=== PATIENT | male | born 1945 | race Caucasian/White ===

== ENCOUNTER 2019-07-07 12:11 | Outpatient (CLI) | payer OTHER, SELFPAY ==
--- NOTE | 2019-07-07 12:45 | USCV_ITS ---
Mulugeta Murillo Age: 73 Gender: M : 1945 Exam Date: 07/07/2019 12:25 Ordering Phys: Lukas Campbell DO Technologist: Exam Location: [facility] Indication: PVD RIGHT LEFT Brachial 184.00 mmHg Brachial 182.00 mmHg Pressure (mmHg) Waveform Pressure (mmHg) Waveform 165.00 BIOMETRICS ANALYST 120.00 155.00 DPA 126.00 0.84 Ankle/Brachial Index 0.68 0.80 Pre-Exercise Toe/Brachial Index 0.67 FINDINGS Slightly diminished resting GINNY on the right side Moderately diminished resting GINNY on the left side Normal resting TBI on the right side Slightly diminished resting TBI on the left side CONCLUSIONS 1. Features of moderate peripheral artery disease on the left side #2. Possible mild peripheral artery disease on the right side No similar previous studies are available for comparison Dr Blank Renteria MD FAC (Electronically Signed) Final Date: 07 July 2019 19:59 S
== END 2019-07-07 12:12 | disposition home or self-care (01) ==
LOC: US 12:12
PROVIDERS: Family Provider Emergency Medicine Emergency Medical Services; PCP Emergency Medicine Emergency Medical Services; Visit Provider Emergency Medicine Emergency Medical Services
DX: I73.9 Peripheral vascular disease, unspecified (principal)
CPT/HCPCS: 93922

== ENCOUNTER 2019-07-14 06:54 | Day surgery (SDC) | payer OTHER, SELFPAY ==
[2019-07-13 10:24] VITALS: BMI 32.9
--- NOTE | 2019-07-14 07:10 | ANES.PREANE2 ---
Pre-Anesthetic Assessment Pre-Anesthetic Assessment: Height/Weight: Height 1.68 m Weight 92.533 kg Proposed Procedure: Operation Date: 07/14/19 08:45 Proposed Procedures p EGD/Colon(Not Applicable) - Toney Belle MD s Colonoscopy(Not Applicable) - Toney Belle MD Social: Social History: Tobacco and No alcohol Exam: Pre-Anes Outpt Exam: alert, oriented x 3, clear to auscultation bilaterally (wheezes) and regular rate & rhythm Airway: Submandibular: WNL Cervical ROM: WNL MP: 2 Dentition: Other (very poor dentation) History/ROS: No significant history except as noted Pulmonary: Pulmonary: COPD and ALDANA CV/HEM: CV/HEM: Anemia and HTN : Comments: prostate ca Hepatic: Hepatic: None reported GI: GI: GERD (occ) Metabolic: Metabolic: Hyperlipidemia Musc/skel: Musc/skel: OA/DJD Neuropsych: Neuropsych: None reported Anesthetic Plan: ASA status: 3 Anesthesia: Anesthesia Evaluation and MAC Risk of > 500 ml blood loss (7ml/kg in children): No PFSH Anesthesia PFSH: Medical History Anemia Carcinoma in situ of prostate COPD (chronic obstructive pulmonary disease) Hyperlipemia Hypertension Surgical History History of colonoscopy (~2008) normal Family History Denies family history of Anesthesia complication Bleeding disorder Social History Smoking and tobacco status: current every day smoker Quit status (tobacco): has quit using tobacco Second hand smoke exposure: No Alcohol intake: never Desire information about alcohol rehabilitation?: No Adopted: No Caregiver/support person: Yes Lives independently: Yes Household members: spouse Marital status: Highest education level completed: High School Graduate service: Yes Current occupational status: employed Current occupational exposures/hazards: No Pets and animals: Yes Pets & animals: dog(s) History of recent travel: No Sexually active: No Current gender identity: Male Kami/Anabaptism: Religion Special kami needs: No Data Anesthesia Cardiac Studies: No Data to Display
[2019-07-14 07:48] VITALS: BP 156/84; PULSE 96; RESP 20; TEMP 36.3; O2SAT 94
--- NOTE | 2019-07-14 07:52 | W.PM.OPSUD ---
Surgery/Procedure H&P Update DATE OF PROCEDURE: July 14, 2019 DATE H&P PERFORMED: 07/01/19 H&P UPDATE INFORMATION: I have reviewed H&P completed within last 30 days, I have examined patient prior to procedure and No changes to prior documentation PREOP DIAGNOSIS: Anemia PLANNED PROCEDURE: Operation Date: 07/14/19 08:45 Proposed Procedures p EGD/Colon(Not Applicable) - Toney Belle MD s Colonoscopy(Not Applicable) - Toney Belle MD
[2019-07-14] MEDS: sodium chloride 0.9% 1,000 ML 30 ML IV (08:04)
[2019-07-14 09:01] VITALS: BP 162/83; PULSE 84; RESP 16; TEMP 36.4; O2SAT 99
--- NOTE | 2019-07-14 09:04 | ANE.PACU2 ---
 Inpatient post-anesthesia follow up: Airway intact: Yes Vital signs: Temperature 97.5 F Pulse Rate 84 Respiratory Rate 16 Blood Pressure 162/83 Pulse Oximetry 99 Oxygen Delivery Me thod Nasal Cannula Oxygen Flow Rate Fraction of Inspir ed Oxygen 3 Hydration adequate: Yes Nausea and vomiting: No Pain level: 1 Mental status: Baseline
[2019-07-14 09:11] VITALS: BP 169/84; PULSE 82; RESP 18; O2SAT 96
== END 2019-07-14 09:20 | disposition home or self-care (01) ==
PROVIDERS: Family Provider Emergency Medicine Emergency Medical Services; PCP Emergency Medicine Emergency Medical Services; Visit Provider Surgery
PROC: 0DJ08ZZ Inspection of Upper Intestinal Tract, Via Natural or Artificial Opening Endoscopic (ICD-10-PCS; CPT 43235; principal; 2019-07-14 08:45)
PROC: 0DJD8ZZ Inspection of Lower Intestinal Tract, Via Natural or Artificial Opening Endoscopic (ICD-10-PCS; CPT 45378; 2019-07-14 08:45)
DX: D50.9 Iron deficiency anemia, unspecified (principal); K57.30 Diverticulosis of large intestine without perforation or abscess without bleeding; K64.8 Other hemorrhoids; K44.9 Diaphragmatic hernia without obstruction or gangrene; J44.9 Chronic obstructive pulmonary disease, unspecified; F17.210 Nicotine dependence, cigarettes, uncomplicated; E78.5 Hyperlipidemia, unspecified; I10 Essential (primary) hypertension; Z85.46 Personal history of malignant neoplasm of prostate; M19.90 Unspecified osteoarthritis, unspecified site
CPT/HCPCS: 12345; 43239; 45378; 88305; J2704; J7030

== ENCOUNTER → 2019-08-06 10:55 | Outpatient (BNVA) | payer MEDICARE, SELFPAY | PROVIDERS: Family Provider Emergency Medicine Emergency Medical Services; PCP Emergency Medicine Emergency Medical Services; Visit Provider Emergency Medicine | DX: R07.81 Pleurodynia (principal); J43.9 Emphysema, unspecified | CPT/HCPCS: 71046 ==

== ENCOUNTER 2019-08-12 15:13 | Outpatient (CLI) | payer MEDICARE, OTHER, SELFPAY ==
--- NOTE | 2019-08-12 15:31 | MR_ITS ---
WS: [id number] MRI THORACIC SPINE WITHOUT CONTRAST TECHNIQUE: Sagittal T1, T2 and STIR imaging. Axial T2 imaging. Noncontrast imaging obtained. CLINICAL INFORMATION: RIB PAIN ON LEFT SIDE COMPARISON: MRI December 22, 2017 FINDINGS: Mild lumbar curve. Acute compression with edema involving the superior endplate at T5 with mild loss vertebral body height measuring approximately 20%. No retropulsion. Mild edema extends into the pedic les bilaterally. No high-grade central canal stenosis. Cord signal is normal. Chronic compression fra ctures T4 and T6 vertebral bodies stable since 2018. No significant disc extrusions or protrusions. A few tiny disc protrusions more prominent at T5-T6, T7-T8, T10-11, Schmorl's nodes in the lower thoracic spine. Normal visualized thoracic aorta. Mild to moderate facet arthropathy in the lower thoracic spine. Multilevel bony foraminal narrowing worse at right T2-3, le ft T5-6, right T9-T10, right T10-11. Normal visualized thoracic aorta. Partially visualized cysts in the right hepatic lobe MR/MR thoracic spin wo con* [id number] IMPRESSION: 1. Acute compression of the T5 superior endplate with mild loss vertebral body height and edema consistent with acute compression. No retropulsion. Edema ext ends into the right greater than left pedicles. 2. No high-grade central canal stenosis. 3. Chronic compression of the T4 and T6 vertebral bodies unchanged since 2018. 4. Cord signal is normal.
== END 2019-08-12 15:14 | disposition home or self-care (01) ==
LOC: RADWPI 15:19
PROVIDERS: Family Provider Emergency Medicine Emergency Medical Services; PCP Emergency Medicine Emergency Medical Services; Visit Provider Emergency Medicine
DX: G95.19 Other vascular myelopathies (principal); R07.81 Pleurodynia
CPT/HCPCS: 72146

== ENCOUNTER 2020-06-21 15:53 | Inpatient (IN) | payer OTHER, MEDICARE, SELFPAY ==
[2020-06-21] VITALS (11 sets, daily range): BP systolic 106–144; BP diastolic 56–75; PULSE 85–103; RESP 16–24; TEMP 36.4–36.7; O2SAT 93–97; BMI 30.7
--- NOTE | 2020-06-21 16:09 | ECG_ITS ---
[facility] Test Date: 2020-06-21 Pat Name: Mulugeta Murillo Department: Room: Gender: Male Family Psychologist: : 1945 Requested By: Apolinar Claros Order Number: [id number] Cortez MD: Blank Renteria M.D. Measurements Intervals [place] Rate: 89 P: 64 CA: 152 QRS: 3 QRSD: 79 T: 71 QT: 360 QTc: 440 Interpretive Statements SINUS RHYTHM No previous ECG available for comparison Electronically Signed On 06-21-2020 18:06:12 AGRICULTURAL CHEMIST by Blank Renteria M.D. [id number]
--- NOTE | 2020-06-21 16:09 | XR_ITS ---
WS: [id number] CHEST XRAY TECHNIQUE: Portable chest. CLINICAL INFORMATION: cp COMPARISON: August 06, 2019 FINDINGS: Heart: Normal cardiac silhouette. Lungs: Advanced chronic emphysematous changes. Chronic appearing interstitial thickening in the lung bases. No acute pulmonary infiltrates. Bones: Normal visualized bony structures. XR/XR chest 1V portable [id number] IMPRESSION: No acute chest findings
[2020-06-21 16:53] LABS: Basophils # 0.1 10^3/uL (0.0-0.1); Basophils % 0.7 %; Eosinophils # 0.1 10^3/uL (0.0-0.8); Eosinophils % 1.7 %; Hematocrit 32.5 % (42.0-52.0); Lymphocytes # 0.6 10^3/uL (0.8-4.8); Lymphocytes % 7.4 %; Mean Corpuscular HGB Conc 30.8 g/dL (30.0-36.0); Mean Corpuscular Hemoglobin 29.3 pg (28.0-34.0); Mean Corpuscular Volume 95.3 fL (80-94); Mean Platelet Volume 10.3 fL (7.4-10.4); Monocytes # 0.5 10^3/uL (0.2-0.9); Monocytes % 6.8 %; Neutrophils # 6.18 10^3/uL (1.8-7.7); Nucleated Red Blood Cells % 0 %; Platelet Count 271 10^3/cmm (130-400); Red Blood Count 3.41 10^6/uL (4.1-5.3); Red Cell Distribution Width 15.4 % (12.1-15.1); White Blood Count 7.5 10^3/uL (4.0-10.0)
[2020-06-21 17:13] LABS: D Dimer 1.94 ug/mIFEU (0-0.59)
[2020-06-21 17:35] LABS: Alanine Aminotransferase 18 U/L (0-41); Albumin Level 3.8 g/dL (3.5-5.2); Alkaline Phosphatase 79 IU/L (40-130); Aspartate Amino Transferase 18 U/L (0-40); Blood Urea Nitrogen 22 mg/dL (8-23); Calcium 8.9 mg/dL (8.5-10.5); Carbon Dioxide 27 mmol/L (22-29); Chloride 108 mmol/L (98-107); Globulin 2.3 g/dL (1.3-4.6); Glucose 115 mg/dL (65-115); NT Pro B Type Natriuretic Pept 2384 pg/mL (0-125); Osmolality Calculated 302 mOsm/kg (285-295); Sodium 144 mmol/L (136-145); Total Bilirubin 0.2 mg/dL (0.15-1.2); Total Protein 6.1 g/dL (6.6-8.7)
[2020-06-21 17:39] LABS: Troponin(5th) Baseline 252 ng/L (0-15)
--- NOTE | 2020-06-21 17:44 | PC.PHAR ---
[facility] am still [facility] The patient states they prescribed him iron, omeprazole and some kind of blood pressure medication. Pt states that he has not yet started these medications. I will update the medication list if/when I get a list from the [facility].
--- NOTE | 2020-06-21 17:59 | ED_ITS ---
HPI - Chest Pain General: Chief Complaint: Chest Pain Stated Complaint: nighttime heartburn/arm pain last 5 days Time Seen by Provider: 06/21/20 16:09 History of Present Illness: HPI narrative: The patient is a 74-year-old male who was sent to the ER by his primary care physician because he has been having midsternal what he calls heartburn when laying down for the past for 5 days he has had to sleep in a recliner as well because the pain gets to bed. He is tried several different antacids which have not helped him. He also has been having increased peripheral edema for which she was prescribed a water pill which he is not taking for the past 3 months because he does not like to urinate frequently as he has back pain and it hurts. Associated symptoms: Deny abdominal pain, dyspnea or palpitations Review of Systems General: Reports: 10 or more systems reviewed and unremarkable except in HPI and below Const: Denies: fatigue Eyes: Denies: change in vision, blurry vision or eye redness ENMT: Denies: throat pain, swelling of lips/tongue, ear or mastoid pain or nasal congestion Card: Reports: chest pain; Denies: palpitations, irregular heart rhythm, edema, dyspnea on exertion or orthopnea Resp: Denies: dyspnea, productive cough or non-productive cough GI: Reports: other (Heartburn); Denies: abdominal pain, diarrhea or GI cramping : Denies: flank pain, urinary frequency or urinary urgency Musc: Denies: neck pain, back pain, extremity pain, joint pain, joint redness, limited range of motion or muscle weakness Skin/Breast: Denies: rash, pruritus, erythema, skin pain or skin tenderness Neuro: Denies: headache(s), numbness in extremities, weakness in extremities, sensory changes, difficulty walking, dizziness, confusion or Slurred speech present Psych: Denies: anxiety or depression Endo: Denies: polyuria All/Imm: Denies: urticaria, throat swelling or tongue swelling PFSH ED PFSH: Medical History Anemia Carcinoma in situ of prostate COPD (chronic obstructive pulmonary disease) Hiatal hernia Hyperlipemia Hypertension Wedge compression fracture of unspecified thoracic vertebra, initial encounter for closed fracture Surgical History H/O esophagogastroduodenoscopy 07/14/2019: Hiatal hernia and duodenal polyps History of colonoscopy (~2008) 07/14/2019: Normal Family History Other No pertinent family history Social History Smoking and tobacco status: current every day smoker e-cigarettes E-Cigarette Details: vaporizer device Alcohol intake: never Substance/Drug Use: never Household members: spouse Housing: House Marital status: Current occupational status: employed 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 History of recent travel: No Kami/Anglican: Baptism Physical Exam Const: COMMON NORMALS: no acute distress, average body habitus, patient oriented x3, no limitations, healthy appearing, alert and well nourished GENERAL APPEARANCE: cooperative, comfortable, well kempt and well developed ORIENTATION/CONSCIOUSNESS: Yes awake, Yes oriented to person, Yes oriented to place and Yes oriented to time HENMT: COMMON NORMALS: normocephalic, external ears normal and Normal external nose present HEAD & SCALP: normal to inspection and normocephalic NOSE: Normal external nose present EXTERNAL EAR: Yes external ears normal MOUTH: Normal oral and palatal mucosa present THROAT: posterior oropharynx normal Eye: COMMON NORMALS: Equal, round and reactive pupils present and EOMs intact bilaterally GENERAL EYE: appearance normal, both eyes and all related structures PUPIL: Yes Equal, round and reactive pupils present Neck/C-Spine: COMMON NORMALS: full ROM, no lymphadenopathy, no meningeal signs and no JVD GENERAL: Yes normal visual inspection Lymph: LYMPHATIC: no lymphadenopathy noted Chest: COMMONS NORMALS: normal inspection of the chest and normal palpation of entire chest wall Resp: COMMON NORMALS: normal respiratory effort, No retractions, No use of accessory muscles, clear to auscultation bilaterally and percussion normal EFFORT & INSPECTION: Yes able to speak in complete sentences AUSCULTATION: clear to auscultation bilaterally PERCUSSION: percussion normal Cardio: COMMON NORMALS: no JVD, regular rate, regular rhythm, S1 normal heart sound present, S2 normal heart sound present and Peripheral pulses 2+ throughout RATE: regular rate RHYTHM: regular rhythm HEART SOUNDS: S1 normal heart sound present and S2 normal heart sound present PERIPHERAL PULSES: Peripheral pulses 2+ throughout GI: COMMON NORMALS: Normal to inspection, nondistended, normoactive bowel sounds present, Soft to palpation, non-tender and no masses INSPECTION: Yes normal to inspection PALPATION: Yes Soft to palpation : COMMON NORMALS: Yes no CVA tenderness BLADDER/KIDNEY EXAM: Yes no CVA tenderness Back/Pelvis: COMMON NORMALS: no CVA tenderness, thoracic and lumbar spine normal to inspection, no thoracic nor lumbar tenderness and thoraco-lumbar ROM normal Extremity: COMMON NORMALS: normal to inspection, full ROM, capillary refill normal, no joint enlargement and no pedal edema NARRATIVE EXTREMITY EXAM: 2+ peripheral edema to his mid calf bilaterally. GENERAL: Yes normal exam except as noted Neuro: COMMON NORMALS: patient oriented x3, CN's II-XII intact bilaterally, moves all extremities, no focal motor deficits, no sensory deficits noted and gait normal SENSORIUM/ORIENTATION: Yes alert, Yes oriented to person, Yes oriented to place and Yes oriented to time MENINGEAL SIGNS: Yes no meningeal signs Psych: COMMON NORMALS: mental status grossly normal, Normal thought process present, cooperative, normal affect and speech normal APPEARANCE: Yes well kempt ATTITUDE: Yes calm SPEECH: Yes normal speech THOUGHT PROCESS: Normal thought process present Skin: COMMON NORMALS: no rashes or lesions noted GENERAL SKIN EXAM: no rashes or lesions noted Course Vital Signs: Vital signs: Vital Signs Temperature 97.3 F L 06/23/20 07:12 Pulse Rate 105 H 06/23/20 07:12 Respiratory Rate 25 H 06/23/20 07:12 Blood Pressure 158/92 06/23/20 07:12 Pulse Oximetry 96 06/23/20 07:12 MDM - Chest Pain MDM Narrative: Medical decision making narrative: The patient came in complaining of heartburn. He had an elevated troponin and proBNP was severely elevated as well. He is likely in congestive heart failure. He was given IV Lasix and admitted to the hospitalist. Lab Data: Labs: Lab Results 06/21/20 06/21/20 06/21/20 Range/Units 16:28 16:28 16:28 WBC 7.5 (4.0-10.0) 10^3/ uL RBC 3.41 L (4.1-5.3) 10^6/u L Hgb 10.0 L (11.7-16.6) g/dL Hct 32.5 L (42.0-52.0) % MCV 95.3 H (80-94) fL MCH 29.3 (28.0-34.0) pg MCHC 30.8 (30.0-36.0) g/dL RDW 15.4 H (12.1-15.1) % Plt Count 271 (130-400) 10^3/c mm MPV 10.3 (7.4-10.4) fL Neut % (Auto) 83.0 % Lymph % (Auto) 7.4 % [place] % (Auto) 6.8 % Eos % (Auto) 1.7 % Baso % (Auto) 0.7 % Neut # (Auto) 6.18 (1.8-7.7) 10^3/u L Lymph # (Auto) 0.6 L (0.8-4.8) 10^3/u L [place] # (Auto) 0.5 (0.2-0.9) 10^3/u L Eos # (Auto) 0.1 (0.0-0.8) 10^3/u L Baso # (Auto) 0.1 (0.0-0.1) 10^3/u L Nucleated RBC % (a uto) 0 % Nucleated RBCs # 0.0 /100WBC D-Dimer 1.94 H (0-0.59) ug/mIFE U Sodium 144 (136-145) mmol/L Potassium 4.0 (3.5-5.1) mmol/L Chloride 108 H (98-107) mmol/L Carbon Dioxide 27 (22-29) mmol/L Anion Gap 13.0 (5-19) BUN 22 (8-23) mg/dL Creatinine 1.1 (0.7-1.2) mg/dL GFR Calculation Not Reportable Glucose 115 (65-115) mg/dL Calculated Osmolal ity 302 H (285-295) mOsm/k g Calcium 8.9 (8.5-10.5) mg/dL Iron (59-158) ug/dL TIBC mcg/dl % Saturation (20-50) % Unsat Iron Binding (112-347) ug/dL Ferritin (30-400) ng/mL Total Bilirubin 0.2 (0.15-1.2) mg/dL AST 18 (0-40) U/L ALT 18 (0-41) U/L Alkaline Phosphata se 79 (40-130) IU/L Troponin T Baselin e (0-15) ng/L NT-Pro-B Natriuret Pep 2384 H (0-125) pg/mL Total Protein 6.1 L (6.6-8.7) g/dL Albumin 3.8 (3.5-5.2) g/dL Globulin 2.3 (1.3-4.6) g/dL Procalcitonin (0-0.5) ng/mL TSH (0.27-4.20) uIU/ mL 06/21/20 06/21/20 06/21/20 Range/Units 16:28 16:28 16:28 WBC (4.0-10.0) 10^3/ uL RBC (4.1-5.3) 10^6/u L Hgb (11.7-16.6) g/dL Hct (42.0-52.0) % MCV (80-94) fL MCH (28.0-34.0) pg MCHC (30.0-36.0) g/dL RDW (12.1-15.1) % Plt Count (130-400) 10^3/c mm MPV (7.4-10.4) fL Neut % (Auto) % Lymph % (Auto) % [place] % (Auto) % Eos % (Auto) % Baso % (Auto) % Neut # (Auto) (1.8-7.7) 10^3/u L Lymph # (Auto) (0.8-4.8) 10^3/u L [place] # (Auto) (0.2-0.9) 10^3/u L Eos # (Auto) (0.0-0.8) 10^3/u L Baso # (Auto) (0.0-0.1) 10^3/u L Nucleated RBC % (a uto) % Nucleated RBCs # /100WBC D-Dimer (0-0.59) ug/mIFE U Sodium (136-145) mmol/L Potassium (3.5-5.1) mmol/L Chloride (98-107) mmol/L Carbon Dioxide (22-29) mmol/L Anion Gap (5-19) BUN (8-23) mg/dL Creatinine (0.7-1.2) mg/dL GFR Calculation Glucose (65-115) mg/dL Calculated Osmolal ity (285-295) mOsm/k g Calcium (8.5-10.5) mg/dL Iron 57 L (59-158) ug/dL TIBC 292 mcg/dl % Saturation 19.5 L (20-50) % Unsat Iron Binding 235 (112-347) ug/dL Ferritin 72 (30-400) ng/mL Total Bilirubin (0.15-1.2) mg/dL AST (0-40) U/L ALT (0-41) U/L Alkaline Phosphata se (40-130) IU/L Troponin T Baselin e 252 H* (0-15) ng/L NT-Pro-B Natriuret Pep (0-125) pg/mL Total Protein (6.6-8.7) g/dL Albumin (3.5-5.2) g/dL Globulin (1.3-4.6) g/dL Procalcitonin 0.18 (0-0.5) ng/mL TSH 2.27 (0.27-4.20) uIU/ mL Discharge Plan Discharge Patient Disposition: Admitted As Inpatient Admit Provider: Nick Grey Coding Level of Care Code ED [place] for Talha Luz
--- NOTE | 2020-06-21 18:08 | CTR_ITS ---
PROCEDURE INFORMATION: Exam: CT Angiography Chest With Contrast Exam date and time: 06/21/2020 6:23 PM Age: 74 years old Clinical indication: Shortness of breath; Additional info: Elevated d-dimer, possible pe TECHNIQUE: Imaging protocol: Computed tomographic angiography of the chest with intravenous contrast. 3D rendering (Not supervised by radiologist): MIP and/or 3D reconstructed images were created by the technologist. Radiation optimization: All CT scans at this facility use at least one of these dose optimization techniques: automated exposure control; mA and/or kV adjustment per patient size (includes targeted exams where dose is matched to clinical indication); or iterative reconstruction. Contrast material: [id number]; Contrast volume: 80 ml; Contrast route: INTRAVENOUS (IV); COMPARISON: CR XR chest 1V portable [id number] 06/21/2020 4:28 PM RADIATION DOSE METRICS: Total DLP (mGy-cm): 621.45 FINDINGS: Pulmonary arteries: The exam is positive for pulmonary emboli with subocclusive filling defects especially in the right lower lobe pulmonary artery branches. Aorta: Unremarkable. No aortic aneurysm. No aortic dissection. Lungs: There are severe emphysematous changes with multiple bulla. There is lingular and basilar atelectasis versus scarring. No airspace consolidation. Pleural spaces: Unremarkable. No pneumothorax. No pleural effusion. Heart: There is no saddle embolus or right heart strain. The right ventricle measures 3.4 cm and the left measures 4.9 cm. The RV/LV ratio is 0.8 Mediastinal space: A small hiatal hernia is present. Lymph nodes: Unremarkable. No enlarged lymph nodes. Liver: Multiple hepatic hypodensities are noted and most are too small to characterize. There is a 2.0 cm cyst left lobe of the liver image 419. Stomach and bowel: There is moderately excessive colonic stool content. Bones/joints: Chronic appearing compression fractures of T12 and L1 are noted. There is also chronic appearing anterior column fractures of T5, T6 and T7. No acute fracture or subluxation. There is osteopenia. Soft tissues: Unremarkable. CT/CT angio chest PE protcl [id number] IMPRESSION: 1. The exam is positive for pulmonary emboli with subocclusive filling defects especially in the right lower lobe pulmonary artery branches. 2. There are severe emphysematous changes. No airspace consolidation. 3. Multiple chronic appearing compression fractures are noted in the spine. Radiation Dose CTDIVOL = (mGy): DLP = 621.45 (mGy-cm)
--- NOTE | 2020-06-21 18:09 | ECG_ITS ---
[facility] Test Date: 2020-06-21 Pat Name: Mulugeta Murillo Department: Room: 101 Gender: Male Youth Care Worker: : 1945 Requested By: Apolinar Claros Order Number: [id number] Cortez MD: Idalia Cota M.D. Measurements Intervals [place] Rate: 86 P: 55 CT: 158 QRS: 11 QRSD: 78 T: 64 QT: 360 QTc: 432 Interpretive Statements SINUS RHYTHM Compared to ECG 06/21/2020 16:08:44 No significant changes Electronically Signed On 06-22-2020 22:27:37 PARKING OFFICER by Idalia Cota M.D. [id number]
[2020-06-21] MEDS: FUROsemide 10 mg/mL SDV 4mL 40 MG IVP (18:11)
--- NOTE | 2020-06-21 18:15 | PM.HP ---
Providers/Chief Complaint Admitting Physician: Nick Grey MD Primary Care Provider: Lukas Campbell DO Chief Complaint: nighttime heartburn/arm pain last 5 days History of Present Illness Mulugeta Murillo is a 74 year old male with past medical history of prostate cancer, iron deficiency anemia, COPD, chronic smoker who presented to the ER today because of ongoing chest discomfort which is burning-like chest pain retrosternally every night when he lies to sleep for last 5 days. Patient does not have any similar symptoms on walking around, after eating. Patient has never had this kind of symptoms in the past. Symptoms are associated with nausea but no vomiting. Patient states he supposed to be taking Lasix but has not been taking it for last couple of weeks because it makes him urinate more. He denies of having any dizziness, vomiting, diarrhea, fever, cough, expectoration, PND, orthopnea, more swelling in his legs than usual, long trip, known exposure to COVID-19. Blood work in the ER showed a white count of 7.5, hemoglobin of 10, platelet count of 271, D-dimer of 1.9, sodium 144, potassium of 4, creatinine of 1.1, alkaline phosphatase of 79, AST/ALT of 18/18, baseline troponin of 252, proBNP of 2384 with chest x-ray done in the ER having no acute findings and electrocardiogram done showing sinus rhythm with rate of 86 with poor R wave progressions Review of Systems General: Reports: 10 or more systems reviewed and unremarkable except in HPI and below Const: Denies: fever(s), chills, body aches, change in appetite, change in weight, malaise, night sweats, diaphoresis, change in sleep pattern, daytime sleepiness or snoring Eyes: Denies: change in vision, blurry vision, photophobia, eye discomfort or eye discharge ENMT: Denies: throat pain, enlarged tonsils, hoarseness, mouth pain, oral sores, dry mouth, tinnitus, nasal congestion or post nasal drip Card: Denies: chest pain, palpitations, irregular heart rhythm, edema, swelling of feet/ankles, lightheadedness, syncope, pre-syncope, dyspnea on exertion, orthopnea, leg pain with exertion or acrocyanosis Resp: Denies: dyspnea, productive cough, non-productive cough, wheezing, stridor, pain on inspiration, change in phlegm color, hemoptysis or chest congestion GI: Denies: abdominal pain, nausea, vomiting, hematemesis, coffee ground emesis, dysphagia, heartburn, diarrhea, constipation, bloating, GI cramping, change in bowel habits, pain on defecation, hematochezia or melena : Denies: flank pain, difficulty urinating, dysuria, urinary frequency, urinary urgency, urinary hesitancy, urinary dribbling, difficulty starting urination, change in urine stream, nocturia or hematuria Musc: Denies: neck pain, back pain, extremity pain, joint pain, joint swelling, joint redness, joint stiffness or limited range of motion Neuro: Denies: headache(s), numbness in extremities, weakness in extremities, sensory changes, lack of coordination, difficulty walking, frequent falls, dizziness, vertigo, confusion, Slurred speech present, difficulty communicating thoughts or seizure-like activity Psych: Denies: anxiety, depression, mood swings, panic attacks, hopelessness or irritability Endo: Denies: polyuria, polydipsia, tired all the time, cold intolerance, excessive sweating, flushing or heat intolerance Scott/Lymph: Denies: easy bruising or easy bleeding All/Imm: Denies: tongue swelling, facial swelling or acute wheezing Medications/Allergies Home Medications Medication Instructions Recorded Confirmed Last Taken Type albuterol sulfate 90 mcg/actuation 2 inh INHALATION QID PRN each 06/28/19 06/21/20 06/21/20 History breath activated powder inhaler budesonide-formoterol HFA 160 2 puff INHALATION BID@0600,1700 06/28/19 06/21/20 06/21/20 History mcg-4.5 mcg/actuation aerosol inhaler diltiazem HCl 240 mg capsule,24 240 mg PO DAILY@0600 06/28/19 06/21/20 06/21/20 History hr,extended release montelukast 10 mg tablet 10 mg PO DAILY@1700 06/28/19 06/21/20 06/20/20 History Eligard (3 month) 22.2 mg SUBCUT DIRECTED 07/13/19 06/21/20 06/13/19 History abiraterone 1,000 mg PO DAILY@0600 07/13/19 06/21/20 06/21/20 History aspirin 81 mg PO DAILY@0600 07/13/19 06/21/20 06/21/20 History magnesium 250 mg PO DAILY@1700 07/13/19 06/21/20 06/20/20 History potassium chloride 8 meq PO DAILY@1700 07/13/19 06/21/20 06/20/20 History prednisolone 2.5 mg PO BID@0600,1700 07/13/19 06/21/20 06/21/20 History krill oil 1 tab PO DAILY@1700 06/21/20 06/21/20 06/20/20 History pantoprazole 40 mg PO DAILY@0600 06/21/20 06/21/20 06/21/20 History rosuvastatin 2.5 mg PO DAILY@0600 06/21/20 06/21/20 Unknown History silodosin 8 mg PO BEDTIME@199906/21/20 06/21/20 Unknown History Allergies Allergy/AdvReac Type Severity Reaction Status Date / Time Meqrspt-Jwz-Jpt Reductase AdvReac Unknown back pain Verified 10/03/19 09:10 Inhibitor atorvastatin AdvReac ADR-Back Verified 09/30/19 08:34 Pain PFSH Acute PFSH: Medical History (Updated 06/21/20 @ 18:47 by Nick Grey MD) Anemia Carcinoma in situ of prostate COPD (chronic obstructive pulmonary disease) Hyperlipemia Hypertension Wedge compression fracture of unspecified thoracic vertebra, initial encounter for closed fracture Surgical History H/O esophagogastroduodenoscopy 07/14/2019: Hiatal hernia and duodenal polyps History of colonoscopy (~2008) 07/14/2019: Normal Family History (Updated 10/03/19 @ 09:13 by Emily Hendricks LPN) Other No pertinent family history Social History (Updated 06/21/20 @ 18:46 by Nick Grey MD) Smoking and tobacco status: current every day smoker e-cigarettes E-Cigarette Details: vaporizer device Alcohol intake: never Substance/Drug Use: never Household members: spouse Housing: House Marital status: Current occupational status: employed 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 History of recent travel: No Kami/Roman Catholic: Sabianism Vitals/I&O/Wt Last Vital Signs Temp 97.9 F 06/21/20 16:01 Pulse 87 06/21/20 18:00 Resp 23 H 06/21/20 18:00 BP 135/67 06/21/20 18:00 Pulse Ox 95 06/21/20 18:00 Weight last 48 hrs Weight 86.183 kg Physical Exam Narrative: EXAM NARRATIVE: General: No acute distress, AO x3, pale, morbidly obese HEENT: PERRLA, pupils bilaterally equal and reactive Chest: Normal vesicular breath sounds, no added sounds, equal good air entry bilaterally CVS: S1-S2 regular, soft pansystolic murmur at apex, no tachycardia, no gallops, no rubs Abdomen: Soft, nontender, no organomegaly, bowel sounds present Neuro: No focal deficits, no facial deformity, AO x3, power 5/5 in all limbs Data : 06/22/20 04:25 06/22/20 04:25 A&P Assessment and plan (1) Chest pain: Status: Acute (2) NSTEMI (non-ST elevated myocardial infarction): Status: Acute (3) Anemia: Status: Acute (4) Hypertension: Status: Acute (5) Hyperlipemia: Status: Acute (6) COPD (chronic obstructive pulmonary disease): Status: Acute Additional A&P Information Chest pain: In this patient can be due to CAD given risk factors and elevated troponin on presentation, can be due to PE due to clear CxR with elevated dimer, trop and BNP or can be due to GERD given h/o steroid intake without PPI. Troponin T on baseline elevated 252. Patient has extensive risk factors including hypertension, hyperlipidemia, chronic smoking, family history. Cycle troponins. Cycle EKGs. Sublingual nitro as needed for pain. Oxygen supplementation keeping saturation above 94%. Full dose anticoagulation with Lovenox 1 mg/kg body weight every 12 hourly. Full dose aspirin 325 mg once followed by 81 mg daily, start on high intensity statins. Check HbA1c, lipid panel, iron panel, ferritin, TSH. Check echocardiogram. As patient's D-dimer, proBNP is elevated without any real evidence of congestion on the chest x-ray and saturating well on room air we will also do a CTA to rule out pulmonary embolism. Continue home dose of Cardizem for now. Depending on the troponin trend and symptomatology of chest pain overnight will decide about stress test tomorrow morning versus possible cardiac angiogram. We will consult cardiology. Protonix BID and carafate with meals. Recent EGD and Colonoscopy done in 2020 noted to be WNL except hiatal hernia. Hypertension: Goal blood pressure less than 140/90 allergy. Continue home dose of Cardizem. COPD: Duo nebs every 6 hour, budesonide twice daily. Oxygen supplementation keeping saturation over 94%. CODE STATUS: Discussed in detail with patient. He would like to be full code. Cardiac diet, n.p.o. after midnight Full dose Lovenox. Protonix for PUD prophylaxis Attestations Medical Necessity Statement*: Admission for more than 2 midnights for non-ST elevation AR Time Spent in Patient Care: Greater than 35 minutes (>than 50% of time spent in counselling and/or direct pt care on unit). Coding Level of Care Code Acute Gas Regulator Repairer for Talha Luz Diagnoses Chest pain R07.9 NSTEMI (non-ST elevated myocardial infarction) I21.4 Anemia D64.9 Hypertension I10 Hyperlipemia E78.5 COPD (chronic obstructive pulmonary disease) J44.9
[2020-06-21] MEDS: iodixanol 320 mg/mL 100mL Btl IV (18:46)
--- NOTE | 2020-06-21 19:04 | ECG_ITS ---
[facility] Test Date: 2020-06-22 Pat Name: Mulugeta Murillo Department: Room: 101 Gender: Male Guest Services Attendant: : 1945 Requested By: Nick Grey Order Number: [id number] Diego MD: Idalia Cota M.D. Interpretive Statements NAME OF STUDY: LEXISCAN SESTAMIBI STRESS TEST INDICATION: NSTEMI PROCEDURE: At the baseline, the blood pressure was 121/66 mmHg with a heart rate of 97 bpm. The electrocardiogram showed normal sinus rhythm, normal axis with poor anterior R wave progression. The Lexiscan was infused over a period of 20 seconds. A total of 0.4 milligrams of Lexiscan was infused. The stress phase was continued for a total of 5 minutes. Heart rate at the end of the stress phase was 114 beats per with a blood pressure of 135/62 mmHg. The EKG at the peak infusion revealed sinus tachycardia with no significant ST-T wave changes. Study was terminated due to protocol completion. Sestamibi was injected 20 seconds after the Lexiscan infusion. Blood pressure at the end of the recovery phase was 169/70 mmHg with a heart rate of 97 beats per minute. CONCLUSION: 1. Normal EKG response to LexiScan infusion. 2. No LexiScan induced chest pain or cardiac arrhythmia. 3. Normal blood pressure and heart rate response. 4. Sestamibi/sestamibi perfusion scan pending; see separate report. Electronically Signed On 06-22-2020 10:53:01 CAPTAIN'S ASSISTANT by Idalia Cota M.D. [id number]
[2020-06-21 19:07] LABS: Ferritin 72 ng/mL (30-400); Procalcitonin 0.18 ng/mL (0-0.5); Thyroid Stimulating Hormone 2.27 uIU/mL (0.27-4.20)
[2020-06-21 19:18] LABS: Iron 57 ug/dL (59-158); Percent Saturation 19.5 % (20-50); Total Iron Binding Capacity 292 mcg/dl; Unsaturated Iron Binding 235 ug/dL (112-347)
[2020-06-21 19:32] LABS: Troponin 5 2HR 241.8 ng/L (0-15); Troponin 5 2HR Delta -10.2 ABS# (0-10)
[2020-06-21] MEDS: atorvastatin 40 mg Tablet 80 MG PO (19:36)
[2020-06-21] MEDS: sucralfate 1 gm/10 mL Oral Liq UDC PO (19:36)
[2020-06-21] MEDS: aspirin 325 mg EC Tablet PO (19:36)
[2020-06-21] MEDS: enoxaparin 100 mg/mL Syringe 90 MG SUBCUT (19:37)
--- NOTE | 2020-06-21 19:40 | PC.NURSE ---
Patient has statins listed as an adverse reaction. He states it causes him back pain. Patient does not report a severe reaction to it.
--- NOTE | 2020-06-21 20:08 | PM.EVENT ---
Event Note Event Note: Was called by V rad for pulmonary embolism positive findings on CTA chest, on review of charts patient is already on therapeutic dose of Lovenox, saturating well on room air with normal hemodynamics, no right heart strain
--- NOTE | 2020-06-21 21:17 | PC.NURSE ---
Patient does not complain of any chest pain or heartburn at this time. Patient educated to notify me if he has any pain throughout the night.
[2020-06-21] MEDS: ipratropium-albuterol 3 mL Neb INHALATION (21:21)
--- NOTE | 2020-06-21 22:09 | ECG_ITS ---
[facility] Test Date: 2020-06-21 Pat Name: Mulugeta Murillo Department: Room: 101 Gender: Male Harbor Pilot: : 1945 Requested By: Apolinar Claros Order Number: [id number] Cortez MD: Idalia Cota M.D. Measurements Intervals Douglas Rate: 99 P: 74 DC: 155 QRS: 0 QRSD: 77 T: 66 QT: 331 QTc: 425 Interpretive Statements SINUS RHYTHM Compared to ECG 06/21/2020 18:25:09 No significant changes Electronically Signed On 06-22-2020 22:26:08 [employer] by Idalia Cota M.D. [id number]
[2020-06-21 22:38] LABS: Add Urine Culture? No; Bilirubin Urine Neg (Negative); Blood Urine Neg (Negative); Glucose Urine UA Norm (Normal); Ketones Urine Negative (Negative); Leukocyte Esterase Urine Negative (Negative); Nitrate Urine Negative (Negative); Protein Urine Neg (Negative); Specific Gravity, Urine 1.005 (1.005-1.030); Squamous Epithelial Cell Urine RARE /hpf (0-5); Urine Appearance Clear (CLEAR); Urine Color Colorless (Yellow); Urobilinogen Urine Norm (Negative)
[2020-06-21 23:22] LABS: Troponin 5 6HR 249.9 ng/L (0-15); Troponin 5 6HR Delta -2.1 ng/L (0-12)
[2020-06-22] VITALS (17 sets, daily range): BP systolic 103–173; BP diastolic 58–75; PULSE 83–98; RESP 15–18; TEMP 36.7–37.3; O2SAT 90–96
[2020-06-22] MEDS: ipratropium-albuterol 3 mL Neb INHALATION ×4 (02:58→21:22)
[2020-06-22] MEDS: alum-mag-hydroxide-sime 30 mL UDC 15 ML PO (03:31)
--- NOTE | 2020-06-22 04:01 | PC.NURSE ---
Dr. Barajas notified of patient complaining of heartburn. Notified that that patient had elevated troponins on admit. Notified that Maalox was given and only helped for a few minutes and then it came back per patient. Ordered to give GI cocktail.
--- NOTE | 2020-06-22 04:27 | PC.NURSE ---
Went into room to give ordered GI cocktail and patient states oh I'm good now, it went away. Patient educated to let me know if it comes back and verbalized understanding.
[2020-06-22 04:42] LABS: Basophils % 0.4 %; Eosinophils # 0.1 10^3/uL (0.0-0.8); Eosinophils % 1.4 %; Hematocrit 28.9 % (42.0-52.0); Hemoglobin 8.7 g/dL (11.7-16.6); Lymphocytes # 0.6 10^3/uL (0.8-4.8); Mean Corpuscular HGB Conc 30.1 g/dL (30.0-36.0); Mean Corpuscular Hemoglobin 28.6 pg (28.0-34.0); Mean Corpuscular Volume 95.1 fL (80-94); Monocytes # 0.4 10^3/uL (0.2-0.9); Monocytes % 8.9 %; Neutrophils # 3.67 10^3/uL (1.8-7.7); Neutrophils % 76.1 %; Nucleated Red Blood Cells % 0 %; Platelet Count 220 10^3/cmm (130-400); Red Blood Count 3.04 10^6/uL (4.1-5.3); Red Cell Distribution Width 15.8 % (12.1-15.1); White Blood Count 4.8 10^3/uL (4.0-10.0)
[2020-06-22 04:56] LABS: Alanine Aminotransferase 16 U/L (0-41); Albumin Level 3.4 g/dL (3.5-5.2); Alkaline Phosphatase 69 IU/L (40-130); Anion Gap 13.6 (5-19); Aspartate Amino Transferase 16 U/L (0-40); Blood Urea Nitrogen 24 mg/dL (8-23); Calcium 8.7 mg/dL (8.5-10.5); Carbon Dioxide 26 mmol/L (22-29); Chloride 109 mmol/L (98-107); Globulin 2.4 g/dL (1.3-4.6); Glucose 104 mg/dL (65-115); Magnesium 2.1 mg/dL (1.7-2.3); Osmolality Calculated 304 mOsm/kg (285-295); Phosphorus 2.4 mg/dL (2.5-4.5); Potassium 3.6 mmol/L (3.5-5.1); Sodium 145 mmol/L (136-145); Total Bilirubin 0.2 mg/dL (0.15-1.2); Total Protein 5.8 g/dL (6.6-8.7)
--- NOTE | 2020-06-22 06:01 | PC.NURSE ---
Patient has no complaints at this time. Will monitor.
[2020-06-22] MEDS: dilTIAZem ER (24HR) 240 mg Capsule PO (06:02)
[2020-06-22] MEDS: pantoprazole DR 40 mg Tablet PO ×2 (06:02→18:00)
[2020-06-22] MEDS: enoxaparin 100 mg/mL Syringe 90 MG SUBCUT ×2 (06:02→18:02)
[2020-06-22] MEDS: aspirin 81 mg EC Tablet PO (06:02)
[2020-06-22] MEDS: sucralfate 1 gm/10 mL Oral Liq UDC PO ×4 (06:02→20:15)
[2020-06-22 06:03] LABS: HDL Cholesterol 51 mg/dL (60-100); Triglycerides 139 mg/dL (0-150); VLDL Cholestrol Calculation 28 mg/dL (0-30)
[2020-06-22 06:18] LABS: Estmated Average Glucose 97
[2020-06-22 06:47] LABS: Chol HDL Ratio 2.94 mg/dL (1.0-5.00); Cholesterol 150 mg/dL (0-200); LDL Cholesterol Calculated 71 mg/dL (50-129)
[2020-06-22] MEDS: regadenoson 0.4 Mg/5 ml Syringe IVP (08:12)
--- NOTE | 2020-06-22 08:58 | P.PN_ITS ---
Subjective Subjective: Interval history: Patient reported left chest morning last night which lasted for around 45 minutes. He states his symptoms were associated with elevated blood pressures. Denies any nausea, vomiting, headache. Blood pressures overnight have remained stable and afebrile. Patient today morning seen after Lexiscan. Discussed in detail regarding the diagnosis of pulmonary embolism and need of anticoagulation. Vitals/I&O/Wt Last Vital Signs Temp 98.0 F 06/22/20 04:00 Pulse 97 06/22/20 08:10 Resp 15 06/22/20 04:00 BP 173/75 06/22/20 08:10 Pulse Ox 93 06/22/20 04:00 06/21/20 06/22/20 06/22/20 22:59 06:59 14:59 Intake Total 300 / 300 350 / 350 Output Total 750 / 750 250 / 1000 Balance -750 / -750 50 / -700 350 / 350 Weight last 48 hrs Weight 87.725 kg Weight 86.183 kg Physical Exam Narrative: EXAM NARRATIVE: General: No acute distress, AO x3, pale, morbidly obese HEENT: PERRLA, pupils bilaterally equal and reactive Chest: Bilateral bronchial breath sounds, occasional rhonchi all over the lung avilez, equal good air entry bilaterally CVS: S1-S2 regular, soft pansystolic murmur at apex, no tachycardia, no gallops, no rubs Abdomen: Soft, nontender, no organomegaly, bowel sounds present Neuro: No focal deficits, no facial deformity, AO x3, power 5/5 in all limbs Data : 06/22/20 04:25 06/22/20 04:25 A&P Assessment and plan (1) Pulmonary emboli: Status: Acute (2) Chest pain: Status: Acute (3) Dvt femoral (deep venous thrombosis): Status: Acute (4) JODI (acute kidney injury): Status: Acute (5) COPD (chronic obstructive pulmonary disease): Status: Acute (6) Hyperlipemia: Status: Acute (7) Hypertension: Status: Acute (8) Anemia: Status: Acute Additional A&P Information Chest pain: Symptoms most likely secondary to submassive PE found on CTA yesterday. 1 given the severe risk factors cannot rule out CAD. Lexiscan done and results are awaited. Overnight troponins trending down but still elevated. Patient did have a symptom overnight when he had retrosternal burning. Continue with aspirin 81 mg, statins. Will decrease to 20 mg daily as per the lipid panel. Iron panel, TSH, procalcitonin results are appreciated. Lexiscan and echocardiogram results awaited. For pulmonary embolism: Associated lower limb DVT. Continue with full anticoagulation. We will switch over from Lovenox to Eliquis. Start Eliquis 10 mg twice daily from evening. Patient will require 10 mg daily for next 7 days followed by 5 mg twice daily. Most likely patient does require anticoagulation for life due to current history of prostate cancer. Protonix BID and carafate with meals. Recent EGD and Colonoscopy done in 2019 noted to be WNL except hiatal hernia. Hypertension: Goal blood pressure less than 140/90 mmHg. Continue home dose of Cardizem. COPD: Duo nebs every 6 hour, budesonide twice daily. Oxygen supplementation keeping saturation over 94%. JODI: Most likely secondary to Lasix dose given in the ER along with n.p.o. status overnight for Lexiscan today morning. Have encouraged patient to increase oral intake today morning. Start patient on insulin 50 cc/h for 1 L. Anemia: As stated above patient recently had a EGD and colonoscopy which were both resulted in normal limits. Continuation of Protonix 40 mg twice daily as patient is on chronic prednisone as an outpatient. Continue with Carafate you as an outpatient. Iron panel appreciated. Start patient on oral supplementation. Also check vitamin B12, folate levels. CODE STATUS: Discussed in detail with patient. He would like to be full code. Cardiac diet Full dose Lovenox. Protonix for PUD prophylaxis Attestations Medical Necessity Statement*: Requires further hospitalization for management of pulmonary embolism, acute DVT while still is ruled out with Lexiscan, mild JODI requiring IV fluids. Time Spent in Patient Care: Greater than 35 minutes (>than 50% of time spent in counselling and/or direct pt care on unit) . Coding Level of Care Code Acute Supervisor Sawing And Assembly for Talha Martinezd Diagnoses Pulmonary emboli I26.99 Chest pain R07.9 Dvt femoral (deep venous thrombosis) I82.419 JODI (acute kidney injury) N17.9 COPD (chronic obstructive pulmonary disease) J44.9 Hyperlipemia E78.5 Hypertension I10 Anemia D64.9
--- NOTE | 2020-06-22 09:53 | PC.NURSE ---
return from cardiac stress test.tolerated well.no chest pain reported.
[2020-06-22] MEDS: budesonide 0.5 mg/2 mL Neb INHALATION ×2 (10:15→21:22)
[2020-06-22] MEDS: docusate sodium 100 mg Capsule PO (10:22)
[2020-06-22] MEDS: bisacodyl 5 mg Tablet 10 MG PO (10:22)
[2020-06-22] MEDS: ferrous sulfate EC 325 mg Tablet PO ×2 (10:22→18:00)
[2020-06-22] MEDS: sodium chloride 0.9% 1,000 ML 50 ML IV (10:23)
[2020-06-22] MEDS: predniSONE 1 mg Tablet 3 MG PO ×2 (10:23→17:58)
--- NOTE | 2020-06-22 12:26 | PC.CHAP ---
Pastoral Care Encounter/Spiritual Assessment Type of Contact [] Declined economics lecturer visit [] Patient/Family/Request visit [] Outpatient visit [] Follow-up visit [] Physician referral [] Code/Alert [xx] Routine visit [] Staff referral [] Actively dying [] Patient sleeping [] Family support [] [] Out of room [] Palliative care [] [] Receiving care in room [] Pre-surgical visit [] Trauma [] Long length of stay [] ICU visit [] Other: Relational/Emotional Strength [xx] Patient feels connected with others/family/visitors/staff [] Distress [] Loneliness/isolation [] Abandonment Spirituality of Patient [xx] Person of Kami [xx] Attends [employer] of their Kami [xx] Believes in Prayer [] Reads Bible or Hinduism materials [] There are Spiritual issues to be addressed Seed Production Field Supervisor Interventions [xx] Prayer [xx] Active listening [xx] Non-anxious presence [] Spiritual/emotional support [] Crisis/trauma care [] Spiritual counseling [] Bereavement support [] Provided bereavement packet [] Provided Bible/devotional materials [] Provided toy/stuffed animal, coloring book to patient or family member [] Provided Communion [] Anointing/[place] [] Salvation [xx] Completed spiritual assessment [] Other: Impact on Illness or Injury [] Angry [] Fearful [] Anxious [] Often cries [] Exhaustion [] Unable to work [] Unable to attend restoration [] Unable to walk/stand [] Unable to read [] Unable to drive [] Unable to eat/drink [] Unable to sleep [] Unable to be with family [] Patient intubated [] Other: Summary Patient requesgted prayer for pain in his back which is not why he is in hospital. Patient is also concerned about test results he has not yet received. Time spent with patient 8 minutes
--- NOTE | 2020-06-22 14:16 | P.CONIM_ITS ---
Providers/Reason For Consult Consulting Physican/Specialty*: Dr. Cota, cardiology Reason for Consult*: Chest pain and elevated troponin Attending Physician: Nick Grey MD Primary Care Provider: Lukas Campbell DO History of Present Illness History of Present Illness Mulugeta Murillo is a 74 year old male with PMHx of HTN, HLD, former smoker (1-2 PPD, quit 10 years back), currently vaping, COPD on chronic prednisone, h/o prostae cancer, chronic back pain presented for evaluation of Chest pains. Chest pains described as indigestion retro-sternal in location 15/10 in intensity at its worst and can last upto 1 hr with intermittent radiation to both arms. This happens mostly at night and not so much during the day and has been happening for last 5 days. He took pepto-bismol at home with some relief. [facility] by for the same. EKG with sinus rhythm, normal axis and normal St and T's. Poor R wave progression noted in 1 EKG. Troponin T elevated 252--> 242--> 245. CTA chest showed pulmonary emboli with subocclusive filling defects especially in the right lower lobe pulmonary artery branches. There are severe emphysematous changes. Venous duplex with occlusive DVT from Left femoral vein to left PTV. I was called this morning after patient was already injected with rest dose to check if stress test is needed. Patient complains of chest pain this morning as well. History from patient, and chart. Last echo per patient last year that was normal and normal cath in . Review of Systems General: Reports: 10 or more systems reviewed and unremarkable except in HPI and below Const: Denies: fever(s), chills, body aches, change in appetite, change in weight, night sweats or diaphoresis Eyes: Denies: change in vision or blurry vision ENMT: Denies: throat pain, enlarged tonsils, hoarseness, nasal congestion or post nasal drip Card: Reports: chest pain and swelling of feet/ankles; Denies: palpitations, irregular heart rhythm, edema, lightheadedness, syncope, pre-syncope, dyspnea on exertion, orthopnea or leg pain with exertion Resp: Denies: dyspnea, productive cough, non-productive cough, pain on inspiration, change in phlegm color, hemoptysis or chest congestion GI: Reports: heartburn; Denies: abdominal pain, nausea, vomiting, hematemesis, coffee ground emesis, dysphagia, diarrhea, constipation, bloating, GI cramping, change in bowel habits, pain on defecation, hematochezia or melena : Denies: flank pain, difficulty urinating or hematuria Musc: Reports: back pain; Denies: neck pain, extremity pain, joint pain, joint redness or limited range of motion Neuro: Denies: headache(s), numbness in extremities, weakness in extremities, sensory changes, lack of coordination, difficulty walking, frequent falls, dizziness, vertigo, confusion, Slurred speech present or difficulty communicating thoughts Psych: Denies: anxiety, depression, mood swings or panic attacks Endo: Denies: tired all the time, cold intolerance, excessive sweating, flushing or heat intolerance Scott/Lymph: Denies: easy bruising or easy bleeding All/Imm: Denies: tongue swelling, facial swelling or acute wheezing Meds/Allergies Home Medications and Allergies Home Medications Medication Instructions Recorded Confirmed Last Taken Type albuterol sulfate 90 mcg/actuation 2 inh INHALATION QID PRN each 06/28/19 06/21/20 06/21/20 History breath activated powder inhaler budesonide-formoterol HFA 160 2 puff INHALATION BID@0600,1700 06/28/19 06/21/20 06/21/20 History mcg-4.5 mcg/actuation aerosol inhaler diltiazem HCl 240 mg capsule,24 240 mg PO DAILY@0600 06/28/19 06/21/20 06/21/20 History hr,extended release montelukast 10 mg tablet 10 mg PO DAILY@1700 06/28/19 06/21/20 06/20/20 History Eligard (3 month) 22.2 mg SUBCUT DIRECTED 07/13/19 06/21/20 06/13/19 History abiraterone 1,000 mg PO DAILY@0600 07/13/19 06/21/20 06/21/20 History aspirin 81 mg PO DAILY@0600 07/13/19 06/21/20 06/21/20 History magnesium 250 mg PO DAILY@1700 07/13/19 06/21/20 06/20/20 History potassium chloride 8 meq PO DAILY@1700 02/19/20 01/28/21 01/27/21 History prednisolone 2.5 mg PO BID@0600,1700 07/13/19 06/21/20 06/21/20 History krill oil 1 tab PO DAILY@17006/21/20 06/21/20 06/20/20 History pantoprazole 40 mg PO DAILY@0606/21/20 06/21/20 06/21/20 History rosuvastatin 2.5 mg PO DAILY@59906/21/20 06/21/20 Unknown History silodosin 8 mg PO BEDTIME@199906/21/20 06/21/20 Unknown History Allergies Allergy/AdvReac Type Severity Reaction Status Date / Time Jjvjale-Aqv-Mto Reductase AdvReac Unknown back pain Verified 10/03/19 09:10 Inhibitor atorvastatin AdvReac ADR-Back Verified 09/30/19 08:34 Pain Current Medications Current Medications Generic Name Dose Route Start Last Admin Trade Name Freq PRN Reason Stop Dose Admin Al Hydrox/Mg Hydrox/Simethicone 15 ml 06/21/20 19:04 06/22/20 03:31 Hcjt-Dqy-Qgoqcgmia-Danette 30 Ml Udc PO 15 ml Q6H PRN Administration INDIGESTION Albuterol/Ipratropium 3 ml 06/21/20 21:00 06/22/20 10:15 Ipratropium-Albuterol 3 Ml Neb INHALATION 3 ml Q6H.RESPIRATORY EMRE Administration Aspirin 81 mg 06/22/20 06:00 06/22/20 06:02 Aspirin 81 Mg Ec Tablet PO 81 mg DAILY@0600 EMRE Administration Bisacodyl 10 mg 06/21/20 19:04 06/22/20 10:22 Bisacodyl 5 Mg Tablet PO 10 mg DAILY PRN Administration CONSTIPATION Budesonide 0.5 mg 06/22/20 09:00 06/22/20 10:15 Budesonide 0.5 Mg/2 Ml Neb INHALATION 0.5 mg BID EMRE Administration Diltiazem HCl 240 mg 06/22/20 06:00 06/22/20 06:02 Diltiazem Er (24hr) 240 Mg Capsule PO 240 mg DAILY@0600 EMRE Administration Docusate Sodium 100 mg 06/22/20 09:00 06/22/20 10:22 Docusate Sodium 100 Mg Capsule PO 100 mg BID EMRE Administration Ferrous Sulfate 325 mg 06/22/20 08:55 06/22/20 10:22 Ferrous Sulfate Ec 325 Mg Tablet PO 325 mg BIDWM EMRE Administration Sodium Chloride 1,000 mls @ 50 mls/hr 06/22/20 10:00 06/22/20 10:23 Sodium Chloride 0.9% IV 50 mls/hr .Q20H EMRE Administration Non-Formulary Medication 8 mg 06/21/20 20:00 06/21/20 19:24 Silodosin PO Not Given BEDTIME@1999 EMRE Prednisone 3 mg 06/22/20 09:00 06/22/20 10:23 Prednisone 1 Mg Tablet PO 3 mg BID EMRE Administration Sucralfate 1 gm 06/21/20 21:00 06/22/20 10:23 Sucralfate 1 Gm/10 Ml Oral Liq Udc PO 1 gm AC&BEDTIME EMRE Administration PFSH Acute PFSH: Medical History Anemia Carcinoma in situ of prostate COPD (chronic obstructive pulmonary disease) Hiatal hernia Hyperlipemia Hypertension Wedge compression fracture of unspecified thoracic vertebra, initial encounter for closed fracture Surgical History H/O esophagogastroduodenoscopy 07/14/2019: Hiatal hernia and duodenal polyps History of colonoscopy (~2008) 07/14/2019: Normal Family History Other No pertinent family history Social History Smoking and tobacco status: current every day smoker e-cigarettes E-Cigarette Details: vaporizer device Alcohol intake: never Substance/Drug Use: never Household members: spouse Housing: House Marital status: Current occupational status: employed 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 Pupils equal round reactive to light. No pallor or icterus. NECK: central trachea, No JVD. No carotid bruit. CARDIOVASCULAR SYSTEM: S1-S2 regular. No S3 or S4 present. No murmur rubs or gallops. RESPIRATORY SYSTEM: Chest clear to auscultation. No wheezes rhonchi or rubs heard. No use of accessory muscles. ABDOMEN: Soft, obese, nontender. Normal bowel sounds present. No hepatosplenomegaly appreciated. EXTREMITIES: No cyanosis or clubbing. No edema. 2+ radial and ulnar PRODUCE CLERK: Patient is alert oriented ?3. No focal neurological deficits. SKIN: Normal turgor and temperature. No breakdown, rash or nail changes noted. PSYCH: Normal insight and judgment. Data Other Data: Attestation for Other Data: I personally reviewed and interpreted the following: Other data: TTE (06/22/20) CONCLUSIONS LV systolic function is normal with EF of 50 to 55%. Moderate hypokinesis of apical and distal anteroseptal howard. There is moderate hypokinesis of apical and distal anteroseptal wall. Grade 1 diastolic dysfunction is seen. No comparison studies are available. CTA chest (06/21/20) IMPRESSION: 1. The exam is positive for pulmonary emboli with subocclusive filling defects especially in the right lower lobe pulmonary artery branches. 2. There are severe emphysematous changes. No airspace consolidation. 3. Multiple chronic appearing compression fractures are noted in the spine. # Lexiscan sestamibi Stress test (06/22/20) IMPRESSIONS 1. Large size predominantly fixed perfusion abnormality of moderate to severe severity of mid to apical inferior, mid to apical septal and apical howard. 2. This very likely represents attenuation artifact in setting of normal left ventricular systolic function and no regional wall motion abnormality. 3. The left ventricular ejection fraction is normal with a value of 58%. There is normal left ventricular wall thickening. 4. Transient ischemic dilation index mildly elevated at 1.19. This may represent subendocardial ischemia/hypertensive response. Clinical correlation is advised. 5. No coronary ischemia based on the study. A&P Assessment and plan (1) NSTEMI (non-ST elevated myocardial infarction): Elevated troponin with RWMA on echo. -continue ASA, statin and therapeutic lovenox. -I will start on metoprolol. I discussed his case with Dr. Fung and decision is to proceed with coronary angiogram once renal function normalizes. Status: Acute (2) Pulmonary emboli: Probably will need termite exterminator anticoagulation, given unprovoked nature of DVT and PE. Status: Acute Qualifiers: Pulmonary embolism type: multiple subsegmental (without acute cor pulmonale) Qualified Code(s): I26.94 - Multiple subsegmental pulmonary emboli without acute cor pulmonale (3) Dvt femoral (deep venous thrombosis): Status: Acute Qualifiers: Chronicity: acute Laterality: left Qualified Code(s): I82.412 - Acute embolism and thrombosis of left femoral vein (4) Hypertension: Status: Acute Qualifiers: Hypertension type: essential hypertension Qualified Code(s): I10 - Essential (primary) hypertension (5) Hyperlipemia: Status: Acute Qualifiers: Hyperlipidemia type: mixed hyperlipidemia Qualified Code(s): E78.2 - Mixed hyperlipidemia (6) JODI (acute kidney injury): IV hydration. -f/u on BMP Status: Acute Additional A&P Information Macrocytic anemia Thank you for allowing me to participate in patient's care. Please feel free to call with questions or concerns. Coding Level of Care Code Acute Student Services Rep for Chg Fwd Diagnoses NSTEMI (non-ST elevated myocardial infarction) I21.4 Pulmonary emboli I26.94 Pulmonary embolism type: multiple subsegmental (without acute cor pulmonale) Dvt femoral (deep venous thrombosis) I82.412 Chronicity: acute Laterality: left Hypertension I10 Hypertension type: essential hypertension Hyperlipemia E78.2 Hyperlipidemia type: mixed hyperlipidemia JODI (acute kidney injury) N17.9
[2020-06-22 16:30] LABS: Folate Level 12.9 ng/mL (4.5-32.2)
--- NOTE | 2020-06-22 16:31 | PC.RESP ---
Smoking Cessation and Pulmonary Rehab information sent to patient.
[2020-06-22 17:34] LABS: Vitamin B12 224 pg/mL (232-1245)
[2020-06-22] MEDS: isosorbide dinitrate 20 mg Tablet 5 MG PO (17:59)
[2020-06-22] MEDS: montelukast sodium 10 mg Tablet PO (17:59)
--- NOTE | 2020-06-22 18:08 | USCV_ITS ---
Mulugeta Murillo Age: 74 Gender: M : 1945 Exam Date: 06/22/2020 06:17 Ordering Phys: Nick Grey MD Technologist: Miley Dominguez [place] [facility] [place]: NSTEMI AND PE BP: 133 / 60 HR: 84 Rhythm: Sinus Technical Quality: Technically difficult study MEASUREMENTS (Male / Female) Normal Values 2D ECHO LV Diastolic Diameter PLAX 4.2 cm 4.2 - 5.9 / 3.9 - 5.3 cm LV Systolic Diameter PLAX 2.8 cm LV Chamber Size 3.4 cm IVS Diastolic Thickness 1.3 cm 0.6 - 1.0 / 0.6 - 0.9 cm IVS Systolic Thickness 1.3 cm LVPW Diastolic Thickness 1.5 cm 0.6 - 1.0 / 0.6 - 0.9 cm LVPW Systolic Thickness 1.3 cm RV Chamber Size 2.8 cm LVOT Diameter 2.3 cm LV Ejection Fraction 2D Teich 62.1 % LV Ejection Fraction MOD 2C 71.0 % LV Ejection Fraction 2C AL 71.6 % LA Diameter 3.4 cm LA Width 2.6 cm LA Height 2.9 cm RA Width 3.1 cm RA Height 4.1 cm Aorta at Sinotubular Diameter 3.3 cm M-MODE LV Diastolic Diameter MM 4.9 cm 4.2 - 5.9 / 3.9 - 5.3 cm LV Systolic Diameter MM 2.9 cm LV Ejection Fraction MM Teich 72.2 % IVS Diastolic Thickness MM 1.7 cm 0.6 - 1.0 / 0.6 - 0.9 cm IVS Systolic Thickness MM 2.0 cm LVPW Diastolic Thickness MM 1.1 cm 0.6 - 1.0 / 0.6 - 0.9 cm LVPW Systolic Thickness MM 2.0 cm RV Diastolic Diameter MM 2.8 cm Aortic Annulus Diameter 3.4 cm LA Ao Ratio MM 1.1 MV E Point Septal Separation 0.8 cm DOPPLER AV Peak Velocity 120.0 cm/s LVOT Peak Velocity 81.0 cm/s AV Area Cont Eq vti 2.8 cm squared AV Area Cont Eq pk 2.9 cm squared MV Area PHT 6.7 cm squared Mitral E to A Ratio 0.6 MV E' Velocity 37.5 cm/s Mitral E to MV E' Ratio 7.1 Mitral E to LV E' Lateral Ratio 7.3 Mitral E to LV E' Septal Ratio 7.0 TR Peak Velocity 100.5 cm/s TR Peak Gradient 4.0 mmHg TR Mean Velocity 74.6 cm/s TR Mean Gradient 2.5 mmHg TR Velocity Time Integral 34.2 cm TV Peak E Velocity 60.0 cm/s Right Atrial Pressure 3.0 mmHg Pulmonary Artery Systolic Pressu 7.0 mmHg PV Peak Velocity 56.0 cm/s RV Acceleration Time 0.1 s RV Ejection Time 0.3 s RV AcT/ET 0.4 FINDINGS Left Ventricle Normal left ventricular size. The systolic function is normal with EF of 50 to 55%. There is moderate hypokinesis of apical and distal anteroseptal wall. Grade 1 diastolic dysfunction is seen. Right Ventricle The right ventricle is normal in size and function. Right Atrium The right atrium is normal in size. Left Atrium The left atrium is normal in size. Mitral Valve Structurally normal mitral valve without significant stenosis or prolapse. There is no mitral regurgitation. Aortic Valve Not well-visualized. No significant stenosis. There is no aortic regurgitation. Tricuspid Valve Structurally normal tricuspid valve without significant stenosis or regurgitation. Insufficient TR jet to calculate RVSP. Pulmonic Valve Not well-visualized. Pericardium Normal pericardium without effusion. Aorta Normal ascending aorta dimension. CONCLUSIONS LV systolic function is normal with EF of 50 to 55%. Moderate hypokinesis of apical and distal anteroseptal howard. There is moderate hypokinesis of apical and distal anteroseptal wall. Grade 1 diastolic dysfunction is seen. No comparison studies are available. Jony Fung MD (Electronically Signed) Final Date: 22 June 2020 18:20 S
--- NOTE | 2020-06-22 18:08 | USCV_ITS ---
Mulugeta Murillo Age: 74 Gender: M : 1945 Exam Date: 06/22/2020 06:43 Ordering Phys: Nick Grey MD Technologist: Miley Dominguez [place] [facility] [place] PT AND NSTEMI HISTORY: NSTEMI AND PE PROCEDURES: The venous duplex Doppler examination of both lower extremities was performed in the standard fashion. The following venous structures were evaluated: common femoral vein, profunda vein, proximal portion of the greater saphenous vein, superficial femoral vein, and the popliteal vein. In addition, the posterior tibial and peroneal trunk were evaluated. Serial compression, augmentation maneuvers, and spectral Doppler flow evaluation were performed. FINDINGS: Rt. Lower Ext is neg for DVT in any vessel examined Lt Lower Ext in noncompressible and has no flow from Lt FV to Lt PTV Dr. Grey was notified. CONCLUSIONS No evidence of right lower extremity DVT. Occlusive DVT from Left femoral vein to left PTV Dr Grey notified at time of exam Marquise Richardson MD (Electronically Signed) Final Date: 22 June 2020 11:00 S
[2020-06-22] MEDS: cyanocobalamin 1,000 mcg/mL SDV 1000 MCG IM (18:23)
--- NOTE | 2020-06-22 19:04 | NMCV_ITS ---
NM jazmin perf SPECT r/s* [id number] Mulugeta Murillo Age: 74 Gender: M : 1945 Exam Date: 06/22/2020 19:04 Ordering Phys: Nick Grey MD Technologist: ANÍBAL Escalante Exam Location: [facility] Indications: Night heartburn, arm pain STRESS TEST [facility] IMAGE PROTOCOL Rest/Stress 1 Lexiscan Day Radiopharmaceutical Dose (mCi) Administration Site Administered by Rest: Tc-99m 10.9 IV ANÍBAL Escalante Sestamibi Stress:Tc-99m 32.9 IV ANÍBAL Escalante Sestamibi Rest: 22-Jun-2020 60 Discovery 630 Stress: 22-Jun-2020 30 Discovery 630 0.4mg Lexiscan. Images obtained in supine and prone position. SPECT RESULTS Technical Quality: Good Raw Data Analysis: Normal Image Corrections: No attenuation or motion correction applied Summed Stress Score: 24 Summed Rest Score: 31 Summed Difference Score: 0 PERFUSION FINDINGS Large size perfusion abnormality of moderate to severe severity of mid to apical inferior, mid to apical septal and apical howard on rest and subtle improvement in tracer uptake on stress images. FUNCTIONAL RESULTS (calculated via Gated SPECT) Stress Image LV EF (%): 58 Stress EDV (mL):89 TID: 1.19 Stress ESV (mL):37 FUNCTIONAL FINDINGS: The left ventricle is normal in size. Transient Ischemia Dilatation of 1.2. The left ventricular ejection fraction is normal with a value of 58%. There is normal left ventricular wall thickening. No regional wall motion abnormality. Normal end-diastolic end-systolic volumes. IMPRESSIONS 1. Large size predominantly fixed perfusion abnormality of moderate to severe severity of mid to apical inferior, mid to apical septal and apical howard. 2. This very likely represents attenuation artifact in setting of normal left ventricular systolic function and no regional wall motion abnormality. 3. The left ventricular ejection fraction is normal with a value of 58%. There is normal left ventricular wall thickening. 4. Transient ischemic dilation index mildly elevated at 1.19. This may represent subendocardial ischemia/hypertensive response. Clinical correlation is advised. 5. No coronary ischemia based on the study. Idalia Cota MD (Electronically Signed) Final Date: 22 June 2020 12:12 S
[2020-06-22] MEDS: atorvastatin 40 mg Tablet 80 MG PO (20:15)
[2020-06-23] VITALS (171 sets, daily range): BP systolic 96–170; BP diastolic 45–92; PULSE 68–119; RESP 12–38; TEMP 36.3–36.7; O2SAT 91–96
--- NOTE | 2020-06-23 00:58 | PC.NURSE ---
PT IS RESTING IN BED. PT DENIES PAIN. WILL CONTINUE TO MONITOR.
[2020-06-23] MEDS: nitroglycerin 0.4 mg sublingual Tablet SUBLINGUAL (02:26)
--- NOTE | 2020-06-23 02:28 | PC.NURSE ---
PT C/O CHEST PAIN/PRESSURE. STATES ITS MORE LIKE LABORED BREATHING. 1ST NITRO WAS GIVEN AT 0226. BP 169/69.
--- NOTE | 2020-06-23 02:30 | PC.NURSE ---
PT STATES THAT CHEST PAIN IS GONE AFTER 1 NITRO. BP 116/72. WILL CONTINUE TO MONITOR.
[2020-06-23] MEDS: ipratropium-albuterol 3 mL Neb INHALATION ×3 (02:37→20:04)
[2020-06-23] MEDS: alum-mag-hydroxide-sime 30 mL UDC 15 ML PO ×2 (04:09→17:25)
--- NOTE | 2020-06-23 04:15 | PC.NURSE ---
PT C/O HEARTBURN. PRN MAALOX WAS GIVEN.
[2020-06-23 04:43] LABS: SARS Covid-2 Antigen Negative (Negative)
--- NOTE | 2020-06-23 04:43 | PC.NURSE ---
DR WAS NOTIFIED OF CP/PRESSURE. DR DOESN'T WANT NITRO USED IF CP/PRESSURE HAPPENS AGAIN.
[2020-06-23 05:01] LABS: Alanine Aminotransferase 17 U/L (0-41); Albumin Level 3.6 g/dL (3.5-5.2); Alkaline Phosphatase 70 IU/L (40-130); Anion Gap 14.9 (5-19); Aspartate Amino Transferase 17 U/L (0-40); Blood Urea Nitrogen 20 mg/dL (8-23); Calcium 8.8 mg/dL (8.5-10.5); Carbon Dioxide 24 mmol/L (22-29); Chloride 105 mmol/L (98-107); Globulin 2.7 g/dL (1.3-4.6); Glucose 117 mg/dL (65-115); Magnesium 2.1 mg/dL (1.7-2.3); Osmolality Calculated 294 mOsm/kg (285-295); Potassium 3.9 mmol/L (3.5-5.1); Sodium 140 mmol/L (136-145); Total Bilirubin 0.3 mg/dL (0.15-1.2); Total Protein 6.3 g/dL (6.6-8.7)
[2020-06-23] MEDS: sucralfate 1 gm/10 mL Oral Liq UDC PO ×3 (06:11→20:51)
[2020-06-23] MEDS: enoxaparin 100 mg/mL Syringe 90 MG SUBCUT ×2 (06:11→17:25)
[2020-06-23 06:14] LABS: Basophils % 0.5 %; Eosinophils # 0.1 10^3/uL (0.0-0.8); Eosinophils % 1.6 %; Hematocrit 30.1 % (42.0-52.0); Hemoglobin 9.1 g/dL (11.7-16.6); Lymphocytes # 0.9 10^3/uL (0.8-4.8); Lymphocytes % 14.4 %; Mean Corpuscular HGB Conc 30.2 g/dL (30.0-36.0); Mean Corpuscular Hemoglobin 28.8 pg (28.0-34.0); Mean Corpuscular Volume 95.3 fL (80-94); Mean Platelet Volume 10.7 fL (7.4-10.4); Monocytes # 0.6 10^3/uL (0.2-0.9); Monocytes % 9.2 %; Neutrophils # 4.51 10^3/uL (1.8-7.7); Neutrophils % 73.8 %; Nucleated Red Blood Cells % 0 %; Platelet Count 261 10^3/cmm (130-400); Red Blood Count 3.16 10^6/uL (4.1-5.3); Red Cell Distribution Width 15.8 % (12.1-15.1); White Blood Count 6.1 10^3/uL (4.0-10.0)
--- NOTE | 2020-06-23 06:36 | PC.NURSE ---
PT IS RESTING IN BED. PT DENIES PAIN AT THIS TIME. PT SIGNED CONSENT FOR CARDIAC CATH. WILL CONTINUE TO MONITOR.
--- NOTE | 2020-06-23 08:06 | XACV_ITS ---
[facility] Ht: 168 cm Wt: 88 kg BSA: 2.05 m2 Gender: Male : 1945 Any Known Allergies: Other Exam Priority: Routine Procedure(s): Procedure Description: Diagnostic procedure Procedure Description: Coronary Angiography Diagnostic Cath Status: Urgent Diagnostic Findings * Left main is a long vessel. It has distal * left main to LAD severe, heavily calcified 70% stenosis. LM to pLAD: Severe 70% stenosis, LIZABETH: 3 flow. * LAD has a proximal to mid severe 95% calcified stenosis. * It gives rise to * a large diagonal vessel which is free of significant disease. mLAD: Severe 95% stenosis, LIZABETH: 3 flow. * Proximal left circumflex is a heavily calcified vessel. * It has ostial to proximal * left circumflex severe stenosis. pCIRC: Severe 80% stenosis, LIZABETH: 3 flow. * Ostial * RCA: Moderate 60-70% stenosis, LIZABETH: 3 flow. Rest of the vessel has diffuse luminal irregularities however no significant stenosis is seen.. * Coronary angiography shows right dominance. Conclusions 1. There is severe coronary artery disease with multivessel disease including distal left main/ostial left circumflex and proximal to mid LAD stenosis.. Recommendations * This is a complicated patient with newly diagnosed PE/DVT and NSTEMI. Coronary angiography demonstrates severe multivessel disease. This includes distal left main and LAD/circumflex bifurcation along with proximal to mid LAD stenosis. Ostial RCA has moderate to severe stenosis. We will recommend CT surgery consult for coronary artery bypass surgery. Patient has been having on and off chest pain symptoms. I have given him the option of transferring to another center as our CT surgery is not acquisition marketing coordinator over the weekend. However patient wants to wait till Thursday for consult by CT surgery. If CT surgery does not think he is a good surgical candidate given his multiple comorbidities and severe COPD, he will need very high risk PCI with Impella support as his vessels are heavily calcified and involve distal left main and LCx/LAD bifurcation requiring coronary arthrectomy. Ostial RCA also has moderate to severe disease. This will need ischemic work-up.. * Transfer back to [facility]. * Initiate nitro drip if he starts having chest pain and perform EKG. In that situation high risk PCI versus transfer to a center with CT surgery availability. * Continue aspirin. Hold plavix for now till CT surgery consult. Interventional RX Recommendation: CABG Diagnostic RX Recommendation: CABG Anticoagulation: Heparin Pressures Phase:Rest AO : 125 / 80 ( 97 ) @ 3:08:00 AM 134 / 90 ( 110 ) @ 3:13:00 AM 99 / 64 ( 78 ) @ 3:14:00 AM Clinical Evaluation EBL: 5mL-10mL Procedural Details Procedure Consent Obtained. Pre-Procedure Time Out. Identified patient by full name and date of as verbalized by the patient/guarantor. Does the consent match the physician's order: Yes. Accurate & Complete Informed Consent: Yes. Inpatient/Outpatient History & Physical on Chart: Yes. If H&P is completed, is and addenduem needed: No; If yes, is the addendum complete: N/A. Visualize and Verify Site with Patient/Guarantor: N/A. Relevant Radiology Images available: N/A. Pre-op teaching completed and patient verbalized understanding. The risks, benefits, and alternatives of sedation and/or procedure were discussed by physician. The patient agrees to continue. Procedure started. [facility] Clinical Fraility Score: 3: Managing Well. Doubler Operator Indications: ACS > 24 hours. Chest Pain Symptom Assessment: Typical Angina Symptoms. Cardiovascular Instability: No. Physician arrived. Correct patient, site and procedure confirmed by cath team. PERRLA. Strong, equal hand washing machine mechanic bilaterally. Lungs clear x 5 lobes. IV Site on Arrival: 20 gauge in the left anticubital. IV Fluids: 0.9% NaCl at KVO. 0 mL infused prior to laborer/key man. Pre Procedural Pulses: bilateral dorsalis pedis was Doppled. Pre Procedural Pulses: bilateral posterior tibial was Doppled. Oxygen started at 2liters/min via nasal canula. bilateral groins was prepped with chloroprep then draped in the usual sterile fashion. right radial was prepped with chloroprep then draped in the usual sterile fashion. Baseline sample Acquired. HR: 107 BPM. Physician scrubbed in. Immediate Pre-Procedure Time Out. Correct Patient: Yes; Correct Procedure: Yes; Correct Site: Yes; Correct Patient Position: Yes; Correct Supplies: Yes; Dried Flammable Prep: Yes; Blood Products Available: N/A;. Lidocaine 1% infiltrated to the right radial. Arterial access obtained. A 5 indonesian TIG catheter in over wire. Wire out. Glidewire inserted. Glidewire out. Unable to Zero hemodynamics. Baseline of 20. Multiple views taken of left coronary artery. Catheter redirected to the RCA. Multiple views taken of right coronary artery. Catheter removed over the exchange wire. Physician scrubbed out. A TR Band was successful obtaining hemostatsis at the Right Radial artery insertion site. TR band placed. Hemostasis obtained. Post Procedure: Pulses reassessed and unchanged. PERRLA. Strong, equal hand washing machine mechanic bilaterally. No VTE prophylaxis required. Medication's Wasted: Lidocaine 1% = 16 mL. Medication's Wasted: Heparin = 1000 units. Medication's Wasted: Nitro = 49.7 mg. Total IV fluids: 50 mL. Contrast type used: Omnipaque 300 mgI/mL, 500 mL bottle. Post-op diagnosis: severe multivessel CAD. Complications: none. Estimated blood loss: 5mL-10mL. Procedure completed. Patient transferred by wheelchair to 1st floor. Vital chart was stopped. Access Site Site: Right Radial artery Sheath Size: 6 Fr Hemostasis Method: TR Band Hemostasis Success: Successful Procedure Medications Start: 8:42 AM Stop: 8:42 AM Medication: Versed Amount: 1 mg Route: I.V. Start: 8:42 AM Stop: 8:42 AM Medication: Fentanyl Amount: 50 mcg Route: I.V. Start: 9:00 AM Stop: 9:00 AM Medication: Nitrogylcerin Amount: 200 mcg Route: I.A. Start: 9:00 AM Stop: 9:00 AM Medication: Versed Amount: 1 mg Route: I.V. Start: 9:15 AM Stop: 9:15 AM Medication: Nitrogylcerin Amount: 100 mcg Route: I.C. I, the attending physician, have reviewed and verified all procedure medications. Yes, all medications given per verbal order History/Risk Factors Hypertension: Yes Dyslipidemia: Yes Peripheral Arterial Disease (PAD): No Myocardial Infarction (SD): Yes Obesity: No Renal Disease: No Tobacco Use: Former Prior Interventions PCI: No CABG: No Valve Surgery: No Report Signatures Finalized by Jony Fung MD on 07/02/2020 10:21 AM
[2020-06-23] MEDS: metoprolol tartrate 50 mg Tablet PO ×2 (08:24→20:51)
[2020-06-23] MEDS: docusate sodium 100 mg Capsule PO ×2 (08:25→17:24)
[2020-06-23] MEDS: aspirin 325 mg EC Tablet PO (08:25)
[2020-06-23] MEDS: isosorbide dinitrate 20 mg Tablet 5 MG PO ×2 (08:25→17:23)
[2020-06-23] MEDS: pantoprazole DR 40 mg Tablet PO ×2 (08:25→17:24)
[2020-06-23] MEDS: predniSONE 1 mg Tablet 3 MG PO ×2 (08:25→19:27)
[2020-06-23] MEDS: ferrous sulfate EC 325 mg Tablet PO ×2 (08:25→17:23)
--- NOTE | 2020-06-23 08:53 | W.PM.OPSUD ---
Surgery/Procedure H&P Update DATE OF PROCEDURE: June 23, 2020 DATE H&P PERFORMED: 06/22/20 H&P UPDATE INFORMATION: I have reviewed H&P completed within last 30 days, I have examined patient prior to procedure and No changes to prior documentation PREOP DIAGNOSIS: NSTEMI PRIMARY INDICATION FOR PROCEDURE: NSTEMI PLANNED PROCEDURE: Operation Date: 06/23/20 10:00 Proposed Procedures p Cardiac Catheterization(Not Applicable) - Jony Fung M.D PATIENT REASSESSED PRIOR TO SEDATION, WITH NO CHANGE NOTED: Yes PHYSICAL EXAM: alert, oriented x 3, clear to auscultation bilaterally and regular rate & rhythm AIRWAY EVAL/ANESTHESIA PLAN: ASA III, Risks, benefits & alternatives of sedation and/or procedure discussed and Patient agrees to continue as planned
--- NOTE | 2020-06-23 14:01 | PC.NURSE ---
TR band removed at this time no bleeding or hematoma noted patient tolerated well.
--- NOTE | 2020-06-23 14:27 | PM.PN ---
Subjective Subjective: Interval history: No acute event overnight. Patient again had minimal chest discomfort earlier today morning. Patient underwent coronary angiography today. He has severe distal left main calcified stenosis, severe proximal left circumflex artery stenosis, severe proximal to mid LAD stenosis and severe ostial RCA stenosis. On examination lying comfortably in bed. Denies any nausea, vomiting, headache, dizziness. Vitals/I&O/Wt Last Vital Signs Temp 97.3 F L 06/23/20 07:12 Pulse 84 06/23/20 14:10 Resp 15 06/23/20 14:10 BP 108/45 06/23/20 14:10 Pulse Ox 96 06/23/20 07:12 06/22/20 06/23/20 06/23/20 22:59 06:59 14:59 Intake Total 240 / 950 140 / 140 Output Total 650 / 650 200 / 200 Balance -410 / 300 -60 / -60 Weight last 48 hrs Weight 87.634 kg Weight 87.725 kg Weight 86.183 kg Physical Exam Narrative: EXAM NARRATIVE: General: No acute distress, AO x3, pale, morbidly obese HEENT: PERRLA, pupils bilaterally equal and reactive Chest: Bilateral bronchial breath sounds, occasional rhonchi all over the lung avilez, equal good air entry bilaterally CVS: S1-S2 regular, soft pansystolic murmur at apex, no tachycardia, no gallops, no rubs Abdomen: Soft, nontender, no organomegaly, bowel sounds present Neuro: No focal deficits, no facial deformity, AO x3, power 5/5 in all limbs Data : 06/23/20 04:17 06/23/20 04:17 A&P Assessment and plan (1) NSTEMI (non-ST elevated myocardial infarction): Status: Acute (2) Triple vessel coronary artery disease: Status: Acute (3) Left main coronary artery disease: Status: Acute (4) Pulmonary emboli: Status: Acute Qualifiers: Pulmonary embolism type: multiple subsegmental (without acute cor pulmonale) Qualified Code(s): I26.94 - Multiple subsegmental pulmonary emboli without acute cor pulmonale (5) Dvt femoral (deep venous thrombosis): Status: Acute Qualifiers: Chronicity: acute Laterality: left Qualified Code(s): I82.412 - Acute embolism and thrombosis of left femoral vein (6) Anemia: Status: Acute (7) COPD (chronic obstructive pulmonary disease): Status: Acute (8) Hyperlipemia: Status: Acute Qualifiers: Hyperlipidemia type: mixed hyperlipidemia Qualified Code(s): E78.2 - Mixed hyperlipidemia (9) Hypertension: Status: Acute Qualifiers: Hypertension type: essential hypertension Qualified Code(s): I10 - Essential (primary) hypertension (10) JODI (acute kidney injury): Status: Acute Additional A&P Information Non-ST elevation DE: Underwent cardiac angiogram today in which patient was found to have distal calcified left main disease along with severe triple-vessel disease. Continue with aspirin, statin, beta-gerald, full dose Lovenox. Plan for CT surgery consult. Unfortunately Dr. Tejada not available over the weekend. As per patient's discussion with cardiology team patient was given option of transfer to outside facility for urgent CABG versus inpatient consult with cardiothoracic surgery on Thursday. Patient chose an option of possible cardiothoracic surgery consult on Thursday. Currently patient is chest pain-free. If patient develops chest pain plan would be for nitro drip and EKG followed by emergent PCI versus urgent transfer to the facility. Echocardiogram results appreciated. Consistent with EF 50 to 55% moderate hypokinesis of the mid and apical anteroseptal wall with grade 1 diastolic dysfunction. For pulmonary embolism: Associated lower limb DVT. Continue with full dose anticoagulation with Lovenox 1 g/kg body weight twice daily. Protonix BID and carafate with meals. Recent EGD and Colonoscopy done in 2019 noted to be WNL except hiatal hernia. Hypertension: Goal blood pressure less than 140/90 mmHg. Cardizem changed to metoprolol as per cardiology. COPD: Duo nebs every 6 hour, budesonide twice daily. Oxygen supplementation keeping saturation over 94%. JODI: Resolved. Anemia: As stated above patient recently had a EGD and colonoscopy which were both resulted in normal limits. Continuation of Protonix 40 mg twice daily as patient is on chronic prednisone as an outpatient. Continue with Carafate you as an outpatient. Iron panel appreciated. Continue with oral iron supplementation. Low vitamin B12 level treated by cyanocobalamin 1 g IM. Continue other chronic oral home medications. CODE STATUS: Discussed in detail with patient. He would like to be full code. Cardiac diet Full dose Lovenox. Protonix for PUD prophylaxis Attestations Medical Necessity Statement*: Patient requires further hospitalization for management of critical distal left main and triple-vessel disease and new acute pulmonary embolism. Time Spent in Patient Care: Greater than 35 minutes (>than 50% of time spent in counselling and/or direct pt care on unit). Coding Level of Care Code Acute Brass Pickler for [facility] Fwd Diagnoses NSTEMI (non-ST elevated myocardial infarction) I21.4 Triple vessel coronary artery disease I25.10 Left main coronary artery disease I25.10 Pulmonary emboli I26.94 Pulmonary embolism type: multiple subsegmental (without acute cor pulmonale) Dvt femoral (deep venous thrombosis) I82.412 Chronicity: acute Laterality: left Anemia D64.9 COPD (chronic obstructive pulmonary disease) J44.9 Hyperlipemia E78.2 Hyperlipidemia type: mixed hyperlipidemia Hypertension I10 Hypertension type: essential hypertension JODI (acute kidney injury) N17.9
--- NOTE | 2020-06-23 15:04 | PM.PN ---
Subjective Subjective: Interval history: Last night patient had heartburn radiating to left arm. Currently is chest pain-free. Feeling well. EKG does not have any significant changes. Patient underwent coronary angiography today. He has severe distal left main calcified stenosis, severe proximal left circumflex artery stenosis, severe proximal to mid LAD stenosis and severe ostial RCA stenosis. Vitals/I&O/Wt Last Vital Signs Temp 97.3 F L 06/23/20 07:12 Pulse 84 06/23/20 14:10 Resp 15 06/23/20 14:10 BP 108/45 06/23/20 14:10 Pulse Ox 96 06/23/20 07:12 06/23/20 06/23/20 06/23/20 06:59 14:59 22:59 Intake Total 140 / 140 Output Total 200 / 200 Balance -60 / -60 Weight last 48 hrs Weight 193 lb 3.2 oz Weight 193 lb 6.4 oz Weight 190 lb Physical Exam Narrative: EXAM NARRATIVE: GENERAL: Patient is alert, awake and oriented x3. [] NECK: No jugular vein distension. [] HEENT: No cyanosis. No icterus. No pallor. [] HEART: Regular S1 and S2. No murmur, rub or gallop. [] LUNGS: Clear to auscultate bilaterally. [] ABDOMEN: Soft, nontender and nondistended. Positive bowel sounds. No guarding, rebound or tenderness. [] CENTRAL NERVOUS SYSTEM: Grossly nonfocal. [] EXTREMITIES: Lower extremities with no edema bilaterally. Pulses palpable in the lower extremities, both dorsalis pedis and posterior tibial. [] Data : 06/23/20 04:17 06/23/20 04:17 A&P Assessment and plan (1) NSTEMI (non-ST elevated myocardial infarction): Elevated troponin with RWMA on echo. Patient's coronary angiography performed today showed a severe calcified coronary artery disease including distal left main, proximal to mid LAD, proximal left circumflex artery and ostial RCA. I had a detailed discussion with patient and his regarding revascularization options and that coronary bypass surgery would be the preferred option if he is considered a good surgical candidate by CT surgery. CT surgery is not personal investment adviser over the weekend. I have given patient and his family the option of transferring him out to another facility. However he is chest pain-free at this time without EKG changes and troponin are not not trending up. Patient and his have decided to stay here and wait for CT surgery consult on Thursday. In the meanwhile if he starts developing chest pain, we will start him on nitro drip and obtain EKG. In that situation urgent transfer to another facility or emergent PCI will be the option. I have discussed these scenarios with patient and family. Continue ASA, statin and therapeutic lovenox. No Plavix in anticipation of CABG Continue metoprolol. Status: Acute (2) Pulmonary emboli: Continue anticoagulation with Lovenox. Status: Acute Qualifiers: Pulmonary embolism type: multiple subsegmental (without acute cor pulmonale) Qualified Code(s): I26.94 - Multiple subsegmental pulmonary emboli without acute cor pulmonale (3) Dvt femoral (deep venous thrombosis): Status: Acute Qualifiers: Chronicity: acute Laterality: left Qualified Code(s): I82.412 - Acute embolism and thrombosis of left femoral vein (4) Hypertension: Status: Acute Qualifiers: Hypertension type: essential hypertension Qualified Code(s): I10 - Essential (primary) hypertension (5) Hyperlipemia: Status: Acute Qualifiers: Hyperlipidemia type: mixed hyperlipidemia Qualified Code(s): E78.2 - Mixed hyperlipidemia (6) JODI (acute kidney injury): Improved Status: Acute Additional A&P Information Macrocytic anemia Thank you for allowing me to participate in patient's care. Please feel free to call with questions or concerns. Attestations Medical Necessity Statement*: Care expected to cross 2 midnights. Coding Level of Care Code Acute Asp Net Software Developer for [facility] Fwd Diagnoses NSTEMI (non-ST elevated myocardial infarction) I21.4 Pulmonary emboli I26.94 Pulmonary embolism type: multiple subsegmental (without acute cor pulmonale) Dvt femoral (deep venous thrombosis) I82.412 Chronicity: acute Laterality: left Hypertension I10 Hypertension type: essential hypertension Hyperlipemia E78.2 Hyperlipidemia type: mixed hyperlipidemia JODI (acute kidney injury) N17.9
[2020-06-23] MEDS: montelukast sodium 10 mg Tablet PO (17:24)
[2020-06-23] MEDS: budesonide 0.5 mg/2 mL Neb INHALATION (19:49)
[2020-06-23] MEDS: atorvastatin 40 mg Tablet 80 MG PO (20:51)
[2020-06-24] VITALS (161 sets, daily range): BP systolic 111–169; BP diastolic 61–101; PULSE 71–121; RESP 11–27; TEMP 36.6–36.7; O2SAT 92–96
[2020-06-24 03:12] LABS: Basophils % 0.4 %; Eosinophils # 0.1 10^3/uL (0.0-0.8); Eosinophils % 2.5 %; Hematocrit 28.9 % (42.0-52.0); Hemoglobin 8.9 g/dL (11.7-16.6); Lymphocytes # 0.6 10^3/uL (0.8-4.8); Lymphocytes % 10.8 %; Mean Corpuscular HGB Conc 30.8 g/dL (30.0-36.0); Mean Corpuscular Volume 94.1 fL (80-94); Mean Platelet Volume 10.2 fL (7.4-10.4); Monocytes # 0.4 10^3/uL (0.2-0.9); Monocytes % 7.2 %; Neutrophils # 4.46 10^3/uL (1.8-7.7); Neutrophils % 78.6 %; Nucleated Red Blood Cells % 0 %; Platelet Count 235 10^3/cmm (130-400); Red Blood Count 3.07 10^6/uL (4.1-5.3); Red Cell Distribution Width 15.7 % (12.1-15.1); White Blood Count 5.7 10^3/uL (4.0-10.0)
[2020-06-24] MEDS: ipratropium-albuterol 3 mL Neb INHALATION ×4 (03:26→21:38)
[2020-06-24 03:30] LABS: Alanine Aminotransferase 18 U/L (0-41); Albumin Level 3.6 g/dL (3.5-5.2); Alkaline Phosphatase 67 IU/L (40-130); Anion Gap 13.3 (5-19); Aspartate Amino Transferase 23 U/L (0-40); Blood Urea Nitrogen 17 mg/dL (8-23); Calcium 8.7 mg/dL (8.5-10.5); Carbon Dioxide 23 mmol/L (22-29); Chloride 107 mmol/L (98-107); Globulin 2.4 g/dL (1.3-4.6); Glucose 101 mg/dL (65-115); Magnesium 2.2 mg/dL (1.7-2.3); Osmolality Calculated 290 mOsm/kg (285-295); Potassium 4.3 mmol/L (3.5-5.1); Sodium 139 mmol/L (136-145); Total Bilirubin 0.2 mg/dL (0.15-1.2)
[2020-06-24] MEDS: alum-mag-hydroxide-sime 30 mL UDC PO (04:07)
[2020-06-24] MEDS: enoxaparin 100 mg/mL Syringe 90 MG SUBCUT ×2 (06:16→17:34)
[2020-06-24] MEDS: sucralfate 1 gm/10 mL Oral Liq UDC PO ×4 (06:16→20:32)
[2020-06-24] MEDS: nitroglycerin 0.4 mg sublingual Tablet SUBLINGUAL ×3 (06:27→22:54)
--- NOTE | 2020-06-24 06:28 | PC.NURSE ---
Pt states that approximately thirty mintues prior to this note that he was awakened with pressure on his chest. He states that it feels like something is sitting on his chest. Administering nitro sublingual at this time.
--- NOTE | 2020-06-24 06:33 | PC.NURSE ---
Patient states that the pressure was relieved with just the single administration of nitro.
--- NOTE | 2020-06-24 08:07 | ECG_ITS ---
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 Measurements Intervals [place] Rate: 92 P: 68 [place]: 168 QRS: -9 QRSD: 86 T: 66 QT: 364 QTc: 452 Interpretive Statements SINUS RHYTHM NONSPECIFIC ST & T-WAVE ABNORMALITY Compared to ECG 06/21/2020 23:19:58 T-wave abnormality now present Electronically Signed On 06-24-2020 17:05:33 SERVICE ATTENDANT CAFETERIA by Jony Fung M.D. [id number]
[2020-06-24] MEDS: pantoprazole DR 40 mg Tablet PO ×2 (08:53→17:34)
[2020-06-24] MEDS: predniSONE 1 mg Tablet 3 MG PO ×2 (08:53→17:32)
[2020-06-24] MEDS: metoprolol tartrate 50 mg Tablet PO (08:54)
[2020-06-24] MEDS: aspirin 325 mg EC Tablet PO (08:54)
[2020-06-24] MEDS: isosorbide dinitrate 20 mg Tablet 5 MG PO ×2 (08:54→17:33)
[2020-06-24] MEDS: budesonide 0.5 mg/2 mL Neb INHALATION (09:10)
--- NOTE | 2020-06-24 09:26 | PC.SOCIAL ---
IM follow up explained and copy provided to patient. He verbalized understanding.
--- NOTE | 2020-06-24 09:36 | PM.PN ---
Subjective Subjective: Interval history: No events overnight. Had minimal chest discomfort earlier in the morning which abated by itself. Denies any nausea, vomiting, headache. Patient awaiting cardiothoracic surgery consultation to be done on Thursday for possible CABG. Urine output, labs and vitals noted. Vitals/I&O/Wt Last Vital Signs Temp 97.9 F 06/24/20 08:14 Pulse 110 H 06/24/20 09:13 Resp 20 H 06/24/20 09:10 BP 138/82 06/24/20 08:05 Pulse Ox 93 06/24/20 09:10 06/23/20 06/24/20 06/24/20 22:59 06:59 14:59 Intake Total 0 / 140 400 / 400 Output Total 550 / 750 Balance 0 / -60 -550 / -610 400 / 400 Weight last 48 hrs Weight 88.133 kg Weight 87.634 kg Physical Exam Narrative: EXAM NARRATIVE: General: No acute distress, AO x3, pale, morbidly obese HEENT: PERRLA, pupils bilaterally equal and reactive Chest: Bilateral bronchial breath sounds, occasional rhonchi all over the lung avilez, equal good air entry bilaterally CVS: S1-S2 regular, soft pansystolic murmur at apex, no tachycardia, no gallops, no rubs Abdomen: Soft, nontender, no organomegaly, bowel sounds present Neuro: No focal deficits, no facial deformity, AO x3, power 5/5 in all limbs Data : 06/24/20 02:56 06/24/20 02:56 A&P Assessment and plan (1) NSTEMI (non-ST elevated myocardial infarction): Status: Acute (2) Triple vessel coronary artery disease: Status: Acute (3) Left main coronary artery disease: Status: Acute (4) Pulmonary emboli: Status: Acute Qualifiers: Pulmonary embolism type: multiple subsegmental (without acute cor pulmonale) Qualified Code(s): I26.94 - Multiple subsegmental pulmonary emboli without acute cor pulmonale (5) Dvt femoral (deep venous thrombosis): Status: Acute Qualifiers: Chronicity: acute Laterality: left Qualified Code(s): I82.412 - Acute embolism and thrombosis of left femoral vein (6) Anemia: Status: Acute (7) COPD (chronic obstructive pulmonary disease): Status: Acute (8) Hyperlipemia: Status: Acute Qualifiers: Hyperlipidemia type: mixed hyperlipidemia Qualified Code(s): E78.2 - Mixed hyperlipidemia (9) Hypertension: Status: Acute Qualifiers: Hypertension type: essential hypertension Qualified Code(s): I10 - Essential (primary) hypertension (10) JODI (acute kidney injury): Status: Acute Additional A&P Information Non-ST elevation [place]: Underwent cardiac angiogram today in which patient was found to have distal calcified left main disease along with severe triple-vessel disease. Continue with aspirin, statin, beta-gerald, full dose Lovenox, isosorbide dinitrate. Plan for CT surgery consult. Unfortunately Dr. Tejada not available over the weekend. As per patient's discussion with cardiology team patient was given option of transfer to outside facility for urgent CABG versus inpatient consult with cardiothoracic surgery on Thursday. Patient chose an option of possible cardiothoracic surgery consult on Thursday. Currently patient is chest pain-free. If patient develops chest pain plan would be for nitro drip and EKG followed by emergent PCI versus urgent transfer to the facility. Echocardiogram results appreciated. Consistent with EF 50 to 55% moderate hypokinesis of the mid and apical anteroseptal wall with grade 1 diastolic dysfunction. For pulmonary embolism: Associated lower limb DVT. Continue with full dose anticoagulation with Lovenox 1 g/kg body weight twice daily. Protonix BID and carafate with meals. Recent EGD and Colonoscopy done in 2019 noted to be WNL except hiatal hernia. Hypertension: Goal blood pressure less than 140/90 mmHg. Converted to metoprolol from Cardizem as per cardiology during this admission. Heart rate mildly elevated today. Will increase the dose of metoprolol to 75 mg twice daily. COPD: Duo nebs every 6 hour, budesonide twice daily. Oxygen supplementation keeping saturation over 94%. JODI: Resolved. Anemia: As stated above patient recently had a EGD and colonoscopy which were both resulted in normal limits. Continuation of Protonix 40 mg twice daily as patient is on chronic prednisone as an outpatient. Continue with Carafate you as an outpatient. Iron panel appreciated. Continue with oral iron supplementation. Low vitamin B12 level treated by cyanocobalamin 1 g IM. Continue other chronic oral home medications. CODE STATUS: Discussed in detail with patient. He would like to be full code. Cardiac diet Full dose Lovenox. Protonix for PUD prophylaxis Attestations Medical Necessity Statement*: Patient requires further hospitalization for management of NSTEMI in setting of critical left main disease and triple-vessel disease by cardiothoracic surgery consultation is awaited. Time Spent in Patient Care: Greater than 35 minutes (>than 50% of time spent in counselling and/or direct pt care on unit). Coding Level of Care Code Acute Spaghetti Machine Operator for [facility] Fwd Diagnoses NSTEMI (non-ST elevated myocardial infarction) I21.4 Triple vessel coronary artery disease I25.10 Left main coronary artery disease I25.10 Pulmonary emboli I26.94 Pulmonary embolism type: multiple subsegmental (without acute cor pulmonale) Dvt femoral (deep venous thrombosis) I82.412 Chronicity: acute Laterality: left Anemia D64.9 COPD (chronic obstructive pulmonary disease) J44.9 Hyperlipemia E78.2 Hyperlipidemia type: mixed hyperlipidemia Hypertension I10 Hypertension type: essential hypertension JODI (acute kidney injury) N17.9
--- NOTE | 2020-06-24 10:54 | PC.NURSE ---
chest pain: at 0810 pt c/o ant substernal cp..rating pain 5/10.occurred after breakfast after pt laid down in bed.no radiation of pain reported.no diaphoresis..no sob.bp 168/79.hr 94 (sr).resp 22 and o2 94% on room air.1 sl ntg given.bp after ntg 148/83 and hr 87.pt states cp resolved.
--- NOTE | 2020-06-24 12:04 | PM.PN ---
Subjective Subjective: Interval history: Patient had 2 episodes of chest pain since yesterday. Both resolved with sublingual nitros. He is overall doing well. No shortness of breath. EKG does not show any significant changes. Vitals/I&O/Wt Last Vital Signs Temp 97.9 F 06/24/20 08:14 Pulse 110 H 06/24/20 09:13 Resp 20 H 06/24/20 09:10 BP 138/82 06/24/20 08:05 Pulse Ox 93 06/24/20 09:10 06/23/20 06/24/20 06/24/20 22:59 06:59 14:59 Intake Total 0 / 140 400 / 400 Output Total 550 / 750 150 / 150 Balance 0 / -60 -550 / -610 250 / 250 Weight last 48 hrs Weight 194 lb 4.8 oz Weight 193 lb 3.2 oz Physical Exam Narrative: EXAM NARRATIVE: GENERAL: Patient is alert, awake and oriented x3. [] NECK: No jugular vein distension. [] HEENT: No cyanosis. No icterus. No pallor. [] HEART: Regular S1 and S2. No murmur, rub or gallop. [] LUNGS: Clear to auscultate bilaterally. [] ABDOMEN: Soft, nontender and nondistended. Positive bowel sounds. No guarding, rebound or tenderness. [] CENTRAL NERVOUS SYSTEM: Grossly nonfocal. [] EXTREMITIES: Lower extremities with 1+ edema bilaterally. Pulses palpable in the lower extremities, both dorsalis pedis and posterior tibial. [] Data : 06/24/20 02:56 06/24/20 02:56 A&P Assessment and plan (1) NSTEMI (non-ST elevated myocardial infarction): Elevated troponin with RWMA on echo. Patient's coronary angiography performed yesterday showed a severe calcified coronary artery disease including distal left main, proximal to mid LAD, proximal left circumflex artery and ostial RCA. I had a detailed discussion with patient and his regarding revascularization options and that coronary bypass surgery would be the preferred option if he is considered a good surgical candidate by CT surgery. CT surgery is not component inspector over the weekend. I have given patient and his family the option of transferring him out to another facility. However he is chest pain-free at this time without EKG changes and troponin are not trending up. Patient and his have decided to stay here and wait for CT surgery consult on Thursday. In the meanwhile if he starts developing chest pain, we will start him on nitro drip and obtain EKG. In that situation urgent transfer to another facility or emergent PCI will be the option. I have discussed these scenarios with patient and family. 2 episodes of chest pain since yesterday. Both were brief episodes resolved with sublingual nitro. No EKG changes. Continue ASA, statin and therapeutic lovenox. No Plavix in anticipation of CABG Uptitrate metoprolol as patient's blood pressure tolerates Echocardiogram revealed normal LV systolic function with regional wall motion abnormalities in anteroseptal and apical howard. Status: Acute (2) Pulmonary emboli: Continue anticoagulation with Lovenox. Status: Acute Qualifiers: Pulmonary embolism type: multiple subsegmental (without acute cor pulmonale) Qualified Code(s): I26.94 - Multiple subsegmental pulmonary emboli without acute cor pulmonale (3) Dvt femoral (deep venous thrombosis): Status: Acute Qualifiers: Chronicity: acute Laterality: left Qualified Code(s): I82.412 - Acute embolism and thrombosis of left femoral vein (4) Hypertension: Status: Acute Qualifiers: Hypertension type: essential hypertension Qualified Code(s): I10 - Essential (primary) hypertension (5) Hyperlipemia: Status: Acute Qualifiers: Hyperlipidemia type: mixed hyperlipidemia Qualified Code(s): E78.2 - Mixed hyperlipidemia (6) JODI (acute kidney injury): Improved Status: Acute Additional A&P Information Macrocytic anemia Thank you for allowing me to participate in patient's care. Please feel free to call with questions or concerns. Attestations Medical Necessity Statement*: Care expected to cross 2 midnights. 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
[2020-06-24] MEDS: NON-FORMULARY MEDICATION (Magnesium 250 mg Tablet) 250 EACH PO (17:30)
[2020-06-24] MEDS: montelukast sodium 10 mg Tablet PO (17:32)
[2020-06-24] MEDS: ferrous sulfate EC 325 mg Tablet PO (17:32)
[2020-06-24] MEDS: metoprolol tartrate 50 mg Tablet 75 MG PO (20:33)
[2020-06-24] MEDS: atorvastatin 40 mg Tablet 80 MG PO (20:33)
--- NOTE | 2020-06-24 23:05 | PC.NURSE ---
2250 Patient c/o chest pressure, non radiating 5/10 onset when ambulating back from the bathroom. VS as noted SL nitro given X1 with complete resolution of pressure. Will continue to monitor.
[2020-06-25] VITALS (44 sets, daily range): BP systolic 113–141; BP diastolic 57–77; PULSE 67–95; RESP 12–21; TEMP 36.6–36.9; O2SAT 93–95; BMI 31.3
[2020-06-25] MEDS: ipratropium-albuterol 3 mL Neb INHALATION ×3 (03:55→21:08)
[2020-06-25 04:00] LABS: Basophils % 0.4 %; Eosinophils # 0.1 10^3/uL (0.0-0.8); Hematocrit 29.7 % (42.0-52.0); Lymphocytes # 0.5 10^3/uL (0.8-4.8); Lymphocytes % 10.8 %; Mean Corpuscular HGB Conc 30.3 g/dL (30.0-36.0); Mean Corpuscular Volume 95.8 fL (80-94); Mean Platelet Volume 10.5 fL (7.4-10.4); Monocytes # 0.4 10^3/uL (0.2-0.9); Monocytes % 8.5 %; Neutrophils # 3.45 10^3/uL (1.8-7.7); Neutrophils % 77.6 %; Nucleated Red Blood Cells % 0 %; Platelet Count 219 10^3/cmm (130-400); Red Cell Distribution Width 15.6 % (12.1-15.1); White Blood Count 4.5 10^3/uL (4.0-10.0)
[2020-06-25 04:29] LABS: Alanine Aminotransferase 27 U/L (0-41); Albumin Level 3.6 g/dL (3.5-5.2); Alkaline Phosphatase 61 IU/L (40-130); Anion Gap 14.2 (5-19); Aspartate Amino Transferase 31 U/L (0-40); Blood Urea Nitrogen 20 mg/dL (8-23); Calcium 8.8 mg/dL (8.5-10.5); Carbon Dioxide 24 mmol/L (22-29); Chloride 107 mmol/L (98-107); Globulin 2.5 g/dL (1.3-4.6); Glucose 92 mg/dL (65-115); Magnesium 2.2 mg/dL (1.7-2.3); Osmolality Calculated 294 mOsm/kg (285-295); Potassium 4.2 mmol/L (3.5-5.1); Sodium 141 mmol/L (136-145); Total Bilirubin 0.2 mg/dL (0.15-1.2); Total Protein 6.1 g/dL (6.6-8.7)
[2020-06-25] MEDS: enoxaparin 100 mg/mL Syringe 90 MG SUBCUT ×2 (06:10→18:35)
--- NOTE | 2020-06-25 07:32 | ECG_ITS ---
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 Measurements Intervals [place] Rate: 82 P: 72 GA: 167 QRS: -5 QRSD: 82 T: 61 QT: 364 QTc: 426 Interpretive Statements SINUS RHYTHM NONSPECIFIC ST & T-WAVE ABNORMALITY Compared to ECG 06/24/2020 08:24:27 No significant changes Electronically Signed On 06-25-2020 10:28:53 [employer] ART by Idalia Cota M.D. [id number]
--- NOTE | 2020-06-25 07:35 | PC.NURSE ---
Chest pain this morning Pt reported of chest pain when he called at the nurses' station. Went to check on pt in his room and he reported the chest pain has resolved. BP-144/72.
[2020-06-25] MEDS: aspirin 325 mg EC Tablet PO (08:34)
[2020-06-25] MEDS: pantoprazole DR 40 mg Tablet PO ×2 (08:34→17:09)
--- NOTE | 2020-06-25 08:50 | USCV_ITS ---
Mulugeta Murillo Age: 74 Gender: M : 1945 Exam Date: 06/25/2020 09:18 Ordering Phys: Evaristo Tejada MD (Andy) ([email or web address]) Technologist: Miley Dominguez Exam Location: [facility] [place] Indication: PENDING CABG RIGHT LEFT LOWER EXTREMITY ONLY RT GSV DONE. Diameter Diameter (cm) (cm) 0.30 High Thigh 0.28 Mid Thigh 0.23 Above Knee 0.25 Below Knee 0.21 Mid Calf 0.25 Ankle RIGHT LEFT Findings The greater saphenous vein was identified and interrogated. The vein was found to be easily compressible. Relatively of small caliber. The veins were found to be patent Conclusions Patent right greater saphenous vein at the above-knee and below- knee levels Relatively small caliber vein No evidence of any old thrombophlebitis Dr Blank Renteria MD [facility] (Electronically Signed) Final Date: 25 June 2020 18:35 S
--- NOTE | 2020-06-25 08:55 | PC.NURSE ---
Chest pain Pt reported of another chest pain at this time. EKG taken. Nitro SL x1 given. Pt reported chest pain has resolved after Nitro.
[2020-06-25] MEDS: metoprolol tartrate 50 mg Tablet 75 MG PO ×2 (09:05→20:29)
[2020-06-25] MEDS: predniSONE 1 mg Tablet 3 MG PO (09:19)
[2020-06-25] MEDS: isosorbide dinitrate 20 mg Tablet 5 MG PO ×2 (09:19→17:10)
--- NOTE | 2020-06-25 10:06 | USCV_ITS ---
Mulugeta Murillo Age: 74 Gender: M : 1945 Exam Date: 06/25/2020 10:56 Ordering Phys: Evaristo Tejada MD (Andy) ([email or web address]) Technologist: Bettye Aguilar [place] [facility] [place]: PENDING CABG RIGHT LEFT LOWER EXTREMITY The Lower Extremity section is not evaluated at this time RIGHT LEFT UPPER EXTREMITY The Upper Extremity section is not evaluated at this time Basilic Cephalic Basilic Cephalic Prox Upper Arm 0.44 0.35 Mid Upper Arm 0.25 0.42 Dist Upper Arm 0.20 0.28 Prox Forearm 0.16 0.26 Mid Forearm 0.11 0.44 Dist Forearm 0.10 0.23 Findings LUE VEINS APPEAR PATENT. TRIPHASIC FLOW SEEN IN LT RADIAL ARTERY FROM PROX TO DIST. INCOMPLETLE ARCH SEEN Cephalic vein on the left side appears to be patent with normal dimensions. The basilic vein on the left side is of small caliber No Evidence of any old superficial thrombophlebitis Conclusions Patent cephalic and basilic veins on the left upper extremity The basilic vein was found to be of relatively small caliber No evidence of any previous thrombophlebitis these veins Dr Blank Renteria MD [facility] (Electronically Signed) Final Date: 25 June 2020 18:47 S
[2020-06-25] MEDS: sucralfate 1 gm/10 mL Oral Liq UDC PO ×3 (13:32→20:29)
--- NOTE | 2020-06-25 13:32 | PFTS_ITS ---
Date of Study:06/25/20 Date of Dictation: 06/25/2020 MECHANICS: Forced vital capacity (FVC) is reduced. Forced expiratory volume in one second (FEV1) is severely reduced to 39%. FEV1/FVC is reduced. FLOW VOLUME LOOP: Severe scooping of expiratory limb suggestive of severe airway obstruction . LUNG VOLUMES: Not measured DIFFUSING CAPACITY FOR CARBON MONOXIDE: Not measured . INTERPRETATION: The spirometry suggestive of severe obstructive ventilatory disease. Please correlate clinically. MTDD
--- NOTE | 2020-06-25 13:34 | PC.RESP ---
pt was 93% while walking pt was 95% at rest
--- NOTE | 2020-06-25 13:36 | PM.PN ---
Subjective Subjective: Interval history: Patient's coronary angiography performed on Thursday that showed a severe calcified coronary artery disease including distal left main, proximal to mid LAD, proximal left circumflex artery and ostial RCA. No new complaints. He was seen by Dr. Tejada. Medications: Reviewed: Yes Medication Review Details: Current Medications Acetaminophen (Acetaminophen 325 Mg Tablet) 650 mg PO Q6H PRN PRN Reason: Mild/Mod Pain Or Temp >/= 101 Acetaminophen (Acetaminophen 325 Mg Tablet) 650 mg PO Q6H PRN PRN Reason: MILD PAIN Al Hydrox/Mg Hydrox/Simethicone (Omry-Nfs-Jdqacjvyw-Danette 30 Ml Udc) 15 ml PO Q6H PRN PRN Reason: INDIGESTION Last Admin: 06/23/20 17:25 Dose: 15 ml Documented by: Al Hydrox/Mg Hydrox/Simethicone (Vrpj-Rzt-Rdjvazjyb-Danette 30 Ml Udc) 30 ml PO Q15M PRN PRN Reason: INDIGESTION Last Admin: 06/24/20 04:07 Dose: 30 ml Documented by: Al Hydrox/Mg Hydrox/Simethicone (Weer-Wyw-Zdldqjhwv-Danette 30 Ml Udc) 30 ml PO Q4H PRN PRN Reason: INDIGESTION Albuterol Sulfate (Albuterol 8 Gm Mdi) 2 puff INHALATION QID PRN PRN Reason: Shortness Of Breath Or Wheezing Albuterol/Ipratropium (Ipratropium-Albuterol 3 Ml Neb) 3 ml INHALATION Q6H.RESPIRATORY PRN PRN Reason: SHORTNESS OF BREATH Last Admin: 06/25/20 08:44 Dose: 3 ml Documented by: Alprazolam (Alprazolam 0.25 Mg Tablet) 0.25 mg PO TID PRN PRN Reason: ANXIETY Aspirin (Aspirin 325 Mg Ec Tablet) 325 mg PO DAILY [facility] Last Admin: 06/25/20 08:34 Dose: 325 mg Documented by: Atorvastatin Calcium (Atorvastatin 40 Mg Tablet) 80 mg PO BEDTIME [facility] Last Admin: 06/24/20 20:33 Dose: 80 mg Documented by: Atropine Sulfate (Atropine 1 Mg/Ml Sdv 1 Ml) 0.5 mg IVP PRN PRN PRN Reason: Symptomatic bradycardia Bisacodyl (Bisacodyl 5 Mg Tablet) 10 mg PO DAILY PRN PRN Reason: CONSTIPATION Last Admin: 06/22/20 10:22 Dose: 10 mg Documented by: Bisacodyl (Bisacodyl 5 Mg Tablet) 5 mg PO Q6H PRN PRN Reason: Constipation (Use 2nd) Bisacodyl (Bisacodyl 10 Mg Supp) 10 mg KS Q6H PRN PRN Reason: Constipation (Use 5th) Bismuth Subsalicylate (Bismuth Subsalicylate 240 Ml Btl) 30 ml PO PRN PRN PRN Reason: DIARRHEA Diphenhydramine HCl (Diphenhydramine 25 Mg Capsule) 25 mg PO BEDTIME PRN PRN Reason: SLEEP Docusate Sodium (Docusate Sodium 100 Mg Capsule) 100 mg PO BID [facility] Last Admin: 06/25/20 08:35 Dose: Not Given Documented by: Docusate Sodium (Docusate Sodium 100 Mg Capsule) 100 mg PO BID PRN PRN Reason: Constipation (Use 1st) Enoxaparin Sodium (Enoxaparin 100 Mg/Ml Syringe) 90 mg 1 mg/kg (90 mg) SUBCUT Q12H [facility] Last Admin: 06/25/20 06:10 Dose: 90 mg Documented by: Fentanyl (Fentanyl 50 Mcg/Ml Inj 2ml) 50 mcg IVP PRN PRN PRN Reason: Prior to sheath removal Ferrous Sulfate (Ferrous Sulfate Ec 325 Mg Tablet) 325 mg PO BIDWM [facility] Last Admin: 06/25/20 08:36 Dose: Not Given Documented by: Guaifenesin (Guaifenesin 100 Mg/5 Ml Udc 10 Ml) 200 mg PO Q4H PRN PRN Reason: COUGH Isosorbide Dinitrate (Isosorbide Dinitrate 20 Mg Tablet) 5 mg PO BID [facility] Last Admin: 06/25/20 09:19 Dose: 5 mg Documented by: Lactulose (Lactulose Oral Liq 20 Gm/30 Ml Udc) 20 gm PO Q6H PRN PRN Reason: Constipation (Use 3rd) Magnesium Hydroxide (Magnesium Hydroxide 30 Ml Udc) 30 ml PO DAILY PRN PRN Reason: CONSTIPATION Magnesium Hydroxide (Magnesium Hydroxide 30 Ml Udc) 45 ml PO DAILY PRN PRN Reason: Constipation (use 4th) Metoprolol Tartrate (Metoprolol Tartrate 50 Mg Tablet) 75 mg PO BID@0900,2100 [facility] Last Admin: 06/25/20 09:05 Dose: 75 mg Documented by: Montelukast Sodium (Montelukast Sodium 10 Mg Tablet) 10 mg PO DAILY@1700 [facility] Last Admin: 06/24/20 17:32 Dose: 10 mg Documented by: Naloxone HCl (Naloxone 0.4 Mg/Ml Sdv) 0.1 mg IVP Q2M PRN PRN Reason: RESPIRATORY RATE < 8/MIN Nitroglycerin (Nitroglycerin 0.4 Mg Sublingual Tablet) 0.4 mg SUBLINGUAL Q5M PRN PRN Reason: CHEST PAIN Last Admin: 06/24/20 22:54 Dose: 0.4 mg Documented by: Nitroglycerin (Nitroglycerin 0.4 Mg Sublingual Tablet) 0.4 mg SUBLINGUAL Q5M PRN PRN Reason: CHEST PAIN Non-Formulary Medication (Magnesium) 250 mg PO DAILY@1700 [facility] Last Admin: 06/24/20 17:30 Dose: 250 mg Documented by: Non-Formulary Medication (Silodosin) 8 mg PO BEDTIME@1999 [facility] Last Admin: 06/24/20 23:07 Dose: Not Given Documented by: Ondansetron HCl (Ondansetron 2 Mg/Ml Sdv 2 Ml) 4 mg IVP Q8H PRN PRN Reason: vomiting, or N/V if npo Ondansetron HCl (Ondansetron 2 Mg/Ml Sdv 2 Ml) 4 mg IVP Q2M PRN PRN Reason: NAUSEA Pantoprazole Sodium (Pantoprazole Dr 40 Mg Tablet) 40 mg PO BID [facility] Last Admin: 06/25/20 08:34 Dose: 40 mg Documented by: Prednisone (Prednisone 1 Mg Tablet) 3 mg PO BID [facility] Last Admin: 06/25/20 09:19 Dose: 3 mg Documented by: Promethazine HCl (Promethazine 25 Mg Supp) 25 mg KS Q6H PRN PRN Reason: NAUSEA AND VOMITING Fluticasone/Salmeterol (Fluticasone-Salmeterol 500-50 Diskus) 1 puff INHALATION BID.RESPIRATORY [facility] Last Admin: 06/25/20 08:44 Dose: 1 puff Documented by: Sucralfate (Sucralfate 1 Gm/10 Ml Oral Liq Udc) 1 gm PO AC&BEDTIME [facility] Last Admin: 06/25/20 13:32 Dose: 1 gm Documented by: Temazepam (Temazepam 15 Mg Capsule) 15 mg PO BEDTIME PRN PRN Reason: INSOMNIA Vitals/I&O/Wt Last Vital Signs Temp 97.8 F 06/25/20 11:45 Pulse 87 06/25/20 11:45 Resp 20 H 06/25/20 11:45 BP 113/57 06/25/20 11:45 Pulse Ox 95 06/25/20 13:35 06/24/20 06/25/20 06/25/20 22:59 06:59 14:59 Intake Total 240 / 880 240 / 1120 720 / 720 Output Total 450 / 600 350 / 950 Balance -210 / 280 -110 / 170 720 / 720 Weight last 48 hrs Weight 194 lb Weight 194 lb 4.8 oz Physical Exam Narrative: EXAM NARRATIVE: GENERAL: obese man lying in bed in no acute distress HEENT: Extraocular movement intact. Pupils equal round reactive to light. No pallor or icterus. NECK: central trachea, No JVD. No carotid bruit. CARDIOVASCULAR SYSTEM: S1-S2 regular. No S3 or S4 present. No murmur rubs or gallops. RESPIRATORY SYSTEM: Chest clear to auscultation. No wheezes rhonchi or rubs heard. No use of accessory muscles. ABDOMEN: Soft, obese, nontender. Normal bowel sounds present. EXTREMITIES: No cyanosis or clubbing. No edema. 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 No focal neurological deficits. SKIN: Normal turgor and temperature. No breakdown, rash or nail changes noted. PSYCH: Normal insight and judgment. Data : 06/25/20 03:05 06/25/20 03:05 Attestation for Other Data: I personally reviewed and interpreted the following: Other data: # Lexiscan sestamibi MPI (06/22/20) IMPRESSIONS 1. Large size predominantly fixed perfusion abnormality of moderate to severe severity of mid to apical inferior, mid to apical septal and apical howard. 2. This very likely represents attenuation artifact in setting of normal left ventricular systolic function and no regional wall motion abnormality. 3. The left ventricular ejection fraction is normal with a value of 58%. There is normal left ventricular wall thickening. 4. Transient ischemic dilation index mildly elevated at 1.19. This may represent subendocardial ischemia/hypertensive response. Clinical correlation is advised. 5. No coronary ischemia based on the study. # TTE (06/22/20) CONCLUSIONS LV systolic function is normal with EF of 50 to 55%. Moderate hypokinesis of apical and distal anteroseptal howard. There is moderate hypokinesis of apical and distal anteroseptal wall. Grade 1 diastolic dysfunction is seen. No comparison studies are available. A&P Assessment and plan (1) NSTEMI (non-ST elevated myocardial infarction): Elevated troponin with RWMA on echo. -continue ASA, statin and therapeutic lovenox. -continue metoprolol and ISDN. - Status: Acute (2) Pulmonary emboli: On lovenox Status: Acute Qualifiers: Pulmonary embolism type: multiple subsegmental (without acute cor pulmonale) Qualified Code(s): I26.94 - Multiple subsegmental pulmonary emboli without acute cor pulmonale (3) Dvt femoral (deep venous thrombosis): Status: Acute Qualifiers: Chronicity: acute Laterality: left Qualified Code(s): I82.412 - Acute embolism and thrombosis of left femoral vein (4) Hypertension: Status: Acute Qualifiers: Hypertension type: essential hypertension Qualified Code(s): I10 - Essential (primary) hypertension (5) Hyperlipemia: Status: Acute Qualifiers: Hyperlipidemia type: mixed hyperlipidemia Qualified Code(s): E78.2 - Mixed hyperlipidemia (6) JODI (acute kidney injury): resolved Status: Acute Additional A&P Information Macrocytic anemia Thank you for allowing me to participate in patient's care. Please feel free to call with questions or concerns. Attestations Medical Necessity Statement*: Needs hospital stay for NSTEMI and multivessel CAD Time Spent in Patient Care: 16 - 35 minutes (>than 50% of time spent in counselling and/or direct pt care on unit). 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
--- NOTE | 2020-06-25 14:40 | USCV_ITS ---
Mulugeta Murillo Age: 74 Gender: M : 1945 Exam Date: 06/25/2020 14:59 Ordering Phys: Idalia Cota MD ([email or web address]) Technologist: Yumiko Pedroza Exam Location: [facility] [place] Indication: PRE CABG Risk Factors: Previous Vascular Surgery: Right Brachial BP: / Left Brachial BP: / Right Left Velocity (cm/s) Spectral Plaque Velocity (cm/s) Spectral Plaque Syst/Diast Broadening Syst/Diast Broadening 69.50/ 17.60 Prox CCA 103.90/ 28.90 82.70/ 25.40 Mid CCA 89.40 / 27.60 65.10/ 15.40 Distal CCA 67.00 / 22.30 199.00/62.30 Prox ICA 192.90/ 80.60 193.00/50.30 Mid ICA 190.40/ 63.50 183.00/72.40 Distal ICA 217.30/ 73.20 142.90 ECA 124.90 2.41 ICA/CCA 2.43 Antegrade Vertebral Antegrade 48.60/ 19.70 cm/s 60.60/ 17.10 cm/s Tri Subclavian Tri FINDINGS Moderate to heavy heterogeneous plaques at the right and left bifurcations with a flow turbulence and spectral broadening Intimal thickening and minimal plaques in the common carotid arteries bilaterally Antegrade flow in the vertebral arteries bilaterally Normal Doppler waveforms in the subclavian arteries bilaterally CONCLUSIONS Moderate to heavy heterogeneous plaques at the right and left bifurcations with a flow turbulence and spectral broadening with velocity elevation suggestive of 50 to 69% stenosis. Intimal thickening and minimal plaques in the common carotid arteries bilaterally. No similar previous studies are available for comparison Dr Blank Renteria MD [facility] (Electronically Signed) Final Date: 26 June 2020 20:35 S
--- NOTE | 2020-06-25 16:28 | PM.CONSULT ---
Providers/Reason For Consult Consulting Physican/Specialty*: Chandrakant Issa MD/ Pulmonary Critical Care Reason for Consult*: Pre operative evaluation and anticipated high risk extubation post surgery in view of active PE and Multivessesl Disease. Requesting Physcian: Evaristo Tejada M.D Attending Physician: Gerardo Alvarado Primary Care Provider: Lukas Campbell, History of Present Illness History of Present Illness Mulugeta Murillo is a 74 year old male with PMH of prostate cancer, hypertension, hyperlipidemia, iron deficiency anemia, former smoker (1-2 PPD, quit 10 years back), currently vaping, COPD on chronic prednisone, who presented to the ER 06/21/2020 because of ongoing chest discomfort which is burning-like chest pain retrosternally every night when he lies to sleep for last 5 days, associated with nausea but no vomiting. In the ED baseline troponin of 252, proBNP of 2384, elevated D-dimer with chest x-ray did not show any acute findings and electrocardiogram showed sinus rhythm with rate of 86 with poor R wave progressions. Full dose anticoagulation with Lovenox 1 mg/kg every 12 hours was started, and given stat doses of aspirin 325 mg and high intensity statins were given. Patient discontinued with home dose Cardizem. Troponin T elevated 252--> 242--> 245. CTA chest showed pulmonary emboli with subocclusive filling defects especially in the right lower lobe pulmonary artery branches. There are severe emphysematous changes. Venous duplex with occlusive DVT from Left femoral vein to left PTV. Patient underwent coronary angiography on 06/23/2020 which showed severe triple-vessel disease with severe distal left main calcified stenosis, severe proximal left circumflex artery stenosis, severe proximal to mid LAD stenosis and severe ostial RCA stenosis. Echo consistent with EF 50 to 55% moderate hypokinesis of anteroseptal wall with grade 1 diastolic dysfunction. Cardiology changed Cardizem to metoprolol and continuing Lovenox 1 mg/kg for PE and the left femoral vein DVT. CT surgeon Dr. Tejada consulted for CABG for triple-vessel disease, requested pulmonary consult for preoperative pulmonary risk assessment. Today patient seen at bedside, saturating 96% on room air. at bedside. Denied any complaints except for episodic chest pain. 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 started smoking at age 17, smoked more than 1 pack a day for 48 years and quit 2011 9 years ago. After that started vaping. Says he uses Symbicort 160-4.5 2 puffs daily and albuterol prn. Denied any ER Vistis/urgent care visits/Hospital admissions for COPD exacerbation. Review of Systems General: Reports: 10 or more systems reviewed and unremarkable except in HPI and below Meds/Allergies Home Medications and Allergies Home Medications Medication Instructions Recorded Confirmed Last Taken Type albuterol sulfate 90 mcg/actuation 2 inh INHALATION QID PRN each 06/28/19 06/21/20 06/21/20 History breath activated powder inhaler budesonide-formoterol HFA 160 2 puff INHALATION BID@0600,1700 06/28/19 06/21/20 06/21/20 History mcg-4.5 mcg/actuation aerosol inhaler diltiazem HCl 240 mg capsule,24 240 mg PO DAILY@0600 06/28/19 06/21/20 06/21/20 History hr,extended release montelukast 10 mg tablet 10 mg PO DAILY@17006/28/19 06/21/20 06/20/20 History Eligard (3 month) 22.2 mg SUBCUT DIRECTED 07/13/19 06/21/20 06/13/19 History abiraterone 1,000 mg PO DAILY@0600 07/13/19 06/21/20 06/21/20 History aspirin 81 mg PO DAILY@0600 07/13/19 06/21/20 06/21/20 History magnesium 250 mg PO DAILY@17007/13/19 06/21/20 06/20/20 History potassium chloride 8 meq PO DAILY@17007/13/19 06/21/20 06/20/20 History prednisolone 2.5 mg PO BID@0600,1700 07/13/19 06/21/20 06/21/20 History krill oil 1 tab PO DAILY@169906/21/20 06/21/20 06/20/20 History pantoprazole 40 mg PO DAILY@0600 06/21/20 06/21/20 06/21/20 History rosuvastatin 2.5 mg PO DAILY@0606/21/20 06/21/20 Unknown History silodosin 8 mg PO BEDTIME@199906/21/20 06/21/20 Unknown History Allergies Allergy/AdvReac Type Severity Reaction Status Date / Time Dlgoukh-Yxd-Mdq Reductase AdvReac Unknown back pain Verified 10/03/19 09:10 Inhibitor atorvastatin AdvReac ADR-Back Verified 09/30/19 08:34 Pain Current Medications Current Medications Generic Name Dose Route Start Last Admin Trade Name Freq PRN Reason Stop Dose Admin Al Hydrox/Mg Hydrox/Simethicone 15 ml 06/21/20 19:04 06/23/20 17:25 Ozgx-Xvz-Bxqvndgzt-Danette 30 Ml Udc PO 15 ml Q6H PRN Administration INDIGESTION Al Hydrox/Mg Hydrox/Simethicone 30 ml 06/23/20 12:18 06/24/20 04:07 Uzzc-Gik-Xdbbywcej-Danette 30 Ml Udc PO 30 ml Q15M PRN Administration INDIGESTION Albuterol/Ipratropium 3 ml 06/24/20 09:38 06/25/20 08:44 Ipratropium-Albuterol 3 Ml Neb INHALATION 3 ml Q6H.RESPIRATORY PRN Administration SHORTNESS OF BREATH Aspirin 325 mg 06/23/20 09:00 06/25/20 08:34 Aspirin 325 Mg Ec Tablet PO 325 mg DAILY EMRE Administration Atorvastatin Calcium 80 mg 06/22/20 21:00 06/24/20 20:33 Atorvastatin 40 Mg Tablet PO 80 mg BEDTIME EMRE Administration Bisacodyl 10 mg 06/21/20 19:04 06/22/20 10:22 Bisacodyl 5 Mg Tablet PO 10 mg DAILY PRN Administration CONSTIPATION Docusate Sodium 100 mg 06/22/20 09:00 06/25/20 08:35 Docusate Sodium 100 Mg Capsule PO Not Given BID EMRE Enoxaparin Sodium 90 mg 06/22/20 18:00 06/25/20 06:10 Enoxaparin 100 Mg/Ml Syringe 1 mg/kg (90 mg) 90 mg SUBCUT Administration Q12H EMRE Ferrous Sulfate 325 mg 06/22/20 08:55 06/25/20 08:36 Ferrous Sulfate Ec 325 Mg Tablet PO Not Given BIDWM [facility] Isosorbide Dinitrate 5 mg 06/22/20 18:00 06/25/20 09:19 Isosorbide Dinitrate 20 Mg Tablet PO 5 mg BID EMRE Administration Metoprolol Tartrate 75 mg 06/24/20 21:00 06/25/20 09:05 Metoprolol Tartrate 50 Mg Tablet PO 75 mg BID@0900,2100 EMRE Administration Montelukast Sodium 10 mg 06/22/20 17:00 06/24/20 17:32 Montelukast Sodium 10 Mg Tablet PO 10 mg DAILY@1700 EMRE Administration Nitroglycerin 0.4 mg 06/22/20 16:51 06/24/20 22:54 Nitroglycerin 0.4 Mg Sublingual Tablet SUBLINGUAL 0.4 mg Q5M PRN Administration CHEST PAIN Non-Formulary Medication 250 mg 06/22/20 17:00 06/24/20 17:30 Magnesium PO 250 mg DAILY@1700 EMRE Administration Non-Formulary Medication 8 mg 06/21/20 20:00 06/24/20 23:07 Silodosin PO Not Given BEDTIME@2000 [facility] Pantoprazole Sodium 40 mg 06/22/20 18:00 06/25/20 08:[address] 40 Mg Tablet PO 40 mg BID EMRE Administration Prednisone 3 mg 06/22/20 09:00 06/25/20 09:19 Prednisone 1 Mg Tablet PO 3 mg BID EMRE Administration Fluticasone/Salmeterol 1 puff 06/24/20 09:40 06/25/20 08:44 Fluticasone-Salmeterol 500-50 Diskus INHALATION 1 puff BID.RESPIRATORY EMRE Administration Sucralfate 1 gm 06/21/20 21:00 06/25/20 13:32 Sucralfate 1 Gm/10 Ml Oral Liq Udc PO 1 gm AC&BEDTIME EMRE Administration PFSH Acute PFSH: Medical History Anemia Carcinoma in situ of prostate COPD (chronic obstructive pulmonary disease) Hiatal hernia Hyperlipemia Hypertension Wedge compression fracture of unspecified thoracic vertebra, initial encounter for closed fracture Surgical History H/O esophagogastroduodenoscopy 07/14/2019: Hiatal hernia and duodenal polyps History of colonoscopy (~2008) 07/14/2019: Normal Family History Other No pertinent family history Social History Smoking and tobacco status: current every day smoker e-cigarettes E-Cigarette Details: vaporizer device Alcohol intake: never Substance/Drug Use: never Household members: spouse Housing: House Marital status: Current occupational status: employed 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 History of recent travel: No Kami/Pentecostal: [employer] Vitals/I&O/Wt Last Vital Signs Temp 97.9 F 06/25/20 15:22 Pulse 81 06/25/20 15:22 Resp 18 06/25/20 15:22 BP 120/57 06/25/20 15:22 Pulse Ox 94 06/25/20 15:22 06/25/20 06/25/20 06/25/20 06:59 14:59 22:59 Intake Total 240 / 1120 720 / 720 Output Total 350 / 950 200 / 200 Balance -110 / 170 520 / 520 Weight last 48 hrs Weight 194 lb Weight 194 lb 4.8 oz Physical Exam Narrative: EXAM NARRATIVE: General: alert, NAD HEENT: conj clear, EOMI, PERRL, mmm, Neck: supple, no meningismus Heme: no cervical LAP Pulmonary: CTAB, no wheezing, rhonchi, crackles Cardiovascular: rrr, nl s1s2, no mrg Abdomen: soft, nt, nd, no r/g, bs+ Extremities: pulses +, no edema, no c/c : no CVA tenderness Skin: intact, no rash MSK: no back or neck pain Neurologic: grossly intact Data Other Data: Other data: # Lexiscan sestamibi MPI (06/22/20) IMPRESSIONS 1. Large size predominantly fixed perfusion abnormality of moderate to severe mid to apical inferior, mid to apical septal and apical howard. 2. This very likely represents attenuation artifact in setting of normal left ventricular systolic function and no regional wall motion abnormality. 3. The left ventricular ejection fraction is normal with a value of 58%. There is normal left ventricular wall thickening. 4. Transient ischemic dilation index mildly elevated at 1.19. This may represent subendocardial ischemia/hypertensive response. Clinical correlation is advised. 5. No coronary ischemia based on the study. # Myocardial Perfusion scan 06/22/20: 1. Large size predominantly fixed perfusion abnormality of moderate to severe severity of mid to apical inferior, mid to apical septal and apical howard. 2. This very likely represents attenuation artifact in setting of normal left ventricular systolic function and no regional wall motion abnormality. 3. The left ventricular ejection fraction is normal with a value of 58%. There is normal left ventricular wall thickening. 4. Transient ischemic dilation index mildly elevated at 1.19. This may represent subendocardial ischemia/hypertensive response. Clinical correlation is advised. 5. No coronary ischemia based on the study. # TTE (06/22/20) CONCLUSIONS LV systolic function is normal with EF of 50 to 55%. Moderate hypokinesis of apical and distal anteroseptal howard. There is moderate hypokinesis of apical and distal anteroseptal wall. Grade 1 diastolic dysfunction is seen. No comparison studies are available. # Venous duplex 06/22/20: No evidence of right lower extremity DVT. Occlusive DVT from Left femoral vein to left PTV CTA 06/21/20: 1. The exam is positive for pulmonary emboli with subocclusive filling defects especially in the right lower lobe pulmonary artery branches. 2. There are severe emphysematous changes. No airspace consolidation. 3. Multiple chronic appearing compression fractures are noted in the spine. GNINY 07/07/19: 1. Features of moderate peripheral artery disease on the left side 2. Possible mild peripheral artery disease on the right side # PFTS 06/25/20: The spirometry suggestive of severe obstructive ventilatory disease.FEV1 39%. Please correlate clinically. A&P Assessment and plan (1) Triple vessel coronary artery disease: Status: Acute (2) NSTEMI (non-ST elevated myocardial infarction): Status: Acute (3) Dvt femoral (deep venous thrombosis): Status: Acute Qualifiers: Chronicity: acute Laterality: left Qualified Code(s): I82.412 - Acute embolism and thrombosis of left femoral vein (4) COPD (chronic obstructive pulmonary disease): Status: Acute Qualifiers: COPD type: emphysema Emphysema type: centrilobular Qualified Code(s): J43.2 - Centrilobular emphysema (5) Pulmonary emboli: Status: Acute Qualifiers: Pulmonary embolism type: multiple subsegmental (without acute cor pulmonale) Qualified Code(s): I26.94 - Multiple subsegmental pulmonary emboli without acute cor pulmonale (6) Preop pulmonary/respiratory exam: Status: Acute #Preoperative pulmonary risk assessment for possible Coronary revascularization for NSTEMI with Triple vessel disease #Severe GOLD Stage 3 COPD # RLL Suboccluisve Pulmonary emboli & Occlusive DVT from Left femoral vein to left PTV in pt. 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 # Chronic steroid use of prostrate Ca; Chronic Prednisone 2.5 mg PO bid x 15 years #Ex heavy cigarette smoker (47 pack years Quit 2010) and current Vape user (9 years) - Reviewed all the imaging and reports - multivessel disease on [facility], CT showing non occluive RLL PE, venous doppler Left leg DVT, Echo suggestive of LV systolic function is normal with EF of 50 to 55%. Moderate hypokinesis of apical and distal anteroseptal howard. There is moderate hypokinesis of apical and distal anteroseptal wall with no right sided strain pattern. - Currently on ASA 81 mg daily, lipitor 80 mg hs, Metoprolol 75 mg bid, imdur 15 po daily, Lovenox 90 mg sc bid for NSTEMI, PE and DVT. - Spirometry (06/25/20) suggestive of severe obstructive ventilatory disease with significantly low FEV1 39%. - Currently on Advair, Duoneb q 6hr prn sob, Singulair for COPD; - Saturating 96% on room air. - normal serum bicarb - suggest pt,. is not a chronic CO2 retainer. -Based on ARISCAT preoperative pulmonary risk index criteria points: 50 -3 points for age between 51-80 years; 0 points for preoperative oxygen saturation >96%; Pt is 96 % on room air; 24 points for intrathoracic surgical incision, 23 points for >3 hours of surgery = total 50 points = Cleared with HIGH RISK for post surgical pulmonary complication rate 42%. - Although currently PE is sub occlusive and is confined to segmental branches with no right sided strain pattern on Echo - it can get further complicated by lack of anticoagulation (until chest tubes have low output) and immobilization during early post operative period, especially in the presence of extensive left leg DVT. - Based on PFTs, severe obstructive airway disease can pose challenges like post operative hypoventilation, severe bronchospasm and prolonged intubation. - Explained in detail to the patient and his daughter at bedside, that if cardiology and CT surgery decide to go for CABG for revascularization, family should be aware that the procedure has very high risk for post operative complications including Respiratory infection, Respiratory failure failing extubation, Pleural effusion, Atelectasis, Pneumothorax, Bronchospasm, Aspiration pneumonitis and worsening PE including . added to cardiac related complications like arrythmias. They verbalized understanding about complications and said would wait for the final decision regarding medical management vs surgery. - If Cardiology/CT Surgery team decides to manage medically, I would recommend CT chest with PE protocol in 3 months with continuation of anticoagulation for total months for provoked DVT/PE and Discharge patient with Anoro or bevespi or stialto (either one depending on what the insurance approves) and Pulmonary clinic appointment. Recommendations discussed with Dr. Tejada & Dr. Valderrama , Patient and family at bedside. Consult Attestations Medical Necessity Statement: Chest pain NSTEMI due to mulitvessel, PE AND DVT in pt. with high eugene operaitve risk - Requiring anticoagulation and possible revascularization. Time Spent in Patient Care: Greater than 35 minutes (>than 50% of time spent in counselling and/or direct pt care on unit). 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
--- NOTE | 2020-06-25 17:00 | PC.NURSE ---
chest pain upon sitting up Pt was laying down while cardiothoracic surgeon have discussion about the risks and benefits of the surgery. Upon sitting up, he said he has chest pain at 4 to 5 pain scale. About 10sec, upon getting his nitro SL PRN, the pt stated, the chest pain is gone. Hospitalist notified and discuss his chest pain off and on. Also informed that pt takes Abiraterone orally daily for his prostate cancer together with his prednisone 5 mg and that he has not received the Abiraterone during his hospitalization but has been receiving Prednisone 3 mg BID. Per hospitalist he will talked to other doctors to discuss in regards to holding these meds.
[2020-06-25] MEDS: montelukast sodium 10 mg Tablet PO (17:09)
--- NOTE | 2020-06-25 17:33 | PM.CONSULT ---
Providers/Reason For Consult Consulting Physican/Specialty*: Dr. Tejada/cardiothoracic surgery Reason for Consult*: Coronary artery disease with left main coronary artery stenosis Requesting Physcian: Dr. Fung Attending Physician: Gerardo Alvarado Primary Care Provider: Lukas Campbell DO History of Present Illness History of Present Illness Mulugeta Murillo is a 74 year old male is admitted on June 21 after presenting to the emergency department a 5-day history of nighttime heartburn and bilateral arm pain intermittently. These episodes were associated with nausea but without vomiting. EKG revealed poor R wave progression, sinus rhythm at a heart rate of 86. No acute ST changes were noted. Troponin was elevated 252 and his BNP was 2384. An elevated D-dimer, he was anticoagulated and subsequent CTA of the chest confirmed right lower lobe segmental, nonobstructive, pulmonary embolism. Bilateral lower extremity venous duplex study revealed extensive DVT from the common femoral vein distally on the left and no thrombus on the right. He was evaluated by our cardiology colleagues and Dr. Fung subsequently performed left heart catheterization for consultation from Dr. Cota who saw the patient for cardiology. She reviewed sestamibi stress test of June 21 which revealed normal EKG response without induced chest pain or arrhythmia. There was normal blood pressure and heart rate response. Perfusion images revealed a large sized predominantly fixed abnormality of moderate to severe severity in the mid to apical inferior mid to apical septal and apical howard. Ejection fraction 58%. There was transit ischemic dilatation index mildly elevated at 1.19. There was no coronary ischemia based on the study. Non-STEMI was confirmed and with wall motion abnormalities on echocardiogram, it was recommended to proceed with angiography. He was placed on therapeutic Lovenox statin and aspirin related to his current findings, risk factors, and documented pulmonary embolism in the right lower lobe. Heart catheterization of June 23 revealed left main coronary stenosis well as proximal disease of the LAD and circumflex vessel as well as ostial RCA. I have reviewed the left heart catheterization and conferred with Dr. Fung. PFTs obtained earlier today revealed an FEV1 of 1.08 which is 39% of predicted. FVC is 2.64 which is 73% of predicted. His FEF 25/75 is 0.34 which is 16% of predicted. Diffusion study was not performed. The study has been interpreted by Dr. Issa as severe obstructive disease. Review of Systems Const: Denies: fever(s), chills, change in appetite, change in weight, fatigue or night sweats Eyes: Denies: change in vision or blurry vision ENMT: Denies: odynophagia or hoarseness Card: Reports: chest pain, edema, swelling of feet/ankles and dyspnea on exertion; Denies: palpitations or irregular heart rhythm Resp: Denies: dyspnea, productive cough or hemoptysis GI: Denies: abdominal pain, nausea, vomiting, dysphagia, heartburn or change in bowel habits : Denies: difficulty urinating, dysuria, urinary frequency, urinary urgency or urinary hesitancy Musc: Denies: extremity pain or extremity swelling Skin/Breast: Denies: rash Neuro: Denies: headache(s), numbness in extremities, weakness in extremities or sensory changes Psych: Denies: anxiety, depression or change in appetite Endo: Denies: polyuria, polydipsia or cold intolerance Scott/Lymph: Denies: easy bruising, easy bleeding, petechiae or enlarged lymph nodes Meds/Allergies Home Medications and Allergies Home Medications Medication Instructions Recorded Confirmed Last Taken Type albuterol sulfate 90 mcg/actuation 2 inh INHALATION QID PRN each 06/28/19 06/21/20 06/21/20 History breath activated powder inhaler budesonide-formoterol HFA 160 2 puff INHALATION BID@0600,1700 06/28/19 06/21/20 06/21/20 History mcg-4.5 mcg/actuation aerosol inhaler diltiazem HCl 240 mg capsule,24 240 mg PO DAILY@0600 06/28/19 06/21/20 06/21/20 History hr,extended release montelukast 10 mg tablet 10 mg PO DAILY@1700 06/28/19 06/21/20 06/20/20 History Eligard (3 month) 22.2 mg SUBCUT DIRECTED 07/13/19 06/21/20 06/13/19 History abiraterone 1,000 mg PO DAILY@0600 07/13/19 06/21/20 06/21/20 History aspirin 81 mg PO DAILY@0600 07/13/19 06/21/20 06/21/20 History magnesium 250 mg PO DAILY@1700 07/13/19 06/21/20 06/20/20 History potassium chloride 8 meq PO DAILY@1700 07/13/19 06/21/20 06/20/20 History prednisolone 2.5 mg PO BID@0600,1700 07/13/19 06/21/20 06/21/20 History krill oil 1 tab PO DAILY@1700 06/21/20 06/21/20 06/20/20 History pantoprazole 40 mg PO DAILY@0606/21/20 06/21/20 06/21/20 History rosuvastatin 2.5 mg PO DAILY@0606/21/20 06/21/20 Unknown History silodosin 8 mg PO BEDTIME@199906/21/20 06/21/20 Unknown History Allergies Allergy/AdvReac Type Severity Reaction Status Date / Time Ywxtnmy-Inp-Nqs Reductase AdvReac Unknown back pain Verified 10/03/19 09:10 Inhibitor atorvastatin AdvReac ADR-Back Verified 09/30/19 08:34 Pain Current Medications Current Medications Generic Name Dose Route Start Last Admin Trade Name Freq PRN Reason Stop Dose Admin Al Hydrox/Mg Hydrox/Simethicone 15 ml 06/21/20 19:04 06/23/20 17:25 Tjvq-Bqh-Uymzksbfs-Danette 30 Ml Udc PO 15 ml Q6H PRN Administration INDIGESTION Al Hydrox/Mg Hydrox/Simethicone 30 ml 06/23/20 12:18 06/24/20 04:07 Yflg-Tfb-Tpppqjwnt-Danette 30 Ml Udc PO 30 ml Q15M PRN Administration INDIGESTION Albuterol/Ipratropium 3 ml 06/24/20 09:38 06/25/20 08:44 Ipratropium-Albuterol 3 Ml Neb INHALATION 3 ml Q6H.RESPIRATORY PRN Administration SHORTNESS OF BREATH Aspirin 325 mg 06/23/20 09:00 06/25/20 08:34 Aspirin 325 Mg Ec Tablet PO 325 mg DAILY EMRE Administration Atorvastatin Calcium 80 mg 06/22/20 21:00 06/24/20 20:33 Atorvastatin 40 Mg Tablet PO 80 mg BEDTIME EMRE Administration Bisacodyl 10 mg 06/21/20 19:04 06/22/20 10:22 Bisacodyl 5 Mg Tablet PO 10 mg DAILY PRN Administration CONSTIPATION Docusate Sodium 100 mg 06/22/20 09:00 06/25/20 08:35 Docusate Sodium 100 Mg Capsule PO Not Given BID [facility] Enoxaparin Sodium 90 mg 06/22/20 18:00 06/25/20 06:10 Enoxaparin 100 Mg/Ml Syringe 1 mg/kg (90 mg) 90 mg SUBCUT Administration Q12H [facility] Ferrous Sulfate 325 mg 06/22/20 08:55 06/25/20 08:36 Ferrous Sulfate Ec 325 Mg Tablet PO Not Given BIDWM [facility] Isosorbide Dinitrate 5 mg 06/22/20 18:00 06/25/20 17:10 Isosorbide Dinitrate 20 Mg Tablet PO 5 mg BID EMRE Administration Metoprolol Tartrate 75 mg 06/24/20 21:00 06/25/20 09:05 Metoprolol Tartrate 50 Mg Tablet PO 75 mg BID@0900,2100 [facility] Administration Montelukast Sodium 10 mg 06/22/20 17:00 06/25/20 17:09 Montelukast Sodium 10 Mg Tablet PO 10 mg DAILY@1700 [facility] Administration Nitroglycerin 0.4 mg 06/22/20 16:51 06/24/20 22:54 Nitroglycerin 0.4 Mg Sublingual Tablet SUBLINGUAL 0.4 mg Q5M PRN Administration CHEST PAIN Non-Formulary Medication 250 mg 06/22/20 17:00 06/24/20 17:30 Magnesium PO 250 mg DAILY@1700 [facility] Administration Non-Formulary Medication 8 mg 06/21/20 20:00 06/24/20 23:07 Silodosin PO Not Given BEDTIME@2000 [facility] Pantoprazole Sodium 40 mg 06/22/20 18:00 06/25/20 17:[address] 40 Mg Tablet PO 40 mg BID EMRE Administration Prednisone 3 mg 06/22/20 09:00 06/25/20 09:19 Prednisone 1 Mg Tablet PO 3 mg BID EMRE Administration Fluticasone/Salmeterol 1 puff 06/24/20 09:40 06/25/20 08:44 Fluticasone-Salmeterol 500-50 Diskus INHALATION 1 puff BID.RESPIRATORY EMRE Administration Sucralfate 1 gm 06/21/20 21:00 06/25/20 17:09 Sucralfate 1 Gm/10 Ml Oral Liq Udc PO 1 gm AC&BEDTIME EMRE Administration PFSH Acute PFSH: Medical History Anemia Carcinoma in situ of prostate COPD (chronic obstructive pulmonary disease) Hiatal hernia Hyperlipemia Hypertension Wedge compression fracture of unspecified thoracic vertebra, initial encounter for closed fracture Surgical History H/O esophagogastroduodenoscopy 07/14/2019: Hiatal hernia and duodenal polyps History of colonoscopy (~2008) 07/14/2019: Normal Family History Other No pertinent family history Social History Smoking and tobacco status: current every day smoker e-cigarettes E-Cigarette Details: vaporizer device Alcohol intake: never Substance/Drug Use: never Household members: spouse Housing: House Marital status: Current occupational status: employed 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 History of recent travel: No Kami/Episcopalian: Judaism Vitals/I&O/Wt Last Vital Signs Temp 97.9 F 06/25/20 15:22 Pulse 81 06/25/20 15:22 Resp 18 06/25/20 15:22 BP 120/57 06/25/20 15:22 Pulse Ox 94 06/25/20 15:22 06/25/20 06/25/20 06/25/20 06:59 14:59 22:59 Intake Total 240 / 1120 720 / 720 Output Total 350 / 950 200 / 200 Balance -110 / 170 520 / 520 Weight last 48 hrs Weight 194 lb Weight 194 lb 4.8 oz Physical Exam Const: COMMON NORMALS: patient oriented x3 and alert ORIENTATION/CONSCIOUSNESS: Yes oriented to person, Yes oriented to place and Yes oriented to time HENMT: COMMON NORMALS: normocephalic HEAD & SCALP: normocephalic; no cranial bruits Neck/C-Spine: COMMON NORMALS: full ROM, supple, no JVD and No carotid bruits GENERAL: Yes trachea midline CERVICAL SPINE: Yes cervical ROM normal Chest: COMMONS NORMALS: normal inspection of the chest and normal palpation of entire chest wall CHEST: Yes Symmetrical chest wall rise Resp: COMMON NORMALS: normal respiratory effort and No use of accessory muscles; negative for clear to auscultation bilaterally and negative for percussion normal EFFORT & INSPECTION: Yes able to speak in complete sentences, Yes symmetric chest movement, No tracheal deviation and Yes prolonged expiratory phase AUSCULTATION: not clear to auscultation bilaterally and bronchovesicular breath sounds PERCUSSION: percussion abnormal and hyperresonance Cardio: COMMON NORMALS: no JVD, regular rate, regular rhythm, S1 normal heart sound present, S2 normal heart sound present, No gallops present (Cardio), No murmurs present (Cardio), No rub (Cardio) and Peripheral pulses 2+ throughout JUGULAR VENOUS DISTENTION: no JVD RATE: regular rate RHYTHM: regular rhythm HEART SOUNDS: S1 normal heart sound present and S2 normal heart sound present PERIPHERAL PULSES: Peripheral pulses 2+ throughout Extremity: COMMON NORMALS: negative for normal to inspection and negative for no pedal edema GENERAL: Yes edema Neuro: COMMON NORMALS: patient oriented x3, no focal motor deficits and no sensory deficits noted SENSORIUM/ORIENTATION: Yes alert, Yes oriented to person, Yes oriented to place and Yes oriented to time GAIT: Yes Normal gait present Psych: COMMON NORMALS: mental status grossly normal, Normal thought process present, cooperative, normal affect and speech normal APPEARANCE: Yes grossly normal SPEECH: Yes normal speech THOUGHT PROCESS: Normal thought process present Skin: COMMON NORMALS: negative for turgor normal GENERAL SKIN EXAM: decreased turgor, ecchymosis and petechiae HAIR: brittle A&P Assessment and plan (1) Left main coronary artery disease: I have personally reviewed the CTA of the chest as well as left heart catheterization and PFT results. I have examined the patient at bedside I conferred with his daughter at bedside as well. I have also conferred with my colleague Dr. Fung and Dr. Issa. Mr. Murillo has several risk factors for surgical revascularization. He has severe obstructive pulmonary disease, extensive left lower extremity DVT, right lower lobe pulmonary embolism, 16-year history of steroid administration as part of his treatment for prostate cancer, 50-year history of tobacco use, sedentary lifestyle, and multisegment, left main coronary artery disease. I have spoken very frankly with Mr. Murillo and his daughter. I have requested our pulmonary colleagues evaluate from a critical care standpoint and assist with a judgment as to the recovery phase for Mr. Murillo following an attempted CABG. I would expect that he would have a protracted postop course and that in an ideal situation I would expect his hospitalization to be 2 weeks and clearly will need inpatient alf care to follow. He is at a high risk for wound healing complications related to his several year history of steroid use as well as his severe obstructive lung disease which places him at a substantially increased risk for pulmonary complications or prolonged mechanical ventilation needs. I will await the opinion of my learned colleagues as we proceed with evaluations to determine the best course of therapy for Mr. Murillo. Status: Acute Consult Attestations Medical Necessity Statement: Left main coronary artery disease status post non-STEMI. Severe obstructive lung disease. Pulmonary embolism. Extensive left lower extremity DVT. Time Spent in Patient Care: Greater than 35 minutes (75 mins) Coding Level of Care Code New Pt Acute Bilingual Customer Service for Chg Fwd Patient Type New History Comprehensive Exam Comprehensive Medical Decision Making High Complexity Diagnoses Left main coronary artery disease I25.10 Time Spent (min) 75
--- NOTE | 2020-06-25 18:22 | P.PN_ITS ---
Subjective Subjective: Interval history: Today he states he is doing alright. He has had a few short episodes of chest discomfort. Nothing currently. They appear to universally last a very short time and respond to nitroglycerin. Vitals/I&O/Wt Last Vital Signs Temp 97.9 F 06/25/20 15:22 Pulse 81 06/25/20 15:22 Resp 18 06/25/20 15:22 BP 120/57 06/25/20 15:22 Pulse Ox 94 06/25/20 15:22 06/25/20 06/25/20 06/25/20 06:59 14:59 22:59 Intake Total 240 / 1120 720 / 720 360 / 1080 Output Total 350 / 950 200 / 200 Balance -110 / 170 520 / 520 360 / 880 Weight last 48 hrs Weight 87.997 kg Weight 88.133 kg Physical Exam Const: COMMON NORMALS: no acute distress and patient oriented x3 HENMT: COMMON NORMALS: oropharynx normal Neck/C-Spine: COMMON NORMALS: no JVD Resp: COMMON NORMALS: normal respiratory effort and clear to auscultation bilaterally AUSCULTATION: clear to auscultation bilaterally Cardio: COMMON NORMALS: no JVD, regular rhythm, S1 normal heart sound present, S2 normal heart sound present and No murmurs present (Cardio) RHYTHM: regular rhythm HEART SOUNDS: S1 normal heart sound present and S2 normal heart sound present GI: COMMON NORMALS: Normal to inspection, nondistended, normoactive bowel sounds present, Soft to palpation and non-tender PALPATION: Yes Soft to palpation Extremity: COMMON NORMALS: no joint enlargement and no pedal edema Neuro: COMMON NORMALS: patient oriented x3 and moves all extremities Skin: COMMON NORMALS: no rashes or lesions noted GENERAL SKIN EXAM: no rashes or lesions noted Data : 06/25/20 03:05 06/25/20 03:05 A&P Assessment and plan (1) Triple vessel coronary artery disease: At the time of my visit he is pending additional discussion regarding risks and benefits of cardiac bypass surgery. Cardiothoracic surgery consultation appreciated. Reviewed and discussed also with pulmonology regarding elevated pulmonary risk in the setting of underlying COPD, PE with lower extremity DVT, chronic steroid use. Pending additional discussion and decision regarding whether the high risk may be acceptable given his condition and whether patient and family be wanting to proceed. We will discuss again with the specialist providers and patient and family tomorrow. Status: Acute (2) NSTEMI (non-ST elevated myocardial infarction): On aspirin, beta-gerald, statin, therapeutic anticoagulation. Few short lasting intermittent episodes of chest discomfort, responsive to nitroglycerin. Imdur dose is going to be adjusted today per cardiology recommendation. Monitor for response to symptoms. Additional evaluation and treatment of multivessel coronary disease as above. Status: Acute (3) Left main coronary artery disease: Status: Acute (4) Pulmonary emboli: Continue anticoagulation. Down to room air on oxygen requirement. Status: Acute Qualifiers: Pulmonary embolism type: multiple subsegmental (without acute cor pulmonale) Qualified Code(s): I26.94 - Multiple subsegmental pulmonary emboli without acute cor pulmonale (5) Dvt femoral (deep venous thrombosis): Continue anticoagulation. Status: Acute Qualifiers: Chronicity: acute Laterality: left Qualified Code(s): I82.412 - Acute embolism and thrombosis of left femoral vein (6) Anemia: Currently requiring anticoagulation. Hemoglobin has been stable so far. Hemoccult has been ordered. Mild iron deficiency anemia. Chronic intermittent steroid use (with cancer treatments). Continue PPI. Receiving iron sulfate supplementation. Recent EGD and Colonoscopy done in 2020 noted to be WNL except hiatal hernia. Status: Acute (7) COPD (chronic obstructive pulmonary disease): Currently not in exacerbation. DuoNeb as needed. Continue Advair. Singulair. Not requiring oxygen currently. 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 Status: Acute Qualifiers: Hyperlipidemia type: mixed hyperlipidemia Qualified Code(s): E78.2 - Mixed hyperlipidemia (9) Hypertension: Blood pressures are close to goal. Continue current medications. Continue to monitor. Status: Acute Qualifiers: Hypertension type: essential hypertension Qualified Code(s): I10 - Essential (primary) hypertension (10) JODI (acute kidney injury): Improved. Creatinine 1. Status: Acute Attestations Medical Necessity Statement*: Continue admission for assessment management of triple-vessel coronary disease with underlying pulmonary comorbidities, PE, DVT, and other comorbid factors. Coding Level of Care Code Acute Dental Floss Packer for [facility] Fwd Exam Comprehensive Diagnoses Triple vessel coronary artery disease I25.10 NSTEMI (non-ST elevated myocardial infarction) I21.4 Left main coronary artery disease I25.10 Pulmonary emboli I26.94 Pulmonary embolism type: multiple subsegmental (without acute cor pulmonale) Dvt femoral (deep venous thrombosis) I82.412 Chronicity: acute Laterality: left Anemia D64.9 COPD (chronic obstructive pulmonary disease) J43.2 COPD type: emphysema Emphysema type: centrilobular Hyperlipemia E78.2 Hyperlipidemia type: mixed hyperlipidemia Hypertension I10 Hypertension type: essential hypertension JODI (acute kidney injury) N17.9
[2020-06-25] MEDS: NON-FORMULARY MEDICATION (Magnesium 250 mg Tablet) 250 EACH PO (18:35)
--- NOTE | 2020-06-25 18:42 | PC.NURSE ---
Patient refused to take a shower carlos Pt instructed about the Betasept soln that we use prior to CABG. Pt stated, I will take a shower in the morning.
[2020-06-25] MEDS: isosorbide mononitrate ER 30 mg Tablet 15 MG PO (20:28)
[2020-06-26] VITALS (91 sets, daily range): BP systolic 107–143; BP diastolic 57–67; PULSE 64–101; RESP 9–25; TEMP 36.3–36.8; O2SAT 92–97
[2020-06-26 05:03] LABS: Basophils % 0.7 %; Eosinophils # 0.2 10^3/uL (0.0-0.8); Eosinophils % 3.9 %; Hematocrit 27.9 % (42.0-52.0); Hemoglobin 8.5 g/dL (11.7-16.6); Lymphocytes # 0.7 10^3/uL (0.8-4.8); Lymphocytes % 17.4 %; Mean Corpuscular HGB Conc 30.5 g/dL (30.0-36.0); Mean Corpuscular Volume 95.2 fL (80-94); Mean Platelet Volume 10.3 fL (7.4-10.4); Monocytes # 0.5 10^3/uL (0.2-0.9); Monocytes % 11.1 %; Neutrophils # 2.73 10^3/uL (1.8-7.7); Neutrophils % 66.2 %; Nucleated Red Blood Cells % 0 %; Platelet Count 200 10^3/cmm (130-400); Red Blood Count 2.93 10^6/uL (4.1-5.3); Red Cell Distribution Width 15.7 % (12.1-15.1); White Blood Count 4.1 10^3/uL (4.0-10.0)
--- NOTE | 2020-06-26 05:07 | PC.NURSE ---
Spoke with Dr. Barajas regarding this patient's morning lovenox injection. There is still a potential that this patient will be having a CABG per the report i received from the day shift RN. Order received to hold this dose.
[2020-06-26 06:02] LABS: Anion Gap 12.2 (5-19); Blood Urea Nitrogen 20 mg/dL (8-23); Calcium 8.6 mg/dL (8.5-10.5); Carbon Dioxide 24 mmol/L (22-29); Chloride 108 mmol/L (98-107); Glucose 79 mg/dL (65-115); Osmolality Calculated 292 mOsm/kg (285-295); Potassium 4.2 mmol/L (3.5-5.1); Sodium 140 mmol/L (136-145)
[2020-06-26] MEDS: sucralfate 1 gm/10 mL Oral Liq UDC PO ×4 (06:38→21:46)
--- NOTE | 2020-06-26 07:27 | PM.PN ---
Subjective Subjective: Interval history: Mr. Murillo reports no chest pain overnight though he stated he did have some trouble sleeping related to nursing rounds. He is in good spirits this morning. Vitals/I&O/Wt Last Vital Signs Temp 98.0 F 06/26/20 06:57 Pulse 82 06/26/20 06:57 Resp 16 06/26/20 06:57 BP 143/64 06/26/20 06:57 Pulse Ox 92 06/26/20 06:57 06/25/20 06/26/20 06/26/20 22:59 06:59 14:59 Intake Total 660 / 1380 150 / 1530 Output Total 700 / 900 Balance 660 / 1180 -550 / 630 Weight last 48 hrs Weight 191 lb 3.2 oz Weight 194 lb Physical Exam Resp: EFFORT & INSPECTION: Yes symmetric chest movement, Yes audible wheezes (Intermittent and light), No tracheal deviation and Yes prolonged expiratory phase PERCUSSION: hyperresonance Cardio: COMMON NORMALS: regular rate, regular rhythm, S1 normal heart sound present and No murmurs present (Cardio) RATE: regular rate RHYTHM: regular rhythm HEART SOUNDS: S1 normal heart sound present Data : 06/26/20 04:17 06/26/20 04:17 A&P Assessment and plan (1) Left main coronary artery disease: Mr. Murillo' inform the with him at noon today. I will plan to speak further with him concerning evaluations our cardiology colleagues, or pulmonary colleagues and myself related to the risk profile for consideration of surgical revascularization. I will speak further with her band sawmill operator today. Ideally, it would be best if he can be medically managed for several weeks as the recommendation of our computer game programmer in relation to his pulmonary embolism and his extensive left lower extremity DVT. Have also awaiting the results of radial mapping and vein mapping of his right lower extremity to determine that we have adequate conduit given that we cannot harvest from his left leg. I will be speaking further with him and his at noon today. Status: Acute Attestations Medical Necessity Statement*: Three-vessel coronary artery disease with left main involvement, extensive left lower extremity DVT, right lower lobe pulmonary embolism, severe COPD, long-term steroid use. Time Spent in Patient Care: less than 15 minutes Coding Level of Care Code Acute Trade Show Coordinator for [facility] Sukh Diagnoses Left main coronary artery disease I25.10
[2020-06-26] MEDS: isosorbide mononitrate ER 30 mg Tablet 15 MG PO ×2 (08:45→11:14)
[2020-06-26] MEDS: metoprolol tartrate 50 mg Tablet 75 MG PO ×2 (08:45→21:45)
[2020-06-26] MEDS: docusate sodium 100 mg Capsule PO ×2 (08:45→17:37)
[2020-06-26] MEDS: aspirin 325 mg EC Tablet PO (08:45)
[2020-06-26] MEDS: pantoprazole DR 40 mg Tablet PO ×2 (08:46→17:38)
--- NOTE | 2020-06-26 09:20 | PC.NURSE ---
patient refused betasept shower at this time awaiting to speak with Dr rondon
--- NOTE | 2020-06-26 09:23 | PM.PN ---
Subjective Subjective: Interval history: Today he is feeling a little bit more short of breath. He denies chest pain or pressure this morning during my visit, but an episode of chest pain is reported later in the morning for which he is receiving NTG. Vitals/I&O/Wt Last Vital Signs Temp 98.0 F 06/26/20 06:57 Pulse 82 06/26/20 06:57 Resp 16 06/26/20 06:57 BP 143/64 06/26/20 06:57 Pulse Ox 92 06/26/20 06:57 06/25/20 06/26/20 06/26/20 22:59 06:59 14:59 Intake Total 660 / 1380 150 / 1530 360 / 360 Output Total 700 / 900 Balance 660 / 1180 -550 / 630 360 / 360 Weight last 48 hrs Weight 86.727 kg Weight 87.997 kg Physical Exam Const: COMMON NORMALS: no acute distress and patient oriented x3 HENMT: COMMON NORMALS: oropharynx normal Neck/C-Spine: COMMON NORMALS: no JVD Resp: COMMON NORMALS: normal respiratory effort and clear to auscultation bilaterally AUSCULTATION: clear to auscultation bilaterally Cardio: COMMON NORMALS: no JVD, regular rhythm, S1 normal heart sound present, S2 normal heart sound present and No murmurs present (Cardio) RHYTHM: regular rhythm HEART SOUNDS: S1 normal heart sound present and S2 normal heart sound present GI: COMMON NORMALS: Normal to inspection, nondistended, normoactive bowel sounds present, Soft to palpation and non-tender PALPATION: Yes Soft to palpation Extremity: COMMON NORMALS: no joint enlargement and no pedal edema Neuro: COMMON NORMALS: patient oriented x3 and moves all extremities Skin: COMMON NORMALS: no rashes or lesions noted GENERAL SKIN EXAM: no rashes or lesions noted Data : 06/26/20 04:17 06/26/20 04:17 A&P Assessment and plan (1) Triple vessel coronary artery disease: Pending additional discussion today and final decision regarding by pass surgery. He denies any questions currently. Status: Acute (2) NSTEMI (non-ST elevated myocardial infarction): On aspirin, beta-gerald, statin, therapeutic anticoagulation. Few short lasting intermittent episodes of chest discomfort, responsive to nitroglycerin. Including this morning. Imdur adjustment vs NTG drip depending on cardiology recommendation. Additional evaluation and treatment of multivessel coronary disease as above. Status: Acute (3) Left main coronary artery disease: Status: Acute (4) Pulmonary emboli: Continue anticoagulation. Down to room air on oxygen requirement. Status: Acute Qualifiers: Pulmonary embolism type: multiple subsegmental (without acute cor pulmonale) Qualified Code(s): I26.94 - Multiple subsegmental pulmonary emboli without acute cor pulmonale (5) Dvt femoral (deep venous thrombosis): Continue anticoagulation. Status: Acute Qualifiers: Chronicity: acute Laterality: left Qualified Code(s): I82.412 - Acute embolism and thrombosis of left femoral vein (6) COPD (chronic obstructive pulmonary disease): This morning will be short of breath. Some wheezing, but this appears to be mostly upper respiratory with vocal cord dysfunction. No wheezing over lower lung avilez. No cough. No sputum production. Shortness of breath appears subjective. He is saturating 97% on room air. Discussed with him. He denies taking any medication for air hunger or anxiety at home. He will get a breathing treatment. Monitor. Currently not in exacerbation. DuoNeb as needed. Continue Advair. Singulair. Not requiring oxygen currently. Status: Acute Qualifiers: COPD type: emphysema Emphysema type: centrilobular Qualified Code(s): J43.2 - Centrilobular emphysema (7) Anemia: Currently requiring anticoagulation. Hemoglobin has been fluctuating a bit but without major decline so far tolerating anticoagulation. Hemoccult is positive. Mild iron deficiency anemia. Chronic intermittent steroid use (with cancer treatments). PPI BID. Receiving iron sulfate supplementation. Recent EGD and Colonoscopy done in 2019 noted to be WNL except hiatal hernia. Received B12. Status: Acute (8) Hyperlipemia: Continue statin. Status: Acute Qualifiers: Hyperlipidemia type: mixed hyperlipidemia Qualified Code(s): E78.2 - Mixed hyperlipidemia (9) Hypertension: Blood pressures are close to goal. Continue current medications. Continue to monitor. Status: Acute Qualifiers: Hypertension type: essential hypertension Qualified Code(s): I10 - Essential (primary) hypertension (10) JODI (acute kidney injury): Improved. Creatinine 1.1 Status: Acute Additional A&P Information Continue other chronic oral home medications. Attestations Medical Necessity Statement*: Continue admission for assessment management of triple-vessel coronary disease with evaluation for possible surgical management with underlying severe COPD, PE, DVT, anemia and additional comorbidities as above. Coding Level of Care Code Acute Retail Representative for Chg Fwd Exam Comprehensive Diagnoses Triple vessel coronary artery disease I25.10 NSTEMI (non-ST elevated myocardial infarction) I21.4 Left main coronary artery disease I25.10 Pulmonary emboli I26.94 Pulmonary embolism type: multiple subsegmental (without acute cor pulmonale) Dvt femoral (deep venous thrombosis) I82.412 Chronicity: acute Laterality: left COPD (chronic obstructive pulmonary disease) J43.2 COPD type: emphysema Emphysema type: centrilobular Anemia D64.9 Hyperlipemia E78.2 Hyperlipidemia type: mixed hyperlipidemia Hypertension I10 Hypertension type: essential hypertension JODI (acute kidney injury) N17.9
--- NOTE | 2020-06-26 09:44 | ECG_ITS ---
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: luis miguel CALVILLOB: 1945 Requested By: Gerardo Alvarado Order Number: [id number] Reading MD: YAQUELIN DUARTE Measurements Intervals [place] Rate: 90 P: 74 NH: 162 QRS: 0 QRSD: 90 T: 68 QT: 349 QTc: 428 Interpretive Statements SINUS RHYTHM SEPTAL MYOCARDIAL INFARCTION [40+ ms Q WAVE IN V1/V2], OF INDETERMINATE AGE Compared to ECG 06/25/2020 09:02:53 Myocardial infarct finding now present T-wave abnormality no longer present Electronically Signed On 06-26-2020 18:02:24 WINDOWS SERVER SPECIALIST by YAQUELIN DUARTE [email or web address]
--- NOTE | 2020-06-26 09:46 | PC.NURSE ---
Patient having chest pain rated 5/[address] coe on unit for rounding notified him of patients chest pain okayed to give nitro and obtain EKG consult with Dr oCta about starting possible nitro drip
[2020-06-26] MEDS: nitroglycerin 0.4 mg sublingual Tablet SUBLINGUAL ×2 (09:49→23:29)
--- NOTE | 2020-06-26 09:50 | PC.NURSE ---
nitro 1 given at this time 0951 BP 137/72 HR 92 respirations even and non labored 2 min later 0953 Bp 128/54 patient reports chest pain is relived
--- NOTE | 2020-06-26 10:49 | PC.NURSE ---
spoke with Dr wallace about patients episode of chest pain this am instructions to give an additional 15 mg of po Imdur at this time and change daily dose to 30 mg po for tomorrows dose
--- NOTE | 2020-06-26 11:25 | DCPLANNER ---
IMM completed on 06/26/20 @ 4683. Copy of rights given to pt.
--- NOTE | 2020-06-26 12:54 | PM.MISC ---
Miscellaneous Note Note: I conferred with Mr. Murillo and his at bedside as to therapeutic options and the opinion of our pulmonary colleagues. High risk nature of open surgical revascularization was again carefully discussed. I reviewed his anatomic lesions utilizing our educational materials. I have also conferred with the chief of cardiology services, Dr. Melendez who was available after my conversation with Mr. Murillo and his . He will confer with our colleague Dr. Fung to consider potential for IVUS investigation of the left main coronary artery and pending those results, possible staged intervention for his coronary disease. I would also recommend consideration for placement of a IVC filter as another method of protection for his extensive left lower extremity DVT. Our cardiology colleagues will be speaking further with Mr. Murillo and his later concerning their opinion and possible therapeutic options. If no better option is felt amenable, we could proceed with a high risk CABG, though I would recommend placement of a IVC filter prior to that procedure. I would again like to greatly thank our pulmonary and cardiology colleagues for their insight, analysis, and recommendations.
--- NOTE | 2020-06-26 16:29 | P.PN_ITS ---
Subjective Subjective: Interval history: Patient's coronary angiography performed on Thursday that showed a severe calcified coronary artery disease including distal left main, proximal to mid LAD, proximal left circumflex artery and ostial RCA. Episode of chest pain relieved by nitroglycerin this morning. No events on telemetry. He was seen by vidhi Tejada and Dr. Issa. Medications: Reviewed: Yes Medication Review Details: Current Medications Acetaminophen (Acetaminophen 325 Mg Tablet) 650 mg PO Q6H PRN PRN Reason: Mild/Mod Pain Or Temp >/= 101 Acetaminophen (Acetaminophen 325 Mg Tablet) 650 mg PO Q6H PRN PRN Reason: MILD PAIN Al Hydrox/Mg Hydrox/Simethicone (Fqgv-Fvv-Crjugzuzn-Danette 30 Ml Udc) 15 ml PO Q6H PRN PRN Reason: INDIGESTION Last Admin: 06/23/20 17:25 Dose: 15 ml Documented by: Al Hydrox/Mg Hydrox/Simethicone (Sxtc-Vbq-Kpcjexdgo-Danette 30 Ml Udc) 30 ml PO Q15M PRN PRN Reason: INDIGESTION Last Admin: 06/24/20 04:07 Dose: 30 ml Documented by: Al Hydrox/Mg Hydrox/Simethicone (Vwzf-Vwl-Tyultdnys-Danette 30 Ml Udc) 30 ml PO Q4H PRN PRN Reason: INDIGESTION Albuterol Sulfate (Albuterol 8 Gm Mdi) 2 puff INHALATION QID PRN PRN Reason: Shortness Of Breath Or Wheezing Albuterol/Ipratropium (Ipratropium-Albuterol 3 Ml Neb) 3 ml INHALATION Q6H.RESPIRATORY PRN PRN Reason: SHORTNESS OF BREATH Last Admin: 06/25/20 08:44 Dose: 3 ml Documented by: Alprazolam (Alprazolam 0.25 Mg Tablet) 0.25 mg PO TID PRN PRN Reason: ANXIETY Aspirin (Aspirin 325 Mg Ec Tablet) 325 mg PO DAILY [facility] Last Admin: 06/25/20 08:34 Dose: 325 mg Documented by: Atorvastatin Calcium (Atorvastatin 40 Mg Tablet) 80 mg PO BEDTIME [facility] Last Admin: 06/24/20 20:33 Dose: 80 mg Documented by: Atropine Sulfate (Atropine 1 Mg/Ml Sdv 1 Ml) 0.5 mg IVP PRN PRN PRN Reason: Symptomatic bradycardia Bisacodyl (Bisacodyl 5 Mg Tablet) 10 mg PO DAILY PRN PRN Reason: CONSTIPATION Last Admin: 06/22/20 10:22 Dose: 10 mg Documented by: Bisacodyl (Bisacodyl 5 Mg Tablet) 5 mg PO Q6H PRN PRN Reason: Constipation (Use 2nd) Bisacodyl (Bisacodyl 10 Mg Supp) 10 mg [place] Q6H PRN PRN Reason: Constipation (Use 5th) Bismuth Subsalicylate (Bismuth Subsalicylate 240 Ml Btl) 30 ml PO PRN PRN PRN Reason: DIARRHEA Diphenhydramine HCl (Diphenhydramine 25 Mg Capsule) 25 mg PO BEDTIME PRN PRN Reason: SLEEP Docusate Sodium (Docusate Sodium 100 Mg Capsule) 100 mg PO BID [facility] Last Admin: 06/25/20 08:35 Dose: Not Given Documented by: Docusate Sodium (Docusate Sodium 100 Mg Capsule) 100 mg PO BID PRN PRN Reason: Constipation (Use 1st) Enoxaparin Sodium (Enoxaparin 100 Mg/Ml Syringe) 90 mg 1 mg/kg (90 mg) SUBCUT Q12H [facility] Last Admin: 06/25/20 06:10 Dose: 90 mg Documented by: Fentanyl (Fentanyl 50 Mcg/Ml Inj 2ml) 50 mcg IVP PRN PRN PRN Reason: Prior to sheath removal Ferrous Sulfate (Ferrous Sulfate Ec 325 Mg Tablet) 325 mg PO BIDWM [facility] Last Admin: 06/25/20 08:36 Dose: Not Given Documented by: Guaifenesin (Guaifenesin 100 Mg/5 Ml Udc 10 Ml) 200 mg PO Q4H PRN PRN Reason: COUGH Isosorbide Dinitrate (Isosorbide Dinitrate 20 Mg Tablet) 5 mg PO BID [facility] Last Admin: 06/25/20 09:19 Dose: 5 mg Documented by: Lactulose (Lactulose Oral Liq 20 Gm/30 Ml Udc) 20 gm PO Q6H PRN PRN Reason: Constipation (Use 3rd) Magnesium Hydroxide (Magnesium Hydroxide 30 Ml Udc) 30 ml PO DAILY PRN PRN Reason: CONSTIPATION Magnesium Hydroxide (Magnesium Hydroxide 30 Ml Udc) 45 ml PO DAILY PRN PRN Reason: Constipation (use 4th) Metoprolol Tartrate (Metoprolol Tartrate 50 Mg Tablet) 75 mg PO BID@0900,2100 [facility] Last Admin: 06/25/20 09:05 Dose: 75 mg Documented by: Montelukast Sodium (Montelukast Sodium 10 Mg Tablet) 10 mg PO DAILY@1700 [facility] Last Admin: 06/24/20 17:32 Dose: 10 mg Documented by: Naloxone HCl (Naloxone 0.4 Mg/Ml Sdv) 0.1 mg IVP Q2M PRN PRN Reason: RESPIRATORY RATE < 8/MIN Nitroglycerin (Nitroglycerin 0.4 Mg Sublingual Tablet) 0.4 mg SUBLINGUAL Q5M PRN PRN Reason: CHEST PAIN Last Admin: 06/24/20 22:54 Dose: 0.4 mg Documented by: Nitroglycerin (Nitroglycerin 0.4 Mg Sublingual Tablet) 0.4 mg SUBLINGUAL Q5M PRN PRN Reason: CHEST PAIN Non-Formulary Medication (Magnesium) 250 mg PO DAILY@1700 [facility] Last Admin: 06/24/20 17:30 Dose: 250 mg Documented by: Non-Formulary Medication (Silodosin) 8 mg PO BEDTIME@1999 [facility] Last Admin: 06/24/20 23:07 Dose: Not Given Documented by: Ondansetron HCl (Ondansetron 2 Mg/Ml Sdv 2 Ml) 4 mg IVP Q8H PRN PRN Reason: vomiting, or N/V if npo Ondansetron HCl (Ondansetron 2 Mg/Ml Sdv 2 Ml) 4 mg IVP Q2M PRN PRN Reason: NAUSEA Pantoprazole Sodium (Pantoprazole Dr 40 Mg Tablet) 40 mg PO BID [facility] Last Admin: 06/25/20 08:34 Dose: 40 mg Documented by: Prednisone (Prednisone 1 Mg Tablet) 3 mg PO BID [facility] Last Admin: 06/25/20 09:19 Dose: 3 mg Documented by: Promethazine HCl (Promethazine 25 Mg Supp) 25 mg [place] Q6H PRN PRN Reason: NAUSEA AND VOMITING Fluticasone/Salmeterol (Fluticasone-Salmeterol 500-50 Diskus) 1 puff INHALATION BID.RESPIRATORY [facility] Last Admin: 06/25/20 08:44 Dose: 1 puff Documented by: Sucralfate (Sucralfate 1 Gm/10 Ml Oral Liq Udc) 1 gm PO AC&BEDTIME [facility] Last Admin: 06/25/20 13:32 Dose: 1 gm Documented by: Temazepam (Temazepam 15 Mg Capsule) 15 mg PO BEDTIME PRN PRN Reason: INSOMNIA Vitals/I&O/Wt Last Vital Signs Temp 97.9 F 06/26/20 16:00 Pulse 86 06/26/20 16:00 Resp 18 06/26/20 16:00 BP 107/67 06/26/20 16:00 Pulse Ox 93 06/26/20 16:00 06/26/20 06/26/20 06/26/20 06:59 14:59 22:59 Intake Total 150 / 1530 720 / 720 Output Total 700 / 900 Balance -550 / 630 720 / 720 Weight last 48 hrs Weight 191 lb 3.2 oz Weight 194 lb Physical Exam Narrative: EXAM NARRATIVE: GENERAL: obese man lying in bed in no acute distress HEENT: Extraocular movement intact. Pupils equal round reactive to light. No pallor or icterus. NECK: central trachea, No JVD. No carotid bruit. CARDIOVASCULAR SYSTEM: S1-S2 regular. No S3 or S4 present. No murmur rubs or gallops. RESPIRATORY SYSTEM: Chest clear to auscultation. No wheezes rhonchi or rubs heard. No use of accessory muscles. ABDOMEN: Soft, obese, nontender. Normal bowel sounds present. EXTREMITIES: No cyanosis or clubbing. No edema. 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 No focal neurological deficits. SKIN: Normal turgor and temperature. No breakdown, rash or nail changes noted. PSYCH: Normal insight and judgment. Data : 06/26/20 04:17 06/26/20 04:17 Micro: Microbiology 06/26/20 08:15 Occult Blood (FIT) - Final Stool Routine Collection A&P Assessment and plan (1) Left main coronary artery disease: CT surgery and pulmonary recommendation reviewed and appreciated. -It seems like Dr. Tejada had a family meeting and then discussed the case with Dr. Melendez. At present time, decision is to proceed with IVUS of left main lesion followed by multivessel PCI. -Given lack of a functional IVUS imaging system in our dated [employer] Production [employer], plan for repeat coronary angiogram once IVUS is available (through rep). -Patient continues to have intermittent episodes of chest discomfort and at this point I do not believe he is stable enough to be discharged home. -Continue aspirin, metoprolol, ISMN, lovenox and statin. -We will have to load him with DAPT Status: Acute (2) Triple vessel coronary artery disease: Status: Acute (3) NSTEMI (non-ST elevated myocardial infarction): Elevated troponin with RWMA on echo. -continue ASA, statin and therapeutic lovenox. -continue metoprolol and ISMN. Status: Acute (4) Dvt femoral (deep venous thrombosis): Extensive DVT on therapeutic Lovenox Status: Acute Qualifiers: Chronicity: acute Laterality: left Qualified Code(s): I82.412 - Acute embolism and thrombosis of left femoral vein (5) Pulmonary emboli: Therapeutic Lovenox Status: Acute Qualifiers: Pulmonary embolism type: multiple subsegmental (without acute cor pulmonale) Qualified Code(s): I26.94 - Multiple subsegmental pulmonary emboli without acute cor pulmonale (6) Hypertension: Status: Acute Qualifiers: Hypertension type: essential hypertension Qualified Code(s): I10 - Essential (primary) hypertension (7) Hyperlipemia: Status: Acute Qualifiers: Hyperlipidemia type: mixed hyperlipidemia Qualified Code(s): E78.2 - Mixed hyperlipidemia (8) COPD (chronic obstructive pulmonary disease): Status: Acute Qualifiers: COPD type: emphysema Emphysema type: centrilobular Qualified Code(s): J43.2 - Centrilobular emphysema Additional A&P Information Anemia Thank you for allowing me to participate in patient's care. Please feel free to call with questions or concerns. Attestations Medical Necessity Statement*: Needs hospital stay for NSTEMI and multivessel CAD Time Spent in Patient Care: 16 - 35 minutes (>than 50% of time spent in counselling and/or direct pt care on unit) . Coding Level of Care Code Acute Annealing Oven Operator for Talha Fwd Diagnoses Left main coronary artery disease I25.10 Triple vessel coronary artery disease I25.10 NSTEMI (non-ST elevated myocardial infarction) I21.4 Dvt femoral (deep venous thrombosis) I82.412 Chronicity: acute Laterality: left Pulmonary emboli I26.94 Pulmonary embolism type: multiple subsegmental (without acute cor pulmonale) Hypertension I10 Hypertension type: essential hypertension Hyperlipemia E78.2 Hyperlipidemia type: mixed hyperlipidemia COPD (chronic obstructive pulmonary disease) J43.2 COPD type: emphysema Emphysema type: centrilobular
[2020-06-26] MEDS: montelukast sodium 10 mg Tablet PO (17:37)
[2020-06-26] MEDS: NON-FORMULARY MEDICATION (Magnesium 250 mg Tablet) 250 EACH PO (17:38)
[2020-06-26] MEDS: enoxaparin 100 mg/mL Syringe 90 MG SUBCUT (17:47)
--- NOTE | 2020-06-26 19:27 | PC.NURSE ---
Received report from off going nurse. Pt's plan of care reviewed. Pt resting in bed. Respirations are even and unlabored. No s/sx of distress noted. Pt is alert and oriented and able to make his own decisions. Pt resting in bed. Respirations are even and unlabored. No s/sx of distress noted. Pt denies any pains or concerns at this time. Helped pt up to edge of bed to use the urinal. Pt denied any chest pain on exertion. Bed in lowest and locked position, call light and water within reach x's 2 rails up. Will continue to monitor pt.
[2020-06-26] MEDS: atorvastatin 40 mg Tablet 80 MG PO (21:45)
[2020-06-26] MEDS: ALPRAZolam 0.25 mg Tablet PO (21:56)
--- NOTE | 2020-06-26 23:29 | PC.NURSE ---
Pt c/o chest pain. Rates pain 5/10. Describes the pains as a constant dull pains that is located over the left side of the chest. Doesn't radiate to any other part of the body. HR 95 with no changes in rhythm. BP 125/64. Pt requested sublingual nitro. After receiving the first dose the pt stated that the pain subsided and doesn't believe he needs a second dose. BP 90/53 after nitro dose. Pt denies any other pains or concerns at this time. Bed in lowest and locked position, call light and water within reach, x's 2 rails up. Will continue to monitor pt.
[2020-06-27] VITALS (59 sets, daily range): BP systolic 106–145; BP diastolic 61–77; PULSE 57–129; RESP 12–38; TEMP 36.6–37.2; O2SAT 93–98
[2020-06-27 05:08] LABS: Basophils % 0.5 %; Eosinophils # 0.2 10^3/uL (0.0-0.8); Eosinophils % 4.2 %; Hematocrit 28.1 % (42.0-52.0); Hemoglobin 8.5 g/dL (11.7-16.6); Lymphocytes # 0.7 10^3/uL (0.8-4.8); Lymphocytes % 17.6 %; Mean Corpuscular HGB Conc 30.2 g/dL (30.0-36.0); Mean Corpuscular Hemoglobin 28.3 pg (28.0-34.0); Mean Corpuscular Volume 93.7 fL (80-94); Mean Platelet Volume 10.1 fL (7.4-10.4); Monocytes # 0.5 10^3/uL (0.2-0.9); Monocytes % 11.9 %; Neutrophils # 2.62 10^3/uL (1.8-7.7); Neutrophils % 64.8 %; Nucleated Red Blood Cells % 0 %; Platelet Count 240 10^3/cmm (130-400); Red Cell Distribution Width 15.5 % (12.1-15.1)
[2020-06-27] MEDS: enoxaparin 100 mg/mL Syringe 90 MG SUBCUT ×2 (06:18→17:49)
[2020-06-27] MEDS: sucralfate 1 gm/10 mL Oral Liq UDC PO ×4 (06:18→21:05)
[2020-06-27 07:18] LABS: Anion Gap 12.2 (5-19); Blood Urea Nitrogen 20 mg/dL (8-23); Carbon Dioxide 24 mmol/L (22-29); Chloride 108 mmol/L (98-107); Glucose 91 mg/dL (65-115); Osmolality Calculated 292 mOsm/kg (285-295); Potassium 4.2 mmol/L (3.5-5.1); Sodium 140 mmol/L (136-145)
[2020-06-27] MEDS: ipratropium-albuterol 3 mL Neb INHALATION ×2 (08:06→22:06)
[2020-06-27] MEDS: ticagrelor 90 mg Tablet 180 MG PO (08:15)
[2020-06-27] MEDS: aspirin 81 mg EC Tablet PO (08:15)
[2020-06-27] MEDS: docusate sodium 100 mg Capsule PO ×2 (08:15→17:49)
[2020-06-27] MEDS: metoprolol tartrate 50 mg Tablet 75 MG PO ×2 (08:15→21:06)
[2020-06-27] MEDS: isosorbide mononitrate ER 30 mg Tablet PO (08:16)
[2020-06-27] MEDS: pantoprazole DR 40 mg Tablet PO ×2 (08:16→17:49)
--- NOTE | 2020-06-27 09:07 | PC.NURSE ---
spoke with Dr coe about patient reports 12/01 chest pain instructions to start nitro paste 1 Q6H
[2020-06-27] MEDS: nitroglycerin 1 gm/inch oint Pkt 1 INCH TOPICAL ×3 (09:13→21:05)
[2020-06-27] MEDS: FUROsemide 10 mg/mL SDV 2mL 20 MG IVP (13:04)
--- NOTE | 2020-06-27 13:57 | PM.PN ---
Subjective Subjective: Interval history: Patient's coronary angiography performed on Thursday that showed a severe calcified coronary artery disease including distal left main, proximal to mid LAD, proximal left circumflex artery and ostial RCA. Episode of chest pain relieved by nitroglycerin this morning. No events on telemetry. At the time of evaluation patient is complaining of some shortness of breath. Medications: Reviewed: Yes Medication Review Details: Current Medications Acetaminophen (Acetaminophen 325 Mg Tablet) 650 mg PO Q6H PRN PRN Reason: Mild/Mod Pain Or Temp >/= 101 Acetaminophen (Acetaminophen 325 Mg Tablet) 650 mg PO Q6H PRN PRN Reason: MILD PAIN Al Hydrox/Mg Hydrox/Simethicone (Zewj-Iql-Lrcyiwmuw-Danette 30 Ml Udc) 15 ml PO Q6H PRN PRN Reason: INDIGESTION Last Admin: 06/23/20 17:25 Dose: 15 ml Documented by: Al Hydrox/Mg Hydrox/Simethicone (Bojb-She-Csggtyclv-Danette 30 Ml Udc) 30 ml PO Q15M PRN PRN Reason: INDIGESTION Last Admin: 06/24/20 04:07 Dose: 30 ml Documented by: Al Hydrox/Mg Hydrox/Simethicone (Jjip-Voz-Hvzjvtxqn-Danette 30 Ml Udc) 30 ml PO Q4H PRN PRN Reason: INDIGESTION Albuterol Sulfate (Albuterol 8 Gm Mdi) 2 puff INHALATION QID PRN PRN Reason: Shortness Of Breath Or Wheezing Albuterol/Ipratropium (Ipratropium-Albuterol 3 Ml Neb) 3 ml INHALATION Q6H.RESPIRATORY PRN PRN Reason: SHORTNESS OF BREATH Last Admin: 06/25/20 08:44 Dose: 3 ml Documented by: Alprazolam (Alprazolam 0.25 Mg Tablet) 0.25 mg PO TID PRN PRN Reason: ANXIETY Aspirin (Aspirin 325 Mg Ec Tablet) 325 mg PO DAILY [facility] Last Admin: 06/25/20 08:34 Dose: 325 mg Documented by: Atorvastatin Calcium (Atorvastatin 40 Mg Tablet) 80 mg PO BEDTIME [facility] Last Admin: 06/24/20 20:33 Dose: 80 mg Documented by: Atropine Sulfate (Atropine 1 Mg/Ml Sdv 1 Ml) 0.5 mg IVP PRN PRN PRN Reason: Symptomatic bradycardia Bisacodyl (Bisacodyl 5 Mg Tablet) 10 mg PO DAILY PRN PRN Reason: CONSTIPATION Last Admin: 06/22/20 10:22 Dose: 10 mg Documented by: Bisacodyl (Bisacodyl 5 Mg Tablet) 5 mg PO Q6H PRN PRN Reason: Constipation (Use 2nd) Bisacodyl (Bisacodyl 10 Mg Supp) 10 mg LA Q6H PRN PRN Reason: Constipation (Use 5th) Bismuth Subsalicylate (Bismuth Subsalicylate 240 Ml Btl) 30 ml PO PRN PRN PRN Reason: DIARRHEA Diphenhydramine HCl (Diphenhydramine 25 Mg Capsule) 25 mg PO BEDTIME PRN PRN Reason: SLEEP Docusate Sodium (Docusate Sodium 100 Mg Capsule) 100 mg PO BID [facility] Last Admin: 06/25/20 08:35 Dose: Not Given Documented by: Docusate Sodium (Docusate Sodium 100 Mg Capsule) 100 mg PO BID PRN PRN Reason: Constipation (Use 1st) Enoxaparin Sodium (Enoxaparin 100 Mg/Ml Syringe) 90 mg 1 mg/kg (90 mg) SUBCUT Q12H [facility] Last Admin: 06/25/20 06:10 Dose: 90 mg Documented by: Fentanyl (Fentanyl 50 Mcg/Ml Inj 2ml) 50 mcg IVP PRN PRN PRN Reason: Prior to sheath removal Ferrous Sulfate (Ferrous Sulfate Ec 325 Mg Tablet) 325 mg PO BIDWM [facility] Last Admin: 06/25/20 08:36 Dose: Not Given Documented by: Guaifenesin (Guaifenesin 100 Mg/5 Ml Udc 10 Ml) 200 mg PO Q4H PRN PRN Reason: COUGH Isosorbide Dinitrate (Isosorbide Dinitrate 20 Mg Tablet) 5 mg PO BID [facility] Last Admin: 06/25/20 09:19 Dose: 5 mg Documented by: Lactulose (Lactulose Oral Liq 20 Gm/30 Ml Udc) 20 gm PO Q6H PRN PRN Reason: Constipation (Use 3rd) Magnesium Hydroxide (Magnesium Hydroxide 30 Ml Udc) 30 ml PO DAILY PRN PRN Reason: CONSTIPATION Magnesium Hydroxide (Magnesium Hydroxide 30 Ml Udc) 45 ml PO DAILY PRN PRN Reason: Constipation (use 4th) Metoprolol Tartrate (Metoprolol Tartrate 50 Mg Tablet) 75 mg PO BID@0900,2100 [facility] Last Admin: 06/25/20 09:05 Dose: 75 mg Documented by: Montelukast Sodium (Montelukast Sodium 10 Mg Tablet) 10 mg PO DAILY@1700 [facility] Last Admin: 06/24/20 17:32 Dose: 10 mg Documented by: Naloxone HCl (Naloxone 0.4 Mg/Ml Sdv) 0.1 mg IVP Q2M PRN PRN Reason: RESPIRATORY RATE < 8/MIN Nitroglycerin (Nitroglycerin 0.4 Mg Sublingual Tablet) 0.4 mg SUBLINGUAL Q5M PRN PRN Reason: CHEST PAIN Last Admin: 06/24/20 22:54 Dose: 0.4 mg Documented by: Nitroglycerin (Nitroglycerin 0.4 Mg Sublingual Tablet) 0.4 mg SUBLINGUAL Q5M PRN PRN Reason: CHEST PAIN Non-Formulary Medication (Magnesium) 250 mg PO DAILY@1700 [facility] Last Admin: 06/24/20 17:30 Dose: 250 mg Documented by: Non-Formulary Medication (Silodosin) 8 mg PO BEDTIME@1999 [facility] Last Admin: 06/24/20 23:07 Dose: Not Given Documented by: Ondansetron HCl (Ondansetron 2 Mg/Ml Sdv 2 Ml) 4 mg IVP Q8H PRN PRN Reason: vomiting, or N/V if npo Ondansetron HCl (Ondansetron 2 Mg/Ml Sdv 2 Ml) 4 mg IVP Q2M PRN PRN Reason: NAUSEA Pantoprazole Sodium (Pantoprazole Dr 40 Mg Tablet) 40 mg PO BID [facility] Last Admin: 06/25/20 08:34 Dose: 40 mg Documented by: Prednisone (Prednisone 1 Mg Tablet) 3 mg PO BID [facility] Last Admin: 06/25/20 09:19 Dose: 3 mg Documented by: Promethazine HCl (Promethazine 25 Mg Supp) 25 mg LA Q6H PRN PRN Reason: NAUSEA AND VOMITING Fluticasone/Salmeterol (Fluticasone-Salmeterol 500-50 Diskus) 1 puff INHALATION BID.RESPIRATORY [facility] Last Admin: 06/25/20 08:44 Dose: 1 puff Documented by: Sucralfate (Sucralfate 1 Gm/10 Ml Oral Liq Udc) 1 gm PO AC&BEDTIME [facility] Last Admin: 06/25/20 13:32 Dose: 1 gm Documented by: Temazepam (Temazepam 15 Mg Capsule) 15 mg PO BEDTIME PRN PRN Reason: INSOMNIA Vitals/I&O/Wt Last Vital Signs Temp 98.7 F 06/27/20 04:00 Pulse 77 06/27/20 12:44 Resp 17 06/27/20 11:45 BP 110/61 06/27/20 12:00 Pulse Ox 98 06/27/20 08:07 06/26/20 06/27/20 06/27/20 22:59 06:59 14:59 Intake Total 360 / 1080 200 / 1280 840 / 840 Output Total 450 / 450 Balance 360 / 1080 -250 / 830 840 / 840 Weight last 48 hrs Weight 190 lb Weight 191 lb 3.2 oz Physical Exam Narrative: EXAM NARRATIVE: GENERAL: obese man lying in bed in no acute distress HEENT: Extraocular movement intact. Pupils equal round reactive to light. No pallor or icterus. NECK: central trachea, No JVD. No carotid bruit. CARDIOVASCULAR SYSTEM: S1-S2 regular. No S3 or S4 present. No murmur rubs or gallops. RESPIRATORY SYSTEM: Coarse bilateral breath sounds otherwise clear to auscultation. No wheezes rhonchi or rubs heard. No use of accessory muscles. ABDOMEN: Soft, obese, nontender. Normal bowel sounds present. EXTREMITIES: No cyanosis or clubbing. No edema. 2+ radial and ulnar LEGAL ANALYST: Patient is alert oriented ?3. No focal neurological deficits. SKIN: Normal turgor and temperature. No breakdown, rash or nail changes noted. PSYCH: Normal insight and judgment. Data : 06/27/20 04:00 06/27/20 04:29 Micro: Microbiology 06/26/20 08:15 Occult Blood (FIT) - Final Stool Routine Collection A&P Assessment and plan (1) Left main coronary artery disease: CT surgery and pulmonary recommendation reviewed and appreciated. -It seems like Dr. Tejada had a family meeting and then discussed the case with Dr. Melendez. At present time, decision is to proceed with IVUS of left main lesion followed by multivessel PCI. -Given lack of a functional IVUS imaging system in our dated [facility], plan for repeat coronary angiogram once IVUS is available (through rep), possibly on Thursday. -Patient continues to have intermittent episodes of chest discomfort and at this point I do not believe he is stable enough to be discharged home. -Continue aspirin, Brilinta, metoprolol, ISMN, lovenox and statin. -Given recurrent episodes of chest pain and nitro patch was also placed on him today. Status: Acute (2) Triple vessel coronary artery disease: Status: Acute (3) NSTEMI (non-ST elevated myocardial infarction): Elevated troponin with RWMA on echo. -continue ASA, statin and therapeutic lovenox. -continue metoprolol and ISMN. Status: Acute (4) Dvt femoral (deep venous thrombosis): Extensive DVT on therapeutic Lovenox Status: Acute Qualifiers: Chronicity: acute Laterality: left Qualified Code(s): I82.412 - Acute embolism and thrombosis of left femoral vein (5) Pulmonary emboli: Therapeutic Lovenox -Given his anemia and extensive DVT, I think he would benefit from IVC filter placement. -Plan for the procedure tomorrow with Dr. Fnug. Status: Acute Qualifiers: Pulmonary embolism type: multiple subsegmental (without acute cor pulmonale) Qualified Code(s): I26.94 - Multiple subsegmental pulmonary emboli without acute cor pulmonale (6) Hypertension: Status: Acute Qualifiers: Hypertension type: essential hypertension Qualified Code(s): I10 - Essential (primary) hypertension (7) Hyperlipemia: Status: Acute Qualifiers: Hyperlipidemia type: mixed hyperlipidemia Qualified Code(s): E78.2 - Mixed hyperlipidemia (8) COPD (chronic obstructive pulmonary disease): Status: Acute Qualifiers: COPD type: emphysema Emphysema type: centrilobular Qualified Code(s): J43.2 - Centrilobular emphysema Additional A&P Information Anemia Thank you for allowing me to participate in patient's care. Please feel free to call with questions or concerns. Attestations Medical Necessity Statement*: Continue admission for assessment management of triple-vessel coronary disease, LM disease, severe COPD, PE, DVT, anemia. Time Spent in Patient Care: Greater than 35 minutes (>than 50% of time spent in counselling and/or direct pt care on unit). Coding Level of Care Code Acute [employer] for [facility] Diagnoses Left main coronary artery disease I25.10 Triple vessel coronary artery disease I25.10 NSTEMI (non-ST elevated myocardial infarction) I21.4 Dvt femoral (deep venous thrombosis) I82.412 Chronicity: acute Laterality: left Pulmonary emboli I26.94 Pulmonary embolism type: multiple subsegmental (without acute cor pulmonale) Hypertension I10 Hypertension type: essential hypertension Hyperlipemia E78.2 Hyperlipidemia type: mixed hyperlipidemia COPD (chronic obstructive pulmonary disease) J43.2 COPD type: emphysema Emphysema type: centrilobular
[2020-06-27] MEDS: NON-FORMULARY MEDICATION (Magnesium 250 mg Tablet) 250 EACH PO (16:36)
[2020-06-27] MEDS: montelukast sodium 10 mg Tablet PO (16:37)
--- NOTE | 2020-06-27 16:46 | P.PN_ITS ---
Subjective Subjective: Interval history: This morning he was having about 3/10 discomfort in his chest, central, substernal. Later in the day about 7/10 which point Nitropaste was added to his regimen. Vitals/I&O/Wt Last Vital Signs Temp 98.7 F 06/27/20 04:00 Pulse 77 06/27/20 12:44 Resp 17 06/27/20 11:45 BP 110/61 06/27/20 12:00 Pulse Ox 98 06/27/20 08:07 06/27/20 06/27/20 06/27/20 06:59 14:59 22:59 Intake Total 200 / 1280 840 / 840 Output Total 450 / 450 750 / 750 Balance -250 / 830 90 / 90 Weight last 48 hrs Weight 86.183 kg Weight 86.727 kg Physical Exam Const: COMMON NORMALS: no acute distress and patient oriented x3 HENMT: COMMON NORMALS: oropharynx normal Neck/C-Spine: COMMON NORMALS: no JVD Resp: COMMON NORMALS: normal respiratory effort and clear to auscultation bilaterally AUSCULTATION: clear to auscultation bilaterally Cardio: COMMON NORMALS: no JVD, regular rhythm, S1 normal heart sound present, S2 normal heart sound present and No murmurs present (Cardio) RHYTHM: regular rhythm HEART SOUNDS: S1 normal heart sound present and S2 normal heart sound present GI: COMMON NORMALS: Normal to inspection, nondistended, normoactive bowel sounds present, Soft to palpation and non-tender PALPATION: Yes Soft to palpation Extremity: COMMON NORMALS: no joint enlargement and no pedal edema Neuro: COMMON NORMALS: patient oriented x3 and moves all extremities Skin: COMMON NORMALS: no rashes or lesions noted GENERAL SKIN EXAM: no rashes or lesions noted Data : 06/27/20 04:00 06/27/20 04:29 A&P Assessment and plan (1) Triple vessel coronary artery disease: Prescription of patient with consideration of options of moving forward, with elevated risk of proceeding with CABG the consensus and joint decision with patient has been to additionally assessed with IVUS followed by multivessel PCI which is likely to occur this Thursday. Continue CAD medications, intentions being adjusted to aid with symptoms. Discussed his condition and plans with his . Answered all questions. Status: Acute (2) NSTEMI (non-ST elevated myocardial infarction): Additional evaluation and treatment of multivessel coronary disease as above. Status: Acute (3) Left main coronary artery disease: Status: Acute (4) Pulmonary emboli: Continue anticoagulation. Down to room air on oxygen requirement. Status: Acute Qualifiers: Pulmonary embolism type: multiple subsegmental (without acute cor pulmonale) Qualified Code(s): I26.94 - Multiple subsegmental pulmonary emboli without acute cor pulmonale (5) Dvt femoral (deep venous thrombosis): Continue anticoagulation. With persistent clot burden in proximal veins, in setting of Hemoccult positive anemia, in case of possible need for interruption of anticoagulation due to either bleeding, worsening anemia, or in case of need for emergent bypass surgery, additionally IVC filter will be placed to reduce chances of additional potentially life-threatening PE. Status: Acute Qualifiers: Chronicity: acute Laterality: left Qualified Code(s): I82.412 - Acute embolism and thrombosis of left femoral vein (6) COPD (chronic obstructive pulmonary disease): Does not appear currently in exacerbation. There is no wheezing. Saturation is good on room air. He does appear to have occasional episodes of air hunger. Continue symptomatic treatment at this time. Monitor. DuoNeb as needed. Continue Advair. Singulair. Not requiring oxygen currently. Status: Acute Qualifiers: COPD type: emphysema Emphysema type: centrilobular Qualified Code(s): J43.2 - Centrilobular emphysema (7) Anemia: Currently requiring anticoagulation. Hemoglobin has been fluctuating a bit but without major decline so far tolerating anticoagulation. Hemoccult is positive. Mild iron deficiency anemia. Chronic intermittent steroid use (with cancer treatments). PPI BID. Receiving iron sulfate supplementation. Recent EGD and Colonoscopy done in 2019 noted to be WNL except hiatal hernia. Received B12. Status: Acute (8) Hyperlipemia: Continue statin. Status: Acute Qualifiers: Hyperlipidemia type: mixed hyperlipidemia Qualified Code(s): E78.2 - Mixed hyperlipidemia (9) Hypertension: Blood pressures are close to goal. Continue current medications. Continue to monitor. Status: Acute Qualifiers: Hypertension type: essential hypertension Qualified Code(s): I10 - Essential (primary) hypertension (10) JODI (acute kidney injury): Improved. Status: Acute Additional A&P Information Continue other chronic oral home medications. Discussed all the above with patient and his . He is agreeable with plan. All questions answered. Attestations Medical Necessity Statement*: Continue admission for assessment management of multivessel CAD, NSTEMI, in the setting of severe COPD, PE, DVT, anemia and additional comorbidities as above. Coding Level of Care Code Acute [facility] [employer] [facility] for [facility] Fwd Diagnoses Triple vessel coronary artery disease I25.10 NSTEMI (non-ST elevated myocardial infarction) I21.4 Left main coronary artery disease I25.10 Pulmonary emboli I26.94 Pulmonary embolism type: multiple subsegmental (without acute cor pulmonale) Dvt femoral (deep venous thrombosis) I82.412 Chronicity: acute Laterality: left COPD (chronic obstructive pulmonary disease) J43.2 COPD type: emphysema Emphysema type: centrilobular Anemia D64.9 Hyperlipemia E78.2 Hyperlipidemia type: mixed hyperlipidemia Hypertension I10 Hypertension type: essential hypertension JODI (acute kidney injury) N17.9
[2020-06-27] MEDS: atorvastatin 40 mg Tablet 80 MG PO (21:06)
[2020-06-28] VITALS (33 sets, daily range): BP systolic 103–147; BP diastolic 52–91; PULSE 67–113; RESP 13–27; TEMP 36.6–36.7; O2SAT 95–97
[2020-06-28] MEDS: nitroglycerin 1 gm/inch oint Pkt 1 INCH TOPICAL ×2 (04:08→21:34)
--- NOTE | 2020-06-28 04:55 | PC.NURSE ---
NURSE NOTE: HOLD LOVENOX: NOTIFIED DR. BERUMEN OF PT'S SCHEDULED PROCEDURE THIS MORNING AND THAT PT HAD LOVENOX ORDERED AT 0600. RECEIVED ORDERS TO HOLD LOVENOX.
--- NOTE | 2020-06-28 05:30 | PC.NURSE ---
NURSE NOTE: SHIFT SUMMARY: PT ALERT AND ORIENTED X4; MOVES ALL EXTREMITIES AND FOLLOWS COMMANDS. NO C/O PAIN OR DISCOMFORT NOTED. PT RESTED WITH EYES CLOSED MOST OF SHIFT. HAS BEEN NPO SINCE MIDNIGHT FOR IVC FILTER PLACEMENT TODAY. ALL VS AND ASSESSMENTS ORDERED. NO DISTRESS NOTED AT THIS TIME.
[2020-06-28 05:45] LABS: Basophils % 0.7 %; Eosinophils # 0.1 10^3/uL (0.0-0.8); Eosinophils % 2.7 %; Hematocrit 29.4 % (42.0-52.0); Hemoglobin 8.9 g/dL (11.7-16.6); Lymphocytes # 0.5 10^3/uL (0.8-4.8); Lymphocytes % 11.1 %; Mean Corpuscular HGB Conc 30.3 g/dL (30.0-36.0); Mean Corpuscular Hemoglobin 28.7 pg (28.0-34.0); Mean Corpuscular Volume 94.8 fL (80-94); Mean Platelet Volume 10.1 fL (7.4-10.4); Monocytes # 0.5 10^3/uL (0.2-0.9); Monocytes % 10.7 %; Neutrophils # 3.27 10^3/uL (1.8-7.7); Neutrophils % 74.1 %; Nucleated Red Blood Cells % 0 %; Platelet Count 255 10^3/cmm (130-400); Red Cell Distribution Width 15.4 % (12.1-15.1); White Blood Count 4.4 10^3/uL (4.0-10.0)
[2020-06-28 06:05] LABS: Anion Gap 13.9 (5-19); Blood Urea Nitrogen 23 mg/dL (8-23); Calcium 8.9 mg/dL (8.5-10.5); Carbon Dioxide 25 mmol/L (22-29); Chloride 103 mmol/L (98-107); Glucose 95 mg/dL (65-115); Osmolality Calculated 289 mOsm/kg (285-295); Potassium 3.9 mmol/L (3.5-5.1); Sodium 138 mmol/L (136-145)
[2020-06-28] MEDS: sucralfate 1 gm/10 mL Oral Liq UDC PO ×2 (06:32→21:32)
[2020-06-28] MEDS: ipratropium-albuterol 3 mL Neb INHALATION (08:00)
--- NOTE | 2020-06-28 08:51 | PM.MISC ---
Miscellaneous Note Purpose of Documentation: Interventional cardiology brief note Note: 74-year-old man who had presented with anginal symptoms and elevated troponins consistent with NSTEMI, found to have extensive DVT of left lower extremity and pulmonary embolism during hospital stay as well. Coronary angiogram demonstrated severe multivessel calcified coronary artery disease including left main, proximal LAD, proximal left circumflex and moderate to severe ostial RCA stenosis. Patient has severe COPD. CT surgery was consulted for evaluation for CABG. Dr. Tejada saw the patient. Pulmonology was consulted as well given his advanced COPD. After heart team approach and discussion with pulmonology, patient is considered high risk for surgical revascularization. We had a discussion with patient regarding alternate options. He has opted to undergo high risk percutaneous coronary intervention of left main artery. This will require arthrectomy given severe calcification. We will consider use of LV support device for the high risk procedure. Plan for revascularization on 06/29/2020. All the risks and benefits have been described to the patient. Risks including bleeding, infection, abnormal kidney function, heart rhythm abnormalities, heart attack, stroke and have been described. Patient understands the risks and benefits and wants to proceed with the procedure. Patient has anemia with hemoglobin of less than 9 and has extensive DVT on the left lower extremity along with a PE. Given he is undergoing high risk PCI including left main artery, he will need to be on dual antiplatelet agents. If blood counts drop further there is a possibility that anticoagulation might need to be discontinued. Also in case of any complication during high risk PCI, if he needs to be revascularized surgically, anticoagulation can complicate perioperative period. IVC filter has been recommended by CT surgery, cardiology and internal medicine service. We will proceed with retrievable IVC filter placement today. Risks and benefits of the procedure have been discussed with patient, who agrees with the plan.
[2020-06-28] MEDS: ferrous sulfate EC 325 mg Tablet PO ×2 (08:54→18:44)
[2020-06-28] MEDS: isosorbide mononitrate ER 30 mg Tablet PO (08:54)
[2020-06-28] MEDS: pantoprazole DR 40 mg Tablet PO ×2 (08:55→18:44)
[2020-06-28] MEDS: ticagrelor 90 mg Tablet PO ×2 (08:55→18:44)
[2020-06-28] MEDS: aspirin 81 mg EC Tablet PO (08:55)
[2020-06-28] MEDS: docusate sodium 100 mg Capsule PO ×2 (08:55→18:44)
[2020-06-28] MEDS: metoprolol tartrate 50 mg Tablet 75 MG PO ×2 (08:56→21:39)
--- NOTE | 2020-06-28 09:49 | PM.PN ---
Subjective Subjective: Interval history: Patient's coronary angiography performed on Thursday that showed a severe calcified coronary artery disease including distal left main, proximal to mid LAD, proximal left circumflex artery and ostial RCA. Episode of chest pain relieved by nitroglycerin this morning. No events on telemetry. received lasix 20 mg IV x 1 and had good UO, -1.1 L; SOB has improved. Medications: Reviewed: Yes Medication Review Details: Current Medications Acetaminophen (Acetaminophen 325 Mg Tablet) 650 mg PO Q6H PRN PRN Reason: Mild/Mod Pain Or Temp >/= 101 Acetaminophen (Acetaminophen 325 Mg Tablet) 650 mg PO Q6H PRN PRN Reason: MILD PAIN Al Hydrox/Mg Hydrox/Simethicone (Ctic-Rja-Tnpimaohi-Danette 30 Ml Udc) 15 ml PO Q6H PRN PRN Reason: INDIGESTION Last Admin: 06/23/20 17:25 Dose: 15 ml Documented by: Al Hydrox/Mg Hydrox/Simethicone (Dpmr-Nis-Jhwhpdhsv-Danette 30 Ml Udc) 30 ml PO Q15M PRN PRN Reason: INDIGESTION Last Admin: 06/24/20 04:07 Dose: 30 ml Documented by: Al Hydrox/Mg Hydrox/Simethicone (Pkmk-Mxg-Ywhvkxfmh-Danette 30 Ml Udc) 30 ml PO Q4H PRN PRN Reason: INDIGESTION Albuterol Sulfate (Albuterol 8 Gm Mdi) 2 puff INHALATION QID PRN PRN Reason: Shortness Of Breath Or Wheezing Albuterol/Ipratropium (Ipratropium-Albuterol 3 Ml Neb) 3 ml INHALATION Q6H.RESPIRATORY PRN PRN Reason: SHORTNESS OF BREATH Last Admin: 06/25/20 08:44 Dose: 3 ml Documented by: Alprazolam (Alprazolam 0.25 Mg Tablet) 0.25 mg PO TID PRN PRN Reason: ANXIETY Aspirin (Aspirin 325 Mg Ec Tablet) 325 mg PO DAILY [facility] Last Admin: 06/25/20 08:34 Dose: 325 mg Documented by: Atorvastatin Calcium (Atorvastatin 40 Mg Tablet) 80 mg PO BEDTIME [facility] Last Admin: 06/24/20 20:33 Dose: 80 mg Documented by: Atropine Sulfate (Atropine 1 Mg/Ml Sdv 1 Ml) 0.5 mg IVP PRN PRN PRN Reason: Symptomatic bradycardia Bisacodyl (Bisacodyl 5 Mg Tablet) 10 mg PO DAILY PRN PRN Reason: CONSTIPATION Last Admin: 06/22/20 10:22 Dose: 10 mg Documented by: Bisacodyl (Bisacodyl 5 Mg Tablet) 5 mg PO Q6H PRN PRN Reason: Constipation (Use 2nd) Bisacodyl (Bisacodyl 10 Mg Supp) 10 mg NJ Q6H PRN PRN Reason: Constipation (Use 5th) Bismuth Subsalicylate (Bismuth Subsalicylate 240 Ml Btl) 30 ml PO PRN PRN PRN Reason: DIARRHEA Diphenhydramine HCl (Diphenhydramine 25 Mg Capsule) 25 mg PO BEDTIME PRN PRN Reason: SLEEP Docusate Sodium (Docusate Sodium 100 Mg Capsule) 100 mg PO BID [facility] Last Admin: 06/25/20 08:35 Dose: Not Given Documented by: Docusate Sodium (Docusate Sodium 100 Mg Capsule) 100 mg PO BID PRN PRN Reason: Constipation (Use 1st) Enoxaparin Sodium (Enoxaparin 100 Mg/Ml Syringe) 90 mg 1 mg/kg (90 mg) SUBCUT Q12H [facility] Last Admin: 06/25/20 06:10 Dose: 90 mg Documented by: Fentanyl (Fentanyl 50 Mcg/Ml Inj 2ml) 50 mcg IVP PRN PRN PRN Reason: Prior to sheath removal Ferrous Sulfate (Ferrous Sulfate Ec 325 Mg Tablet) 325 mg PO BIDWM [facility] Last Admin: 06/25/20 08:36 Dose: Not Given Documented by: Guaifenesin (Guaifenesin 100 Mg/5 Ml Udc 10 Ml) 200 mg PO Q4H PRN PRN Reason: COUGH Isosorbide Dinitrate (Isosorbide Dinitrate 20 Mg Tablet) 5 mg PO BID [facility] Last Admin: 06/25/20 09:19 Dose: 5 mg Documented by: Lactulose (Lactulose Oral Liq 20 Gm/30 Ml Udc) 20 gm PO Q6H PRN PRN Reason: Constipation (Use 3rd) Magnesium Hydroxide (Magnesium Hydroxide 30 Ml Udc) 30 ml PO DAILY PRN PRN Reason: CONSTIPATION Magnesium Hydroxide (Magnesium Hydroxide 30 Ml Udc) 45 ml PO DAILY PRN PRN Reason: Constipation (use 4th) Metoprolol Tartrate (Metoprolol Tartrate 50 Mg Tablet) 75 mg PO BID@0900,2100 [facility] Last Admin: 06/25/20 09:05 Dose: 75 mg Documented by: Montelukast Sodium (Montelukast Sodium 10 Mg Tablet) 10 mg PO DAILY@1700 [facility] Last Admin: 06/24/20 17:32 Dose: 10 mg Documented by: Naloxone HCl (Naloxone 0.4 Mg/Ml Sdv) 0.1 mg IVP Q2M PRN PRN Reason: RESPIRATORY RATE < 8/MIN Nitroglycerin (Nitroglycerin 0.4 Mg Sublingual Tablet) 0.4 mg SUBLINGUAL Q5M PRN PRN Reason: CHEST PAIN Last Admin: 06/24/20 22:54 Dose: 0.4 mg Documented by: Nitroglycerin (Nitroglycerin 0.4 Mg Sublingual Tablet) 0.4 mg SUBLINGUAL Q5M PRN PRN Reason: CHEST PAIN Non-Formulary Medication (Magnesium) 250 mg PO DAILY@1700 [facility] Last Admin: 06/24/20 17:30 Dose: 250 mg Documented by: Non-Formulary Medication (Silodosin) 8 mg PO BEDTIME@1999 [facility] Last Admin: 06/24/20 23:07 Dose: Not Given Documented by: Ondansetron HCl (Ondansetron 2 Mg/Ml Sdv 2 Ml) 4 mg IVP Q8H PRN PRN Reason: vomiting, or N/V if npo Ondansetron HCl (Ondansetron 2 Mg/Ml Sdv 2 Ml) 4 mg IVP Q2M PRN PRN Reason: NAUSEA Pantoprazole Sodium (Pantoprazole Dr 40 Mg Tablet) 40 mg PO BID [facility] Last Admin: 06/25/20 08:34 Dose: 40 mg Documented by: Prednisone (Prednisone 1 Mg Tablet) 3 mg PO BID [facility] Last Admin: 06/25/20 09:19 Dose: 3 mg Documented by: Promethazine HCl (Promethazine 25 Mg Supp) 25 mg NJ Q6H PRN PRN Reason: NAUSEA AND VOMITING Fluticasone/Salmeterol (Fluticasone-Salmeterol 500-50 Diskus) 1 puff INHALATION BID.RESPIRATORY [facility] Last Admin: 06/25/20 08:44 Dose: 1 puff Documented by: Sucralfate (Sucralfate 1 Gm/10 Ml Oral Liq Udc) 1 gm PO AC&BEDTIME [facility] Last Admin: 06/25/20 13:32 Dose: 1 gm Documented by: Temazepam (Temazepam 15 Mg Capsule) 15 mg PO BEDTIME PRN PRN Reason: INSOMNIA Vitals/I&O/Wt Last Vital Signs Temp 98 F 06/28/20 05:09 Pulse 93 06/28/20 08:07 Resp 18 06/28/20 08:02 BP 103/54 06/28/20 05:09 Pulse Ox 95 06/28/20 08:02 06/27/20 06/28/20 06/28/20 22:59 06:59 14:59 Intake Total 360 / 1200 Output Total 450 / 1200 800 / 2000 Balance -90 / 0 -800 / -800 Weight last 48 hrs Weight 190 lb Physical Exam Narrative: EXAM NARRATIVE: GENERAL: obese man lying in bed in no acute distress HEENT: Extraocular movement intact. Pupils equal round reactive to light. No pallor or icterus. NECK: central trachea, No JVD. No carotid bruit. CARDIOVASCULAR SYSTEM: S1-S2 regular. No S3 or S4 present. No murmur rubs or gallops. RESPIRATORY SYSTEM: Coarse bilateral breath sounds otherwise clear to auscultation. No wheezes rhonchi or rubs heard. No use of accessory muscles. ABDOMEN: Soft, obese, nontender. Normal bowel sounds present. EXTREMITIES: No cyanosis or clubbing. No edema. 2+ radial and ulnar INSURANCE OPERATIONS REP: Patient is alert oriented ?3. No focal neurological deficits. SKIN: Normal turgor and temperature. No breakdown, rash or nail changes noted. PSYCH: Normal insight and judgment. Data : 06/28/20 04:58 06/28/20 04:58 A&P Assessment and plan (1) Left main coronary artery disease: CT surgery and pulmonary recommendation reviewed and appreciated. -It seems like Dr. Tejada had a family meeting and then discussed the case with Dr. Melendez. At present time, decision is to proceed with IVUS of left main lesion followed by multivessel PCI. -Given lack of a functional IVUS imaging system in our dated [employer], plan for repeat coronary angiogram once IVUS is available (through rep), possibly on Thursday. -Patient continues to have intermittent episodes of chest discomfort and at this point I do not believe he is stable enough to be discharged home. -Continue aspirin, Brilinta, metoprolol, ISMN, lovenox, nitro patch and statin. Status: Acute (2) Triple vessel coronary artery disease: Status: Acute (3) NSTEMI (non-ST elevated myocardial infarction): Elevated troponin with RWMA on echo. -continue ASA, statin and therapeutic lovenox. -continue metoprolol and ISMN. Status: Acute (4) Dvt femoral (deep venous thrombosis): Extensive DVT on therapeutic Lovenox; He is due to get IVC filter later today. Status: Acute Qualifiers: Chronicity: acute Laterality: left Qualified Code(s): I82.412 - Acute embolism and thrombosis of left femoral vein (5) Pulmonary emboli: Therapeutic Lovenox -Given his anemia and extensive DVT, I think he would benefit from IVC filter placement. -Plan for the procedure tomorrow with Dr. Fung. Status: Acute Qualifiers: Pulmonary embolism type: multiple subsegmental (without acute cor pulmonale) Qualified Code(s): I26.94 - Multiple subsegmental pulmonary emboli without acute cor pulmonale (6) Hypertension: Status: Acute Qualifiers: Hypertension type: essential hypertension Qualified Code(s): I10 - Essential (primary) hypertension (7) Hyperlipemia: Status: Acute Qualifiers: Hyperlipidemia type: mixed hyperlipidemia Qualified Code(s): E78.2 - Mixed hyperlipidemia (8) COPD (chronic obstructive pulmonary disease): Status: Acute Qualifiers: COPD type: emphysema Emphysema type: centrilobular Qualified Code(s): J43.2 - Centrilobular emphysema Additional A&P Information Anemia Thank you for allowing me to participate in patient's care. Please feel free to call with questions or concerns. Attestations Medical Necessity Statement*: Continue admission for assessment management of triple-vessel coronary disease, LM disease, severe COPD, PE, DVT, anemia. Time Spent in Patient Care: 16 - 35 minutes (>than 50% of time spent in counselling and/or direct pt care on unit). Coding Level of Care Code Acute Meter Tester Polyphase for g Fwd Diagnoses Left main coronary artery disease I25.10 Triple vessel coronary artery disease I25.10 NSTEMI (non-ST elevated myocardial infarction) I21.4 Dvt femoral (deep venous thrombosis) I82.412 Chronicity: acute Laterality: left Pulmonary emboli I26.94 Pulmonary embolism type: multiple subsegmental (without acute cor pulmonale) Hypertension I10 Hypertension type: essential hypertension Hyperlipemia E78.2 Hyperlipidemia type: mixed hyperlipidemia COPD (chronic obstructive pulmonary disease) J43.2 COPD type: emphysema Emphysema type: centrilobular
--- NOTE | 2020-06-28 10:00 | XACV_ITS ---
Ht: 168 cm Wt: 88 kg BSA: 2.05 m2 Any Known Allergies: Other Gender: Male : 1945 Exam Type: Invasive Peripheral Vascular Procedure(s): Procedure Description: Peripheral vascular Intervention Procedure Description: PV IVC Filter Placement Exam Priority: Routine Lower Extremity Interventional Findings INDICATION FOR PROCEDURE: 74-year-old man who had presented with NSTEMI, found to have extensive DVT of left lower extremity and pulmonary embolism during hospital stay as well. Coronary angiogram demonstrated severe multivessel calcified coronary artery disease including left main, proximal LAD, proximal left circumflex and moderate to severe ostial RCA stenosis. Patient has severe COPD. CT surgery was consulted for evaluation for CABG. Dr. Tejada saw the patient. Pulmonology was consulted as well given his advanced COPD. After heart team approach and discussion with pulmonology, patient is considered high risk for surgical revascularization. We had a discussion with patient regarding alternate options. He has opted to undergo high risk percutaneous coronary intervention of left main artery. This will require arthrectomy given severe calcification. We will consider use of LV support device for the high risk procedure. Plan for revascularization on 06/29/2020. All the risks and benefits have been described to the patient. Risks including bleeding, infection, abnormal kidney function, heart rhythm abnormalities, heart attack, stroke and have been described. Patient understands the risks and benefits and wants to proceed with the procedure. Patient has anemia with hemoglobin of less than 9 and has extensive DVT on the left lower extremity along with a PE. Given he is undergoing high risk PCI including left main artery, he will need to be on dual antiplatelet agents. If blood counts drop further there is a possibility that anticoagulation may need to be discontinued. Also in case of any complication during high risk PCI, if he needs to be revascularized surgically, anticoagulation can complicate perioperative period. IVC filter has been recommended by CT surgery, cardiology and internal medicine service. We will proceed with retrievable IVC filter placement today. Risks and benefits of the procedure have been discussed with patient, who agrees with the plan. Risks including bleeding, infection, device thrombosis, embolization, PE and have been described. We will place retrieveable IVC filter. Plan for removal in 3-4 months. PROCEDURE DETAIL: We obtained access in the right femoral vein and a 7 Fr sheath was placed. We performed abdominal venogram to identify the renal veins. 7fr sheath [employer] [place] device Lot # [id number] was then successfully deployed below the level of the renal veins. Delivery system was removed. We achieved hemostasis with perclose. Conclusions Extensive left lower extremity DVT and PE. Successful placement of IVC filter. Recommendations Continue anticoagulation. Close monitoring of hemoglobin as has significant anemia. We will plan on removing the IVC filter in 3 months. Access Site Site: Right Femoral vein Sheath Size: 6 Fr Hemost... Method: Perclose (8hands) Hemost... Success: Successful Procedure Details Findings Procedure Consent Obtained. Pre-Procedure Time Out. Identified patient by full name and date of as verbalized by the patient/guarantor. Does the consent match the physician's order: Yes. Accurate & Complete Informed Consent: Yes. Inpatient/Outpatient History & Physical on Chart: Yes. If H&P is completed, is and addenduem needed: No; If yes, is the addendum complete: N/A. Visualize and Verify Site with Patient/Guarantor: N/A. Relevant Radiology Images available: N/A. Pre-op teaching completed and patient verbalized understanding. The risks, benefits, and alternatives of sedation and/or procedure were discussed by physician. The patient agrees to continue. Procedure started. Correct patient, site and procedure confirmed by cath team. PERRLA. Strong, equal hand folder machine operator bilaterally. Lungs clear x 5 lobes. IV Site on Arrival: 20 gauge in the left anticubital. IV Fluids: 0.9% NaCl at KVO. 0 mL infused prior to analytical lab technician. Oxygen started at 2liters/min via nasal canula. bilateral groins was prepped with chloroprep then draped in the usual sterile fashion. Physician notified. Baseline sample Acquired. HR: 82 BPM. Physician arrived. Hemodynamic formulas in Rest were re-calculated based on hemoglobin value from 06/28/2020 4:58:00 AM. Physician scrubbed in. Immediate Pre-Procedure Time Out. Correct Patient: Yes; Correct Procedure: Yes; Correct Site: Yes; Correct Patient Position: Yes; Correct Supplies: Yes; Dried Flammable Prep: Yes; Blood Products Available: N/A;. Dr Melendez scrubbed in to assist Dr Fung with procedure. Lidocaine 1% infiltrated to the right groin. Venous access obtained with a micropuncture set. Sheath upsized to a 7 Fr. IVC filter device inserted. 7fr sheath [employer] C[employer] [place] device. Lot # [id number]. Hand injection performed. Hand injection performed. Hand injection performed. Standard wire inserted. IVC filter deployed. Deployment device removed. Long 7 fr sheah exchanged for short 7 fr sheath. A Perclose (8hands) was successful obtaining hemostatsis at the Right Femoral vein insertion site. Perclose placed without complications. No signs or symptoms of hematoma noted. Sterile dressing applied per usual sterile fashion. Post Procedure: Pulses reassessed and unchanged. PERRLA. Strong, equal hand folder machine operator bilaterally. No VTE prophylaxis required. Medication's Wasted: Lidocaine 1% = 10 mL. Medication's Wasted: Heparin = 1000 units. Medication's Wasted: Other = versed 1 mg. Medication's Wasted: Other = fentanyl 50 mcg. Physician scrubbed out. Total IV fluids: 25 mL. Contrast type used: Visipaque 320 mgI/mL, 500 mL bottle. Complications: none. Estimated blood loss: 5mL-10mL. Post-op diagnosis: extensive DVT/ pulmonary embolism. Procedure completed. Patient transferred by bed to 1st floor. Vital chart was stopped. Procedure Medications Start: 10:16 AM Stop: 10:16 AM Medication: Versed Amount: 1 mg Route: I.V. Start: 10:16 AM Stop: 10:16 AM Medication: Fentanyl Amount: 50 mcg Route: I.V. History/Risk Factors Hypertension: Yes Dyslipidemia: Yes Peripheral Arterial Disease (PAD): No Myocardial Infarction (KS): Yes Obesity: No Renal Disease: No Tobacco Use: Former Prior Interventions PCI: No CABG: No Valve Surgery: No Report Signatures Finalized by Jony Fung MD on 07/11/2020 05:29 PM
--- NOTE | 2020-06-28 10:18 | W.PM.OPSUD ---
Surgery/Procedure H&P Update DATE OF PROCEDURE: June 28, 2020 DATE H&P PERFORMED: 06/22/20 H&P UPDATE INFORMATION: I have reviewed H&P completed within last 30 days and Changes to prior documentation as noted here CHANGES TO PREVIOUS DOCUMENTATION: 74-year-old man who had presented with anginal symptoms and elevated troponins consistent with NSTEMI, found to have extensive DVT of left lower extremity and pulmonary embolism during hospital stay as well. Coronary angiogram demonstrated severe multivessel calcified coronary artery disease including left main, proximal LAD, proximal left circumflex and moderate to severe ostial RCA stenosis. Patient has severe COPD. CT surgery was consulted for evaluation for CABG. Dr. Tejada saw the patient. Pulmonology was consulted as well given his advanced COPD. After heart team approach and discussion with pulmonology, patient is considered high risk for surgical revascularization. We had a discussion with patient regarding alternate options. He has opted to undergo high risk percutaneous coronary intervention of left main artery. This will require arthrectomy given severe calcification. We will consider use of LV support device for the high risk procedure. Plan for revascularization on 06/29/2020. All the risks and benefits have been described to the patient. Risks including bleeding, infection, abnormal kidney function, heart rhythm abnormalities, heart attack, stroke and have been described. Patient understands the risks and benefits and wants to proceed with the procedure. Patient has anemia with hemoglobin of less than 9 and has extensive DVT on the left lower extremity along with a PE. Given he is undergoing high risk PCI including left main artery, he will need to be on dual antiplatelet agents. If blood counts drop further there is a possibility that anticoagulation might need to be discontinued. Also in case of any complication during high risk PCI, if he needs to be revascularized surgically, anticoagulation can complicate perioperative period. IVC filter has been recommended by CT surgery, cardiology and internal medicine service. We will proceed with retrievable IVC filter placement today. Risks and benefits of the procedure have been discussed with patient, who agrees with the plan. PREOP DIAGNOSIS: NSTEMI PLANNED PROCEDURE: Operation Date: 06/23/20 10:00 Proposed Procedures p Cardiac Catheterization(Not Applicable) - Jony Fung M.D Operation Date: 06/28/20 10:00 Proposed Procedures p IVC Filter Insertion(Not Applicable) - Jony Fung, M.D PATIENT REASSESSED PRIOR TO SEDATION, WITH NO CHANGE NOTED: Yes PHYSICAL EXAM: alert, oriented x 3 and clear to auscultation bilaterally AIRWAY EVAL/ANESTHESIA PLAN: ASA III, Risks, benefits & alternatives of sedation and/or procedure discussed and Patient agrees to continue as planned
--- NOTE | 2020-06-28 10:36 | DCPLANNER ---
IMM completed with pt on 06/28/20 @ [id number]. Copy of rights given to pt.
--- NOTE | 2020-06-28 13:41 | PM.PN ---
Subjective Subjective: Interval history: Today he reports he is doing well. Denies any chest pain or pressure. Denies shortness of breath. Awaiting to be taken for placement of IVC filter. Vitals/I&O/Wt Last Vital Signs Temp 98 F 06/28/20 05:09 Pulse 75 06/28/20 13:15 Resp 17 06/28/20 13:15 BP 147/91 06/28/20 13:15 Pulse Ox 95 06/28/20 08:02 06/27/20 06/28/20 06/28/20 22:59 06:59 14:59 Intake Total 360 / 1200 Output Total 450 / 1200 800 / 2000 Balance -90 / 0 -800 / -800 Weight last 48 hrs Weight 86.183 kg Physical Exam Const: COMMON NORMALS: no acute distress and patient oriented x3 HENMT: COMMON NORMALS: oropharynx normal Neck/C-Spine: COMMON NORMALS: no JVD Resp: COMMON NORMALS: normal respiratory effort and clear to auscultation bilaterally AUSCULTATION: clear to auscultation bilaterally Cardio: COMMON NORMALS: no JVD, regular rhythm, S1 normal heart sound present, S2 normal heart sound present and No murmurs present (Cardio) RHYTHM: regular rhythm HEART SOUNDS: S1 normal heart sound present and S2 normal heart sound present GI: COMMON NORMALS: Normal to inspection, nondistended, normoactive bowel sounds present, Soft to palpation and non-tender PALPATION: Yes Soft to palpation Extremity: COMMON NORMALS: no joint enlargement and no pedal edema Neuro: COMMON NORMALS: patient oriented x3 and moves all extremities Skin: COMMON NORMALS: no rashes or lesions noted GENERAL SKIN EXAM: no rashes or lesions noted Data : 06/28/20 04:58 06/28/20 04:58 A&P Assessment and plan (1) Triple vessel coronary artery disease: N.p.o. after midnight for angiography, IVUS assessment tomorrow with possible multivessel PCI. Continue CAD medications, intentions being adjusted to aid with symptoms. Status: Acute (2) NSTEMI (non-ST elevated myocardial infarction): Denies chest pain today. Additional evaluation and treatment of multivessel coronary disease as above. Status: Acute (3) Left main coronary artery disease: Status: Acute (4) Pulmonary emboli: IVC filter placement today. Continue anticoagulation. Down to room air on oxygen requirement. Status: Acute Qualifiers: Pulmonary embolism type: multiple subsegmental (without acute cor pulmonale) Qualified Code(s): I26.94 - Multiple subsegmental pulmonary emboli without acute cor pulmonale (5) Dvt femoral (deep venous thrombosis): Continue anticoagulation. With persistent clot burden in proximal veins, in setting of Hemoccult positive anemia, in case of possible need for interruption of anticoagulation due to either bleeding, worsening anemia, or in case of need for emergent bypass surgery, additionally IVC filter will be placed to reduce chances of additional potentially life-threatening PE. Status: Acute Qualifiers: Chronicity: acute Laterality: left Qualified Code(s): I82.412 - Acute embolism and thrombosis of left femoral vein (6) COPD (chronic obstructive pulmonary disease): Does not appear currently in exacerbation. There is no wheezing. Saturation is good on room air. He does appear to have occasional episodes of air hunger. Continue symptomatic treatment at this time. Monitor. DuoNeb as needed. Continue Advair. Singulair. Not requiring oxygen currently. Status: Acute Qualifiers: COPD type: emphysema Emphysema type: centrilobular Qualified Code(s): J43.2 - Centrilobular emphysema (7) Anemia: Currently requiring anticoagulation. Hemoglobin is appropriate stable. Hemoccult stool is positive. Mild iron deficiency anemia. Chronic intermittent steroid use (with cancer treatments). PPI BID. Receiving iron sulfate supplementation. Recent EGD and Colonoscopy done in 2019 noted to be WNL except hiatal hernia. Received B12. Status: Acute (8) Hyperlipemia: Continue statin. Status: Acute Qualifiers: Hyperlipidemia type: mixed hyperlipidemia Qualified Code(s): E78.2 - Mixed hyperlipidemia (9) Hypertension: Blood pressures are close to goal. Continue current medications. Continue to monitor. Status: Acute Qualifiers: Hypertension type: essential hypertension Qualified Code(s): I10 - Essential (primary) hypertension (10) JODI (acute kidney injury): Improved. Status: Acute Additional A&P Information Continue other chronic oral home medications. Discussed all the above with patient and his . He is agreeable with plan. All questions answered. Attestations Medical Necessity Statement*: Continue admission for assessment management of multivessel CAD, NSTEMI, PE, DVT, requiring anticoagulation in setting of anemia. Coding Level of Care Code Acute [place] [employer] Operator for Chg Fwd Diagnoses Triple vessel coronary artery disease I25.10 NSTEMI (non-ST elevated myocardial infarction) I21.4 Left main coronary artery disease I25.10 Pulmonary emboli I26.94 Pulmonary embolism type: multiple subsegmental (without acute cor pulmonale) Dvt femoral (deep venous thrombosis) I82.412 Chronicity: acute Laterality: left COPD (chronic obstructive pulmonary disease) J43.2 COPD type: emphysema Emphysema type: centrilobular Anemia D64.9 Hyperlipemia E78.2 Hyperlipidemia type: mixed hyperlipidemia Hypertension I10 Hypertension type: essential hypertension JODI (acute kidney injury) N17.9
[2020-06-28] MEDS: enoxaparin 100 mg/mL Syringe 90 MG SUBCUT (18:43)
--- NOTE | 2020-06-28 19:04 | PC.NURSE ---
instructions form Dr levin to give morning dose of lovenox at 0400 prior to cath
[2020-06-29] VITALS (81 sets, daily range): BP systolic 94–137; BP diastolic 52–77; PULSE 68–95; RESP 12–30; TEMP 36.1–36.9; O2SAT 93–100
[2020-06-29 04:00] LABS: Basophils % 0.9 %; Eosinophils # 0.1 10^3/uL (0.0-0.8); Hematocrit 28.8 % (42.0-52.0); Hemoglobin 8.7 g/dL (11.7-16.6); Lymphocytes # 0.6 10^3/uL (0.8-4.8); Lymphocytes % 13.5 %; Mean Corpuscular HGB Conc 30.2 g/dL (30.0-36.0); Mean Corpuscular Hemoglobin 28.9 pg (28.0-34.0); Mean Corpuscular Volume 95.7 fL (80-94); Mean Platelet Volume 10.4 fL (7.4-10.4); Monocytes # 0.5 10^3/uL (0.2-0.9); Monocytes % 10.6 %; Neutrophils # 3.11 10^3/uL (1.8-7.7); Neutrophils % 71.3 %; Nucleated Red Blood Cells % 0 %; Platelet Count 236 10^3/cmm (130-400); Red Blood Count 3.01 10^6/uL (4.1-5.3); Red Cell Distribution Width 15.4 % (12.1-15.1); White Blood Count 4.4 10^3/uL (4.0-10.0)
[2020-06-29] MEDS: sucralfate 1 gm/10 mL Oral Liq UDC PO (04:22)
[2020-06-29] MEDS: nitroglycerin 1 gm/inch oint Pkt 1 INCH TOPICAL ×2 (04:22→09:57)
[2020-06-29] MEDS: enoxaparin 100 mg/mL Syringe 90 MG SUBCUT (04:22)
[2020-06-29 04:41] LABS: Blood Urea Nitrogen 24 mg/dL (8-23); Calcium 8.6 mg/dL (8.5-10.5); Carbon Dioxide 22 mmol/L (22-29); Chloride 107 mmol/L (98-107); Glucose 89 mg/dL (65-115); Osmolality Calculated 292 mOsm/kg (285-295); Sodium 139 mmol/L (136-145)
[2020-06-29 04:42] LABS: Anion Gap 14.4 (5-19); Potassium 4.4 mmol/L (3.5-5.1)
--- NOTE | 2020-06-29 05:03 | PC.NURSE ---
NURSE NOTE: SHIFT SUMMARY: PT ALERT AND ORIENTED X4. MOVES ALL EXTREMITIES AND FOLLOWS COMMANDS. DENIES PAIN. PREPPED FOR CARDIAC CATH ORDERED. ALL VS AND ASSESSMENTS ORDERED. NO DISTRESS AT THIS TIME.
--- NOTE | 2020-06-29 06:36 | PC.NURSE ---
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 INFORMED HIM THAT THERE WAS NO FORMAL ORDER FOR CATH IN CHART. STATED WOULD LET DR. FINK KNOW TO TAKE CARE OF THAT TODAY PRIOR TO CATH. PT. IS SCHEDULED FOR CATH TODAY ACCORDING TO SCHO[employer] TRAFFIC SUPERVISOR.
--- NOTE | 2020-06-29 06:45 | XACV_ITS ---
Exam Room: [facility] Ht: 168 cm Wt: 86 kg BSA: 2.03 m2 Gender: Male : 1945 Any Known Allergies: Other Exam Priority: Routine Procedure(s): Procedure Description: Diagnostic procedure Procedure Description: High risk multivessel PCI involving left main artery Procedure Description: Left Heart Catheterization Procedure Description: Coronary IVUS Procedure Description: Drug Eluting Coronary Stent Procedure Description: PTCA Procedure Description: Coronary Atherectomy Procedure Description: Cutting Balloon Procedure Description: Miscellaneous Procedure Description: ACT Procedure Description: Coronary Angiography Procedure Description: Impella placement Procedure Description: Impella removal Diagnostic Cath Status: Urgent Diagnostic Findings * This was a staged PCI of left main/LCx/LAD. For complete diagnostic procedure report, please refer to report on 06/23/2020. * LM to pLAD: Severe 85% stenosis, LIZABETH: 3 flow. * pLAD to mLAD: Severe 95% stenosis, LIZABETH: 3 flow. * pCIRC: Severe 80% stenosis, LIZABETH: 0 flow. PCI Status: Urgent PCI Indication: NSTE - ACS Interventional Findings * Indication: 74-year-old man who had presented with anginal symptoms and elevated troponins consistent with NSTEMI, found to have extensive DVT of left lower extremity and pulmonary embolism during hospital stay as well. Coronary angiogram demonstrated severe multivessel calcified coronary artery disease including distal left main, proximal to mid LAD, ostial to proximal left circumflex and moderate to severe ostial RCA stenosis. Patient has severe COPD. CT surgery was consulted for evaluation for CABG. Dr. Tejada saw the patient. Pulmonology was consulted as well given his advanced COPD. After heart team approach and discussion with pulmonology, patient is considered high risk for surgical revascularization and deemed appropriate for percutaneous revascularization. After heart team discussion and decision making with the patient, high risk percutaneous coronary intervention of left main artery bifurcation and LAD planned. This will require arthrectomy given severe calcification. With his complex,severe, heavily calcified multivessel coronary artery disease requiring arthrectomy(orbital arthrectomy), and involvement of left main artery needing bifurcation stenting, procedure to be done with LV support using Impella. All the risks and benefits were described to the patient. Risks including bleeding, infection, abnormal kidney function, heart rhythm abnormalities, heart attack, stroke and have been described. Patient understands the risks and benefits and wants to proceed with the procedure. * Procedure details: We obtained access in the right femoral artery. Abdominal angiogram was performed that showed moderate luminal irregularities in the right common iliac artery. There is 10 to 20% stenosis in distal aorta. Diffuse moderate disease was seen in common iliac and external iliac arteries on the left side.Impella sheath was exchanged for the right common femoral artery 6 sao tomean sheath after perclosing the right femoral artery. Using single access technique a 7 [place]e sheath was inserted into Impella sheath valve using micropuncture system. Heparin was administered to maintain an ACT above 250 seconds throughout the procedure. 7 [place]e EBU 3.5 guide catheter was used to engage left main artery. A 0.014 run-through guidewire was placed in LAD. IVUS was performed to assess degree of calcification and size of vessels. This was done in left circumflex as well. Left circumflex calcification was moderate. Severe calcification of LAD and distal left main was seen with MLA of left main artery <6mm. Decision was made to perform orbital arthrectomy of LAD and distal left main artery. Cutting Balloon to be used on ostium of left circumflex artery (which later could not be delivered to the left circumflex that was predilated with NC balloons). We then placed a Viper wire in the LAD. Orbital arthrectomy runs first performed in proximal to mid LAD. This was followed by arthrectomy of distal left main artery. We exchanged the Viper wire for a 300 cm run-through wire through TelePort microcatheter. Proximal to mid LAD stenosis was predilated with 2.5 x 12 mm semicompliant balloon. This was followed by placement of 3.0 x 15 mm resolute [place] drug-eluting stent. This was postdilated with a 3.5 x 8 mm NC balloon. We then turned our attention to left circumflex artery. A second 0.014 run-through guidewire was placed in distal left circumflex artery. We predilated the lesion left circumflex stenosis with 2.25 x 12 mm NC balloon followed by predilation with 3.0x6 mm NC balloon. Next we predilated the left main stenosis using 3.5x15mm non compliant balloon. Using mini-crush technique we placed a 2.82g74sh Resolute katarzyna BRANDEN in the ostial Lcx extending 1-2mm into left main artery. This was crushed with the left main stent measuring 3.5x12mm Resolute katarzyna stent after the balloon and wire were removed from the left circumflex. This was followed by simultaneous kissing balloon inflation of the left circumflex artery balloon using a 3.0x6mm NC balloon and left main to LAD balloon using a 4.0x6mm NC balloon. At this time we noted stent edge dissection of the mid LAD which was rewired with a Relationship Specialist 50 guidewire. We then placed a 2.33l61zi Resolute katarzyna stent in the mid LAD overlapping with the initial stent. At this time we performed final angiogram that showed excellent stent expansion, no residual stenosis and LIZABETH 3 flow. Guidewire and guidecatheter were removed. We removed the 7 Fr Sheath. Impella was successfully weaned and was removed. Impella sheath was removed then and percloses were deployed with successful hemostasis. Patient left the clinical laboratory science professor in a stable condition. . * ). * LM to pLAD: 85% stenosis treated with MDT R KATARZYNA 3.5X12 BRANDEN and MDT NC EUPHORA RX 4.0X06MM BALLOON. 0% residual stenosis, LIZABETH: 3 flow. * pLAD to mLAD: 95% stenosis treated with AB TREK 2.50X12 RX BALLOON, MDT R KATARZYNA 3.0X15 BRANDEN, MDT NC EUPHORA RX 3.65Q79KZ BALLOON, MDT NC EUPHORA RX 3.83E25AZ BALLOON, and MDT R KATARZYNA 2.75X30 BRANDEN. 0% residual stenosis, LIZABETH: 3 flow. * pCIRC: 80% stenosis treated with MDT NC EUPHORA RX 2.62D52QM BALLOON, MDT NC EUPHORA RX 3.66U83RY BALLOON, MDT NC EUPHORA RX 3.36R69YH BALLOON, MDT R KATARZYNA 2.75X22 BRANDEN, and MDT NC EUPHORA RX 2.98R74XU BALLOON. 0% residual stenosis, LIZABETH: 3 flow. Conclusions 1. There is severe coronary artery disease with three vessel disease. Moderate to severe ostial RCA stenosis also noted on diagnostic cath. 2. Orbital arterctomy performed in the left main artery and prox to mid LAD. 3. Successful impella supported high risk left main/LAD and LCx PCI with BRANDEN X 4. 4. LM to pLAD was treated with Drug Eluting Stent and Balloon. 5. pLAD to mLAD was treated with three Balloon and two Drug Eluting Stent. 6. pCIRC was treated with 4 Balloon and Drug Eluting Stent. Recommendations * Triple therapy for today with aspirin, brilinta and Eliquis. Brilinta will be switched to Plavix tomorrow. Triple therapy for a month with Plavix, aspirin and Eliquis starting tomorrow. * High intensity statin therapy. * Beta gerald as tolerated. * Ostial RCA has moderate to severe disease that we will treat medically for now. Decision for further work up/intervention based on patient's symptoms. * Cardiac rehab referral. * Close follow up with cardiology clinic. Interventional RX Recommendation: PCI w/o planned CABG Diagnostic RX Recommendation: PCI w/o planned CABG Anticoagulation: Heparin Pressures Phase:Rest AO : 67 / 54 ( 61 ) @ 7:09:00 AM 89 / 57 ( 68 ) @ 7:50:00 AM 82 / 57 ( 68 ) @ 7:53:00 AM 88 / 54 ( 68 ) @ 8:15:00 AM 101 / 67 ( 81 ) @ 8:40:00 AM 100 / 62 ( 78 ) @ 9:13:00 AM LV : 92 / -14 / @ 7:32:00 AM Clinical Evaluation EBL: 5mL-10mL Procedural Details Procedure Consent Obtained. Pre-Procedure Time Out. Identified patient by full name and date of as verbalized by the patient/guarantor. Does the consent match the physician's order: Yes. Accurate & Complete Informed Consent: Yes. Inpatient/Outpatient History & Physical on Chart: Yes. If H&P is completed, is and addenduem needed: No; If yes, is the addendum complete: N/A. Visualize and Verify Site with Patient/Guarantor: N/A. Relevant Radiology Images available: N/A. Pre-op teaching completed and patient verbalized understanding. The risks, benefits, and alternatives of sedation and/or procedure were discussed by physician. The patient agrees to continue. Vital chart was stopped. Hemodynamic formulas in Rest were re-calculated based on hemoglobin value from 06/29/2020 2:57:00 AM. Procedure started. PERRLA. Strong, equal hand grape cutter bilaterally. Lungs clear x 5 lobes. IV Site on Arrival: 20 gauge in the left upper arm. IV Fluids: 0.9% NaCl at KVO. 800 mL infused prior to clinical laboratory science professor. Pre Procedural Pulses: bilateral dorsalis pedis was Doppled. Pre Procedural Pulses: bilateral posterior tibial was Doppled. Pre Procedural Pulses: bilateral radial was 2+. Oxygen started at 2liters/min via nasal canula. bilateral groins was prepped with chloroprep then draped in the usual sterile fashion. Baseline sample Acquired. HR: 73 BPM. Physician arrived. Equipment: 6F - Femoral. Cardiac Cath Pack. ACIST Manifold Kit Model BT 2000. Heparinized Saline (2 units/mL), 1000 mL bag. Kit, Micropuncture. Physician notified. Physician arrived. Physician scrubbed in. Immediate Pre-Procedure Time Out. Correct Patient: Yes; Correct Procedure: Yes; Correct Site: Yes; Correct Patient Position: Yes; Correct Supplies: Yes; Dried Flammable Prep: Yes; Blood Products Available: N/A;. Lidocaine 1% infiltrated to the right groin. Arterial access obtained with micropuncture set. Groin picture taken. Groin picture taken. Sheath upsized to a 6 Fr. A 5 sao tomean Angled Pig catheter in over wire. Abdominal aortogram performed in AP @ 10 mL/sec for a total of 20 mL. Catheter removed over the standard wire. A Perclose device was prepped and loaded to right femoral access site. Anesthesia on standby. A second Perclose device was prepped and loaded to right femoral access site. Sheath upsized to a 7 Fr. A 5 sao tomean Angled Pig catheter in over wire. Wire out. Impella wire inserted. 7 fr sheath out. 8 fr dilator in. 8 fr dilator out. 10 fr dilator inserted. 10fr dilator out. 12 fr dilator inserted. 14 fr Impella sheath inserted. A 5 sao tomean Angled Pig catheter in over wire. EDP Sample taken: LV 92/-15,1; HR: 77 BPM; SpO2: 94%. Impella wire inserted. Catheter removed over Impella wire. Impella inserted. Impella wire out. Micropuncture needle inserted through 14 fr sheath using single access technique. 7 sao tomean sheath inserted using same single access technique. Standard wire out. Glidewire inserted. Long 7 fr flexor sheath inserted. Long sheath out. Short 7 fr sheath inserted. 7 sao tomean XB 3.5 guide catheter was inserted over the wire. Glidewire out. ACT drawn. Results 112 seconds. Therapeutic limits - pre-heparin administration 90-150 seconds and monitoring heparin during a vascular procedure >250 seconds. Multiple views taken of left coronary artery. Runthrough guidewire was advanced through the guide catheter to lesion in the prox LAD. ACT drawn. Results 189 seconds. Therapeutic limits - pre-heparin administration 90-150 seconds and monitoring heparin during a vascular procedure >250 seconds. Wire out to reshape and then re-inserted. Dr Melendez scrubbed in to assist with procedure. IVUS inserted to LAD and will be pulled back through Left main. IVUS recording. A second Runthrough guidewire was advanced through the guide catheter to lesion in the prox Circ. IVUS catheter redirected to CIRC. IVUS recording started. IVUS catheter removed. Runthrough wire removed from Circ. 300 cm Runthrough wire inserted to LAD. ACT drawn. Results 313 seconds. Therapeutic limits - pre-heparin administration 90-150 seconds and monitoring heparin during a vascular procedure >250 seconds. Short runthrough wire out. Microcatheter inserted over the 300 cm Runthrough. 300 cm Runthrough wire out. VIPER wire 0.012 inserted. Diamondback 360 Coronary OAS 1.25mm atherectomy device inserted over VIPER wire. Coronary orbital atherectomy performed to prox LAD. Coronary orbital atherectomy performed to prox LAD. Coronary orbital atherectomy performed to prox LAD. Anesthesia (Will-WEB CONTENT COORDINATOR) taking over to manage sedation. Coronary orbital atherectomy performed to Left Main. Coronary orbital atherectomy performed to Left Main. Coronary orbital atherectomy performed to Left Main. Diamondback atherectomy device removed. Microcatheter inserted. 300 cm Runthrough wire out. Short runthrough wire inserted. Short runthrough wire out. 300 cm Runthrough wire inserted. Microcatheter out. Inflation number : 1 A AB TREK 2.50X12 RX BALLOON was prepped and advanced across the Prox LAD , then inflated to 14 LUIS FERNANDO for 0:36 seconds. Balloon out. Inflation Number : 2 A MDT R KATARZYNA 3.0X15 BRANDEN -Lot Number# [id number] exp date 02/21/2022 was prepped and advanced across the Prox LAD. The stent was deployed at 14 LUIS FERNANDO for 0:35 seconds. Stent balloon out over wire. Inflation number : 3 A MDT NC EUPHORA RX 3.25L61WA BALLOON was prepped and advanced across the Prox LAD , then inflated to 12 LUIS FERNANDO for 0:18 seconds. Inflation number: 4 The MDT NC EUPHORA RX 3.55L67ZG BALLOON was reinflated across the Prox LAD, to 12 LUIS FERNANDO for 0:18 seconds. Balloon out. ACT drawn. Results 317 seconds. Therapeutic limits - pre-heparin administration 90-150 seconds and monitoring heparin during a vascular procedure >250 seconds. 300 cm Runthrough wire removed. Short runthrough wire inserted to LAD. A second Runthrough wire inserted to CIRC. AngioSculpt PTCA scoring balloon inserted over wire to the Circ. Runthrough wire out. A fresh Runthrough wire inserted to CIRC. Scoring balloon inflated in the CIRC. Scoring balloon deflated from pressure of 8. Scoring balloon out. Inflation number : 1 A MDT NC EUPHORA RX 2.33U73BM BALLOON was prepped and advanced across the Prox CX , then inflated to 16 LUIS FERNANDO for 0:29 seconds. Inflation number: 2 The MDT NC EUPHORA RX 2.76W49LY BALLOON was reinflated across the Prox CX, to 16 LUIS FERNANDO for 0:25 seconds. Inflation number: 3 The MDT NC EUPHORA RX 2.72C34PQ BALLOON was reinflated across the Prox CX, to 16 LUIS FERNANDO for 0:31 seconds. Balloon out. AngioSculpt PTCA scoring balloon inserted over wire to the Circ. Scoring balloon out. Runthrough wire from LAD removed. Cutting balloon inserted over wire. Unable to advance. Cutting balloon out. Guideliner inserted. Cutting balloon inserted over wire. Unable to advance. Cutting balloon out. ACT drawn. Results 256 seconds. Therapeutic limits - pre-heparin administration 90-150 seconds and monitoring heparin during a vascular procedure >250 seconds. Inflation number : 4 A MDT NC EUPHORA RX 3.59P20DB BALLOON was prepped and advanced across the Prox CX , then inflated to 14 LUIS FERNANDO for 0:22 seconds. Inflation number: 5 The MDT NC EUPHORA RX 3.25A53DT BALLOON was reinflated across the Prox CX, to 14 LUIS FERNANDO for 0:23 seconds. Balloon out. Inflation number : 6 A MDT NC EUPHORA RX 3.33H97SD BALLOON was prepped and advanced across the Prox CX , then inflated to 12 LUIS FERNANDO for 0:07 seconds. Inflation number: 7 The MDT NC EUPHORA RX 3.00I47JO BALLOON was reinflated across the Prox CX, to 9 LUIS FERNANDO for 0:20 seconds. Balloon out. Runthrough guidewire was advanced through the guide catheter to lesion in the prox LAD. Guideliner out. Inflation number: 5 The MDT NC EUPHORA RX 3.93P75SX BALLOON was reinflated across the Prox LAD, to 12 LUIS FERNANDO for 0:28 seconds. Inflation number: 6 The MDT NC EUPHORA RX 3.33K98FK BALLOON was reinflated across the Prox LAD, to 12 LUIS FERNANDO for 0:20 seconds. Balloon out. Runthrough wire from LAD removed. A 22 gauge IV was started in the left forearm using aseptic technique. Runthrough wire inserted to LAD. Inflation Number : 8 A MDT R KATARZYNA 2.75X22 BRANDEN -Lot Number# [id number] exp date 11/17/2021 was prepped and advanced across the Prox CX. The stent was deployed at 12 LUIS FERNANDO for 0:23 seconds. Family updated. Wire removed to CIRC. Stent balloon from Circ removed over wire. Inflation Number : 1 A MDT R KATARZYNA 3.5X12 BRANDEN -Lot Number# [id number] exp date 02/19/2022 was prepped and advanced across the LMCA. The stent was deployed at 14 LUIS FERNANDO for 0:24 seconds. Stent balloon out over wire. Wire out of CIRC. DOCUMENT SPECIALIST guide wire inserted to the CIRC. Inflation number : 2 A MDT NC EUPHORA RX 4.0X06MM BALLOON was prepped and advanced across the LMCA , then inflated to 12 LUIS FERNANDO for 0:23 seconds. Inflation number: 3 The MDT NC EUPHORA RX 4.0X06MM BALLOON was reinflated across the LMCA, to 12 LUIS FERNANDO for 0:15 seconds. Balloon out of LAD. MDT NC 3.00x6 balloon attempted to place in CIRC. Unable to advance. Removed. Inflation number : 9 A MDT NC EUPHORA RX 2.72Q69QA BALLOON was prepped and advanced across the Prox CX , then inflated to 16 LUIS FERNANDO for 0:19 seconds. Inflation number: 10 The MDT NC EUPHORA RX 2.02T40QN BALLOON was reinflated across the Prox CX, to 18 LUIS FERNANDO for 0:16 seconds. Balloon out. Inflation number: 11 The MDT NC EUPHORA RX 3.84Z79QV BALLOON was reinflated across the Prox CX, to 0 LUIS FERNANDO for 0:10 seconds. Inflation number: 4 The MDT NC EUPHORA RX 4.0X06MM BALLOON was reinflated across the LMCA, to 14 LUIS FERNANDO for 0:12 seconds. Inflation number: 12 The MDT NC EUPHORA RX 3.93M05FG BALLOON was reinflated across the Prox CX, to 14 LUIS FERNANDO for 0:17 seconds. Inflation number: 5 The MDT NC EUPHORA RX 4.0X06MM BALLOON was reinflated across the LMCA, to 14 LUIS FERNANDO for 0:19 seconds. Both balloons out. Results checked. Circ wire out. DOCUMENT SPECIALIST wire inserted. Inflation Number : 7 A JUSTIN Auguste KATARZYNA 2.75X30 BRANDEN -Lot Number# [id number] exp dte 10/20/2021 was prepped and advanced across the Prox LAD. The stent was deployed at 16 LUIS FERNANDO for 0:29 seconds. Inflation number: 8 The stent balloon was then re-inflated across the Prox LAD to 18 LUIS FERNANDO for 0:20 seconds. Stent balloon out over wire. IVUS Catheter inserted. IVUS recording. IVUS recording. IVUS removed. Results checked. 7 fr sheath removed. Impella removed. ACT drawn. Results 254 seconds. Therapeutic limits - pre-heparin administration 90-150 seconds and monitoring heparin during a vascular procedure >250 seconds. 2 Perclose (BaroFold) was successful obtaining hemostatsis at the Right Femoral artery insertion site. Perclose placed without complications. No signs or symptoms of hematoma noted. Sterile dressing applied per usual sterile fashion. Post Procedure: Pulses reassessed and unchanged. PERRLA. Strong, equal hand grape cutter bilaterally. Medication's Wasted: Other = versed 1 mg. No VTE prophylaxis required. Total IV fluids: 1000 mL. Medication's Wasted: Nitro = 49.6 mg. Medication's Wasted: Heparin = 2000 units. Physician scrubbed out. Contrast type used: Visipaque 320 mgI/mL, 500 mL bottle. PCI Indication: NSTE. Post-op diagnosis: severe multi vessel CAD including Left main. Complications: none. Estimated blood loss: 5mL-10mL. Procedure completed. Patient transferred by bed to ICU. Vital chart was stopped. Access Site Site: Right Femoral artery Sheath Size: 4 Fr Hemostasis Method: Perclose (BaroFold) Hemostasis Success: Successful Procedure Medications Start: 12:52 PM Stop: 12:52 PM Medication: Versed Amount: 1 mg Route: I.V. Start: 12:52 PM Stop: 12:52 PM Medication: Fentanyl Amount: 50 mcg Route: I.V. Start: 12:58 PM Stop: 12:58 PM Medication: Versed Amount: 1 mg Route: I.V. Start: 1:25 PM Stop: 1:25 PM Medication: Versed Amount: 1 mg Route: I.V. Start: 1:25 PM Stop: 1:25 PM Medication: Fentanyl Amount: 25 mcg Route: I.V. Start: 1:27 PM Stop: 1:27 PM Medication: Heparin Amount: 8000 units Route: I.V. Start: 1:39 PM Stop: 1:39 PM Medication: 0.9% Saline Amount: 500 ml Route: I.V. bolus Start: 1:51 PM Stop: 1:51 PM Medication: Heparin Amount: 6000 units Route: I.V. Start: 1:57 PM Stop: 1:57 PM Medication: Heparin Amount: 3000 units Route: I.V. Start: 2:08 PM Stop: 2:08 PM Medication: Versed Amount: 1 mg Route: I.V. Start: 2:18 PM Stop: 2:18 PM Medication: Versed Amount: 1 mg Route: I.V. Start: 2:21 PM Stop: 2:21 PM Medication: Fentanyl Amount: 25 mcg Route: I.V. Start: 2:39 PM Stop: 2:39 PM Medication: Versed Amount: 1 mg Route: I.V. Start: 2:39 PM Stop: 2:39 PM Medication: Fentanyl Amount: 50 mcg Route: I.V. Start: 2:52 PM Stop: 2:52 PM Medication: Heparin Amount: 2000 units Route: I.V. Start: 2:30 PM Stop: 2:30 PM Medication: Versed Amount: 1 mg Route: I.V. Start: 3:04 PM Stop: 3:04 PM Medication: Heparin Amount: 1000 units Route: I.V. Start: 3:44 PM Stop: 3:44 PM Medication: Heparin Amount: 2000 units Route: I.V. Start: 4:04 PM Stop: 4:04 PM Medication: Heparin Amount: 2000 units Route: I.V. Start: 4:23 PM Stop: 4:23 PM Medication: Heparin Amount: 2000 units Route: I.V. Start: 4:55 PM Stop: 4:55 PM Medication: Nitrogylcerin Amount: 200 mcg Route: I.C. Start: 4:56 PM Stop: 4:56 PM Medication: Heparin Amount: 1000 units Route: I.V. Start: 5:10 PM Stop: 5:10 PM Medication: Nitrogylcerin Amount: 200 mcg Route: I.C. Start: 5:16 PM Stop: 5:16 PM Medication: Heparin Amount: 1000 units Route: I.V. Start: 5:27 PM Stop: 5:27 PM Medication: Heparin Amount: 1000 units Route: I.V. I, the attending physician, have reviewed and verified all procedure medications. Yes, all medications given per verbal order History/Risk Factors Hypertension: Yes Dyslipidemia: Yes Peripheral Arterial Disease (PAD): No Myocardial Infarction (PR): Yes Obesity: No Renal Disease: No Tobacco Use: Former Prior Interventions PCI: No CABG: No Valve Surgery: No Report Signatures Finalized by Jony Fung MD on 07/08/2020 04:15 PM
[2020-06-29] MEDS: ipratropium-albuterol 3 mL Neb INHALATION ×3 (07:32→23:56)
--- NOTE | 2020-06-29 08:42 | P.PN_ITS ---
Subjective Subjective: Interval history: He reports he was feeling a little short of breath earlier this morning. He received a breathing treatment. He is feeling little bit better. Denies chest pain or pressure. Vitals/I&O/Wt Last Vital Signs Temp 97.4 F L 06/29/20 08:00 Pulse 85 06/29/20 08:00 Resp 17 06/29/20 08:00 BP 126/73 06/29/20 08:00 Pulse Ox 96 06/29/20 08:00 06/28/20 06/29/20 06/29/20 22:59 06:59 14:59 Output Total 325 / 325 475 / 800 Balance -325 / 75 -475 / -400 Weight last 48 hrs Weight 86.409 kg Physical Exam Const: COMMON NORMALS: no acute distress and patient oriented x3 HENMT: COMMON NORMALS: oropharynx normal Neck/C-Spine: COMMON NORMALS: no JVD Resp: COMMON NORMALS: normal respiratory effort and clear to auscultation bilaterally AUSCULTATION: clear to auscultation bilaterally Cardio: COMMON NORMALS: no JVD, regular rhythm, S1 normal heart sound present, S2 normal heart sound present and No murmurs present (Cardio) RHYTHM: regular rhythm HEART SOUNDS: S1 normal heart sound present and S2 normal heart sound present GI: COMMON NORMALS: Normal to inspection, nondistended, normoactive bowel sounds present, Soft to palpation and non-tender PALPATION: Yes Soft to palpation Extremity: COMMON NORMALS: no joint enlargement and no pedal edema Neuro: COMMON NORMALS: patient oriented x3 and moves all extremities Skin: COMMON NORMALS: no rashes or lesions noted GENERAL SKIN EXAM: no rashes or lesions noted Data : 06/29/20 02:57 06/29/20 02:57 A&P Assessment and plan (1) Triple vessel coronary artery disease: Today planned for IVUS assessment with possible multivessel PCI. Continue CAD medications, intentions being adjusted to aid with symptoms. Status: Acute (2) NSTEMI (non-ST elevated myocardial infarction): Denies chest pain today. Additional evaluation and treatment of multivessel coronary disease as above. Status: Acute (3) Left main coronary artery disease: Status: Acute (4) Pulmonary emboli: IVC filter placed. Continue anticoagulation. Down to room air on oxygen requirement. Status: Acute Qualifiers: Pulmonary embolism type: multiple subsegmental (without acute cor pulmonale) Qualified Code(s): I26.94 - Multiple subsegmental pulmonary emboli without acute cor pulmonale (5) Dvt femoral (deep venous thrombosis): Continue anticoagulation. With persistent clot burden in proximal veins, in setting of Hemoccult positive anemia, in case of possible need for interruption of anticoagulation due to either bleeding, worsening anemia, or in case of need for emergent bypass surgery, additionally IVC filter will be placed to reduce chances of additional potentially life-threatening PE. Status: Acute Qualifiers: Chronicity: acute Laterality: left Qualified Code(s): I82.412 - Acute embolism and thrombosis of left femoral vein (6) COPD (chronic obstructive pulmonary disease): Prednisone. Neb treatments scheduled. Does not appear currently in exacerbation. There is no wheezing. Saturation is good on room air. He does appear to have occasional episodes of air hunger. Continue symptomatic treatment at this time. Monitor. DuoNeb as needed. Continue Advair. Singulair. NC PRN Status: Acute Qualifiers: COPD type: emphysema Emphysema type: centrilobular Qualified Code(s): J43.2 - Centrilobular emphysema (7) Anemia: Currently requiring anticoagulation. Hemoglobin is appropriate stable. Hemoccult stool is positive. Mild iron deficiency anemia. Chronic intermittent steroid use (with cancer treatments). PPI BID. Receiving iron sulfate supplementation. Recent EGD and Colonoscopy done in 2020 noted to be WNL except hiatal hernia. Received B12. Status: Acute (8) Hyperlipemia: Continue statin. Status: Acute Qualifiers: Hyperlipidemia type: mixed hyperlipidemia Qualified Code(s): E78.2 - Mixed hyperlipidemia (9) Hypertension: Blood pressures are close to goal. Continue current medications. Continue to monitor. Status: Acute Qualifiers: Hypertension type: essential hypertension Qualified Code(s): I10 - Essential (primary) hypertension (10) JODI (acute kidney injury): Improved. Status: Acute Additional A&P Information Continue other chronic oral home medications. Attestations Medical Necessity Statement*: Continue admission for assessment management of multivessel CAD, non-STEMI, in the setting of underlying PE, requiring anticoagulation, anemia, COPD, and additional comorbidities as above. Coding Level of Care Code Acute Administration Specialist for [facility] Fwd Diagnoses Triple vessel coronary artery disease I25.10 NSTEMI (non-ST elevated myocardial infarction) I21.4 Left main coronary artery disease I25.10 Pulmonary emboli I26.94 Pulmonary embolism type: multiple subsegmental (without acute cor pulmonale) Dvt femoral (deep venous thrombosis) I82.412 Chronicity: acute Laterality: left COPD (chronic obstructive pulmonary disease) J43.2 COPD type: emphysema Emphysema type: centrilobular Anemia D64.9 Hyperlipemia E78.2 Hyperlipidemia type: mixed hyperlipidemia Hypertension I10 Hypertension type: essential hypertension JODI (acute kidney injury) N17.9
[2020-06-29] MEDS: aspirin 81 mg EC Tablet PO (09:54)
[2020-06-29] MEDS: ferrous sulfate EC 325 mg Tablet PO (09:54)
[2020-06-29] MEDS: isosorbide mononitrate ER 30 mg Tablet PO (09:55)
[2020-06-29] MEDS: pantoprazole DR 40 mg Tablet PO (09:55)
[2020-06-29] MEDS: ticagrelor 90 mg Tablet PO ×2 (09:55→21:10)
[2020-06-29] MEDS: chlorhexidine gluconate 4% Btl 118 mL 1 APPLIC TOPICAL (09:55)
[2020-06-29] MEDS: docusate sodium 100 mg Capsule PO (09:56)
[2020-06-29] MEDS: predniSONE 1 mg Tablet 3 MG PO (10:01)
[2020-06-29] MEDS: metoprolol tartrate 50 mg Tablet 75 MG PO (10:09)
--- NOTE | 2020-06-29 10:28 | P.ANESASSM_ITS ---
Pre-Anesthetic Assessment Pre-Anesthetic Assessment: Height/Weight: Height 1.68 m Weight 86.409 kg Temp Pulse Resp BP Pulse Ox 97.4 F L 85 17 126/73 96 06/29/20 08:00 06/29/20 08:00 06/29/20 08:00 06/29/20 08:00 06/29/20 08:00 Preop Diagnosis: NSTEMI Proposed Procedure: Operation Date: 06/23/20 10:00 Proposed Procedures p Cardiac Catheterization(Not Applicable) - Jony Fung M.D Operation Date: 06/28/20 10:00 Proposed Procedures p IVC Filter Insertion(Not Applicable) - Jony Fung M.D Familial anesthetic complications: none Last intake: NPO > 8 hrs Social: Social History: Tobacco and No alcohol Exam: Pre-Anes Outpt Exam: alert, oriented x 3, clear to auscultation bilaterally and regular rate & rhythm Airway: Cervical ROM: WNL Dentition: Other (missing) Additional comments: poor dentition Pulmonary: Pulmonary: COPD Comments: PE s/p IVC filter yesterday CV/HEM: CV/HEM: Anemia, CAD, DVT and HTN Comments: SNTEMI : Comments: JODI Metabolic: Metabolic: Hyperlipidemia Anesthetic Plan: ASA status: 4 Anesthesia: MAC and Local Only Other: Will attempt local only for portion of case requiring no motion so patient is awake and cooperative Risk of > 500 ml blood loss (7ml/kg in children): No Meds/Allergies Current Medications: Current Medications Generic Name Dose Route Start Last Admin Trade Name Freq PRN Reason Stop Dose Admin Al Hydrox/Mg [place] x/Simethicone 15 ml 06/21/20 19:04 06/23/20 17:25 Zfbb-Qak-Hwapkiv de-Danette 30 Ml Udc PO 15 ml Q6H PRN Administration INDIGESTION Al Hydrox/Mg [place] x/Simethicone 30 ml 06/23/20 12:18 06/24/20 04:07 Ddwa-Maq-Rtojnep de-Danette 30 Ml Udc PO 30 ml Q15M PRN Administration INDIGESTION Albuterol/Ipratrop ium 3 ml 06/24/20 09:38 06/29/20 07:32 Ipratropium-Albu terol 3 Ml Neb INHALATION 3 ml Q6H.RESPIRATORY P RN Administration SHORTNESS OF EDUARDO TH Aspirin 81 mg 06/27/20 09:00 06/29/20 09:54 Aspirin 81 Mg Ec Tablet PO 81 mg DAILY PENDING SALE TO [facility] Administration Atorvastatin Calci um 80 mg 06/22/20 21:00 06/28/20 21:34 Atorvastatin 40 Mg Tablet PO Not Given BEDTIME PENDING SALE TO [facility] Bisacodyl 10 mg 06/21/20 19:04 06/22/20 10:22 Bisacodyl 5 Mg T ablet PO 10 mg DAILY PRN Administration CONSTIPATION Chlorhexidine Gluc shyla 1 applic 06/25/20 18:00 06/29/20 09:55 Chlorhexidine Gl uconate 4% Btl 118 Ml TOPICAL 1 applic BID PENDING SALE TO [facility] Administration Docusate Sodium 100 mg 06/22/20 09:00 06/29/20 09:56 Docusate Sodium 100 Mg Capsule PO 100 mg BID EMRE Administration Enoxaparin Sodium 90 mg 06/22/20 18:00 06/29/20 04:22 Enoxaparin 100 M g/Ml Syringe 1 mg/kg (90 mg) 90 mg SUBCUT Administration Q12H PENDING SALE TO [facility] Ferrous Sulfate 325 mg 06/22/20 08:55 06/29/20 09:54 Ferrous Sulfate Ec 325 Mg Tablet PO 325 mg BIDWM PENDING SALE TO [facility] Administration Isosorbide Mononit rate 30 mg 06/27/20 09:00 06/29/20 09:55 Isosorbide [place] itrate Er 30 Mg Ta blet PO 30 mg DAILY PENDING SALE TO [facility] Administration Metoprolol Tartrat e 75 mg 06/24/20 21:00 06/29/20 10:09 Metoprolol Tartr ate 50 Mg Tablet PO 75 mg BID@0900,2100 PENDING SALE TO [facility] Administration Montelukast Sodium 10 mg 06/22/20 17:00 06/27/20 16:37 Montelukast Sodi um 10 Mg Tablet PO 10 mg DAILY@1700 PENDING SALE TO [facility] Administration Nitroglycerin 0.4 mg 06/22/20 16:51 06/26/20 23:29 Nitroglycerin 0. 4 Mg Sublingual Ta blet SUBLINGUAL 0.4 mg Q5M PRN Administration CHEST PAIN Nitroglycerin 1 inch 06/27/20 09:15 06/29/20 09:57 Nitroglycerin 1 Gm/Inch Oint Pkt TOPICAL 1 inch Q6H PENDING SALE TO [facility] Administration Non-Formulary Medi cation 250 mg 06/22/20 17:00 06/27/20 16:36 Magnesium PO 250 mg DAILY@1700 PENDING SALE TO [facility] Administration Non-Formulary Medi cation 8 mg 06/21/20 20:00 06/28/20 21:32 Silodosin PO Not Given BEDTIME@2000 PENDING SALE TO [facility] Pantoprazole Sodiu m 40 mg 06/22/20 18:00 06/29/20 09:[address] 40 Mg Tablet PO 40 mg BID EMRE Administration Prednisone 3 mg 06/22/20 09:00 06/29/20 10:01 Prednisone 1 Mg Tablet PO 3 mg BID PENDING SALE TO [facility] Administration Fluticasone/Salmet [place] 1 puff 06/24/20 09:40 06/29/20 07:32 Fluticasone-Salm eterol 500-50 Disk us INHALATION 1 puff BID.RESPIRATORY S CH Administration Sucralfate 1 gm 06/21/20 21:00 06/29/20 04:22 Sucralfate 1 Gm/ 10 Ml Oral Liq Udc PO 1 gm AC&BEDTIME PENDING SALE TO [facility] Administration Ticagrelor 90 mg 06/28/20 09:00 06/29/20 09:55 Ticagrelor 90 Mg Tablet PO 90 mg BID EMRE Administration Additional Medication Information: Current Medications Acetaminophen (Acetaminophen 325 Mg Tablet) 650 mg PO Q6H PRN PRN Reason: Mild/Mod Pain Or Temp >/= 101 Acetaminophen (Acetaminophen 325 Mg Tablet) 650 mg PO Q6H PRN PRN Reason: MILD PAIN Al Hydrox/Mg Hydrox/Simethicone (Ibge-Uvl-Kppgxahwc-Danette 30 Ml Udc) 15 ml PO Q6H PRN PRN Reason: INDIGESTION Last Admin: 06/23/20 17:25 Dose: 15 ml Documented by: Al Hydrox/Mg Hydrox/Simethicone (Jand-Uqb-Aecugolbn-Danette 30 Ml Udc) 30 ml PO Q15M PRN PRN Reason: INDIGESTION Last Admin: 06/24/20 04:07 Dose: 30 ml Documented by: Al Hydrox/Mg Hydrox/Simethicone (Xogf-Xuf-Ezxpqzobf-Danette 30 Ml Udc) 30 ml PO Q4H PRN PRN Reason: INDIGESTION Albuterol Sulfate (Albuterol 8 Gm Mdi) 2 puff INHALATION QID PRN PRN Reason: Shortness Of Breath Or Wheezing Albuterol/Ipratropium (Ipratropium-Albuterol 3 Ml Neb) 3 ml INHALATION Q6H.RESPIRATORY PRN PRN Reason: SHORTNESS OF BREATH Last Admin: 06/25/20 08:44 Dose: 3 ml Documented by: Alprazolam (Alprazolam 0.25 Mg Tablet) 0.25 mg PO TID PRN PRN Reason: ANXIETY Aspirin (Aspirin 325 Mg Ec Tablet) 325 mg PO DAILY PENDING SALE TO [facility] Last Admin: 06/25/20 08:34 Dose: 325 mg Documented by: Atorvastatin Calcium (Atorvastatin 40 Mg Tablet) 80 mg PO BEDTIME PENDING SALE TO [facility] Last Admin: 06/24/20 20:33 Dose: 80 mg Documented by: Atropine Sulfate (Atropine 1 Mg/Ml Sdv 1 Ml) 0.5 mg IVP PRN PRN PRN Reason: Symptomatic bradycardia Bisacodyl (Bisacodyl 5 Mg Tablet) 10 mg PO DAILY PRN PRN Reason: CONSTIPATION Last Admin: 06/22/20 10:22 Dose: 10 mg Documented by: Bisacodyl (Bisacodyl 5 Mg Tablet) 5 mg PO Q6H PRN PRN Reason: Constipation (Use 2nd) Bisacodyl (Bisacodyl 10 Mg Supp) 10 mg ND Q6H PRN PRN Reason: Constipation (Use 5th) Bismuth Subsalicylate (Bismuth Subsalicylate 240 Ml Btl) 30 ml PO PRN PRN PRN Reason: DIARRHEA Diphenhydramine HCl (Diphenhydramine 25 Mg Capsule) 25 mg PO BEDTIME PRN PRN Reason: SLEEP Docusate Sodium (Docusate Sodium 100 Mg Capsule) 100 mg PO BID PENDING SALE TO [facility] Last Admin: 06/25/20 08:35 Dose: Not Given Documented by: Docusate Sodium (Docusate Sodium 100 Mg Capsule) 100 mg PO BID PRN PRN Reason: Constipation (Use 1st) Enoxaparin Sodium (Enoxaparin 100 Mg/Ml Syringe) 90 mg 1 mg/kg (90 mg) SUBCUT Q12H PENDING SALE TO [facility] Last Admin: 06/25/20 06:10 Dose: 90 mg Documented by: Fentanyl (Fentanyl 50 Mcg/Ml Inj 2ml) 50 mcg IVP PRN PRN PRN Reason: Prior to sheath removal Ferrous Sulfate (Ferrous Sulfate Ec 325 Mg Tablet) 325 mg PO BIDWM PENDING SALE TO [facility] Last Admin: 06/25/20 08:36 Dose: Not Given Documented by: Guaifenesin (Guaifenesin 100 Mg/5 Ml Udc 10 Ml) 200 mg PO Q4H PRN PRN Reason: COUGH Isosorbide Dinitrate (Isosorbide Dinitrate 20 Mg Tablet) 5 mg PO BID PENDING SALE TO [facility] Last Admin: 06/25/20 09:19 Dose: 5 mg Documented by: Lactulose (Lactulose Oral Liq 20 Gm/30 Ml Udc) 20 gm PO Q6H PRN PRN Reason: Constipation (Use 3rd) Magnesium Hydroxide (Magnesium Hydroxide 30 Ml Udc) 30 ml PO DAILY PRN PRN Reason: CONSTIPATION Magnesium Hydroxide (Magnesium Hydroxide 30 Ml Udc) 45 ml PO DAILY PRN PRN Reason: Constipation (use 4th) Metoprolol Tartrate (Metoprolol Tartrate 50 Mg Tablet) 75 mg PO BID@0900,2100 PENDING SALE TO [facility] Last Admin: 06/25/20 09:05 Dose: 75 mg Documented by: Montelukast Sodium (Montelukast Sodium 10 Mg Tablet) 10 mg PO DAILY@1700 PENDING SALE TO [facility] Last Admin: 06/24/20 17:32 Dose: 10 mg Documented by: Naloxone HCl (Naloxone 0.4 Mg/Ml Sdv) 0.1 mg IVP Q2M PRN PRN Reason: RESPIRATORY RATE < 8/MIN Nitroglycerin (Nitroglycerin 0.4 Mg Sublingual Tablet) 0.4 mg SUBLINGUAL Q5M PRN PRN Reason: CHEST PAIN Last Admin: 06/24/20 22:54 Dose: 0.4 mg Documented by: Nitroglycerin (Nitroglycerin 0.4 Mg Sublingual Tablet) 0.4 mg SUBLINGUAL Q5M PRN PRN Reason: CHEST PAIN Non-Formulary Medication (Magnesium) 250 mg PO DAILY@1700 PENDING SALE TO [facility] Last Admin: 06/24/20 17:30 Dose: 250 mg Documented by: Non-Formulary Medication (Silodosin) 8 mg PO BEDTIME@1999 PENDING SALE TO [facility] Last Admin: 06/24/20 23:07 Dose: Not Given Documented by: Ondansetron HCl (Ondansetron 2 Mg/Ml Sdv 2 Ml) 4 mg IVP Q8H PRN PRN Reason: vomiting, or N/V if npo Ondansetron HCl (Ondansetron 2 Mg/Ml Sdv 2 Ml) 4 mg IVP Q2M PRN PRN Reason: NAUSEA Pantoprazole Sodium (Pantoprazole Dr 40 Mg Tablet) 40 mg PO BID PENDING SALE TO [facility] Last Admin: 06/25/20 08:34 Dose: 40 mg Documented by: Prednisone (Prednisone 1 Mg Tablet) 3 mg PO BID PENDING SALE TO [facility] Last Admin: 06/25/20 09:19 Dose: 3 mg Documented by: Promethazine HCl (Promethazine 25 Mg Supp) 25 mg ND Q6H PRN PRN Reason: NAUSEA AND VOMITING Fluticasone/Salmeterol (Fluticasone-Salmeterol 500-50 Diskus) 1 puff INHALATION BID.RESPIRATORY PENDING SALE TO [facility] Last Admin: 06/25/20 08:44 Dose: 1 puff Documented by: Sucralfate (Sucralfate 1 Gm/10 Ml Oral Liq Udc) 1 gm PO AC&BEDTIME EMRE Last Admin: 06/25/20 13:32 Dose: 1 gm Documented by: Temazepam (Temazepam 15 Mg Capsule) 15 mg PO BEDTIME PRN PRN Reason: INSOMNIA PFSH Anesthesia PFSH: Medical History Anemia Carcinoma in situ of prostate COPD (chronic obstructive pulmonary disease) Hiatal hernia Hyperlipemia Hypertension Wedge compression fracture of unspecified thoracic vertebra, initial encounter for closed fracture Surgical History H/O esophagogastroduodenoscopy 07/14/2019: Hiatal hernia and duodenal polyps History of colonoscopy (~2008) 07/14/2019: Normal Family History Other No pertinent family history Social History Smoking and tobacco status: current every day smoker e-cigarettes E-Cigarette Details: vaporizer device Alcohol intake: never Substance/Drug Use: never Household members: spouse Housing: House Marital status: Current occupational status: employed 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 History of recent travel: No Kami/Pro[employer]ant: [employer] Data Anesthesia CBC & Chem 7: 06/29/20 02:57 06/29/20 02:57 Other Labs: Laboratory Results - last 48 hr 06/28/20 06/28/20 06/29/20 04:58 04:58 02:57 WBC 4.4 4.4 RBC 3.10 L 3.01 L Hgb 8.9 L 8.7 L Hct 29.4 L 28.8 L MCV 94.8 H 95.7 H MCH 28.7 28.9 MCHC 30.3 30.2 RDW 15.4 H 15.4 H Plt Count 255 236 MPV 10.1 10.4 Neut % (Auto) 74.1 71.3 Lymph % (Auto) 11.1 13.5 Hand % (Auto) 10.7 10.6 Eos % (Auto) 2.7 3.0 Baso % (Auto) 0.7 0.9 Neut # (Auto) 3.27 3.11 Lymph # (Auto) 0.5 L 0.6 L Hand # (Auto) 0.5 0.5 Eos # (Auto) 0.1 0.1 Baso # (Auto) 0.0 0.0 Nucleated RBC % (auto) 0 0 Nucleated RBCs # 0.0 0.0 Sodium 138 Potassium 3.9 Chloride 103 Carbon Dioxide 25 Anion Gap 13.9 BUN 23 Creatinine 1.1 GFR Calculation Not Reportable Glucose 95 Calculated Osmolality 289 Calcium 8.9 06/29/20 02:57 WBC RBC Hgb Hct MCV MCH MCHC RDW Plt Count MPV Neut % (Auto) Lymph % (Auto) Hand % (Auto) Eos % (Auto) Baso % (Auto) Neut # (Auto) Lymph # (Auto) Hand # (Auto) Eos # (Auto) Baso # (Auto) Nucleated RBC % (auto) Nucleated RBCs # Sodium 139 Potassium 4.4 Chloride 107 Carbon Dioxide 22 Anion Gap 14.4 BUN 24 H Creatinine 1.2 GFR Calculation Not Reportable Glucose 89 Calculated Osmolality 292 Calcium 8.6 Cardiac Studies: No Data to Display
--- NOTE | 2020-06-29 12:27 | W.PM.OPSUD ---
Surgery/Procedure H&P Update DATE OF PROCEDURE: June 29, 2020 DATE H&P PERFORMED: 06/22/20 H&P UPDATE INFORMATION: I have reviewed H&P completed within last 30 days and I have examined patient prior to procedure CHANGES TO PREVIOUS DOCUMENTATION: 74-year-old man who had presented with anginal symptoms and elevated troponins consistent with NSTEMI, found to have extensive DVT of left lower extremity and pulmonary embolism during hospital stay as well. Coronary angiogram demonstrated severe multivessel calcified coronary artery disease including left main, proximal LAD, proximal left circumflex and moderate to severe ostial RCA stenosis. Patient has severe COPD. CT surgery was consulted for evaluation for CABG. Dr. Tejada saw the patient. Pulmonology was consulted as well given his advanced COPD. After heart team approach and discussion with pulmonology, patient is considered high risk for surgical revascularization. We had a discussion with patient regarding alternate options. He has opted to undergo high risk percutaneous coronary intervention of left main artery. This will require arthrectomy given severe calcification. With his complex, calcified multivessel coronary artery disease requiring arthrectomy, and involving left main artery, we will need LV support with impella if femoral artery angiogram demonstrates no significant disease. All the risks and benefits have been described to the patient. Risks including bleeding, infection, abnormal kidney function, heart rhythm abnormalities, heart attack, stroke and have been described. Patient understands the risks and benefits and wants to proceed with the procedure. PREOP DIAGNOSIS: NSTEMI PRIMARY INDICATION FOR PROCEDURE: NSTEMI PLANNED PROCEDURE: PERCUTANEOUS CORONARY INTERVENTION WITH ARTHRECTOMY AND IMPELLA SUPPORT PATIENT REASSESSED PRIOR TO SEDATION, WITH NO CHANGE NOTED: Yes PHYSICAL EXAM: alert, oriented x 3 and clear to auscultation bilaterally AIRWAY EVAL/ANESTHESIA PLAN: ASA III, Risks, benefits & alternatives of sedation and/or procedure discussed and Patient agrees to continue as planned
--- NOTE | 2020-06-29 13:06 | PC.NURSE ---
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
--- NOTE | 2020-06-29 13:10 | P.PN_ITS ---
Subjective Subjective: Interval history: Patient's coronary angiography performed on Thursday that showed a severe calcified coronary artery disease including distal left main, proximal to mid LAD, proximal left circumflex artery and ostial RCA. Episode of chest pain relieved by nitroglycerin this morning. No events on telemetry. Due for multivessel intervention today. Medications: Reviewed: Yes Medication Review Details: Current Medications Acetaminophen (Acetaminophen 325 Mg Tablet) 650 mg PO Q6H PRN PRN Reason: Mild/Mod Pain Or Temp >/= 101 Acetaminophen (Acetaminophen 325 Mg Tablet) 650 mg PO Q6H PRN PRN Reason: MILD PAIN Al Hydrox/Mg Hydrox/Simethicone (Umdn-Lif-Amawriucz-Danette 30 Ml Udc) 15 ml PO Q6H PRN PRN Reason: INDIGESTION Last Admin: 06/23/20 17:25 Dose: 15 ml Documented by: Al Hydrox/Mg Hydrox/Simethicone (Txlq-Wug-Zcjtjuccn-Danette 30 Ml Udc) 30 ml PO Q 15M PRN PRN Reason: INDIGESTION Last Admin: 06/24/20 04:07 Dose: 30 ml Documented by: Al Hydrox/Mg Hydrox/Simethicone (Jnjy-Gmj-Hwwgjqfaz-Danette 30 Ml Udc) 30 ml PO Q4H PRN PRN Reason: INDIGESTION Albuterol Sulfate (Albuterol 8 Gm Mdi) 2 puff INHALATION QID PRN PRN Reason: Shortness Of Breath Or Wheezing Albuterol/Ipratropium (Ipratropium-Albuterol 3 Ml Neb) 3 ml INHALATION Q6H.RESPIRATORY PRN PRN Reason: SHORTNESS OF BREATH Last Admin: 06/25/20 08:44 Dose: 3 ml Documented by: Alprazolam (Alprazolam 0.25 Mg Tablet) 0.25 mg PO TID PRN PRN Reason: ANXIETY Aspirin (Aspirin 325 Mg Ec Tablet) 325 mg PO DAILY [facility] Last Admin: 06/25/20 08:34 Dose: 325 mg Documented by: Atorvastatin Calcium (Atorvastatin 40 Mg Tablet) 80 mg PO BEDTIME [facility] Last Admin: 06/24/20 20:33 Dose: 80 mg Documented by: Atropine Sulfate (Atropine 1 Mg/Ml Sdv 1 Ml) 0.5 mg IVP PRN PRN PRN Reason: Symptomatic bradycardia Bisacodyl (Bisacodyl 5 Mg Tablet) 10 mg PO DAILY PRN PRN Reason: CONSTIPATION Last Admin: 06/22/20 10:22 Dose: 10 mg Documented by: Bisacodyl (Bisacodyl 5 Mg Tablet) 5 mg PO Q6H PRN PRN Reason: Constipation (Use 2nd) Bisacodyl (Bisacodyl 10 Mg Supp) 10 mg HI Q6H PRN PRN Reason: Constipation (Use 5th) Bismuth Subsalicylate (Bismuth Subsalicylate 240 Ml Btl) 30 ml PO PRN PRN PRN Reason: DIARRHEA Diphenhydramine HCl (Diphenhydramine 25 Mg Capsule) 25 mg PO BEDTIME PRN PRN Reason: SLEEP Docusate Sodium (Docusate Sodium 100 Mg Capsule) 100 mg PO BID [facility] Last Admin: 06/25/20 08:35 Dose: Not Given Documented by: Docusate Sodium (Docusate Sodium 100 Mg Capsule) 100 mg PO BID PRN PRN Reason: Constipation (Use 1st) Enoxaparin Sodium (Enoxaparin 100 Mg/Ml Syringe) 90 mg 1 mg/kg (90 mg) SUBCUT Q12H [facility] Last Admin: 06/25/20 06:10 Dose: 90 mg Documented by: Fentanyl (Fentanyl 50 Mcg/Ml Inj 2ml) 50 mcg IVP PRN PRN PRN Reason: Prior to sheath removal Ferrous Sulfate (Ferrous Sulfate Ec 325 Mg Tablet) 325 mg PO BIDWM [facility] Last Admin: 06/25/20 08:36 Dose: Not Given Documented by: Guaifenesin (Guaifenesin 100 Mg/5 Ml Udc 10 Ml) 200 mg PO Q4H PRN PRN Reason: COUGH Isosorbide Dinitrate (Isosorbide Dinitrate 20 Mg Tablet) 5 mg PO BID [facility] Last Admin: 06/25/20 09:19 Dose: 5 mg Documented by: Lactulose (Lactulose Oral Liq 20 Gm/30 Ml Udc) 20 gm PO Q6H PRN PRN Reason: Constipation (Use 3rd) Magnesium Hydroxide (Magnesium Hydroxide 30 Ml Udc) 30 ml PO DAILY PRN PRN Reason: CONSTIPATION Magnesium Hydroxide (Magnesium Hydroxide 30 Ml Udc) 45 ml PO DAILY PRN PRN Reason: Constipation (use 4th) Metoprolol Tartrate (Metoprolol Tartrate 50 Mg Tablet) 75 mg PO BID@0900,2100 [facility] Last Admin: 06/25/20 09:05 Dose: 75 mg Documented by: Montelukast Sodium (Montelukast Sodium 10 Mg Tablet) 10 mg PO DAILY@170 [facility] Last Admin: 06/24/20 17:32 Dose: 10 mg Documented by: Naloxone HCl (Naloxone 0.4 Mg/Ml Sdv) 0.1 mg IVP Q2M PRN PRN Reason: RESPIRATORY RATE < 8/MIN Nitroglycerin (Nitroglycerin 0.4 Mg Sublingual Tablet) 0.4 mg SUBLINGUAL Q5M PRN PRN Reason: CHEST PAIN Last Admin: 06/24/20 22:54 Dose: 0.4 mg Documented by: Nitroglycerin (Nitroglycerin 0.4 Mg Sublingual Tablet) 0.4 mg SUBLINGUAL Q5M PRN PRN Reason: CHEST PAIN Non-Formulary Medication (Magnesium) 250 mg PO DAILY@170 [facility] Last Admin: 06/24/20 17:30 Dose: 250 mg Documented by: Non-Formulary Medication (Silodosin) 8 mg PO BEDTIME@1999 [facility] Last Admin: 06/24/20 23:07 Dose: Not Given Documented by: Ondansetron HCl (Ondansetron 2 Mg/Ml Sdv 2 Ml) 4 mg IVP Q8H PRN PRN Reason: vomiting, or N/V if npo Ondansetron HCl (Ondansetron 2 Mg/Ml Sdv 2 Ml) 4 mg IVP Q2M PRN PRN Reason: NAUSEA Pantoprazole Sodium (Pantoprazole Dr 40 Mg Tablet) 40 mg PO BID [facility] Last Admin: 06/25/20 08:34 Dose: 40 mg Documented by: Prednisone (Prednisone 1 Mg Tablet) 3 mg PO BID [facility] Last Admin: 06/25/20 09:19 Dose: 3 mg Documented by: Promethazine HCl (Promethazine 25 Mg Supp) 25 mg HI Q6H PRN PRN Reason: NAUSEA AND VOMITING Fluticasone/Salmeterol (Fluticasone-Salmeterol 500-50 Diskus) 1 puff INHALATION BID.RESPIRATORY [facility] Last Admin: 06/25/20 08:44 Dose: 1 puff Documented by: Sucralfate (Sucralfate 1 Gm/10 Ml Oral Liq Udc) 1 gm PO AC&BEDTIME [facility] Last Admin: 06/25/20 13:32 Dose: 1 gm Documented by: Temazepam (Temazepam 15 Mg Capsule) 15 mg PO BEDTIME PRN PRN Reason: INSOMNIA Vitals/I&O/Wt Last Vital Signs Temp 97.7 F 06/29/20 10:40 Pulse 82 06/29/20 12:17 Resp 17 06/29/20 12:12 BP 137/74 06/29/20 10:40 Pulse Ox 96 06/29/20 12:12 06/28/20 06/29/20 06/29/20 22:59 06:59 14:59 Output Total 325 / 325 475 / 800 200 / 200 Balance -325 / 75 -475 / -400 -200 / -200 Weight last 48 hrs Weight 190 lb 8 oz Physical Exam Narrative: EXAM NARRATIVE: GENERAL: obese man lying in bed in no acute distress HEENT: Extraocular movement intact. Pupils equal round reactive to light. No pallor or icterus. NECK: central trachea, No JVD. No carotid bruit. CARDIOVASCULAR SYSTEM: S1-S2 regular. No S3 or S4 present. No murmur rubs or gallops. RESPIRATORY SYSTEM: Coarse bilateral breath sounds otherwise clear to auscultation. No wheezes rhonchi or rubs heard. No use of accessory muscles. ABDOMEN: Soft, obese, nontender. Normal bowel sounds present. EXTREMITIES: No cyanosis or clubbing. No edema. 2+ radial and ulnar CAFE AIDE: Patient is alert oriented ?3. No focal neurological deficits. SKIN: Normal turgor and temperature. No breakdown, rash or nail changes noted. PSYCH: Normal insight and judgment. Data : 06/29/20 02:57 06/29/20 02:57 A&P Assessment and plan (1) Left main coronary artery disease: CT surgery and pulmonary recommendation reviewed and appreciated. -It seems like Dr. Tejada had a family meeting and then discussed the case with Dr. Melendez. At present time, decision is to proceed with IVUS of left main lesion followed by multivessel PCI. -Given lack of a functional IVUS imaging system in our dated [employer], plan for repeat coronary angiogram once IVUS is available (through rep), possibly on Thursday. -Patient continues to have intermittent episodes of chest discomfort and at this point I do not believe he is stable enough to be discharged home. -Continue aspirin, Brilinta, metoprolol, ISMN, lovenox, nitro patch and statin. -Plan for multivessel PCI today. Status: Acute (2) Triple vessel coronary artery disease: Status: Acute (3) NSTEMI (non-ST elevated myocardial infarction): Elevated troponin with RWMA on echo. -continue ASA, statin and therapeutic lovenox. -continue metoprolol and ISMN. Status: Acute (4) Dvt femoral (deep venous thrombosis): Extensive DVT on therapeutic Lovenox; s/p IVC filter. Status: Acute Qualifiers: Chronicity: acute Laterality: left Qualified Code(s): I82.412 - Acute embolism and thrombosis of left femoral vein (5) Pulmonary emboli: Therapeutic Lovenox -Given his anemia and extensive DVT, I think he would benefit from IVC filter placement. Status: Acute Qualifiers: Pulmonary embolism type: multiple subsegmental (without acute cor pulmonale) Qualified Code(s): I26.94 - Multiple subsegmental pulmonary emboli without acute cor pulmonale (6) Hypertension: Status: Acute Qualifiers: Hypertension type: essential hypertension Qualified Code(s): I10 - Essential (primary) hypertension (7) Hyperlipemia: Status: Acute Qualifiers: Hyperlipidemia type: mixed hyperlipidemia Qualified Code(s): E78.2 - Mixed hyperlipidemia (8) COPD (chronic obstructive pulmonary disease): Status: Acute Qualifiers: COPD type: emphysema Emphysema type: centrilobular Qualified Code(s): J43.2 - Centrilobular emphysema Additional A&P Information Anemia Thank you for allowing me to participate in patient's care. Please feel free to call with questions or concerns. Attestations Medical Necessity Statement*: Continue admission for assessment management of triple-vessel coronary disease, LM disease, severe COPD, PE, DVT, anemia. Time Spent in Patient Care: 16 - 35 minutes (>than 50% of time spent in counselling and/or direct pt care on unit) . Coding Level of Care Code Acute [facility]isted Living Home Director for Talha Luz Diagnoses Left main coronary artery disease I25.10 Triple vessel coronary artery disease I25.10 NSTEMI (non-ST elevated myocardial infarction) I21.4 Dvt femoral (deep venous thrombosis) I82.412 Chronicity: acute Laterality: left Pulmonary emboli I26.94 Pulmonary embolism type: multiple subsegmental (without acute cor pulmonale) Hypertension I10 Hypertension type: essential hypertension Hyperlipemia E78.2 Hyperlipidemia type: mixed hyperlipidemia COPD (chronic obstructive pulmonary disease) J43.2 COPD type: emphysema Emphysema type: centrilobular
--- NOTE | 2020-06-29 14:04 | PC.CHAP ---
Pastoral Care Encounter/Spiritual Assessment Type of Contact [] Declined furnace reliner visit [] Patient/Family/Request visit [] Outpatient visit [] Follow-up visit [] Physician referral [] Code/Alert [] Routine visit [] Staff referral [] Actively dying [] Patient sleeping [] Family support [] [] Out of room [] Palliative care [] [] Receiving care in room [] Pre-surgical visit [] Trauma [] Long length of stay [] ICU visit [] Other: Relational/Emotional Strength [] Patient feels connected with others/family/visitors/staff [] Distress [] Loneliness/isolation [] Abandonment Spirituality of Patient [] Person of Kami [] Attends Pentecostal of their Kami [] Believes in Prayer [] Reads Bible or Cheondoism materials [] There are Spiritual issues to be addressed Clay Preparation Supervisor Interventions [] Prayer [] Active listening [] Non-anxious presence [] Spiritual/emotional support [] Crisis/trauma care [] Spiritual counseling [] Bereavement support [] Provided bereavement packet [] Provided Bible/devotional materials [] Provided toy/stuffed animal, coloring book to patient or family member [] Provided Communion [] Anointing/Tarrs [] Salvation [] Completed spiritual assessment [] Other: Impact on Illness or Injury [] Angry [] Fearful [] Anxious [] Often cries [] Exhaustion [] Unable to work [] Unable to attend denominational [] Unable to walk/stand [] Unable to read [] Unable to drive [] Unable to eat/drink [] Unable to sleep [] Unable to be with family [] Patient intubated [] Other: Summary Visit not done as patient is being transferred to another unit within minutes. Time spent with patient
[2020-06-29] MEDS: dexmedetomidine 400 MCG in sodium chloride 0.9% (100 ml) 100 ML IV (18:26)
[2020-06-29] MEDS: sodium chloride 0.9% 1,000 ML 100 ML IV (19:08)
--- NOTE | 2020-06-29 19:18 | P.PN_ITS ---
Subjective Subjective: Interval history: Mr. Murillo seen today morning. Lying comfortably on bed. On 2 L nasal cannula saturating 96% Denied any new complaints other than occasional chest pains. Discussed with Dr. Fung and patient is scheduled for high risk PCI of LCA today with possible conscious sedation and every attempt to avoid intubation Yesterday patient had an IVC filter placed 06/28/2020 for DVT Medications: Reviewed: Yes Medication Review Details: Current Medications Acetaminophen (Acetaminophen 325 Mg Tablet) 650 mg PO Q6H PRN PRN Reason: Mild/Mod Pain Or Temp >/= 101 Acetaminophen (Acetaminophen 325 Mg Tablet) 650 mg PO Q6H PRN PRN Reason: MILD PAIN Al Hydrox/Mg Hydrox/Simethicone (Zmca-Cnb-Rlxbhwwkp-Danette 30 Ml Udc) 15 ml PO Q6H PRN PRN Reason: INDIGESTION Last Admin: 06/23/20 17:25 Dose: 15 ml Documented by: Al Hydrox/Mg Hydrox/Simethicone (Hoqm-Ygp-Rrwmomcgj-Danette 30 Ml Udc) 30 ml PO Q15M PRN PRN Reason: INDIGESTION Last Admin: 06/24/20 04:07 Dose: 30 ml Documented by: Al Hydrox/Mg Hydrox/Simethicone (Bfhs-Lmx-Djsyjelmh-Danette 30 Ml Udc) 30 ml PO Q4H PRN PRN Reason: INDIGESTION Albuterol Sulfate (Albuterol 8 Gm Mdi) 2 puff INHALATION QID PRN PRN Reason: Shortness Of Breath Or Wheezing Albuterol/Ipratropium (Ipratropium-Albuterol 3 Ml Neb) 3 ml INHALATION Q6H.RESPIRATORY PRN PRN Reason: SHORTNESS OF BREATH Last Admin: 06/25/20 08:44 Dose: 3 ml Documented by: Alprazolam (Alprazolam 0.25 Mg Tablet) 0.25 mg PO TID PRN PRN Reason: ANXIETY Aspirin (Aspirin 325 Mg Ec Tablet) 325 mg PO DAILY [facility] Last Admin: 06/25/20 08:34 Dose: 325 mg Documented by: Atorvastatin Calcium (Atorvastatin 40 Mg Tablet) 80 mg PO BEDTIME [facility] Last Admin: 06/24/20 20:33 Dose: 80 mg Documented by: Atropine Sulfate (Atropine 1 Mg/Ml Sdv 1 Ml) 0.5 mg IVP PRN PRN PRN Reason: Symptomatic bradycardia Bisacodyl (Bisacodyl 5 Mg Tablet) 10 mg PO DAILY PRN PRN Reason: CONSTIPATION Last Admin: 06/22/20 10:22 Dose: 10 mg Documented by: Bisacodyl (Bisacodyl 5 Mg Tablet) 5 mg PO Q6H PRN PRN Reason: Constipation (Use 2nd) Bisacodyl (Bisacodyl 10 Mg Supp) 10 mg AK Q6H PRN PRN Reason: Constipation (Use 5th) Bismuth Subsalicylate (Bismuth Subsalicylate 240 Ml Btl) 30 ml PO PRN PRN PRN Reason: DIARRHEA Diphenhydramine HCl (Diphenhydramine 25 Mg Capsule) 25 mg PO BEDTIME PRN PRN Reason: SLEEP Docusate Sodium (Docusate Sodium 100 Mg Capsule) 100 mg PO BID [facility] Last Admin: 06/25/20 08:35 Dose: Not Given Documented by: Docusate Sodium (Docusate Sodium 100 Mg Capsule) 100 mg PO BID PRN PRN Reason: Constipation (Use 1st) Enoxaparin Sodium (Enoxaparin 100 Mg/Ml Syringe) 90 mg 1 mg/kg (90 mg) SUBCUT Q12H [facility] Last Admin: 06/25/20 06:10 Dose: 90 mg Documented by: Fentanyl (Fentanyl 50 Mcg/Ml Inj 2ml) 50 mcg IVP PRN PRN PRN Reason: Prior to sheath removal Ferrous Sulfate (Ferrous Sulfate Ec 325 Mg Tablet) 325 mg PO BIDWM [facility] Last Admin: 06/25/20 08:36 Dose: Not Given Documented by: Guaifenesin (Guaifenesin 100 Mg/5 Ml Udc 10 Ml) 200 mg PO Q4H PRN PRN Reason: COUGH Isosorbide Dinitrate (Isosorbide Dinitrate 20 Mg Tablet) 5 mg PO BID [facility] Last Admin: 06/25/20 09:19 Dose: 5 mg Documented by: Lactulose (Lactulose Oral Liq 20 Gm/30 Ml Udc) 20 gm PO Q6H PRN PRN Reason: Constipation (Use 3rd) Magnesium Hydroxide (Magnesium Hydroxide 30 Ml Udc) 30 ml PO DAILY PRN PRN Reason: CONSTIPATION Magnesium Hydroxide (Magnesium Hydroxide 30 Ml Udc) 45 ml PO DAILY PRN PRN Reason: Constipation (use 4th) Metoprolol Tartrate (Metoprolol Tartrate 50 Mg Tablet) 75 mg PO BID@0900,2100 [facility] Last Admin: 06/25/20 09:05 Dose: 75 mg Documented by: Montelukast Sodium (Montelukast Sodium 10 Mg Tablet) 10 mg PO DAILY@1700 [facility] Last Admin: 06/24/20 17:32 Dose: 10 mg Documented by: Naloxone HCl (Naloxone 0.4 Mg/Ml Sdv) 0.1 mg IVP Q2M PRN PRN Reason: RESPIRATORY RATE < 8/MIN Nitroglycerin (Nitroglycerin 0.4 Mg Sublingual Tablet) 0.4 mg SUBLINGUAL Q5M PRN PRN Reason: CHEST PAIN Last Admin: 06/24/20 22:54 Dose: 0.4 mg Documented by: Nitroglycerin (Nitroglycerin 0.4 Mg Sublingual Tablet) 0.4 mg SUBLINGUAL Q5M PRN PRN Reason: CHEST PAIN Non-Formulary Medication (Magnesium) 250 mg PO DAILY@1700 [facility] Last Admin: 06/24/20 17:30 Dose: 250 mg Documented by: Non-Formulary Medication (Silodosin) 8 mg PO BEDTIME@1999 [facility] Last Admin: 06/24/20 23:07 Dose: Not Given Documented by: Ondansetron HCl (Ondansetron 2 Mg/Ml Sdv 2 Ml) 4 mg IVP Q8H PRN PRN Reason: vomiting, or N/V if npo Ondansetron HCl (Ondansetron 2 Mg/Ml Sdv 2 Ml) 4 mg IVP Q2M PRN PRN Reason: NAUSEA Pantoprazole Sodium (Pantoprazole Dr 40 Mg Tablet) 40 mg PO BID [facility] Last Admin: 06/25/20 08:34 Dose: 40 mg Documented by: Prednisone (Prednisone 1 Mg Tablet) 3 mg PO BID [facility] Last Admin: 06/25/20 09:19 Dose: 3 mg Documented by: Promethazine HCl (Promethazine 25 Mg Supp) 25 mg [place] Q6H PRN PRN Reason: NAUSEA AND VOMITING Fluticasone/Salmeterol (Fluticasone-Salmeterol 500-50 Diskus) 1 puff INHALATION BID.RESPIRATORY [facility] Last Admin: 06/25/20 08:44 Dose: 1 puff Documented by: Sucralfate (Sucralfate 1 Gm/10 Ml Oral Liq Udc) 1 gm PO AC&BEDTIME [facility] Last Admin: 06/25/20 13:32 Dose: 1 gm Documented by: Temazepam (Temazepam 15 Mg Capsule) 15 mg PO BEDTIME PRN PRN Reason: INSOMNIA Vitals/I&O/Wt Last Vital Signs Temp 97.7 F 06/29/20 10:40 Pulse 70 06/29/20 19:00 Resp 14 06/29/20 19:00 BP 130/65 06/29/20 19:00 Pulse Ox 97 06/29/20 19:00 06/29/20 06/29/20 06/29/20 06:59 14:59 22:59 Intake Total 2.933 / 2.933 Output Total 475 / 800 200 / 200 200 / 400 Balance -475 / -400 -200 / -200 -197.067 / -397.067 Weight last 48 hrs Weight 190 lb 8 oz Physical Exam Narrative: EXAM NARRATIVE: General: alert, NAD HEENT: conj clear, EOMI, PERRL, mmm, Neck: supple, no meningismus Heme: no cervical LAP Pulmonary: CTAB, no wheezing, rhonchi, crackles Cardiovascular: rrr, nl s1s2, no mrg Abdomen: soft, nt, nd, no r/g, bs+ Extremities: pulses +, no edema, no c/c : no CVA tenderness Skin: intact, no rash MSK: no back or neck pain Neurologic: grossly intact Data : 06/29/20 02:57 06/29/20 02:57 A&P Assessment and plan (1) Triple vessel coronary artery disease: Status: Acute (2) NSTEMI (non-ST elevated myocardial infarction): Status: Acute (3) Dvt femoral (deep venous thrombosis): Status: Acute Qualifiers: Chronicity: acute Laterality: left Qualified Code(s): I82.412 - Acute embolism and thrombosis of left femoral vein (4) COPD (chronic obstructive pulmonary disease): Status: Acute Qualifiers: COPD type: emphysema Emphysema type: centrilobular Qualified Code(s): J43.2 - Centrilobular emphysema (5) Pulmonary emboli: Status: Acute Qualifiers: Pulmonary embolism type: multiple subsegmental (without acute cor pulmonale) Qualified Code(s): I26.94 - Multiple subsegmental pulmonary emboli without acute cor pulmonale (6) Preop pulmonary/respiratory exam: Status: Acute #Preoperative pulmonary risk assessment for possible Coronary revascularization for NSTEMI with Triple vessel disease #Severe GOLD Stage 3 COPD # RLL Suboccluisve Pulmonary emboli & Occlusive DVT from Left femoral vein to left PTV in 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 # Chronic steroid use of prostrate Ca; Chronic Prednisone 2.5 mg PO bid x 15 years #Ex heavy cigarette smoker (47 pack years Quit 2010) and current Vape user (9 years) - Reviewed all the imaging and reports - multivessel disease on [facility], CT showing non occluive RLL PE, venous doppler Left leg DVT, Echo suggestive of LV systolic function is normal with EF of 50 to 55%. Moderate hypokinesis of apical and distal anteroseptal howard. There is moderate hypokinesis of apical and distal anteroseptal wall with no right sided strain pattern. - Currently on ASA 81 mg daily, lipitor 80 mg hs, Metoprolol 75 mg bid, imdur 15 po daily, Lovenox 90 mg sc bid for NSTEMI, PE and DVT. - Spirometry (06/25/20) suggestive of severe obstructive ventilatory disease with significantly low FEV1 39%. - Currently on Advair, Duoneb q 6hr prn sob, Singulair for COPD; - Saturating 96% on room air. - normal serum bicarb - suggest pt,. is not a chronic CO2 retainer. -Based on [facility] preoperative pulmonary risk index criteria points: 50 -3 points for age between 51-80 years; 0 points for preoperative oxygen satu ration >96%; Pt is 96 % on room air; 24 points for intrathoracic surgical incision, 23 points for >3 hours of surgery = total 50 points = Cleared with HIGH RISK for post surgical pulmonary complication rate 42%. - Although currently PE is sub occlusive and is confined to segmental branches with no right sided strain pattern on Echo - it can get further complicated by lack of anticoagulation (until chest tubes have low output) and immobilization during early post operative period, especially in the presence of extensive left leg DVT. - Based on PFTs, severe obstructive airway disease can pose challenges like post operative hypoventilation, severe bronchospasm and prolonged intubation. - Explained in detail to the patient and his daughter at bedside, that if cardiology and CT surgery decide to go for CABG for revascularization, family should be aware that the procedure has very high risk for post operative complications including Respiratory infection, Respiratory failure failing extu bation, Pleural effusion, Atelectasis, Pneumothorax, Bronchospasm, Aspiration pneumonitis and worsening PE including . added to cardiac related complications like arrythmias. They verbalized understanding about complications and said would wait for the final decision regarding medical management vs surgery. -Cardiology and cardiothoracic surgery, after discussing about the risks and benefits with the patient and , decided to go with high risk PCI and stenting LAD on 06/29/2020. -Recommended to continue DuoNeb nebulization every 6 as needed; and no need for any steroids at this point of time as patient is not wheezing and not in COPD exacerbation - I would recommend CT chest with PE protocol in 3 months with continuation of anticoagulation for total months for provoked DVT/PE and Discharge patient with Anoro or bevespi or stialto (either one depending on what the insurance approves) and Pulmonary clinic appointment. Discussed with Dr. Fung , Patient at bedside. Attestations Medical Necessity Statement*: Patient to undergo high risk PCI for triple-ves maddie disease today and has an active PE and DVT requiring anticoagulation. Time Spent in Patient Care: Greater than 35 minutes (>than 50% of time spent in counselling and/or direct pt care on unit) . Critical Care Time: Critical Care Time (min): 45 Coding Level of Care Code Acute Lead Tinner for Chg Fwd Diagnoses Triple vessel coronary artery disease I25.10 NSTEMI (non-ST elevated myocardial infarction) I21.4 Dvt femoral (deep venous thrombosis) I82.412 Chronicity: acute Laterality: left COPD (chronic obstructive pulmonary disease) J43.2 COPD type: emphysema Emphysema type: centrilobular Pulmonary emboli I26.94 Pulmonary embolism type: multiple subsegmental (without acute cor pulmonale) Preop pulmonary/respiratory exam Z01.811
[2020-06-29] MEDS: fentaNYL 50 mcg/mL INJ 2mL 12.5 MCG IVP ×2 (20:51→23:13)
--- NOTE | 2020-06-29 20:55 | PC.NURSE ---
Patient in ICU 10. Impella removed on previous shift. Transparent dressing in place with some bleeding present. Called Dr. Fung to request pain medication, PRN 12.5mcg IVP fentanyl every 2 hours for pain. Patient is on Precedex to maintain a relaxed position to prevent moving leg and causing more bleeding. Dressing re-enforced and sandbag applied to decrease bleeding. Continue care.
--- NOTE | 2020-06-29 23:45 | PC.NURSE ---
Right groin site continues to ooze, dressing changed and re-enforced again and applied sandbag to incision. Midnight dose of lovenox held, as discussed with Dr. Fung if bleeding was present. Continue care.
[2020-06-30] VITALS (98 sets, daily range): BP systolic 96–135; BP diastolic 53–104; PULSE 72–122; RESP 13–27; TEMP 36.1; O2SAT 93–99
[2020-06-30] MEDS: fentaNYL 50 mcg/mL INJ 2mL 12.5 MCG IVP ×2 (01:13→03:13)
[2020-06-30] MEDS: nitroglycerin 1 gm/inch oint Pkt 1 INCH TOPICAL ×4 (02:16→20:30)
[2020-06-30] MEDS: sodium chloride 0.9% 1,000 ML 100 ML IV (03:16)
[2020-06-30 03:37] LABS: Basophils % 0.3 %; Eosinophils % 1.1 %; Hematocrit 38.7 % (42.0-52.0); Hemoglobin 12.4 g/dL (11.7-16.6); Lymphocytes # 0.2 10^3/uL (0.8-4.8); Lymphocytes % 4.9 %; Mean Corpuscular Hemoglobin 28.8 pg (28.0-34.0); Mean Platelet Volume 9.7 fL (7.4-10.4); Monocytes # 0.2 10^3/uL (0.2-0.9); Neutrophils # 3.17 10^3/uL (1.8-7.7); Neutrophils % 87.2 %; Nucleated Red Blood Cells % 0 %; Platelet Count 129 10^3/cmm (130-400); Red Cell Distribution Width 15.4 % (12.1-15.1); White Blood Count 3.6 10^3/uL (4.0-10.0)
[2020-06-30 03:53] LABS: Blood Urea Nitrogen 18 mg/dL (8-23); Calcium 8.2 mg/dL (8.5-10.5); Carbon Dioxide 16 mmol/L (22-29); Chloride 107 mmol/L (98-107); Glucose 83 mg/dL (65-115); Osmolality Calculated 281 mOsm/kg (285-295); Sodium 135 mmol/L (136-145)
[2020-06-30 03:56] LABS: Anion Gap 15.9 (5-19); Potassium 3.9 mmol/L (3.5-5.1)
[2020-06-30] MEDS: ipratropium-albuterol 3 mL Neb INHALATION ×6 (04:07→23:08)
--- NOTE | 2020-06-30 05:00 | PC.NURSE ---
Incision site no longer bleeding or oozing. Dressing dry and intact. Linens changed. Continue care.
[2020-06-30] MEDS: enoxaparin 100 mg/mL Syringe 90 MG SUBCUT ×2 (05:09→17:10)
[2020-06-30] MEDS: sucralfate 1 gm/10 mL Oral Liq UDC PO ×4 (06:01→20:28)
--- NOTE | 2020-06-30 06:11 | PC.NURSE ---
Patient resting in bed. No s/s of bleeding or distress noted. Continue care.
--- NOTE | 2020-06-30 08:45 | PM.PN ---
Subjective Subjective: Interval history: Overnight he was noted somewhat confused after the procedure. Required sedation with Precedex. This morning, however, appears lucid. Currently denies any chest pain or pressure. He is breathing well. Denies any pain in the right groin. He is wondering when he might be able to go home. Vitals/I&O/Wt Last Vital Signs Temp 97.0 F L 06/29/20 20:00 Pulse 88 06/30/20 08:07 Resp 18 06/30/20 08:07 BP 119/58 06/30/20 06:00 Pulse Ox 98 06/30/20 08:07 06/29/20 06/30/20 06/30/20 22:59 06:59 14:59 Intake Total 78.633 / 78.633 873.333 / 951.966 Output Total 200 / 400 550 / 950 Balance -121.367 / -321.367 323.333 / 1.966 Weight last 48 hrs Weight 88.479 kg Weight 86.409 kg Physical Exam Const: COMMON NORMALS: no acute distress and patient oriented x3 GENERAL APPEARANCE: cooperative and comfortable ORIENTATION/CONSCIOUSNESS: Yes awake HENMT: COMMON NORMALS: oropharynx normal Neck/C-Spine: COMMON NORMALS: no JVD Resp: COMMON NORMALS: normal respiratory effort and clear to auscultation bilaterally AUSCULTATION: clear to auscultation bilaterally Cardio: COMMON NORMALS: no JVD, regular rhythm, S1 normal heart sound present, S2 normal heart sound present and No murmurs present (Cardio) RHYTHM: regular rhythm HEART SOUNDS: S1 normal heart sound present and S2 normal heart sound present GI: COMMON NORMALS: Normal to inspection, nondistended, normoactive bowel sounds present, Soft to palpation and non-tender PALPATION: Yes Soft to palpation Extremity: COMMON NORMALS: no joint enlargement and no pedal edema OTHER: R groinwithout swelling or pulsatile mass. No significant bruising. Neuro: COMMON NORMALS: patient oriented x3 and moves all extremities Skin: COMMON NORMALS: no rashes or lesions noted GENERAL SKIN EXAM: no rashes or lesions noted Data : 06/30/20 03:23 06/30/20 03:23 A&P Assessment and plan (1) Triple vessel coronary artery disease: Status post coronary angiography 06/29 with stenting of LAD, left main, and circumflex. Overnight he was confused, but this morning he is doing well. Renal function is good. Appreciate cardiology recommendations with regards to need for any additional procedures. Continue CAD medications, intentions being adjusted to aid with symptoms. Status: Acute (2) NSTEMI (non-ST elevated myocardial infarction): Denies chest pain this morning. Additional evaluation and treatment of multivessel coronary disease as above. Status: Acute (3) Left main coronary artery disease: Status: Acute (4) Pulmonary emboli: IVC filter placed 2/4. Continue anticoagulation. Down to room air on oxygen requirement. Status: Acute Qualifiers: Pulmonary embolism type: multiple subsegmental (without acute cor pulmonale) Qualified Code(s): I26.94 - Multiple subsegmental pulmonary emboli without acute cor pulmonale (5) Dvt femoral (deep venous thrombosis): Continue anticoagulation. With persistent clot burden in proximal veins, in setting of Hemoccult positive anemia, in case of possible need for interruption of anticoagulation due to either bleeding, worsening anemia, or in case of need for emergent bypass surgery, additionally IVC filter will be placed to reduce chances of additional potentially life-threatening PE. Status: Acute Qualifiers: Chronicity: acute Laterality: left Qualified Code(s): I82.412 - Acute embolism and thrombosis of left femoral vein (6) COPD (chronic obstructive pulmonary disease): Prednisone. Neb treatments scheduled. Does not appear currently in exacerbation. There is no wheezing. Saturation is good on room air. He does appear to have occasional episodes of air hunger. Continue symptomatic treatment at this time. Monitor. DuoNeb as needed. Continue Advair. Singulair. NC PRN Status: Acute Qualifiers: COPD type: emphysema Emphysema type: centrilobular Qualified Code(s): J43.2 - Centrilobular emphysema (7) Anemia: Currently requiring anticoagulation. Hemoglobin up to 12.4? Not sure why there is a rise, platelets also down to 129, wonder if there may have been a lab error. We will recheck. Hemoccult stool is positive. Mild iron deficiency anemia. Chronic intermittent steroid use (with cancer treatments). PPI BID. Receiving iron sulfate supplementation. Recent EGD and Colonoscopy done in 2019 noted to be WNL except hiatal hernia. Received B12. Status: Acute (8) Hyperlipemia: Continue statin. Status: Acute Qualifiers: Hyperlipidemia type: mixed hyperlipidemia Qualified Code(s): E78.2 - Mixed hyperlipidemia (9) Hypertension: Blood pressures are close to goal. Continue current medications. Continue to monitor. Status: Acute Qualifiers: Hypertension type: essential hypertension Qualified Code(s): I10 - Essential (primary) hypertension (10) JODI (acute kidney injury): Improved. Status: Acute Additional A&P Information Continue other chronic oral home medications. Attestations Medical Necessity Statement*: Continue mission for assessment management of multivessel coronary disease, non-STEMI, status post three-vessel PCI, in the setting of anemia, DVT, PE, requiring anticoagulation. Coding Level of Care Code Acute Blasting Entryman for [facility] Fwd Diagnoses Triple vessel coronary artery disease I25.10 NSTEMI (non-ST elevated myocardial infarction) I21.4 Left main coronary artery disease I25.10 Pulmonary emboli I26.94 Pulmonary embolism type: multiple subsegmental (without acute cor pulmonale) Dvt femoral (deep venous thrombosis) I82.412 Chronicity: acute Laterality: left COPD (chronic obstructive pulmonary disease) J43.2 COPD type: emphysema Emphysema type: centrilobular Anemia D64.9 Hyperlipemia E78.2 Hyperlipidemia type: mixed hyperlipidemia Hypertension I10 Hypertension type: essential hypertension JODI (acute kidney injury) N17.9
[2020-06-30] MEDS: ticagrelor 90 mg Tablet PO ×2 (09:13→17:10)
[2020-06-30] MEDS: aspirin 81 mg EC Tablet PO (09:14)
[2020-06-30] MEDS: pantoprazole DR 40 mg Tablet PO ×2 (09:14→17:10)
[2020-06-30] MEDS: ferrous sulfate EC 325 mg Tablet PO ×2 (09:14→17:10)
[2020-06-30] MEDS: isosorbide mononitrate ER 30 mg Tablet PO (09:14)
[2020-06-30] MEDS: metoprolol tartrate 50 mg Tablet 75 MG PO ×2 (09:14→20:28)
[2020-06-30] MEDS: diphenhydrAMINE 50 mg Capsule PO (10:40)
--- NOTE | 2020-06-30 10:41 | PC.SOCIAL ---
IMM Updated Updated pt on Pg 2 IMM. No questions voiced. Provided pt a copy. Signed, dated, & timed copy in chart.
--- NOTE | 2020-06-30 10:43 | PC.NURSE ---
c/o swelling throat Dr sawyer checked benadrl given at this time
[2020-06-30 14:06] LABS: Basophils % 0.3 %; Eosinophils # 0.1 10^3/uL (0.0-0.8); Eosinophils % 1.7 %; Lymphocytes # 0.4 10^3/uL (0.8-4.8); Lymphocytes % 5.8 %; Monocytes # 0.4 10^3/uL (0.2-0.9); Monocytes % 6.8 %; Neutrophils # 5.15 10^3/uL (1.8-7.7); Neutrophils % 85.1 %
[2020-06-30 14:31] LABS: Anion Gap 11.9 (5-19); Blood Urea Nitrogen 19 mg/dL (8-23); Calcium 8.6 mg/dL (8.5-10.5); Carbon Dioxide 21 mmol/L (22-29); Chloride 107 mmol/L (98-107); Glucose 97 mg/dL (65-115); Osmolality Calculated 284 mOsm/kg (285-295); Potassium 3.9 mmol/L (3.5-5.1); Sodium 136 mmol/L (136-145)
[2020-06-30 14:50] LABS: Hematocrit 26.9 % (42.0-52.0); Hemoglobin 8.1 g/dL (11.7-16.6); Mean Corpuscular HGB Conc 30.1 g/dL (30.0-36.0); Mean Corpuscular Hemoglobin 29.2 pg (28.0-34.0); Mean Corpuscular Volume 97.1 fL (80-94); Nucleated Red Blood Cells % 0 %; Platelet Count 229 10^3/cmm (130-400); Red Blood Count 2.77 10^6/uL (4.1-5.3); Red Cell Distribution Width 15.4 % (12.1-15.1); White Blood Count 5.6 10^3/uL (4.0-10.0)
[2020-06-30] MEDS: montelukast sodium 10 mg Tablet PO (17:10)
--- NOTE | 2020-06-30 17:41 | P.PN_ITS ---
Subjective Subjective: Interval history: Denies any complaint right groin looks good. Medications: Reviewed: Yes Medication Review Details: Current Medications Acetaminophen (Acetaminophen 325 Mg Tablet) 650 mg PO Q6H PRN PRN Reason: Mild/Mod Pain Or Temp >/= 101 Acetaminophen (Acetaminophen 325 Mg Tablet) 650 mg PO Q6H PRN PRN Reason: MILD PAIN Al Hydrox/Mg Hydrox/Simethicone (Gocz-Fgf-Tmgarexvl-Danette 30 Ml Udc) 15 ml PO Q6H PRN PRN Reason: INDIGESTION Last Admin: 06/23/20 17:25 Dose: 15 ml Documented by: Al Hydrox/Mg Hydrox/Simethicone (Jgct-Uzj-Xthskpwdz-Danette 30 Ml Udc) 30 ml PO Q15M PRN PRN Reason: INDIGESTION Last Admin: 06/24/20 04:07 Dose: 30 ml Documented by: Al Hydrox/Mg Hydrox/Simethicone (Vsqr-Kyq-Nyjnvjetm-Danette 30 Ml Udc) 30 ml PO Q4H PRN PRN Reason: INDIGESTION Albuterol Sulfate (Albuterol 8 Gm Mdi) 2 puff INHALATION QID PRN PRN Reason: Shortness Of Breath Or Wheezing Albuterol/Ipratropium (Ipratropium-Albuterol 3 Ml Neb) 3 ml INHALATION Q6H.RE SPIRATORY PRN PRN Reason: SHORTNESS OF BREATH Last Admin: 06/25/20 08:44 Dose: 3 ml Documented by: Alprazolam (Alprazolam 0.25 Mg Tablet) 0.25 mg PO TID PRN PRN Reason: ANXIETY Aspirin (Aspirin 325 Mg Ec Tablet) 325 mg PO DAILY [facility] Last Admin: 06/25/20 08:34 Dose: 325 mg Documented by: Atorvastatin Calcium (Atorvastatin 40 Mg Tablet) 80 mg PO BEDTIME [facility] Last Admin: 06/24/20 20:33 Dose: 80 mg Documented by: Atropine Sulfate (Atropine 1 Mg/Ml Sdv 1 Ml) 0.5 mg IVP PRN PRN PRN Reason: Symptomatic bradycardia Bisacodyl (Bisacodyl 5 Mg Tablet) 10 mg PO DAILY PRN PRN Reason: CONSTIPATION Last Admin: 06/22/20 10:22 Dose: 10 mg Documented by: Bisacodyl (Bisacodyl 5 Mg Tablet) 5 mg PO Q6H PRN PRN Reason: Constipation (Use 2nd) Bisacodyl (Bisacodyl 10 Mg Supp) 10 mg NC Q6H PRN PRN Reason: Constipation (Use 5th) Bismuth Subsalicylate (Bismuth Subsalicylate 240 Ml Btl) 30 ml PO PRN PRN PRN Reason: DIARRHEA Diphenhydramine HCl (Diphenhydramine 25 Mg Capsule) 25 mg PO BEDTIME PRN PRN Reason: SLEEP Docusate Sodium (Docusate Sodium 100 Mg Capsule) 100 mg PO BID [facility] Last Admin: 06/25/20 08:35 Dose: Not Given Documented by: Docusate Sodium (Docusate Sodium 100 Mg Capsule) 100 mg PO BID PRN PRN Reason: Constipation (Use 1st) Enoxaparin Sodium (Enoxaparin 100 Mg/Ml Syringe) 90 mg 1 mg/kg (90 mg) SUBCUT Q12H [facility] Last Admin: 06/25/20 06:10 Dose: 90 mg Documented by: Fentanyl (Fentanyl 50 Mcg/Ml Inj 2ml) 50 mcg IVP PRN PRN PRN Reason: Prior to sheath removal Ferrous Sulfate (Ferrous Sulfate Ec 325 Mg Tablet) 325 mg PO BIDWM [facility] Last Admin: 06/25/20 08:36 Dose: Not Given Documented by: Guaifenesin (Guaifenesin 100 Mg/5 Ml Udc 10 Ml) 200 mg PO Q4H PRN PRN Reason: COUGH Isosorbide Dinitrate (Isosorbide Dinitrate 20 Mg Tablet) 5 mg PO BID [facility] Last Admin: 06/25/20 09:19 Dose: 5 mg Documented by: Lactulose (Lactulose Oral Liq 20 Gm/30 Ml Udc) 20 gm PO Q6H PRN PRN Reason: Constipation (Use 3rd) Magnesium Hydroxide (Magnesium Hydroxide 30 Ml Udc) 30 ml PO DAILY PRN PRN Reason: CONSTIPATION Magnesium Hydroxide (Magnesium Hydroxide 30 Ml Udc) 45 ml PO DAILY PRN PRN Reason: Constipation (use 4th) Metoprolol Tartrate (Metoprolol Tartrate 50 Mg Tablet) 75 mg PO BID@0900,2100 [facility] Last Admin: 06/25/20 09:05 Dose: 75 mg Documented by: Montelukast Sodium (Montelukast Sodium 10 Mg Tablet) 10 mg PO DAILY@1700 [facility] Last Admin: 06/24/20 17:32 Dose: 10 mg Documented by: Naloxone HCl (Naloxone 0.4 Mg/Ml Sdv) 0.1 mg IVP Q2M PRN PRN Reason: RESPIRATORY RATE < 8/MIN Nitroglycerin (Nitroglycerin 0.4 Mg Sublingual Tablet) 0.4 mg SUBLINGUAL Q5M PRN PRN Reason: CHEST PAIN Last Admin: 06/24/20 22:54 Dose: 0.4 mg Documented by: Nitroglycerin (Nitroglycerin 0.4 Mg Sublingual Tablet) 0.4 mg SUBLINGUAL Q5M PRN PRN Reason: CHEST PAIN Non-Formulary Medication (Magnesium) 250 mg PO DAILY@1700 [facility] Last Admin: 06/24/20 17:30 Dose: 250 mg Documented by: Non-Formulary Medication (Silodosin) 8 mg PO BEDTIME@1999 [facility] Last Admin: 06/24/20 23:07 Dose: Not Given Documented by: Ondansetron HCl (Ondansetron 2 Mg/Ml Sdv 2 Ml) 4 mg IVP Q8H PRN PRN Reason: vomiting, or N/V if npo Ondansetron HCl (Ondansetron 2 Mg/Ml Sdv 2 Ml) 4 mg IVP Q2M PRN PRN Reason: NAUSEA Pantoprazole Sodium (Pantoprazole Dr 40 Mg Tablet) 40 mg PO BID [facility] Last Admin: 06/25/20 08:34 Dose: 40 mg Documented by: Prednisone (Prednisone 1 Mg Tablet) 3 mg PO BID [facility] Last Admin: 06/25/20 09:19 Dose: 3 mg Documented by: Promethazine HCl (Promethazine 25 Mg Supp) 25 mg NC Q6H PRN PRN Reason: NAUSEA AND VOMITING Fluticasone/Salmeterol (Fluticasone-Salmeterol 500-50 Diskus) 1 puff INHALATION BID.RESPIRATORY [facility] Last Admin: 06/25/20 08:44 Dose: 1 puff Documented by: Sucralfate (Sucralfate 1 Gm/10 Ml Oral Liq Udc) 1 gm PO AC&BEDTIME [facility] Last Admin: 06/25/20 13:32 Dose: 1 gm Documented by: Temazepam (Temazepam 15 Mg Capsule) 15 mg PO BEDTIME PRN PRN Reason: INSOMNIA Vitals/I&O/Wt Last Vital Signs Temp 97.0 F L 06/30/20 14:00 Pulse 85 06/30/20 16:15 Resp 19 H 06/30/20 16:15 BP 113/63 06/30/20 16:15 Pulse Ox 96 06/30/20 16:15 06/30/20 06/30/20 06/30/20 06:59 14:59 22:59 Intake Total 873.333 / 951.966 616.297 / 613.397 7097 / 1816.297 Output Total 550 / 950 350 / 350 Balance 323.333 / 1.966 266.297 / 773.647 7835 / 1466.297 Weight last 48 hrs Weight 195 lb 1 oz Weight 190 lb 8 oz Physical Exam Narrative: EXAM NARRATIVE: GENERAL: Patient is alert, awake and oriented x3. NECK: No jugular vein distension. HEENT: No cyanosis. No icterus. No pallor. HEART: Regular S1 and S2. No murmur, rub or gallop. LUNGS: Clear to auscultate bilaterally. ABDOMEN: Soft, nontender and nondistended. Positive bowel sounds. No guarding, rebound or tenderness. CENTRAL NERVOUS SYSTEM: Grossly nonfocal. EXTREMITIES: Lower extremities without edema bilaterally. Right groin mildly bruised otherwise no hematoma Data : 07/01/20 03:25 07/01/20 03:25 A&P Assessment and plan (1) Left main coronary artery disease: Patient underwent multivessel intervention including left main as he was turned down by CT surgery due to high risk. He is stable and doing fine from a cardiovascular perspective. Patient is high risk for bleeding while on DAPT and anticoagulation. We therefore suggested switching patient to Plavix from Brilinta, continue DAPT and Eliquis for 30 days followed by Plavix and Eliquis. Status: Acute (2) Triple vessel coronary artery disease: Status: Acute (3) NSTEMI (non-ST elevated myocardial infarction): Status post PCI continue antiplatelet beta-gerald statin and TONY inhibitor Status: Acute (4) Dvt femoral (deep venous thrombosis): Status post IVC filter for extensive DVT and keeping in mind his cardiopulmonary status and anemia. Will resume Eliquis along with DAPT Status: Acute Qualifiers: Chronicity: acute Laterality: left Qualified Code(s): I82.412 - Acute embolism and thrombosis of left femoral vein (5) Pulmonary emboli: Status post IVC filter due to anemia and transiently holding off anticoagulation Status: Acute Qualifiers: Pulmonary embolism type: multiple subsegmental (without acute cor pulmonale) Qualified Code(s): I26.94 - Multiple subsegmental pulmonary emboli without acute cor pulmonale (6) Hypertension: Well-controlled. Continue meds Status: Acute Qualifiers: Hypertension type: essential hypertension Qualified Code(s): I10 - Essential (primary) hypertension (7) Hyperlipemia: Continue statin. Status: Acute Qualifiers: Hyperlipidemia type: mixed hyperlipidemia Qualified Code(s): E78.2 - Mixed hyperlipidemia (8) COPD (chronic obstructive pulmonary disease): As per pulmonology Status: Acute Qualifiers: COPD type: emphysema Emphysema type: centrilobular Qualified Code(s): J43.2 - Centrilobular emphysema Additional A&P Information Anemia Thank you for allowing me to participate in patient's care. Please feel free to call with questions or concerns. Attestations Medical Necessity Statement*: Patient require continuation hospitalization for above defined care. Coding Level of Care Code Acute Certified Recreational Therapist for [facility] Fwd Diagnoses Left main coronary artery disease I25.10 Triple vessel coronary artery disease I25.10 NSTEMI (non-ST elevated myocardial infarction) I21.4 Dvt femoral (deep venous thrombosis) I82.412 Chronicity: acute Laterality: left Pulmonary emboli I26.94 Pulmonary embolism type: multiple subsegmental (without acute cor pulmonale) Hypertension I10 Hypertension type: essential hypertension Hyperlipemia E78.2 Hyperlipidemia type: mixed hyperlipidemia COPD (chronic obstructive pulmonary disease) J43.2 COPD type: emphysema Emphysema type: centrilobular
[2020-06-30] MEDS: atorvastatin 40 mg Tablet 80 MG PO (20:29)
[2020-07-01] VITALS (67 sets, daily range): BP systolic 97–152; BP diastolic 55–88; PULSE 82–120; RESP 12–31; TEMP 36.8; O2SAT 93–98
[2020-07-01] MEDS: nitroglycerin 1 gm/inch oint Pkt 1 INCH TOPICAL ×2 (03:36→08:44)
[2020-07-01 03:50] LABS: Basophils % 0.2 %; Eosinophils # 0.2 10^3/uL (0.0-0.8); Eosinophils % 3.4 %; Hematocrit 26.4 % (42.0-52.0); Hemoglobin 8.1 g/dL (11.7-16.6); Lymphocytes # 0.4 10^3/uL (0.8-4.8); Lymphocytes % 7.4 %; Mean Corpuscular HGB Conc 30.7 g/dL (30.0-36.0); Mean Corpuscular Hemoglobin 28.9 pg (28.0-34.0); Mean Corpuscular Volume 94.3 fL (80-94); Mean Platelet Volume 9.9 fL (7.4-10.4); Monocytes # 0.3 10^3/uL (0.2-0.9); Neutrophils # 3.81 10^3/uL (1.8-7.7); Neutrophils % 81.1 %; Nucleated Red Blood Cells % 0 %; Platelet Count 232 10^3/cmm (130-400); Red Cell Distribution Width 15.3 % (12.1-15.1); White Blood Count 4.7 10^3/uL (4.0-10.0)
[2020-07-01 04:07] LABS: Anion Gap 12.6 (5-19); Blood Urea Nitrogen 18 mg/dL (8-23); Calcium 8.4 mg/dL (8.5-10.5); Carbon Dioxide 21 mmol/L (22-29); Chloride 107 mmol/L (98-107); Glucose 93 mg/dL (65-115); Osmolality Calculated 286 mOsm/kg (285-295); Potassium 3.6 mmol/L (3.5-5.1); Sodium 137 mmol/L (136-145)
[2020-07-01] MEDS: ipratropium-albuterol 3 mL Neb INHALATION ×5 (04:19→21:17)
[2020-07-01] MEDS: enoxaparin 100 mg/mL Syringe 90 MG SUBCUT (05:29)
[2020-07-01] MEDS: sucralfate 1 gm/10 mL Oral Liq UDC PO ×4 (06:01→20:51)
[2020-07-01] MEDS: aspirin 81 mg EC Tablet PO (08:41)
[2020-07-01] MEDS: ferrous sulfate EC 325 mg Tablet PO ×2 (08:41→17:35)
[2020-07-01] MEDS: clopidogrel 300 mg Tablet 600 MG PO (08:42)
[2020-07-01] MEDS: pantoprazole DR 40 mg Tablet PO ×2 (08:42→17:35)
[2020-07-01] MEDS: isosorbide mononitrate ER 30 mg Tablet PO (08:42)
[2020-07-01] MEDS: metoprolol tartrate 50 mg Tablet 75 MG PO ×2 (09:13→20:51)
--- NOTE | 2020-07-01 11:26 | PM.PN ---
Subjective Subjective: Interval history: Patient underwent multivessel intervention including left main due to high risk for CABG on 06/29/2020. He is stable and doing fine denied any new complaints. Cardiology suggested switching patient to Plavix from Brilinta, continue DAPT and Eliquis for 30 days followed by Plavix and Eliquis. Medications: Reviewed: Yes Medication Review Details: Current Medications Acetaminophen (Acetaminophen 325 Mg Tablet) 650 mg PO Q6H PRN PRN Reason: Mild/Mod Pain Or Temp >/= 101 Acetaminophen (Acetaminophen 325 Mg Tablet) 650 mg PO Q6H PRN PRN Reason: MILD PAIN Al Hydrox/Mg Hydrox/Simethicone (Ylxc-Vyf-Cxvstsccb-Danette 30 Ml Udc) 15 ml PO Q6H PRN PRN Reason: INDIGESTION Last Admin: 06/23/20 17:25 Dose: 15 ml Documented by: Al Hydrox/Mg Hydrox/Simethicone (Xmqb-Nsm-Dxdgfgzjm-Danette 30 Ml Udc) 30 ml PO Q15M PRN PRN Reason: INDIGESTION Last Admin: 06/24/20 04:07 Dose: 30 ml Documented by: Al Hydrox/Mg Hydrox/Simethicone (Jeef-Tbq-Trcretxgk-Danette 30 Ml Udc) 30 ml PO Q4H PRN PRN Reason: INDIGESTION Albuterol Sulfate (Albuterol 8 Gm Mdi) 2 puff INHALATION QID PRN PRN Reason: Shortness Of Breath Or Wheezing Albuterol/Ipratropium (Ipratropium-Albuterol 3 Ml Neb) 3 ml INHALATION Q6H.RESPIRATORY PRN PRN Reason: SHORTNESS OF BREATH Last Admin: 06/25/20 08:44 Dose: 3 ml Documented by: Alprazolam (Alprazolam 0.25 Mg Tablet) 0.25 mg PO TID PRN PRN Reason: ANXIETY Aspirin (Aspirin 325 Mg Ec Tablet) 325 mg PO DAILY [facility] Last Admin: 06/25/20 08:34 Dose: 325 mg Documented by: Atorvastatin Calcium (Atorvastatin 40 Mg Tablet) 80 mg PO BEDTIME [facility] Last Admin: 06/24/20 20:33 Dose: 80 mg Documented by: Atropine Sulfate (Atropine 1 Mg/Ml Sdv 1 Ml) 0.5 mg IVP PRN PRN PRN Reason: Symptomatic bradycardia Bisacodyl (Bisacodyl 5 Mg Tablet) 10 mg PO DAILY PRN PRN Reason: CONSTIPATION Last Admin: 06/22/20 10:22 Dose: 10 mg Documented by: Bisacodyl (Bisacodyl 5 Mg Tablet) 5 mg PO Q6H PRN PRN Reason: Constipation (Use 2nd) Bisacodyl (Bisacodyl 10 Mg Supp) 10 mg NV Q6H PRN PRN Reason: Constipation (Use 5th) Bismuth Subsalicylate (Bismuth Subsalicylate 240 Ml Btl) 30 ml PO PRN PRN PRN Reason: DIARRHEA Diphenhydramine HCl (Diphenhydramine 25 Mg Capsule) 25 mg PO BEDTIME PRN PRN Reason: SLEEP Docusate Sodium (Docusate Sodium 100 Mg Capsule) 100 mg PO BID [facility] Last Admin: 06/25/20 08:35 Dose: Not Given Documented by: Docusate Sodium (Docusate Sodium 100 Mg Capsule) 100 mg PO BID PRN PRN Reason: Constipation (Use 1st) Enoxaparin Sodium (Enoxaparin 100 Mg/Ml Syringe) 90 mg 1 mg/kg (90 mg) SUBCUT Q12H [facility] Last Admin: 06/25/20 06:10 Dose: 90 mg Documented by: Fentanyl (Fentanyl 50 Mcg/Ml Inj 2ml) 50 mcg IVP PRN PRN PRN Reason: Prior to sheath removal Ferrous Sulfate (Ferrous Sulfate Ec 325 Mg Tablet) 325 mg PO BIDWM [facility] Last Admin: 06/25/20 08:36 Dose: Not Given Documented by: Guaifenesin (Guaifenesin 100 Mg/5 Ml Udc 10 Ml) 200 mg PO Q4H PRN PRN Reason: COUGH Isosorbide Dinitrate (Isosorbide Dinitrate 20 Mg Tablet) 5 mg PO BID [facility] Last Admin: 06/25/20 09:19 Dose: 5 mg Documented by: Lactulose (Lactulose Oral Liq 20 Gm/30 Ml Udc) 20 gm PO Q6H PRN PRN Reason: Constipation (Use 3rd) Magnesium Hydroxide (Magnesium Hydroxide 30 Ml Udc) 30 ml PO DAILY PRN PRN Reason: CONSTIPATION Magnesium Hydroxide (Magnesium Hydroxide 30 Ml Udc) 45 ml PO DAILY PRN PRN Reason: Constipation (use 4th) Metoprolol Tartrate (Metoprolol Tartrate 50 Mg Tablet) 75 mg PO BID@0900,2100 [facility] Last Admin: 06/25/20 09:05 Dose: 75 mg Documented by: Montelukast Sodium (Montelukast Sodium 10 Mg Tablet) 10 mg PO DAILY@1700 [facility] Last Admin: 06/24/20 17:32 Dose: 10 mg Documented by: Naloxone HCl (Naloxone 0.4 Mg/Ml Sdv) 0.1 mg IVP Q2M PRN PRN Reason: RESPIRATORY RATE < 8/MIN Nitroglycerin (Nitroglycerin 0.4 Mg Sublingual Tablet) 0.4 mg SUBLINGUAL Q5M PRN PRN Reason: CHEST PAIN Last Admin: 06/24/20 22:54 Dose: 0.4 mg Documented by: Nitroglycerin (Nitroglycerin 0.4 Mg Sublingual Tablet) 0.4 mg SUBLINGUAL Q5M PRN PRN Reason: CHEST PAIN Non-Formulary Medication (Magnesium) 250 mg PO DAILY@1700 [facility] Last Admin: 06/24/20 17:30 Dose: 250 mg Documented by: Non-Formulary Medication (Silodosin) 8 mg PO BEDTIME@1999 [facility] Last Admin: 06/24/20 23:07 Dose: Not Given Documented by: Ondansetron HCl (Ondansetron 2 Mg/Ml Sdv 2 Ml) 4 mg IVP Q8H PRN PRN Reason: vomiting, or N/V if npo Ondansetron HCl (Ondansetron 2 Mg/Ml Sdv 2 Ml) 4 mg IVP Q2M PRN PRN Reason: NAUSEA Pantoprazole Sodium (Pantoprazole Dr 40 Mg Tablet) 40 mg PO BID [facility] Last Admin: 06/25/20 08:34 Dose: 40 mg Documented by: Prednisone (Prednisone 1 Mg Tablet) 3 mg PO BID [facility] Last Admin: 06/25/20 09:19 Dose: 3 mg Documented by: Promethazine HCl (Promethazine 25 Mg Supp) 25 mg NV Q6H PRN PRN Reason: NAUSEA AND VOMITING Fluticasone/Salmeterol (Fluticasone-Salmeterol 500-50 Diskus) 1 puff INHALATION BID.RESPIRATORY [facility] Last Admin: 06/25/20 08:44 Dose: 1 puff Documented by: Sucralfate (Sucralfate 1 Gm/10 Ml Oral Liq Udc) 1 gm PO AC&BEDTIME [facility] Last Admin: 06/25/20 13:32 Dose: 1 gm Documented by: Temazepam (Temazepam 15 Mg Capsule) 15 mg PO BEDTIME PRN PRN Reason: INSOMNIA Vitals/I&O/Wt Last Vital Signs Temp 98.3 F 07/01/20 05:45 Pulse 105 H 07/01/20 11:11 Resp 19 H 07/01/20 11:11 BP 110/76 07/01/20 08:00 Pulse Ox 94 07/01/20 11:11 06/30/20 07/01/20 07/01/20 22:59 06:59 14:59 Intake Total 1320 / 1936.297 60 / 1996.297 200 / 200 Output Total 550 / 900 Balance 1320 / 1586.297 -490 / 1096.297 200 / 200 Weight last 48 hrs Weight 195 lb 1 oz Physical Exam Narrative: EXAM NARRATIVE: General: alert, NAD HEENT: conj clear, EOMI, PERRL, mmm, Neck: supple, no meningismus Heme: no cervical LAP Pulmonary: CTAB, no wheezing, rhonchi, crackles Cardiovascular: rrr, nl s1s2, no mrg Abdomen: soft, nt, nd, no r/g, bs+ Extremities: pulses +, no edema, no c/c : no CVA tenderness Skin: intact, no rash MSK: no back or neck pain Neurologic: grossly intact Data : 07/01/20 03:25 07/01/20 03:25 A&P Assessment and plan (1) Triple vessel coronary artery disease: Status: Acute (2) NSTEMI (non-ST elevated myocardial infarction): Status: Acute (3) Dvt femoral (deep venous thrombosis): Status: Acute Qualifiers: Chronicity: acute Laterality: left Qualified Code(s): I82.412 - Acute embolism and thrombosis of left femoral vein (4) COPD (chronic obstructive pulmonary disease): Status: Acute Qualifiers: COPD type: emphysema Emphysema type: centrilobular Qualified Code(s): J43.2 - Centrilobular emphysema (5) Pulmonary emboli: Status: Acute Qualifiers: Pulmonary embolism type: multiple subsegmental (without acute cor pulmonale) Qualified Code(s): I26.94 - Multiple subsegmental pulmonary emboli without acute cor pulmonale (6) Preop pulmonary/respiratory exam: Status: Acute #Preoperative pulmonary risk assessment for possible Coronary revascularization for NSTEMI with Triple vessel disease #Severe GOLD Stage 3 COPD # RLL Suboccluisve Pulmonary emboli & Occlusive DVT from Left femoral vein to left PTV in pt. 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 # Chronic steroid use of prostrate Ca; Chronic Prednisone 2.5 mg PO bid x 15 years #Ex heavy cigarette smoker (47 pack years Quit 2010) and current Vape user (9 years) - Reviewed all the imaging and reports - multivessel disease on [facility], CT showing non occluive RLL PE, venous doppler Left leg DVT, Echo suggestive of LV systolic function is normal with EF of 50 to 55%. Moderate hypokinesis of apical and distal anteroseptal howard. There is moderate hypokinesis of apical and distal anteroseptal wall with no right sided strain pattern. - Currently on ASA 81 mg daily, lipitor 80 mg hs, Metoprolol 75 mg bid, imdur 15 po daily, Lovenox 90 mg sc bid for NSTEMI, PE and DVT. - Spirometry (06/25/20) suggestive of severe obstructive ventilatory disease with significantly low FEV1 39%. - Currently on Advair, Duoneb q 6hr prn sob, Singulair for COPD; - Saturating 96% on room air. - normal serum bicarb - suggest pt,. is not a chronic CO2 retainer. -Based on [facility]IS[facility] preoperative pulmonary risk index criteria points: 50 -3 points for age between 51-80 years; 0 points for preoperative oxygen saturation >96%; Pt is 96 % on room air; 24 points for intrathoracic surgical incision, 23 points for >3 hours of surgery = total 50 points = Cleared with HIGH RISK for post surgical pulmonary complication rate 42%. - Although currently PE is sub occlusive and is confined to segmental branches with no right sided strain pattern on Echo - it can get further complicated by lack of anticoagulation (until chest tubes have low output) and immobilization during early post operative period, especially in the presence of extensive left leg DVT. - Based on PFTs, severe obstructive airway disease can pose challenges like post operative hypoventilation, severe bronchospasm and prolonged intubation. - Explained in detail to the patient and his daughter at bedside, that if cardiology and CT surgery decide to go for CABG for revascularization, family should be aware that the procedure has very high risk for post operative complications including Respiratory infection, Respiratory failure failing extubation, Pleural effusion, Atelectasis, Pneumothorax, Bronchospasm, Aspiration pneumonitis and worsening PE including . added to cardiac related complications like arrythmias. They verbalized understanding about complications and said would wait for the final decision regarding medical management vs surgery. -Cardiology and cardiothoracic surgery, after discussing about the risks and benefits with the patient and , decided to go with high risk PCI and stenting LAD on 06/29/2020. - Patient had IVC filter placed 06/28/2020 in view of left leg DVT and underwent multivessel intervention including left main due to high risk for CABG on 06/29/2020. He is stable and doing fine denied any new complaints. Cardiology suggested switching patient to Plavix from Brilinta, continue DAPT and Eliquis for 30 days followed by Plavix and Eliquis. -Recommended to continue DuoNeb nebulization every 6 as needed; - I would recommend repeat CT chest with PE protocol in 3 months with continuation of anticoagulation for total months for provoked DVT/PE and Discharge patient with Anoro or bevespi or stialto (either one depending on what the insurance approves) and Pulmonary clinic appointment. -As patient is clinically stable-I would sign off case today and do not hesitate to reconsult if necessary. Discussed with Dr. Alvarado, hospitalist taking care of the patient Attestations Medical Necessity Statement*: Post high risk multivessel intervention 2 days ago with active PE and DVT. Time Spent in Patient Care: 16 - 35 minutes (>than 50% of time spent in counselling and/or direct pt care on unit). Critical Care Time: Critical Care Time (min): 18 Coding Level of Care Code Established Pt Acute Medical Office Technology Instructor for Chg Fwd Patient Type Established History Comprehensive Exam Comprehensive Medical Decision Making High Complexity Diagnoses Triple vessel coronary artery disease I25.10 NSTEMI (non-ST elevated myocardial infarction) I21.4 Dvt femoral (deep venous thrombosis) I82.412 Chronicity: acute Laterality: left COPD (chronic obstructive pulmonary disease) J43.2 COPD type: emphysema Emphysema type: centrilobular Pulmonary emboli I26.94 Pulmonary embolism type: multiple subsegmental (without acute cor pulmonale) Preop pulmonary/respiratory exam Z01.811 Time Spent (min) 18
--- NOTE | 2020-07-01 16:45 | PC.NURSE ---
transfered to floor
[2020-07-01] MEDS: montelukast sodium 10 mg Tablet PO (17:35)
[2020-07-01] MEDS: docusate sodium 100 mg Capsule PO (17:35)
[2020-07-01] MEDS: NON-FORMULARY MEDICATION (Magnesium 250 mg Tablet) 250 EACH PO (17:35)
--- NOTE | 2020-07-01 20:42 | P.PN_ITS ---
Subjective Subjective: Interval history: He states today that he is doing well. He is wondering about going home. Denies any chest pain or pressure. No trouble breathing. Had some groin pain earlier. Vitals/I&O/Wt Last Vital Signs Temp 98.3 F 07/01/20 19:55 Pulse 101 H 07/01/20 19:55 Resp 25 H 07/01/20 19:55 BP 132/85 07/01/20 19:55 Pulse Ox 94 07/01/20 19:55 07/01/20 07/01/20 07/01/20 06:59 14:59 22:59 Intake Total 1995.297 200 / 200 690 / 890 Output Total 550 / 900 300 / 300 Balance -490 / 1096.297 200 / 200 390 / 590 Weight last 48 hrs Weight 88.479 kg Physical Exam Const: COMMON NORMALS: no acute distress and patient oriented x3 GENERAL APPEARANCE: cooperative and comfortable ORIENTATION/CONSCIOUSNESS: Yes awake HENMT: COMMON NORMALS: oropharynx normal Neck/C-Spine: COMMON NORMALS: no JVD Resp: COMMON NORMALS: normal respiratory effort and clear to auscultation bilaterally AUSCULTATION: clear to auscultation bilaterally Cardio: COMMON NORMALS: no JVD, regular rhythm, S1 normal heart sound present, S2 normal heart sound present and No murmurs present (Cardio) RHYTHM: regular rhythm HEART SOUNDS: S1 normal heart sound present and S2 normal heart sound present GI: COMMON NORMALS: Normal to inspection, nondistended, normoactive bowel sounds present, Soft to palpation and non-tender PALPATION: Yes Soft to palpation Extremity: COMMON NORMALS: no joint enlargement and no pedal edema OTHER: R groinwithout swelling or pulsatile mass. Neuro: COMMON NORMALS: patient oriented x3 and moves all extremities Skin: COMMON NORMALS: no rashes or lesions noted GENERAL SKIN EXAM: no rashes or lesions noted Data : 07/01/20 03:25 07/01/20 03:25 A&P Assessment and plan (1) Triple vessel coronary artery disease: Antiplatelets, anticoagulation adjusted by cardiology. He was loaded with Plavix today, started on anticoagulation with Eliquis. Continues on aspirin. With recommendation for continuation of aspirin, Plavix, Eliquis for 30 days, subsequently with discontinuation of aspirin to reduce the risk of bleeding. Due to risk of bleeding, Hemoccult positive stool, anemia, as well as extensive CAD, requiring placement of 3 stents will monitor additional day on CSU for recurrence of any symptoms, reassess hemoglobin. If doing well, otherwise may be approaching discharge with outpatient follow-up. Status post coronary angiography 06/29 with stenting of LAD, left main, and circumflex. Remains lucid. Subjectively doing well. Wants to go home. Renal function is stable. Status: Acute (2) NSTEMI (non-ST elevated myocardial infarction): Denies chest pain this morning. Additional evaluation and treatment of multivessel coronary disease as above. Status: Acute (3) Left main coronary artery disease: Status: Acute (4) Pulmonary emboli: IVC filter placed 06/28. Continue anticoagulation. Down to room air on oxygen requirement. Status: Acute Qualifiers: Pulmonary embolism type: multiple subsegmental (without acute cor pulmonale) Qualified Code(s): I26.94 - Multiple subsegmental pulmonary emboli without acute cor pulmonale (5) Dvt femoral (deep venous thrombosis): Continue anticoagulation. With persistent clot burden in proximal veins, in setting of Hemoccult positive anemia, in case of possible need for interruption of anticoagulation due to either bleeding, worsening anemia, or in case of need for emergent bypass surgery, additionally IVC filter will be placed to reduce chances of additional potentially life-threatening PE. Status: Acute Qualifiers: Chronicity: acute Laterality: left Qualified Code(s): I82.412 - Acute embolism and thrombosis of left femoral vein (6) COPD (chronic obstructive pulmonary disease): Prednisone discussed with pulmonology. He is on a very small dose. Di scontinued at this time. Resume if needed to be continued with prostate cancer medications. Does not appear currently in exacerbation. There is no wheezing. Saturation is good on room air. He does appear to have occasional episodes of air hunger. Continue symptomatic treatment at this time. Monitor. DuoNeb as needed. Continue Advair. Singulair. NC PRN Status: Acute Qualifiers: COPD type: emphysema Emphysema type: centrilobular Qualified Code(s): J43.2 - Centrilobular emphysema (7) Anemia: Currently requiring anticoagulation as well as DAPT. Hemoccult stool is positive. Mild iron deficiency anemia. Chronic intermittent steroid use (with cancer treatments). PPI BID. Receiving iron sulfate supplementation. Recent EGD and Colonoscopy done in 2019 noted to be WNL except hiatal hernia. Received B12. Consider referral for additional assessment by capsule endoscopy. Status: Acute (8) Hyperlipemia: Continue statin. Status: Acute Qualifiers: Hyperlipidemia type: mixed hyperlipidemia Qualified Code(s): E78.2 - Mixed hyperlipidemia (9) Hypertension: Blood pressures are close to goal. Continue current medications. Continue to monitor. Status: Acute Qualifiers: Hypertension type: essential hypertension Qualified Code(s): I10 - Essential (primary) hypertension (10) JODI (acute kidney injury): Improved. Status: Acute Additional A&P Information Continue other chronic oral home medications. Attestations Medical Necessity Statement*: Continue admission for assessment and management of multivessel coronary disease, requiring multiple stents, dual antiplatelet therapy, anticoagulation for PE and DVT, with IVC filter placement, with underlying severe COPD, requiring additional monitoring to reassess for decrease in hemoglobin, any recurrence of cardiac ischemic symptoms, and preparation for discharge. Coding Level of Care Code Acute Inshore Undersea Warfare Officer for g Fwd Diagnoses Triple vessel coronary artery disease I25.10 NSTEMI (non-ST elevated myocardial infarction) I21.4 Left main coronary artery disease I25.10 Pulmonary emboli I26.94 Pulmonary embolism type: multiple subsegmental (without acute cor pulmonale) Dvt femoral (deep venous thrombosis) I82.412 Chronicity: acute Laterality: left COPD (chronic obstructive pulmonary disease) J43.2 COPD type: emphysema Emphysema type: centrilobular Anemia D64.9 Hyperlipemia E78.2 Hyperlipidemia type: mixed hyperlipidemia Hypertension I10 Hypertension type: essential hypertension JODI (acute kidney injury) N17.9
[2020-07-01] MEDS: apixaban 5 mg Tablet PO (20:51)
[2020-07-01] MEDS: atorvastatin 40 mg Tablet 80 MG PO (20:51)
--- NOTE | 2020-07-01 21:10 | PM.PN ---
Subjective Subjective: Interval history: Denies any complaint. Patient has been switched to Plavix Medications: Reviewed: Yes Medication Review Details: Current Medications Acetaminophen (Acetaminophen 325 Mg Tablet) 650 mg PO Q6H PRN PRN Reason: Mild/Mod Pain Or Temp >/= 101 Acetaminophen (Acetaminophen 325 Mg Tablet) 650 mg PO Q6H PRN PRN Reason: MILD PAIN Al Hydrox/Mg Hydrox/Simethicone (Redu-Qze-Qtsncveht-Danette 30 Ml Udc) 15 ml PO Q6H PRN PRN Reason: INDIGESTION Last Admin: 06/23/20 17:25 Dose: 15 ml Documented by: Al Hydrox/Mg Hydrox/Simethicone (Frfh-Osd-Ynfvhwslp-Danette 30 Ml Udc) 30 ml PO Q15M PRN PRN Reason: INDIGESTION Last Admin: 06/24/20 04:07 Dose: 30 ml Documented by: Al Hydrox/Mg Hydrox/Simethicone (Oeft-Qwb-Mrgzniqqw-Danette 30 Ml Udc) 30 ml PO Q4H PRN PRN Reason: INDIGESTION Albuterol Sulfate (Albuterol 8 Gm Mdi) 2 puff INHALATION QID PRN PRN Reason: Shortness Of Breath Or Wheezing Albuterol/Ipratropium (Ipratropium-Albuterol 3 Ml Neb) 3 ml INHALATION Q6H.RESPIRATORY PRN PRN Reason: SHORTNESS OF BREATH Last Admin: 06/25/20 08:44 Dose: 3 ml Documented by: Alprazolam (Alprazolam 0.25 Mg Tablet) 0.25 mg PO TID PRN PRN Reason: ANXIETY Aspirin (Aspirin 325 Mg Ec Tablet) 325 mg PO DAILY [facility] Last Admin: 06/25/20 08:34 Dose: 325 mg Documented by: Atorvastatin Calcium (Atorvastatin 40 Mg Tablet) 80 mg PO BEDTIME [facility] Last Admin: 06/24/20 20:33 Dose: 80 mg Documented by: Atropine Sulfate (Atropine 1 Mg/Ml Sdv 1 Ml) 0.5 mg IVP PRN PRN PRN Reason: Symptomatic bradycardia Bisacodyl (Bisacodyl 5 Mg Tablet) 10 mg PO DAILY PRN PRN Reason: CONSTIPATION Last Admin: 06/22/20 10:22 Dose: 10 mg Documented by: Bisacodyl (Bisacodyl 5 Mg Tablet) 5 mg PO Q6H PRN PRN Reason: Constipation (Use 2nd) Bisacodyl (Bisacodyl 10 Mg Supp) 10 mg IA Q6H PRN PRN Reason: Constipation (Use 5th) Bismuth Subsalicylate (Bismuth Subsalicylate 240 Ml Btl) 30 ml PO PRN PRN PRN Reason: DIARRHEA Diphenhydramine HCl (Diphenhydramine 25 Mg Capsule) 25 mg PO BEDTIME PRN PRN Reason: SLEEP Docusate Sodium (Docusate Sodium 100 Mg Capsule) 100 mg PO BID [facility] Last Admin: 06/25/20 08:35 Dose: Not Given Documented by: Docusate Sodium (Docusate Sodium 100 Mg Capsule) 100 mg PO BID PRN PRN Reason: Constipation (Use 1st) Enoxaparin Sodium (Enoxaparin 100 Mg/Ml Syringe) 90 mg 1 mg/kg (90 mg) SUBCUT Q12H [facility] Last Admin: 06/25/20 06:10 Dose: 90 mg Documented by: Fentanyl (Fentanyl 50 Mcg/Ml Inj 2ml) 50 mcg IVP PRN PRN PRN Reason: Prior to sheath removal Ferrous Sulfate (Ferrous Sulfate Ec 325 Mg Tablet) 325 mg PO BIDWM [facility] Last Admin: 06/25/20 08:36 Dose: Not Given Documented by: Guaifenesin (Guaifenesin 100 Mg/5 Ml Udc 10 Ml) 200 mg PO Q4H PRN PRN Reason: COUGH Isosorbide Dinitrate (Isosorbide Dinitrate 20 Mg Tablet) 5 mg PO BID [facility] Last Admin: 06/25/20 09:19 Dose: 5 mg Documented by: Lactulose (Lactulose Oral Liq 20 Gm/30 Ml Udc) 20 gm PO Q6H PRN PRN Reason: Constipation (Use 3rd) Magnesium Hydroxide (Magnesium Hydroxide 30 Ml Udc) 30 ml PO DAILY PRN PRN Reason: CONSTIPATION Magnesium Hydroxide (Magnesium Hydroxide 30 Ml Udc) 45 ml PO DAILY PRN PRN Reason: Constipation (use 4th) Metoprolol Tartrate (Metoprolol Tartrate 50 Mg Tablet) 75 mg PO BID@0900,2100 [facility] Last Admin: 06/25/20 09:05 Dose: 75 mg Documented by: Montelukast Sodium (Montelukast Sodium 10 Mg Tablet) 10 mg PO DAILY@1700 [facility] Last Admin: 06/24/20 17:32 Dose: 10 mg Documented by: Naloxone HCl (Naloxone 0.4 Mg/Ml Sdv) 0.1 mg IVP Q2M PRN PRN Reason: RESPIRATORY RATE < 8/MIN Nitroglycerin (Nitroglycerin 0.4 Mg Sublingual Tablet) 0.4 mg SUBLINGUAL Q5M PRN PRN Reason: CHEST PAIN Last Admin: 06/24/20 22:54 Dose: 0.4 mg Documented by: Nitroglycerin (Nitroglycerin 0.4 Mg Sublingual Tablet) 0.4 mg SUBLINGUAL Q5M PRN PRN Reason: CHEST PAIN Non-Formulary Medication (Magnesium) 250 mg PO DAILY@1700 [facility] Last Admin: 06/24/20 17:30 Dose: 250 mg Documented by: Non-Formulary Medication (Silodosin) 8 mg PO BEDTIME@1999 [facility] Last Admin: 06/24/20 23:07 Dose: Not Given Documented by: Ondansetron HCl (Ondansetron 2 Mg/Ml Sdv 2 Ml) 4 mg IVP Q8H PRN PRN Reason: vomiting, or N/V if npo Ondansetron HCl (Ondansetron 2 Mg/Ml Sdv 2 Ml) 4 mg IVP Q2M PRN PRN Reason: NAUSEA Pantoprazole Sodium (Pantoprazole Dr 40 Mg Tablet) 40 mg PO BID [facility] Last Admin: 06/25/20 08:34 Dose: 40 mg Documented by: Prednisone (Prednisone 1 Mg Tablet) 3 mg PO BID [facility] Last Admin: 06/25/20 09:19 Dose: 3 mg Documented by: Promethazine HCl (Promethazine 25 Mg Supp) 25 mg IA Q6H PRN PRN Reason: NAUSEA AND VOMITING Fluticasone/Salmeterol (Fluticasone-Salmeterol 500-50 Diskus) 1 puff INHALATION BID.RESPIRATORY [facility] Last Admin: 06/25/20 08:44 Dose: 1 puff Documented by: Sucralfate (Sucralfate 1 Gm/10 Ml Oral Liq Udc) 1 gm PO AC&BEDTIME [facility] Last Admin: 06/25/20 13:32 Dose: 1 gm Documented by: Temazepam (Temazepam 15 Mg Capsule) 15 mg PO BEDTIME PRN PRN Reason: INSOMNIA Vitals/I&O/Wt Last Vital Signs Temp 98.3 F 07/01/20 19:55 Pulse 101 H 07/01/20 19:55 Resp 25 H 07/01/20 19:55 BP 132/85 07/01/20 19:55 Pulse Ox 94 07/01/20 19:55 07/01/20 07/01/20 07/01/20 06:59 14:59 22:59 Intake Total / 1995.297 200 / 200 690 / 890 Output Total 550 / 900 300 / 300 Balance -490 / 1096.297 200 / 200 390 / 590 Weight last 48 hrs Weight 195 lb 1 oz Physical Exam Narrative: EXAM NARRATIVE: GENERAL: Patient is alert, awake and oriented x3. NECK: No jugular vein distension. HEENT: No cyanosis. No icterus. No pallor. HEART: Regular S1 and S2. No murmur, rub or gallop. LUNGS: Clear to auscultate bilaterally. ABDOMEN: Soft, nontender and nondistended. Positive bowel sounds. No guarding, rebound or tenderness. CENTRAL NERVOUS SYSTEM: Grossly nonfocal. EXTREMITIES: Lower extremities without edema bilaterally. Right groin mildly bruised otherwise no hematoma Data : 07/01/20 03:25 07/01/20 03:25 A&P Assessment and plan (1) Left main coronary artery disease: Patient underwent multivessel intervention including left main as he was turned down by CT surgery due to high risk. He is stable and doing fine from a cardiovascular perspective. Patient is high risk for bleeding while on DAPT and anticoagulation. We therefore suggested switching patient to Plavix from Brilinta, continue DAPT and Eliquis for 30 days followed by Plavix and Eliquis. On today's visit dated 07/01/2020 patient denies any complaints. He is stable vital sifuentes. He has been loaded with 600 mg of Plavix Brilinta has been discontinued we will continue DAPT and Eliquis for 1 month followed by Plavix and Eliquis for possible 1 year or more if continues to tolerate. We will check hemoglobin before discharge Status: Acute (2) Triple vessel coronary artery disease: Status: Acute (3) NSTEMI (non-ST elevated myocardial infarction): Status post PCI continue antiplatelet beta-gerald statin and TONY inhibitor Status: Acute (4) Dvt femoral (deep venous thrombosis): Status post IVC filter for extensive DVT and keeping in mind his cardiopulmonary status and anemia. Will resume Eliquis along with DAPT Status: Acute Qualifiers: Chronicity: acute Laterality: left Qualified Code(s): I82.412 - Acute embolism and thrombosis of left femoral vein (5) Pulmonary emboli: Status post IVC filter due to anemia and transiently holding off anticoagulation Status: Acute Qualifiers: Pulmonary embolism type: multiple subsegmental (without acute cor pulmonale) Qualified Code(s): I26.94 - Multiple subsegmental pulmonary emboli without acute cor pulmonale (6) Hypertension: Well-controlled. Continue meds Status: Acute Qualifiers: Hypertension type: essential hypertension Qualified Code(s): I10 - Essential (primary) hypertension (7) Hyperlipemia: Continue statin. Status: Acute Qualifiers: Hyperlipidemia type: mixed hyperlipidemia Qualified Code(s): E78.2 - Mixed hyperlipidemia (8) COPD (chronic obstructive pulmonary disease): As per pulmonology Status: Acute Qualifiers: COPD type: emphysema Emphysema type: centrilobular Qualified Code(s): J43.2 - Centrilobular emphysema Additional A&P Information Anemia Thank you for allowing me to participate in patient's care. Please feel free to call with questions or concerns. 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 Professional for Talha Luz Patient Type Established History Detailed Exam Detailed Medical Decision Making Moderate Complexity Diagnoses Left main coronary artery disease I25.10 Triple vessel coronary artery disease I25.10 NSTEMI (non-ST elevated myocardial infarction) I21.4 Dvt femoral (deep venous thrombosis) I82.412 Chronicity: acute Laterality: left Pulmonary emboli I26.94 Pulmonary embolism type: multiple subsegmental (without acute cor pulmonale) Hypertension I10 Hypertension type: essential hypertension Hyperlipemia E78.2 Hyperlipidemia type: mixed hyperlipidemia COPD (chronic obstructive pulmonary disease) J43.2 COPD type: emphysema Emphysema type: centrilobular
[2020-07-02] VITALS (8 sets, daily range): BP systolic 104–137; BP diastolic 59–81; PULSE 85–101; RESP 15–24; TEMP 36.1–37.4; O2SAT 93–98
[2020-07-02] MEDS: sucralfate 1 gm/10 mL Oral Liq UDC PO ×2 (06:45→10:45)
[2020-07-02] MEDS: docusate sodium 100 mg Capsule PO (08:23)
[2020-07-02] MEDS: isosorbide mononitrate ER 30 mg Tablet PO (08:25)
[2020-07-02] MEDS: metoprolol tartrate 50 mg Tablet 75 MG PO (08:25)
[2020-07-02] MEDS: aspirin 81 mg EC Tablet PO (08:25)
[2020-07-02] MEDS: pantoprazole DR 40 mg Tablet PO (08:25)
[2020-07-02] MEDS: apixaban 5 mg Tablet PO (08:25)
[2020-07-02] MEDS: clopidogrel 75 mg Tablet PO (08:25)
[2020-07-02] MEDS: ferrous sulfate EC 325 mg Tablet PO (08:25)
[2020-07-02] MEDS: ipratropium-albuterol 3 mL Neb INHALATION ×2 (08:34→11:35)
--- NOTE | 2020-07-02 09:17 | PC.CHAP ---
Pastoral Care Encounter/Spiritual Assessment Type of Contact [] Declined stamp redemption clerk visit [] Patient/Family/Request visit [] Outpatient visit [] Follow-up visit [] Physician referral [] Code/Alert [x] Routine visit [] Staff referral [] Actively dying [] Patient sleeping [] Family support [] [] Out of room [] Palliative care [] [] Receiving care in room [] Pre-surgical visit [] Trauma [] Long length of stay [] ICU visit [] Other: Relational/Emotional Strength [] Patient feels connected with others/family/visitors/staff [] Distress [] Loneliness/isolation [] Abandonment Spirituality of Patient [] Person of Kami [] Attends Latter-Day of their Kami [] Believes in Prayer [] Reads Bible or Moravian materials [] There are Spiritual issues to be addressed Extrusion Die Template Maker Interventions [x Prayer [x] Active listening [x] Non-anxious presence [x] Spiritual/emotional support [] Crisis/trauma care [] Spiritual counseling [] Bereavement support [] Provided bereavement packet [] Provided Bible/devotional materials [] Provided toy/stuffed animal, coloring book to patient or family member [] Provided Communion [] Anointing/[place] [] Salvation [x] Completed spiritual assessment [] Other: Impact on Illness or Injury [] Angry [] Fearful [] Anxious [] Often cries [] Exhaustion [] Unable to work [] Unable to attend scientology [] Unable to walk/stand [] Unable to read [] Unable to drive [] Unable to eat/drink [] Unable to sleep [] Unable to be with family [] Patient intubated [] Other: Summary going home... so ready.. feeling much better Time spent with patient 10 min
--- NOTE | 2020-07-02 10:33 | DCPLANNER ---
IMM completed on 07/02/20 @ 7013. Copy of rights given to pt.
--- NOTE | 2020-07-02 13:20 | P.DS_ITS ---
Discharge Providers Date of Admission: 06/21/20 18:00 Date of Discharge: July 02, 2020 Attending Provider at Admission: Nick Grey MD Attending Provider at Discharge: Nick Grey MD Consults: Cardiology: Dr. Cota/Dr. Fung/Dr. Melendez CT surgery: Dr. Tejada Pulmonology: Dr. Issa Primary Care Provider: Lukas Campbell DO Diagnoses at Discharge Discharge Diagnosis (1) Left main coronary artery disease: Status: Acute (2) Triple vessel coronary artery disease: Status: Acute (3) NSTEMI (non-ST elevated myocardial infarction): Status: Acute (4) Dvt femoral (deep venous thrombosis): Status: Acute Qualifiers: Chronicity: acute Laterality: left Qualified Code(s): I82.412 - Acute embolism and thrombosis of left femoral vein (5) Pulmonary emboli: Status: Acute Qualifiers: Pulmonary embolism type: multiple subsegmental (without acute cor pulmonale) Qualified Code(s): I26.94 - Multiple subsegmental pulmonary emboli without acute cor pulmonale (6) Hypertension: Status: Acute Qualifiers: Hypertension type: essential hypertension Qualified Code(s): I10 - Essential (primary) hypertension (7) Hyperlipemia: Status: Acute Qualifiers: Hyperlipidemia type: mixed hyperlipidemia Qualified Code(s): E78.2 - Mixed hyperlipidemia (8) COPD (chronic obstructive pulmonary disease): Status: Acute Qualifiers: COPD type: emphysema Emphysema type: centrilobular Qualified Code(s): J43.2 - Centrilobular emphysema Reason for Visit Reason for Visit: nighttime heartburn/arm pain last 5 days Hospital Course Hospital Course Mulugeta Murillo is a 74 year old male with PMH of prostate cancer, hypertension, hyperlipidemia, iron deficiency anemia, former smoker (1-2 PPD, quit 10 years back), currently vaping, COPD on chronic prednisone, who presented to the ER 06/21/2020 because of ongoing chest discomfort which is burning-like chest pain retrosternally every night when he lies to sleep for last 5 days, associated with nausea but no vomiting. In the ED baseline troponin of 252, proBNP of 2384, elevated D-dimer with chest x-ray did not show any acute findings and electrocardiogram showed sinus rhythm with rate of 86 with poor R wave progressions. Full dose anticoagulation with Lovenox 1 mg/kg every 12 hours was started, and given stat doses of aspirin 325 mg and high intensity statins were given. Troponin T elevated 252--> 242--> 245. CTA chest showed pulmonary emboli with subocclusive filling defects especially in the right lower lobe pulmonary artery branches. There are severe emphysematous changes. Venous duplex with occlusive DVT from Left femoral vein to left PTV. Patient underwent coronary angiography on 06/23/2020 which showed severe triple-vessel disease with severe distal left main calcified stenosis, severe proximal left circumflex artery stenosis, severe proximal to mid LAD stenosis and severe ostial RCA stenosis. Echo consistent with EF 50 to 55% moderate hypokinesis of anteroseptal wall with grade 1 diastolic dysfunction. Cardiothoracic surgery and pulmonology were consulted for possible CABG. Due to multiple comorbidities including severe COPD, pulmonary embolism, extensive DVT, chronic iron deficiency anemia patient was turned down for CABG. After heart team approach and discussion with pulmonology, patient is considered high risk for surgical revascularization. We had a discussion with patient regarding alternate options. He has opted to undergo high risk percutaneous coronary intervention of left main artery. Patient underwent IVC placement on June 28 he continued to have ongoing on and off chest pain he underwent cardiac catheterization with LV support from [place] on June 29. He tolerated the procedure well and was monitored for more than 2 days post procedure in hospital. Patient remained chest pain-free and his hemoglobin and kidney functions remained stable. He is been discharged hemodynamically stable condition after optimization of his cardiac medication on dual antiplatelet with aspirin and Plavix and Eliquis. He is advised to follow- up with cardiology in 1 week and then subsequently in 1 month for further optimization of his medications. Because of prolonged hospitalization and generalized deconditioning Home health has been set up. Physical Exam 2 Narrative: EXAM NARRATIVE: General: No acute distress, AO x3, pale, morbidly obese HEENT: PERRLA, pupils bilaterally equal and reactive Chest: Bilateral bronchial breath sounds, occasional rhonchi all over the lung avilez, equal good air entry bilaterally CVS: S1-S2 regular, soft pansystolic murmur at apex, no tachycardia, no gallops, no rubs Abdomen: Soft, nontender, no organomegaly, bowel sounds present Neuro: No focal deficits, no facial deformity, AO x3, power 5/5 in all limbs Discharge Data Data Completed and Pending: Completed Studies During Hospitalization Category Date Time Status CT angio chest PE protcl [id number] Urge nt Cat Scan 06/21/20 18:08 Completed DOPE HOUSE OPERATOR HELPER request for service Routin e Exams 06/23/20 08:06 Completed Sestamibi Stress Test Request Routi ne Exams 06/21/20 19:04 Completed XR chest 1V bora ble [id number] Stat Exams 06/21/20 16:09 Completed NM jazmin perf SPECT r/s* [id number] Routin e Nuc Med 06/22/20 19:04 Completed CV carotid duplex BI* [id number] Routine Ultrasound 06/25/20 14:40 Completed CV echo complete* [id number] Routine Ultrasound 06/22/20 18:08 [place] [id number] Routin e Ultrasound 06/22/20 18:08 [place] [id number] Urgen t Ultrasound 06/25/20 08:50 [place] [id number] Urgen t Ultrasound 06/25/20 10:06 Completed Pending at discharge Category Date Time Status DOPE HOUSE OPERATOR HELPER request for service Routin e Exams 06/28/20 10:00 Taken DOPE HOUSE OPERATOR HELPER request for service Routin e Exams 06/29/20 06:45 Taken Vitals: Last Vital Signs Temp 97.0 F L 07/02/20 10:51 Pulse 85 07/02/20 11:36 Resp 16 07/02/20 11:36 BP 128/59 07/02/20 10:51 Pulse Ox 98 07/02/20 11:36 Discharge Plan Discharge Patient Disposition: Home Health Service Condition: Stable Prescriptions: New atorvastatin 40 mg Tablet 80 mg PO BEDTIME 30 Days Qty: 30 RF: 0 clopidogrel 75 mg Tablet 75 mg PO DAILY 30 Days Qty: 30 RF: 0 ferrous sulfate 325 mg (65 mg iron) Tablet,Delayed Release (Dr/Ec) 325 mg PO BIDWM 30 Days Qty: 30 RF: 0 Eliquis 5 mg Tablet 5 mg PO BID@0900,2099 30 Days Qty: 60 RF: 0 sucralfate 100 mg/mL Suspension 1 g PO AC&BEDTIME Qty: 300 RF: 0 isosorbide mononitrate 30 mg Tablet Extended Release 24 Hr 30 mg PO DAILY 30 Days Qty: 30 RF: 0 metoprolol tartrate 50 mg Tablet 75 mg PO BID@0900,2100 30 Days Qty: 90 RF: 0 Continued montelukast 10 mg tablet 10 mg PO DAILY@1700 RF: 0 albuterol sulfate 90 mcg/actuation aerosol powdr breath activated 2 inh INHALATION QID PRN (Reason: Shortness Of Breath Or Wheezing) RF: 0 budesonide-formoterol [Symbicort] 160-4.5 mcg/actuation HFA aerosol inhaler 2 puff INHALATION BID@0600,1700 RF: 0 potassium chloride 8 mEq Capsule, Extended Release 8 meq PO DAILY@1700 RF: 0 aspirin 81 mg Tablet,Delayed Release (Dr/Ec) 81 mg PO DAILY@0600 RF: 0 magnesium 250 mg Tablet 250 mg PO DAILY@1700 RF: 0 Eligard (3 month) 22.5 mg Syringe 22.2 mg SUBCUT DIRECTED RF: 0 prednisolone 5 mg Tablet 2.5 mg PO BID@0600,1700 RF: 0 abiraterone 250 mg Tablet 1,000 mg PO DAILY@0600 RF: 0 krill oil 1 tab PO DAILY@1700 RF: 0 silodosin 8 mg capsule 8 mg PO BEDTIME@2000 RF: 0 Changed pantoprazole 40 mg Tablet,Delayed Release (Dr/Ec) 40 mg PO BID Qty: 60 RF: 0 Discontinued diltiazem HCl 240 mg capsule,extended release 24 hr 240 mg PO DAILY@0600 RF: 0 rosuvastatin 5 mg Tablet 2.5 mg PO DAILY@0600 RF: 0 Discharge Orders: Discharge Order (Routine); Ordered 07/02/20 Ordered By: Nick Grey Referrals: Lukas Campbell DO [Primary Care Provider] - 7-10 days Cindy Costello FNP [Nurse Practitioner] - 4-7 days Idalia Cota MD [Physician] - 1 month Discharge Diet: Cardiac, Low Salt and Low Fat Discharge Activity: Resume usual activity Activity Restrictions/Additional Instructions: Please avoid smoking. Please follow-up with your primary care provider within next 7 to 10 days and [facility] in 4 to 7 days. Follow-up with Dr. Cota from cardiology in 1 month. Your cardiac medications will be further optimized then. Please maintain blood pressure diary at home and follow-up with cardiology. Please take your cardiac medications as directed. If you have any bleeding from your nose bleeding or bowel movements please present to the ER. If you have any further chest pain, dizziness please present to the ER. Please increase your physical activity to your usual physical activity gradually within next 1 week. Discharge Attestations Time Spent in Discharge Care*: greater than 30 min Specific Discharge Activities: educating patient, educating and/or supporting family/caregiver, discussing with pcp/other providers, discussing with bottle caser/social workers/dc planners, documenting/other paperwork and evaluating patient/reviewing data Status at Discharge: Cognitive status at discharge: cognitively intact , Behavioral status at discharge: cooperative , Functional status at discharge: independent ambulation Overall status at discharge: patient is back to baseline Quality Metrics Clinical Quality Measures During this hospital stay, did patient experience: AMI Clinical Trial Participant: No Contraindication to aspirin (AMI): Aspirin given Contraindication to statin: Statin prescribed Contraindication to PCI: PCI performed and VTE Contraindication to Overlap Therapy: Overlap therapy prescribed VTE Discharge Education: Education about anticoagulant therapy/Care Notes given Deep Vein Thrombosis/Pulmonary Embolism Present on Admission: Yes Coding Level of Care Code Acute System Integration Engineer for [facility] Fwd Diagnoses Left main coronary artery disease I25.10 Triple vessel coronary artery disease I25.10 NSTEMI (non-ST elevated myocardial infarction) I21.4 Dvt femoral (deep venous thrombosis) I82.412 Chronicity: acute Laterality: left Pulmonary emboli I26.94 Pulmonary embolism type: multiple subsegmental (without acute cor pulmonale) Hypertension I10 Hypertension type: essential hypertension Hyperlipemia E78.2 Hyperlipidemia type: mixed hyperlipidemia COPD (chronic obstructive pulmonary disease) J43.2 COPD type: emphysema Emphysema type: centrilobular
--- NOTE | 2020-07-02 13:23 | P.PN_ITS ---
Subjective Subjective: Interval history: Patient's coronary angiography performed on Thursday that showed a severe calcified coronary artery disease including distal left main, proximal to mid LAD, proximal left circumflex artery and ostial RCA. He underwent multivessel intervention on Thursday. No new complaints. No events on telemetry. Medications: Reviewed: Yes Medication Review Details: Current Medications Acetaminophen (Acetaminophen 325 Mg Tablet) 650 mg PO Q6H PRN PRN Reason: MILD PAIN Al Hydrox/Mg Hydrox/Simethicone (Tvec-Ffu-Ksbkqqvod-Danette 30 Ml Udc) 15 ml PO Q6H PRN PRN Reason: INDIGESTION Last Admin: 06/23/20 17:25 Dose: 15 ml Documented by: Al Hydrox/Mg Hydrox/Simethicone (Qtho-Brk-Axjoechhz-Danette 30 Ml Udc) 30 ml PO Q15M PRN PRN Reason: INDIGESTION Last Admin: 06/24/20 04:07 Dose: 30 ml Documented by: Al Hydrox/Mg Hydrox/Simethicone (Kzpz-Bfq-Msytilmgm-Danette 30 Ml Udc) 30 ml PO Q15M PRN PRN Reason: INDIGESTION Albuterol Sulfate (Albuterol 8 Gm Mdi) 2 puff INHALATION QID PRN PRN Reason: Shortness Of Breath Or Wheezing Albuterol/Ipratropium (Ipratropium-Albuterol 3 Ml Neb) 3 ml INHALATION Q6H.RESPIRATORY PRN PRN Reason: SHORTNESS OF BREATH Last Admin: 06/29/20 07:32 Dose: 3 ml Documented by: Albuterol/Ipratropium (Ipratropium-Albuterol 3 Ml Neb) 3 ml INHALATION Q4H.RESPIRATORY EMRE Last Admin: 07/02/20 11:35 Dose: 3 ml Documented by: Alprazolam (Alprazolam 0.25 Mg Tablet) 0.25 mg PO TID PRN PRN Reason: ANXIETY Apixaban (Apixaban 5 Mg Tablet) 5 mg PO BID@0900,2100 [facility] Last Admin: 07/02/20 08:25 Dose: 5 mg Documented by: Aspirin (Aspirin 81 Mg Ec Tablet) 81 mg PO DAILY [facility] Last Admin: 07/02/20 08:25 Dose: 81 mg Documented by: Atorvastatin Calcium (Atorvastatin 40 Mg Tablet) 80 mg PO BEDTIME [facility] Last Admin: 07/01/20 20:51 Dose: 80 mg Documented by: Atropine Sulfate (Atropine 1 Mg/Ml Sdv 1 Ml) 0.5 mg IVP PRN PRN PRN Reason: Symptomatic bradycardia Bisacodyl (Bisacodyl 5 Mg Tablet) 10 mg PO DAILY PRN PRN Reason: CONSTIPATION Last Admin: 06/22/20 10:22 Dose: 10 mg Documented by: Bisacodyl (Bisacodyl 5 Mg Tablet) 5 mg PO Q6H PRN PRN Reason: Constipation (Use 2nd) Bisacodyl (Bisacodyl 10 Mg Supp) 10 mg WV Q6H PRN PRN Reason: Constipation (Use 5th) Bismuth Subsalicylate (Bismuth Subsalicylate 240 Ml Btl) 30 ml PO PRN PRN PRN Reason: DIARRHEA Clopidogrel Bisulfate (Clopidogrel 75 Mg Tablet) 75 mg PO DAILY [facility] Last Admin: 07/02/20 08:25 Dose: 75 mg Documented by: Diphenhydramine HCl (Diphenhydramine 25 Mg Capsule) 25 mg PO BEDTIME PRN PRN Reason: SLEEP Docusate Sodium (Docusate Sodium 100 Mg Capsule) 100 mg PO BID [facility] Last Admin: 07/02/20 08:23 Dose: 100 mg Documented by: Docusate Sodium (Docusate Sodium 100 Mg Capsule) 100 mg PO BID PRN PRN Reason: Constipation (Use 1st) Fentanyl (Fentanyl 50 Mcg/Ml Inj 2ml) 50 mcg IVP PRN PRN PRN Reason: PAIN Fentanyl (Fentanyl 50 Mcg/Ml Inj 2ml) 12.5 mcg IVP Q2H PRN PRN Reason: SEVERE PAIN Last Admin: 06/30/20 03:13 Dose: 12.5 mcg Documented by: Ferrous Sulfate (Ferrous Sulfate Ec 325 Mg Tablet) 325 mg PO BIDWM [facility] Last Admin: 07/02/20 08:25 Dose: 325 mg Documented by: Guaifenesin (Guaifenesin 100 Mg/5 Ml Udc 10 Ml) 200 mg PO Q4H PRN PRN Reason: COUGH Dexmedetomidine HCl 400 mcg/ (Sodium Chloride) 104 mls @ 0 mls/hr IV .Q0M [facility]; Protocol Last Titration: 06/30/20 11:49 Dose: Infused Documented by: Isosorbide Mononitrate (Isosorbide Mononitrate Er 30 Mg Tablet) 30 mg PO DAILY [facility] Last Admin: 07/02/20 08:25 Dose: 30 mg Documented by: Lactulose (Lactulose Oral Liq 20 Gm/30 Ml Udc) 20 gm PO Q6H PRN PRN Reason: Constipation (Use 3rd) Magnesium Hydroxide (Magnesium Hydroxide 30 Ml Udc) 30 ml PO DAILY PRN PRN Reason: CONSTIPATION Metoprolol Tartrate (Metoprolol Tartrate 50 Mg Tablet) 75 mg PO BID@0900,2100 [facility] Last Admin: 07/02/20 08:25 Dose: 75 mg Documented by: Montelukast Sodium (Montelukast Sodium 10 Mg Tablet) 10 mg PO DAILY@1700 [facility] Last Admin: 07/01/20 17:35 Dose: 10 mg Documented by: Naloxone HCl (Naloxone 0.4 Mg/Ml Sdv) 0.1 mg IVP Q2M PRN PRN Reason: RESPIRATORY RATE < 8/MIN Nitroglycerin (Nitroglycerin 0.4 Mg Sublingual Tablet) 0.4 mg SUBLINGUAL Q5M PRN PRN Reason: CHEST PAIN Last Admin: 06/26/20 23:29 Dose: 0.4 mg Documented by: Nitroglycerin (Nitroglycerin 0.4 Mg Sublingual Tablet) 0.4 mg SUBLINGUAL Q5M PRN PRN Reason: CHEST PAIN Non-Formulary Medication (Magnesium) 250 mg PO DAILY@1700 [facility] Last Admin: 07/01/20 17:35 Dose: 250 mg Documented by: Non-Formulary Medication (Silodosin) 8 mg PO BEDTIME@1999 [facility] Last Admin: 07/01/20 20:51 Dose: Not Given Documented by: Ondansetron HCl (Ondansetron 2 Mg/Ml Sdv 2 Ml) 4 mg IVP Q8H PRN PRN Reason: vomiting, or N/V if npo Ondansetron HCl (Ondansetron 2 Mg/Ml Sdv 2 Ml) 4 mg IVP Q2M PRN PRN Reason: NAUSEA Pantoprazole Sodium (Pantoprazole Dr 40 Mg Tablet) 40 mg PO BID [facility] Last Admin: 07/02/20 08:25 Dose: 40 mg Documented by: Promethazine HCl (Promethazine 25 Mg Supp) 25 mg WV Q6H PRN PRN Reason: NAUSEA AND VOMITING Fluticasone/Salmeterol (Fluticasone-Salmeterol 500-50 Diskus) 1 puff INHALATION BID.RESPIRATORY EMRE Last Admin: 07/02/20 08:34 Dose: 1 puff Documented by: Sucralfate (Sucralfate 1 Gm/10 Ml Oral Liq Udc) 1 gm PO AC&BEDTIME EMRE Last Admin: 07/02/20 10:45 Dose: 1 gm Documented by: Temazepam (Temazepam 15 Mg Capsule) 15 mg PO BEDTIME PRN PRN Reason: INSOMNIA Vitals/I&O/Wt Last Vital Signs Temp 97.0 F L 07/02/20 10:51 Pulse 85 07/02/20 11:36 Resp 16 07/02/20 11:36 BP 128/59 07/02/20 10:51 Pulse Ox 98 07/02/20 11:36 07/01/20 07/02/20 07/02/20 22:59 06:59 14:59 Intake Total 810 / 1010 200 / 1210 Output Total 300 / 300 400 / 700 Balance 510 / 710 -200 / 510 Weight last 48 hrs Weight 192 lb 3.2 oz Physical Exam Narrative: EXAM NARRATIVE: GENERAL: obese man lying in bed in no acute distress HEENT: Extraocular movement intact. Pupils equal round reactive to light. No pallor or icterus. NECK: central trachea, No JVD. No carotid bruit. CARDIOVASCULAR SYSTEM: S1-S2 regular. No S3 or S4 present. No murmur rubs or gallops. RESPIRATORY SYSTEM: Coarse bilateral breath sounds otherwise clear to auscultati on. No wheezes rhonchi or rubs heard. No use of accessory muscles. ABDOMEN: Soft, obese, nontender. Normal bowel sounds present. EXTREMITIES: No cyanosis or clubbing. No edema. Bilateral forearm bruising, Right groin with mild bruising, no significant swelling. CHARGE MASTER COORDINATOR: Patient is alert oriented ?3. No focal neurological deficits. SKIN: Normal turgor and temperature. No breakdown, rash or nail changes noted. PSYCH: Normal insight and judgment. Data : 07/01/20 03:25 07/01/20 03:25 A&P Assessment and plan (1) Left main coronary artery disease: Patient underwent multivessel intervention including left main as he was turned down by CT surgery due to high risk. He is stable and doing fine from a cardiovascular perspective. Patient is high risk for bleeding while on DAPT and anticoagulation. He was switched to Plavix from Brilinta, -continue DAPT and Eliquis for 30 days followed by Plavix and Eliquis. -stable to be discharged. -f/u with Ms. Costello in 1 week. -BMP, CBC in 1 week -F/U with me in 1 month Status: Acute (2) Triple vessel coronary artery disease: Status: Acute (3) NSTEMI (non-ST elevated myocardial infarction): Status post PCI continue antiplatelet beta-gerald statin and TONY inhibitor Status: Acute (4) Dvt femoral (deep venous thrombosis): Status post IVC filter for extensive DVT -continue Eliquis. Status: Acute Qualifiers: Chronicity: acute Laterality: left Qualified Code(s): I82.412 - Acute embolism and thrombosis of left femoral vein (5) Pulmonary emboli: Status post IVC filter Status: Acute Qualifiers: Pulmonary embolism type: multiple subsegmental (without acute cor pulmonale) Qualified Code(s): I26.94 - Multiple subsegmental pulmonary emboli without acute cor pulmonale (6) Hypertension: Well-controlled. Continue meds Status: Acute Qualifiers: Hypertension type: essential hypertension Qualified Code(s): I10 - Essential (primary) hypertension (7) Hyperlipemia: Continue statin. Status: Acute Qualifiers: Hyperlipidemia type: mixed hyperlipidemia Qualified Code(s): E78.2 - Mixed hyperlipidemia (8) COPD (chronic obstructive pulmonary disease): As per pulmonology Status: Acute Qualifiers: COPD type: emphysema Emphysema type: centrilobular Qualified Code(s): J43.2 - Centrilobular emphysema Additional A&P Information Anemia: f/u Hb stable Thank you for allowing me to participate in patient's care. Please feel free to call with questions or concerns. Attestations Medical Necessity Statement*: stable to be discharged home Time Spent in Patient Care: Greater than 35 minutes (>than 50% of time spent in counselling and/or direct pt care on unit) . Coding Level of Care Code Acute Auditor Medical Claims for Anjug Fwd Diagnoses Left main coronary artery disease I25.10 Triple vessel coronary artery disease I25.10 NSTEMI (non-ST elevated myocardial infarction) I21.4 Dvt femoral (deep venous thrombosis) I82.412 Chronicity: acute Laterality: left Pulmonary emboli I26.94 Pulmonary embolism type: multiple subsegmental (without acute cor pulmonale) Hypertension I10 Hypertension type: essential hypertension Hyperlipemia E78.2 Hyperlipidemia type: mixed hyperlipidemia COPD (chronic obstructive pulmonary disease) J43.2 COPD type: emphysema Emphysema type: centrilobular
== END 2020-07-02 15:45 | disposition home health service (06) | DRG 215 ==
LOC: ER 18:12 → CSU 18:12 → ICU 06-29 13:49 → CSU 07-01 16:28
PROVIDERS: Internal Medicine; Internal Medicine Cardiovascular Disease; Admitting Provider Student in an Organized Health Care Education/Training Program; Emergency Provider Family Medicine; PCP Emergency Medicine Emergency Medical Services; Visit Provider Student in an Organized Health Care Education/Training Program
PROC: 02HA3RJ Insertion of Short-term External Heart Assist System into Heart, Intraoperative, Percutaneous Approach (ICD-10-PCS; CPT 37191; principal; 2020-06-28 10:00)
DX: I21.4 Non-ST elevation (NSTEMI) myocardial infarction (principal); I26.94 Multiple subsegmental thrombotic pulmonary emboli without acute cor pulmonale; I82.412 Acute embolism and thrombosis of left femoral vein; N39.0 Urinary tract infection, site not specified; I25.10 Atherosclerotic heart disease of native coronary artery without angina pectoris; C61 Malignant neoplasm of prostate; D50.9 Iron deficiency anemia, unspecified; J43.2 Centrilobular emphysema; F17.290 Nicotine dependence, other tobacco product, uncomplicated; E78.2 Mixed hyperlipidemia; I10 Essential (primary) hypertension; Z79.52 Long term (current) use of systemic steroids; G89.29 Other chronic pain; M54.9 Dorsalgia, unspecified; K44.9 Diaphragmatic hernia without obstruction or gangrene; Z79.51 Long term (current) use of inhaled steroids
CPT/HCPCS: 12345; 33990; 33992; 36415; 37191; 71045; 71275; 78452; 80048; 80053; 80061; 81001; 82274; 82607; 82728; 82746; 83036; 83540; 83550; 83735; 83880; 84100; 84145; 84443; 84484; 85025; 85045; 85347; 85378; 85610; 86850; 86900; 87426; 92978; 93005; 93017; 93306; 93454; 93880; 93970; 93971; 94010; 94640; 94664; 96372; 97161; 99283; A9500; C1724; C1725; C1753; C1760; C1769; C1874; C1880; C1887; C1894; C9601; C9602; J1644; J1650; J1940; J2250; J2704; J2785; J3010; J3420; J3490; J7030; J7512; J7626; Q0163; Q9967

== ENCOUNTER → 2020-07-13 12:17 | Outpatient (BNVA) | payer OTHER, MEDICARE, SELFPAY | PROVIDERS: PCP Emergency Medicine Emergency Medical Services; Visit Provider Nurse Practitioner Family | DX: I25.10 Atherosclerotic heart disease of native coronary artery without angina pectoris (principal) | CPT/HCPCS: 80048 ==

== ENCOUNTER → 2020-09-26 11:06 | Outpatient (BNVA) | payer OTHER, MEDICARE, SELFPAY | PROVIDERS: PCP Emergency Medicine Emergency Medical Services; Visit Provider Internal Medicine Cardiovascular Disease | DX: Z01.818 Encounter for other preprocedural examination (principal); Z20.822 Contact with and (suspected) exposure to COVID-19 | CPT/HCPCS: 87635 ==

== ENCOUNTER 2020-10-01 08:48 | Outpatient (CLI) | payer OTHER, MEDICARE, SELFPAY ==
[2020-10-01 08:56] VITALS: BMI 31.4
--- NOTE | 2020-10-01 09:37 | ECG_ITS ---
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 The electrocardiogram showed sinus bradycardia, normal axis with nonspecific ST depression. Interpretation limited by artifact. The Lexiscan was infused over a period of 20 seconds. A total of 0.4 milligrams of Lexiscan was infused. The stress phase was continued for a total of 5 minutes. Heart rate at the end of the stress phase was 78 bpm, oxygen saturation 96% with a blood pressure of 166/86 mmHg. The EKG at the peak infusion revealed sinus rhythm with no significant ST-T wave changes. The study was terminated due to protocol completion. Sestamibi was injected 20 seconds after the Lexiscan infusion. Blood pressure at the end of the recovery phase was 149/80 mmHg, oxygen saturation 94% with a heart rate of 76 beats per minute. CONCLUSION: 1. No significant EKG changes with the LexiScan infusion. 2. No LexiScan induced chest pain or cardiac arrhythmia. 3. Normal blood pressure and heart rate response. 4. Sestamibi/sestamibi perfusion scan pending; see separate report. Electronically Signed On 10-01-2020 17:45:51 CDT by Idlaia Cota M.D. [id number]
--- NOTE | 2020-10-01 09:37 | NMCV_ITS ---
NM jazmin perf SPECT r/s* [id number] Mulugeta Murillo Age: 74 Gender: M : 1945 Exam Date: 10/01/2020 10:14 Ordering Phys: Idalia Cota MD ([email or web address]) Technologist: ANÍBAL Syed Exam Location: [facility] Indications: CAD STRESS TEST Please see separate stress test report in [facility] for full findings IMAGE PROTOCOL Rest/Stress 1 Lexiscan Day Radiopharmaceutical Dose (mCi) Administration Site Administered by Rest: Tc-99m 10.7 IV ANÍBAL Syed Sestamibi Stress:Tc-99m 32.4 IV ANÍBAL Escalante Sestamibi Rest: 01-Oct-2020 60 Discovery 630 Stress: 01-Oct-2020 30 Discovery 630 0.4mg Lexiscan. Supine position only as patient was unable to lay prone. SPECT RESULTS Technical Quality: Good Raw Data Analysis: Normal Image Corrections: Patient motion artifact - motion correction applied to stress images. Summed Stress Score: 5 Summed Rest Score: 5 Summed Difference Score: 2 PERFUSION FINDINGS Small sized perfusion abnormality of mid to apical inferior, mid inferoseptal, apical septal, apical lateral and apical howard on rest with subtle improved tracer uptake in apical septal and apical howard on stress images. FUNCTIONAL RESULTS (calculated via Gated SPECT) Stress Image LV EF (%): 67 Stress EDV (mL):78 TID: 1.23 Stress ESV (mL):26 FUNCTIONAL FINDINGS: The left ventricle is normal in size. Transient Ischemia Dilatation of 1.2. There is normal left ventricular systolic function. The left ventricular ejection fraction is normal with a value of 67%. There is normal left ventricular wall thickening. Normal end-diastolic and end-systolic volumes. IMPRESSIONS 1. Small sized perfusion abnormality of mid to apical inferior, mid inferoseptal, apical septal, apical lateral and apical howard. This may represent old myocardial infarction in right coronary artery/left anterior descending artery territory or attenuation artifact. 2. Overall left ventricular systolic function is normal without regional wall motion abnormalities. 3. The left ventricular ejection fraction is normal with a value of 67%. 4. Transient ischemic dilation index mildly elevated at 1.2. This may represent subendocardial ischemia or hypertensive response. 5. No coronary ischemia based on the study. Idalia Cota MD (Electronically Signed) Final Date: 01 Oct 2020 17:58 S
[2020-10-01] MEDS: regadenoson 0.4 Mg/5 ml Syringe IVP (10:57)
[2020-10-01 11:04] VITALS: BP 149/80; PULSE 76
--- NOTE | 2020-10-01 12:16 | USCV_ITS ---
Mulugeta Murillo Age: 74 Gender: M : 1945 Exam Date: 10/01/2020 12:21 Ordering Phys: Idalia Cota MD Technologist: Kevin Reich Exam Location: [facility] [place]_ Indication: acute embolism and thrombus of left femoral vein HISTORY: thrombus LLE with IVC filter PROCEDURES: Bilaterally, the common femoral, superficial femoral, profunda femoral, popliteal, posterior tibial, greater saphenous veins, and the peroneal trunk were identified and interrogated in the standard fashion. FINDINGS: RLE no DVT seen. LLE occlusive thrombus noted in LFV .the left popliteal vein was found to be partially compressible . left GSV, CFV, peroneal vein and PTV appear to compress normally. The left femoral vein was found to be of relatively small caliber CONCLUSIONS 1. Features of DVT causing total occlusion of the left femoral vein and partial occlusion of the left popliteal vein-possibly chronic. 2. No DVT on the right side Corrected copy of the study from 10/01/2020 Dr Blank Renteria MD [facility] (Electronically Signed) Final Date: 02 Oct 2020 18:47 Amended: 08 Oct 2020 11:23 C
== END 2020-10-01 08:49 | disposition home or self-care (01) ==
LOC: CDL 08:52
PROVIDERS: PCP Emergency Medicine Emergency Medical Services; Visit Provider Internal Medicine Cardiovascular Disease
DX: I25.10 Atherosclerotic heart disease of native coronary artery without angina pectoris (principal); I82.412 Acute embolism and thrombosis of left femoral vein
CPT/HCPCS: 78452; 93017; 93970; A9500; J2785

== ENCOUNTER → 2020-10-17 12:55 | Outpatient (BNVA) | payer OTHER, SELFPAY | PROVIDERS: PCP Emergency Medicine Emergency Medical Services; Visit Provider Internal Medicine Pulmonary Disease | DX: J43.2 Centrilobular emphysema (principal); Z20.822 Contact with and (suspected) exposure to COVID-19 | CPT/HCPCS: 87635 ==

== ENCOUNTER 2020-10-23 06:24 | Outpatient (CLI) | payer OTHER, SELFPAY ==
--- NOTE | 2020-10-23 12:40 | PFTS_ITS ---
Date of Study:10/23/20 Date of Dictation: MECHANICS: Forced vital capacity (FVC) is reduced. Forced expiratory volume in one second (FEV1) is reduced. FEV1/FVC is reduced. FLOW VOLUME LOOP: Reduced flow at all lung volumes with significant scooping. LUNG VOLUMES: Total lung capacity (TLC) is normal. Residual volume (RV) is increased. DIFFUSING CAPACITY FOR CARBON MONOXIDE: Severely reduced. INTERPRETATION: The prebronchodilator spirometry is consistent with severe airflow obstruction. No postbronchodilator spirometry was performed. Lung volumes are consistent with air trapping. Gas exchange (DLCO) is severely reduced. MTDD
== END 2020-10-23 06:25 | disposition home or self-care (01) ==
PROVIDERS: PCP Emergency Medicine Emergency Medical Services; Visit Provider Internal Medicine Pulmonary Disease
DX: J43.2 Centrilobular emphysema (principal)
CPT/HCPCS: 94010; 94726; 94729

== ENCOUNTER 2020-10-24 05:24 | Outpatient (CLI) | payer OTHER, SELFPAY ==
[2020-10-24] VITALS (18 sets, daily range): BP systolic 147–216; BP diastolic 68–108; PULSE 50–89; RESP 13–21; O2SAT 89–97; BMI 31.8
--- NOTE | 2020-10-24 06:00 | XACV_ITS ---
Ht: 168 cm Wt: 89 kg BSA: 2.07 m2 Any Known Allergies: Other Gender: Male : 1945 Exam Type: Invasive Peripheral Vascular Procedure(s): Procedure Description: Peripheral vascular Intervention Procedure Description: PV IVC Filter removal Exam Priority: Routine Abdominal Diagnostic Findings IVC venogram was performed prior to IVC filter removal that showed patent IVC. Follow-up venogram was performed after the procedure that confirmed no complications. Abdominal Interventional Findings Indication: Patient had IVC filter placed as was high risk of bleeding at time of left main intervention in setting of low hemoglobin and PE. Now he is tolerating anticoagulation well. Was brought back to remove IVC filter. Procedure detail: Access was obtained with ultrasound guidance using micropuncture kit in the right IJ. 11 Brazilian sheath was introduced. [employer] IVC retrieval system was used to retrieve the filter after a venogram was performed. It showed patent IVC. IVC filter was successfully retrieved. Postprocedure venogram was again performed to confirm no complications. Sheath along with the filter was removed and manual pressure was held. Conclusions Successful retrieval of IVC filter. Recommendations Continue anticoagulation. Outpatient cardiology follow up in 4 weeks. Access Site Site: Right Jugular vein Sheath Size: 11 Fr Hemost... Method: Manual Compression Hemost... Success: Successful Procedure Details Findings Procedure Consent Obtained. Pre-Procedure Time Out. Identified patient by full name and date of as verbalized by the patient/guarantor. Does the consent match the physician's order: Yes. Accurate & Complete Informed Consent: Yes. Inpatient/Outpatient History & Physical on Chart: Yes. If H&P is completed, is and addenduem needed: NO. Relevant Radiology Images available: Yes. The risks, benefits, and alternatives of sedation and/or procedure were discussed by physician. The patient agrees to continue. Procedure started. Correct patient, site and procedure confirmed by cath team. Current diagnosis: Removal of IVC filter. PERRLA. Strong, equal hand manager immunology bilaterally. Lungs clear x 5 lobes. IV Site on Arrival: 22 gauge in the right forearm. IV Fluids: 0.9% NaCl at KVO. 0 mL infused prior to hemodialysis lab technician. Pre Procedural Pulses: bilateral radial was 3+. Oxygen started at 2liters/min via nasal canula. right subclavian/jugular was prepped with chloroprep then draped in the usual sterile fashion. Physician notified. Equipment: 5F - Femoral. Heparinized Saline (2 units/mL), 1000 mL bag. Kit, Micropuncture. Cardiac Cath Pack. [employer] Manifold Kit Model BT 2000. Patient's family unavailable. Physician arrived. Dr. Fung scrubbed in. Immediate Pre-Procedure Time Out. Correct Patient: Yes; Correct Procedure: Yes; Correct Site: Yes; Correct Patient Position: Yes; Correct Supplies: Yes; Dried Flammable Prep: Yes; Blood Products Available: N/A. Lidocaine 1% infiltrated to the right jugular. Venous access obtained in the right jugular with a micropuncture set using ultrasound guidance. Standard wire in through the micropuncture dilator. micropuncture dilator out. 7fr dilator in over the standard wire. Dr. Melendez scrubbed in. 7fr dilator out, 12fr dilator in over the standard wire. 12fr dilator out over the standard wire. 11fr retrieval sheath in over the standard wire. standard wire out. hand injection of the distal vena cava performed with Omnipaque. Retrieval device in. IVC filter out. hand injection of the distal vena cava performed with Omnipaque. Physicians scrubbed out. Sheath(s) removed and manual pressure held until hemostasis was achieved. Sterile 4x4 and Op-site applied to the puncture site. No oozing or hematoma noted. Post sheath removal instructions were given and the patient verbalized understanding. Post Procedure: Pulses reassessed and unchanged. PERRLA. Strong, equal hand manager immunology bilaterally. No VTE prophylaxis required. Complications: none. Estimated blood loss: None. Procedure completed. Patient transferred by bed to CPRU. A Manual Compression was successful obtaining hemostatsis at the Right Jugular vein insertion site. Vital chart was stopped. Procedure Medications Start: 6:45 AM Stop: 6:45 AM Medication: Versed Amount: 1 mg Route: I.V. Start: 6:45 AM Stop: 6:45 AM Medication: Fentanyl Amount: 50 mcg Route: I.V. Start: 6:55 AM Stop: 6:55 AM Medication: Versed Amount: 1 mg Route: I.V. Start: 6:55 AM Stop: 6:55 AM Medication: Fentanyl Amount: 50 mcg Route: I.V. Start: 7:06 AM Stop: 7:06 AM Medication: Versed Amount: 1 mg Route: I.V. Start: 7:15 AM Stop: 7:15 AM Medication: Versed Amount: 1 mg Route: I.V. I, the attending physician, have reviewed and verified all procedure medications. Yes, all medications given per verbal order History/Risk Factors Hypertension: Yes Dyslipidemia: Yes Peripheral Arterial Disease (PAD): No Myocardial Infarction (VA): Yes Obesity: No Renal Disease: No Tobacco Use: Former Prior Interventions PCI: Yes CABG: No Valve Surgery: No Date of PCI: 06/23/2020 Report Signatures Finalized by Jony Fung MD on 11/02/2020 09:11 AM
[2020-10-24 06:10] LABS: Basophils % 0.8 %; Eosinophils # 0.2 10^3/uL (0.0-0.8); Hematocrit 34.8 % (42.0-52.0); Hemoglobin 10.7 g/dL (11.7-16.6); Lymphocytes # 0.9 10^3/uL (0.8-4.8); Lymphocytes % 18.6 %; Mean Corpuscular HGB Conc 30.7 g/dL (30.0-36.0); Mean Corpuscular Hemoglobin 27.1 pg (28.0-34.0); Mean Corpuscular Volume 88.1 fL (80-94); Mean Platelet Volume 9.4 fL (7.4-10.4); Monocytes # 0.5 10^3/uL (0.2-0.9); Monocytes % 9.9 %; Neutrophils # 3.13 10^3/uL (1.8-7.7); Neutrophils % 66.3 %; Nucleated Red Blood Cells % 0 %; Platelet Count 234 10^3/cmm (130-400); Red Blood Count 3.95 10^6/uL (4.1-5.3); Red Cell Distribution Width 16.1 % (12.1-15.1); White Blood Count 4.7 10^3/uL (4.0-10.0)
[2020-10-24 06:26] LABS: INR 0.96 (0.8-1.2)
--- NOTE | 2020-10-24 06:43 | W.PM.OPSFHP ---
Same Day Surgery H&P Indication for Procedure/HPI DATE OF PROCEDURE: October 24, 2020 CHIEF COMPLAINT/INDICATIONFOR SURGICAL PROCEDURE: DVT/IVC filter removal PREOP DIAGNOSIS: DVT PLANNED PROCEDRUE: Operation Date: 10/24/20 08:30 Proposed Procedures p IVC Filter Removal 00364 Z95.828(Not Applicable) - Jony Fung M.D 74 year old male with PMHx of HTN, HLD, former smoker (1-2 PPD, quit 10 years back), off of vaping, COPD on chronic prednisone, h/o prostate cancer, chronic back pain. Patient had presented with NSTEMI in May and underwent successful revascularization of left main artery with bifurcation stenting of lcx and lad. prior to that he was found to have subsegmental PEs with a DVT. At that time bleeding was a major concern and patient had IVC filter placed. He has tolerated anticoagulation now. Plan is to retrieve the IVC filter today. he is doing well. Denies any complaints of chest pain or shortness of breath. ROS CONSTITUTIONAL: No fever chills weight loss or gain or night sweats. [] HEENT: Normocephalic, atraumatic.[] RESPIRATORY: No cough, sputum, hemoptysis or wheezing.[] CARDIOVASCULAR: No shortness of breath, chest pain, PND, orthopnea, lower extremity edema, presyncope or syncope. [] GI: no nausea vomiting diarrhea. [] VEGETABLE THINNER: No numbness, tingling, weakness or loss of function in any part of the body. [] MUSCULOSKELETAL: No knee or joint pain or rashes. [] Medications/Allergies* Home Medications Medication Instructions Recorded Confirmed Type albuterol sulfate 90 mcg/actuation 2 inh INHALATION QID PRN each 06/28/19 10/24/20 History breath activated powder inhaler budesonide-formoterol HFA 160 2 puff INHALATION BID@0600,1700 06/28/19 10/24/20 History mcg-4.5 mcg/actuation aerosol inhaler montelukast 10 mg tablet 10 mg PO DAILY@1700 06/28/19 10/24/20 History Eligard (3 month) 22.2 mg SUBCUT DIRECTED 07/13/19 10/09/20 History abiraterone 1,000 mg PO DAILY@0607/13/19 10/24/20 History magnesium 400 mg PO DAILY@1700 07/13/19 10/24/20 History prednisolone 2.5 mg PO BID@0600,1700 07/13/19 10/24/20 History silodosin 8 mg PO BEDTIME@199906/21/20 10/24/20 History apixaban 5 mg tablet 5 mg PO BID 08/06/20 10/24/20 History atorvastatin 40 mg tablet 40 mg PO DAILY 08/06/20 10/24/20 History clopidogrel 75 mg tablet 75 mg PO DAILY 08/06/20 10/24/20 History ferrous sulfate 325 mg (65 mg 325 mg PO DAILY 08/06/20 10/24/20 History iron) tablet isosorbide mononitrate 30 mg 30 mg PO DAILY 08/06/20 10/24/20 History tablet,extended release 24 hr leuprolide (3 month) 22.5 mg (3 mg SUBCUT 08/06/20 10/08/20 History month) subcutaneous syringe metoprolol tartrate 75 mg tablet 75 mg PO BID 08/06/20 10/24/20 History calcium carbonate [Calcium 600] 600 mg PO DAILY 10/24/20 10/24/20 History potassium 99 mg PO DAILY 10/24/20 10/24/20 History Allergies/Adverse Reactions Allergy/AdvReac Type Severity Reaction Status Date / Time Pjvftst-Hva-Rsb Reductase AdvReac Unknown back pain Verified 10/23/20 11:40 Inhibitor Pertinent History/Comorbid Conditions* Medical History (Updated 07/03/20 @ 00:00 by ) Anemia Carcinoma in situ of prostate COPD (chronic obstructive pulmonary disease) Hiatal hernia Hyperlipemia Hypertension Preop pulmonary/respiratory exam Wedge compression fracture of unspecified thoracic vertebra, initial encounter for closed fracture Surgical History (Updated 07/29/19 @ 16:35 by Toney Belle MD) H/O esophagogastroduodenoscopy 07/14/2019: Hiatal hernia and duodenal polyps History of colonoscopy (~2008) 07/14/2019: Normal Family History (Updated 10/08/20 @ 09:00 by Chely Carmen RN) No pertinent family history CHF (congestive heart failure) Father Denies family history of Diabetes Stroke Social History Smoking and tobacco status: former smoker Quit status (tobacco): has quit using tobacco Year quit tobacco: May 2020 [id number] Second hand smoke exposure: No Smoking risk assessment/counseling performed?: Yes Alcohol intake: never Lives independently: Yes Household members: spouse Housing: House Marital status: service: Yes branch: [employer] Current occupational status: employed 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 [] NECK: No jugular vein distension. [] HEENT: No cyanosis. No icterus. No pallor. [] HEART: Regular S1 and S2. No murmur, rub or gallop. [] LUNGS: Clear to auscultate bilaterally. [] ABDOMEN: Soft, nontender and nondistended. Positive bowel sounds. No guarding, rebound or tenderness. [] CENTRAL NERVOUS SYSTEM: Grossly nonfocal. [] EXTREMITIES: Lower extremities with 1+ edema bilaterally. Pulses palpable in the lower extremities, both dorsalis pedis and posterior tibial. [] Conscious Sedation Assessment PATIENT ASSESSED PRIOR TO SEDATION, WITH NO CHANGE NOTED: Yes AIRWAY EVAL/ANESTHESIA PLAN: normal airway, ASA III, Monitored Anesthesia, Local Anesthesia, Risks, benefits & alternatives of sedation and/or procedure discussed and Patient agrees to continue as planned Recommendations Surgery/Procedure today (IVC filter retrieval) Coding Level of Care Code Acute Car Electronics Installer for Talha Luz
[2020-10-24] MEDS: apixaban 5 mg Tablet PO (08:13)
[2020-10-24] MEDS: clopidogrel 75 mg Tablet PO (08:13)
--- NOTE | 2020-10-24 10:19 | SUR.PHASEII ---
pt received from analyst microbiology lab post ivc filter removal. pt alert and oriented x3. pt complains of no pain. dressing in place on right neck. no bruising or hematoma noted. pt connected to monitor for vitals per protocol. bed down and call light on bedside table. pt advised to hit call light if he needed anything.
--- NOTE | 2020-10-24 16:39 | PC.RESP ---
Pulmonary Rehab information sent to patient.
== END 2020-10-24 11:49 | disposition home or self-care (01) ==
PROVIDERS: PCP Emergency Medicine Emergency Medical Services; Visit Provider Internal Medicine
PROC: (CPT 37193; principal; 2020-10-24 08:30)
DX: Z95.828 Presence of other vascular implants and grafts (principal); Z86.718 Personal history of other venous thrombosis and embolism; I10 Essential (primary) hypertension; E78.5 Hyperlipidemia, unspecified; Z87.891 Personal history of nicotine dependence; J44.9 Chronic obstructive pulmonary disease, unspecified; Z79.52 Long term (current) use of systemic steroids; Z85.46 Personal history of malignant neoplasm of prostate; Z82.49 Family history of ischemic heart disease and other diseases of the circulatory system
CPT/HCPCS: 36415; 85025; 85610; C1769; C1894; J1644; J2250; J3010; J7030; Q9967

== ENCOUNTER 2021-02-11 15:17 | Outpatient (CLI) | payer OTHER, MEDICARE, SELFPAY ==
--- NOTE | 2021-02-11 15:44 | XRR_ITS ---
PROCEDURE INFORMATION: Exam: XR Chest Exam date and time: 02/11/2021 3:44 PM Age: 75 years old Clinical indication: Shortness of breath. Reduced breath sounds on the left side. Suspect effusion versus pneumonia. TECHNIQUE: Imaging protocol: XR of the chest. Views: 2 views. COMPARISON: CR XR chest 1V portable [id number] 06/21/2020 4:28 PM FINDINGS: Lungs: There is bibasilar scarring or atelectasis. The lungs are hyperinflated. No pulmonary consolidation. Pleural spaces: No pleural effusion.; No pneumothorax. Heart/Mediastinum: The cardiac silhouette is unchanged. No gross evidence of pneumomediastinum. Bones/joints: Probable chronic compression fractures in the thoracic spine. XR/XR chest 2V* [id number] IMPRESSION: Pulmonary hyperinflation; query COPD, asthma or other obstructive lung disease.
== END 2021-02-11 15:18 | disposition home or self-care (01) ==
LOC: RAD 15:40
PROVIDERS: PCP Emergency Medicine Emergency Medical Services; Visit Provider Internal Medicine Pulmonary Disease
DX: R06.00 Dyspnea, unspecified (principal)
CPT/HCPCS: 71046

== ENCOUNTER → 2021-11-26 14:00 | Outpatient (BNVA) | payer OTHER, SELFPAY | PROVIDERS: PCP Emergency Medicine Emergency Medical Services; Visit Provider Podiatrist Foot & Ankle Surgery | DX: I73.9 Peripheral vascular disease, unspecified (principal); L60.3 Nail dystrophy; L60.2 Onychogryphosis; M79.672 Pain in left foot | CPT/HCPCS: 11721 ==

== ENCOUNTER → 2021-11-27 12:50 | Outpatient (BNVA) | payer OTHER, SELFPAY | PROVIDERS: PCP Emergency Medicine Emergency Medical Services; Visit Provider Internal Medicine Cardiovascular Disease | DX: I25.10 Atherosclerotic heart disease of native coronary artery without angina pectoris (principal); I25.2 Old myocardial infarction; I82.412 Acute embolism and thrombosis of left femoral vein; J43.2 Centrilobular emphysema; E78.2 Mixed hyperlipidemia; D64.9 Anemia, unspecified; I26.94 Multiple subsegmental thrombotic pulmonary emboli without acute cor pulmonale; I10 Essential (primary) hypertension; Z87.891 Personal history of nicotine dependence; Z79.01 Long term (current) use of anticoagulants | CPT/HCPCS: 99214 ==

== ENCOUNTER → 2021-11-28 12:41 | Outpatient (BNVA) | payer OTHER, SELFPAY | PROVIDERS: PCP Emergency Medicine Emergency Medical Services; Visit Provider Internal Medicine Pulmonary Disease | DX: J43.2 Centrilobular emphysema (principal); I82.412 Acute embolism and thrombosis of left femoral vein; I26.94 Multiple subsegmental thrombotic pulmonary emboli without acute cor pulmonale; I25.10 Atherosclerotic heart disease of native coronary artery without angina pectoris; Z87.891 Personal history of nicotine dependence; I10 Essential (primary) hypertension; E78.5 Hyperlipidemia, unspecified | CPT/HCPCS: 99214 ==

== ENCOUNTER 2022-02-24 13:48 | Oncology outpatient (recurring) (ONCR) | payer OTHER, SELFPAY | END 2022-03-24 23:59 | disposition home or self-care (01) | PROVIDERS: PCP Emergency Medicine Emergency Medical Services; Visit Provider Internal Medicine Medical Oncology | DX: C61 Malignant neoplasm of prostate (principal); C79.51 Secondary malignant neoplasm of bone; M48.50XA Collapsed vertebra, not elsewhere classified, site unspecified, initial encounter for fracture; Z79.818 Long term (current) use of other agents affecting estrogen receptors and estrogen levels; Z79.52 Long term (current) use of systemic steroids; Z79.899 Other long term (current) drug therapy; Z87.891 Personal history of nicotine dependence | CPT/HCPCS: 99205 ==

== ENCOUNTER → 2022-05-27 12:54 | Outpatient (BNVA) | payer OTHER, SELFPAY | PROVIDERS: PCP Emergency Medicine Emergency Medical Services; Visit Provider Internal Medicine Pulmonary Disease | DX: R06.09 Other forms of dyspnea (principal); I25.10 Atherosclerotic heart disease of native coronary artery without angina pectoris; E78.2 Mixed hyperlipidemia; I11.0 Hypertensive heart disease with heart failure; I50.9 Heart failure, unspecified; I26.94 Multiple subsegmental thrombotic pulmonary emboli without acute cor pulmonale; I82.412 Acute embolism and thrombosis of left femoral vein; J43.2 Centrilobular emphysema; Z87.891 Personal history of nicotine dependence; Z79.52 Long term (current) use of systemic steroids; Z86.718 Personal history of other venous thrombosis and embolism; Z86.711 Personal history of pulmonary embolism; Z85.46 Personal history of malignant neoplasm of prostate; Z79.01 Long term (current) use of anticoagulants; I73.9 Peripheral vascular disease, unspecified; L60.8 Other nail disorders; L60.3 Nail dystrophy; L60.2 Onychogryphosis | CPT/HCPCS: 11721; 71046; 99214 ==

== ENCOUNTER 2022-06-06 08:08 | Oncology outpatient (recurring) (ONCR) | payer OTHER, SELFPAY ==
[2022-06-06 09:01] LABS: Basophils % 0.4 %; Eosinophils # 0.2 10^3/uL (0.0-0.8); Eosinophils % 2.5 %; Hematocrit 37.5 % (42.0-52.0); Hemoglobin 11.6 g/dL (11.7-16.6); Lymphocytes # 0.6 10^3/uL (0.8-4.8); Lymphocytes % 7.2 %; Mean Corpuscular HGB Conc 30.9 g/dL (30.0-36.0); Mean Corpuscular Volume 93.8 fl (80-94); Mean Platelet Volume 10.2 fL (7.4-10.4); Monocytes # 0.6 10^3/uL (0.2-0.9); Monocytes % 7.6 %; Neutrophils # 6.64 10^3/uL (1.8-7.7); Neutrophils % 81.8 %; Nucleated Red Blood Cells % 0 %; Platelet Count 191 10^3/cmm (130-400); Red Cell Distribution Width 15.2 % (12.1-15.1); White Blood Count 8.1 10^3/uL (4.0-10.0)
[2022-06-06 09:34] LABS: Alanine Aminotransferase 13 U/L (0-41); Albumin Level 4.1 g/dL (3.5-5.2); Alkaline Phosphatase 90 U/L (40-130); Anion Gap 11.9 (5-19); Aspartate Amino Transferase 14 U/L (0-40); Blood Urea Nitrogen 38 mg/dL (8-23); Calcium 9.6 mg/dL (8.5-10.5); Carbon Dioxide 30 mmol/L (22-29); Chloride 101 mmol/L (98-107); Glucose 116 mg/dL (65-115); Osmolality Calculated 298 mOsm/kg (285-295); Potassium 3.9 mmol/L (3.5-5.1); Prostate Specific Antigen 0.175 ng/mL (0-4); Sodium 139 mmol/L (136-145); Total Bilirubin 0.4 mg/dL (0.15-1.2); Total Protein 7.1 g/dL (6.6-8.7)
[2022-06-06] MEDS: denosumab 60 mg SDV SUBCUT (10:38)
[2022-06-06] MEDS: leuprolide 45 mg Kit IM (10:38)
== END 2022-06-24 23:59 | disposition home or self-care (01) ==
PROVIDERS: PCP Emergency Medicine Emergency Medical Services; Visit Provider Internal Medicine Medical Oncology
DX: C61 Malignant neoplasm of prostate (principal); C79.51 Secondary malignant neoplasm of bone; I25.10 Atherosclerotic heart disease of native coronary artery without angina pectoris; J44.9 Chronic obstructive pulmonary disease, unspecified; M48.55XA Collapsed vertebra, not elsewhere classified, thoracolumbar region, initial encounter for fracture; Z79.52 Long term (current) use of systemic steroids; Z79.818 Long term (current) use of other agents affecting estrogen receptors and estrogen levels; Z79.899 Other long term (current) drug therapy; Z87.891 Personal history of nicotine dependence
CPT/HCPCS: 36415; 80053; 84153; 85025; 96372; 96402; 99214; J0897; J9217

== ENCOUNTER 2022-06-26 11:21 | Outpatient (CLI) | payer OTHER, SELFPAY ==
[2022-06-26] MEDS: perflutren protein-a microsphr 0.22 mg/mL SDV 3 mL IV (12:23)
--- NOTE | 2022-06-26 12:45 | USCV_ITS ---
Mulugeta Murillo Age: 76 Gender: M : 1945 Exam Date: 06/26/2022 11:52 Ordering Phys: Idalia Cota MD ([email or web address]) Technologist: SHILO Exam Location: [facility] [place] Indication: SHORTNESS OF BREATH BP: 165 / 76 HR: 60 Rhythm: Sinus Technical Quality: Poor because of body habitus MEASUREMENTS (Male / Female) Normal Values 2D ECHO LVOT Diameter 2.0 cm LV Ejection Fraction MOD 2C 62.7 % LV Ejection Fraction 2C AL 61.8 % LA Diameter 3.2 cm LA Width 2.6 cm LA Height 3.3 cm RA Width 2.6 cm RA Height 3.5 cm Aorta at Sinotubular Diameter 2.4 cm IVC Diameter 1.3 cm M-MODE Aortic Annulus Diameter 3.4 cm LA Ao Ratio MM 0.9 MV E Point Septal Separation 1.3 cm DOPPLER AV Peak Velocity 120.0 cm/s LVOT Peak Velocity 90.0 cm/s AV Area Cont Eq vti 2.3 cm squared AV Area Cont Eq pk 2.4 cm squared MV Peak Velocity 114.0 cm/s MV Area PHT 2.3 cm squared Mitral E to A Ratio 0.6 MV E' Velocity 32.5 cm/s Mitral E to MV E' Ratio 8.1 Mitral E to LV E' Lateral Ratio 7.9 Mitral E to LV E' Septal Ratio 8.5 TR Peak Velocity 124.5 cm/s TR Peak Gradient 6.2 mmHg TR Mean Velocity 86.9 cm/s TR Mean Gradient 3.4 mmHg TR Velocity Time Integral 35.5 cm TV Peak E Velocity 49.0 cm/s PV Peak Velocity 77.0 cm/s RV Acceleration Time 0.0 s RV Ejection Time 0.3 s RV AcT/ET 0.1 FINDINGS Left Ventricle Normal left ventricular size, systolic function and wall thickness, with no regional wall motion abnormalities. Left ventricular ejection fraction is estimated at 65 %. Grade I diastolic dysfunction (abnormal relaxation filling pattern), normal to mildly elevated filling pressures. Right Ventricle Normal right ventricular size and systolic function. Right Atrium Normal right atrial size. Left Atrium Normal left atrial size. Mitral Valve Structurally normal mitral valve. No mitral valve stenosis. No mitral valve regurgitation. Aortic Valve Probably ticuspid aortic valve. No aortic valve stenosis. No aortic valve regurgitation. Tricuspid Valve Structurally normal tricuspid valve. Pulmonic Valve Pulmonic valve not well visualized. Pericardium Trivial pericardial effusion. Prominent epicardial fat. Aorta Normal size aortic root and proximal ascending aorta. IVC Normal sized inferior vena cava. CONCLUSIONS 1. Normal left ventricular size, systolic function and wall thickness, with no regional wall motion abnormalities. Left ventricular ejection fraction is estimated at 65 %. Grade I diastolic dysfunction (abnormal relaxation filling pattern), normal to mildly elevated filling pressures. 2. When compatred to study dated 06/22/20, left ventricular systolic function has improved. Idalia Cota MD (Electronically Signed) Final Date: 28 June 2022 13:32 S
== END 2022-06-26 11:22 | disposition home or self-care (01) ==
LOC: RAD 11:22
PROVIDERS: PCP Emergency Medicine Emergency Medical Services; Visit Provider Internal Medicine Cardiovascular Disease
DX: R06.02 Shortness of breath (principal); I50.9 Heart failure, unspecified; I51.89 Other ill-defined heart diseases
CPT/HCPCS: C8929; Q9956

== ENCOUNTER → 2022-07-07 14:00 | Outpatient (BNVA) | payer OTHER, SELFPAY | PROVIDERS: PCP Emergency Medicine Emergency Medical Services; Visit Provider Nurse Practitioner Family | DX: I50.9 Heart failure, unspecified (principal); I25.10 Atherosclerotic heart disease of native coronary artery without angina pectoris; R06.02 Shortness of breath; Z87.891 Personal history of nicotine dependence | CPT/HCPCS: 36415; 80048; 83880; 99214 ==

== ENCOUNTER 2022-08-26 08:21 | Outpatient (CLI) | payer OTHER, SELFPAY ==
--- NOTE | 2022-08-26 | ECG_ITS ---
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 Interpretive Statements NAME OF STUDY: LEXISCAN SESTAMIBI STRESS TEST INDICATION: [ex dyspnea, ] Procedure: At the baseline, the blood pressure was 157/79 mmHg with a heart rate of 105 bpm. The electrocardiogram showed sinus tachycardia, normal axis with normal ST and T's. The Lexiscan was infused over a period of 20 seconds. A total of 0.4 mg of Lexiscan was infused. The stress phase was continued for a total of 5 minutes. Heart rate was at the end of stress phase was 110 bpm and a blood pressure of 126/72mmHg. The EKG at the peak infusion revealed normal sinus rhythm with no significant ST-T wave changes. Sestamibi was injected 20 seconds after the Lexiscan infusion. Blood pressure at the end of recovery phase was 144/75 mmHg with a heart rate of 112 bpm. Conclusion: 1. Normal EKG response to Lexiscan infusion 2. No Lexiscan induced chest pain or cardiac arrhythmia. 3. Normal blood pressure and heart rate response. 4. Sestamibi/sestamibi perfusion scan pending; see separate report. Electronically Signed On 08-31-2022 15:00:14 CDT by Jony Fung M.D. [id number]
[2022-08-26 08:42] VITALS: BMI 35.5
--- NOTE | 2022-08-26 08:45 | NMCV_ITS ---
NM jazmin perf SPECT r/s* [id number] Mulugeta Murillo Age: 76 Gender: M : 1945 Exam Date: 08/26/2022 09:26 Ordering Phys: Cinyd Costello Technologist: ANÍBAL Syed Exam Location: [facility] Indications: HEART FAILURE, SHORTNESS OF BREATH, ATHEROSLEROTIC HEART DISEASE STRESS TEST Please see separate stress test report in [facility] for full findings IMAGE PROTOCOL Rest/Stress 1 Lexiscan Day Radiopharmaceutical Dose (mCi) Administration Site Administered by Rest: Tc-99m 10.7 IV ANÍBAL Syed Sestamibi Stress:Tc-99m 32.3 IV ANÍBAL Escalante Sestamibi Rest: 26-Aug-2022 60 Discovery 630 Stress: 26-Aug-2022 30 Discovery 630 0.4mg Lexiscan. Supine position only as patient was unable to lay prone. SPECT RESULTS Technical Quality: Excellent Raw Data Analysis: Normal Image Corrections: No attenuation or motion correction applied Summed Stress Score: 5 Summed Rest Score: 5 Summed Difference Score: 2 PERFUSION FINDINGS There is small sized, fixed perfusion defect noted in the apical inferior, inferior, inferolateral and apical septal howard. 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 FUNCTIONAL RESULTS (calculated via Gated SPECT) Stress Image LV EF (%): 87 Stress EDV (mL):39 TID: 1 Stress ESV (mL):5 FUNCTIONAL FINDINGS: There is normal left ventricular systolic function. IMPRESSIONS 1. Small sized area of prior infarct noted in the RCA and Left circumflex artery territories. No evidence of ischemia 2. LV systolic function is normal Jony Fung MD (Electronically Signed) Final Date: 30 August 2022 13:57 S
[2022-08-26] MEDS: regadenoson 0.4 Mg/5 ml Syringe IVP (10:55)
[2022-08-26 11:14] VITALS: BP 144/75; PULSE 111
== END 2022-08-26 08:22 | disposition home or self-care (01) ==
LOC: CDL 08:24
PROVIDERS: PCP Emergency Medicine Emergency Medical Services; Visit Provider Nurse Practitioner Family
DX: R06.09 Other forms of dyspnea (principal); I50.9 Heart failure, unspecified; R06.02 Shortness of breath; I63.9 Cerebral infarction, unspecified
CPT/HCPCS: 36415; 78452; 93017; 96374; A9500; J2785

== ENCOUNTER → 2022-11-24 09:17 | Outpatient (BNVA) | payer OTHER, SELFPAY | PROVIDERS: PCP Emergency Medicine Emergency Medical Services; Visit Provider Internal Medicine Pulmonary Disease | DX: J43.2 Centrilobular emphysema (principal); Z87.891 Personal history of nicotine dependence; I25.10 Atherosclerotic heart disease of native coronary artery without angina pectoris; I50.9 Heart failure, unspecified; Z79.52 Long term (current) use of systemic steroids; Z86.718 Personal history of other venous thrombosis and embolism; Z86.711 Personal history of pulmonary embolism; Z79.01 Long term (current) use of anticoagulants | CPT/HCPCS: 99214 ==

== ENCOUNTER → 2022-12-03 09:41 | Outpatient (BNVA) | payer OTHER, SELFPAY | PROVIDERS: PCP Emergency Medicine Emergency Medical Services; Visit Provider Podiatrist Foot & Ankle Surgery | DX: I73.9 Peripheral vascular disease, unspecified (principal); L60.8 Other nail disorders; L60.3 Nail dystrophy; L60.2 Onychogryphosis | CPT/HCPCS: 11721 ==

== ENCOUNTER 2022-12-08 10:28 | Oncology outpatient (recurring) (ONCR) | payer OTHER, SELFPAY ==
[2022-12-08 10:33] VITALS: BP 151/86; PULSE 69; RESP 18; TEMP 35.9; O2SAT 92
[2022-12-08 10:55] LABS: Basophils % 0.3 %; Eosinophils # 0.1 10^3/uL (0.0-0.8); Eosinophils % 1.1 %; Hematocrit 34.9 % (42.0-52.0); Hemoglobin 10.7 g/dL (11.7-16.6); Lymphocytes # 0.5 10^3/uL (0.8-4.8); Lymphocytes % 5.5 %; Mean Corpuscular HGB Conc 30.7 g/dL (30.0-36.0); Mean Corpuscular Hemoglobin 28.3 pg (28.0-34.0); Mean Corpuscular Volume 92.3 fl (80-94); Mean Platelet Volume 9.7 fL (7.4-10.4); Monocytes # 0.4 10^3/uL (0.2-0.9); Monocytes % 3.8 %; Neutrophils # 8.38 10^3/uL (1.8-7.7); Neutrophils % 88.6 %; Nucleated Red Blood Cells % 0 %; Platelet Count 256 10^3/cmm (130-400); Red Blood Count 3.78 10^6/uL (4.1-5.3); Red Cell Distribution Width 16.5 % (12.1-15.1); White Blood Count 9.5 10^3/uL (4.0-10.0)
[2022-12-08 12:10] LABS: Alanine Aminotransferase 16 U/L (0-41); Albumin Level 3.9 g/dL (3.5-5.2); Alkaline Phosphatase 77 U/L (40-130); Aspartate Amino Transferase 16 U/L (0-40); Blood Urea Nitrogen 40 mg/dL (8-23); Calcium 9.5 mg/dL (8.5-10.5); Carbon Dioxide 26 mmol/L (22-29); Chloride 100 mmol/L (98-107); Globulin 2.9 g/dL (1.3-4.6); Glucose 112 mg/dL (65-115); Osmolality Calculated 299 mOsm/kg (285-295); Prostate Specific Antigen 0.368 ng/mL (0-4); Sodium 139 mmol/L (136-145); Testosterone Total 2.5 ng/dL (193-740); Total Bilirubin 0.6 mg/dL (0.15-1.2); Total Protein 6.8 g/dL (6.6-8.7)
[2022-12-08 12:13] LABS: Anion Gap 17.3 (5-19); Creatinine Clr Calc Pharmacy 44.4282; Potassium 4.3 mmol/L (3.5-5.1)
[2022-12-08] MEDS: denosumab 60 mg SDV SUBCUT (13:09)
[2022-12-08] MEDS: leuprolide 45 mg Kit IM (13:10)
== END 2022-12-08 23:59 | disposition home or self-care (01) ==
PROVIDERS: PCP Emergency Medicine Emergency Medical Services; Visit Provider Internal Medicine Medical Oncology
DX: C61 Malignant neoplasm of prostate (principal); C79.51 Secondary malignant neoplasm of bone; M48.55XA Collapsed vertebra, not elsewhere classified, thoracolumbar region, initial encounter for fracture; Z79.52 Long term (current) use of systemic steroids; Z79.818 Long term (current) use of other agents affecting estrogen receptors and estrogen levels; Z79.899 Other long term (current) drug therapy; Z87.891 Personal history of nicotine dependence; Z79.82 Long term (current) use of aspirin
CPT/HCPCS: 36415; 36591; 80053; 84153; 84403; 85025; 96372; 96402; 99214; J0897; J9217

== ENCOUNTER → 2023-02-02 13:23 | Outpatient (BNVA) | payer OTHER, SELFPAY | PROVIDERS: PCP Emergency Medicine Emergency Medical Services; Visit Provider Internal Medicine Cardiovascular Disease | DX: I11.0 Hypertensive heart disease with heart failure (principal); I50.20 Unspecified systolic (congestive) heart failure; I25.10 Atherosclerotic heart disease of native coronary artery without angina pectoris; E78.2 Mixed hyperlipidemia; I26.94 Multiple subsegmental thrombotic pulmonary emboli without acute cor pulmonale; I82.412 Acute embolism and thrombosis of left femoral vein; J43.2 Centrilobular emphysema; Z87.891 Personal history of nicotine dependence; Z79.01 Long term (current) use of anticoagulants | CPT/HCPCS: 99214 ==

== ENCOUNTER → 2023-02-23 09:02 | Outpatient (BNVA) | payer OTHER, SELFPAY | PROVIDERS: PCP Emergency Medicine Emergency Medical Services; Visit Provider Internal Medicine Pulmonary Disease | DX: J43.2 Centrilobular emphysema (principal); I82.412 Acute embolism and thrombosis of left femoral vein; I26.94 Multiple subsegmental thrombotic pulmonary emboli without acute cor pulmonale; I25.10 Atherosclerotic heart disease of native coronary artery without angina pectoris; Z87.891 Personal history of nicotine dependence; Z79.52 Long term (current) use of systemic steroids; Z79.01 Long term (current) use of anticoagulants; Z12.2 Encounter for screening for malignant neoplasm of respiratory organs | CPT/HCPCS: 99214 ==

== ENCOUNTER 2023-03-03 09:53 | Outpatient (CLI) | payer MEDICARE, OTHER, SELFPAY ==
--- NOTE | 2023-03-03 10:45 | CT_ITS ---
WS: [id number] LDCT LUNG CANCER SCREENING HISTORY: Cancer screen TECHNIQUE: Axial imaging performed from the apices to 1 cm below the costophrenic angles. Coronal and sagittal reformats are submitted with axial MIP series. All CT scans at [facility] use at least one of these dose optimization techniques: automated exposure control; mA and/or kV adjustment per patient size (includes targeted exams where dose is matched to clinical indication); or iterativ e reconstruction. DLP: 109.39 mGy.cm DIvol: Mean CTDIvol: 2.50 (mGy) COMPARISON: 06/21/2020 Diagnostic quality: Satisfactory Lungs: Moderate to severe centrilobular emphysema. Large bulla in the upper lung avilez. Subsolid 6 m m nodule in the posterior superior LEFT lower lobe. No endobronchial lesions. Heart: Normal size heart with no pericardial effusion.. Heavy calcification in the coronary arteries. Other findings: Mild atherosclerosis aorta. Mild gynecomastia. Fatty replacement of the pancreas. Pre viously described cyst within the liver are not well visualized on this unenhanced exam. Osteopenia. Multiple compression fractures including T6, T7, T12, L1 and L2. L2 compression fracture is new since 06/21/2020. IMPRESSION: CT/CT lung screening [id number] LUNG-RADS: 3S-Probably Benign with Significant Findings FOLLOW UP: 6 Month LDCT OTHER FINDINGS (S MODIFIER): Advanced coronary artery calcifications. Numerous osteoporotic compression fractures. L2 compression fracture is new since 021.
== END 2023-03-03 09:54 | disposition home or self-care (01) ==
PROVIDERS: PCP Emergency Medicine Emergency Medical Services; Visit Provider Internal Medicine Pulmonary Disease
DX: Z12.2 Encounter for screening for malignant neoplasm of respiratory organs (principal); Z87.891 Personal history of nicotine dependence
CPT/HCPCS: 71271

== ENCOUNTER 2023-03-10 12:49 | Oncology outpatient (recurring) (ONCR) | payer OTHER, SELFPAY ==
[2023-03-10 12:55] VITALS: BP 117/72; PULSE 86; RESP 22; TEMP 36.1; O2SAT 98
[2023-03-10 13:14] LABS: Basophils % 0.5 %; Eosinophils # 0.1 10^3/uL (0.0-0.8); Eosinophils % 1.7 %; Hematocrit 36.6 % (37-53); Lymphocytes # 0.6 10^3/uL (0.8-4.8); Lymphocytes % 7.6 %; Mean Corpuscular HGB Conc 29.8 g/dL (30-55); Mean Corpuscular Hemoglobin 27.7 pg (27-33); Mean Corpuscular Volume 93.1 fl (82-101); Monocytes # 0.6 10^3/uL (0.2-0.9); Monocytes % 6.9 %; Neutrophils # 6.96 10^3/uL (1.8-7.7); Neutrophils % 82.8 %; Nucleated Red Blood Cells % 0 %; Platelet Count 222 10^3/cmm (157-399); Red Blood Count 3.93 10^6/uL (3.85-5.65)
[2023-03-10 13:45] LABS: Alanine Aminotransferase 14 U/L (0-41); Alkaline Phosphatase 72 U/L (40-130); Anion Gap 15.2 (5-19); Aspartate Amino Transferase 13 U/L (0-40); Blood Urea Nitrogen 28 mg/dL (8-23); Calcium 9.4 mg/dL (8.5-10.5); Carbon Dioxide 26 mmol/L (22-29); Chloride 107 mmol/L (98-107); Globulin 2.9 g/dL (1.3-4.6); Glucose 115 mg/dL (65-115); Osmolality Calculated 302 mOsm/kg (285-295); Potassium 5.2 mmol/L (3.5-5.1); Prostate Specific Antigen 0.204 ng/mL (0-4); Sodium 143 mmol/L (136-145); Testosterone Total 2.5 ng/dL (193-740); Total Bilirubin 0.4 mg/dL (0.15-1.2); Total Protein 6.9 g/dL (6.6-8.7)
== END 2023-03-24 23:59 | disposition home or self-care (01) ==
PROVIDERS: PCP Emergency Medicine Emergency Medical Services; Visit Provider Internal Medicine Medical Oncology
DX: C61 Malignant neoplasm of prostate (principal)
CPT/HCPCS: 36415; 80053; 84153; 84403; 85025

== ENCOUNTER → 2023-06-03 09:18 | Outpatient (BNVA) | payer OTHER, SELFPAY | PROVIDERS: PCP Emergency Medicine Emergency Medical Services; Visit Provider Podiatrist Foot & Ankle Surgery | DX: I73.9 Peripheral vascular disease, unspecified (principal); L60.3 Nail dystrophy; L60.2 Onychogryphosis; M21.41 Flat foot [pes planus] (acquired), right foot; M21.42 Flat foot [pes planus] (acquired), left foot; M20.21 Hallux rigidus, right foot; M20.22 Hallux rigidus, left foot | CPT/HCPCS: 99213 ==

== ENCOUNTER 2023-06-22 08:40 | Oncology outpatient (recurring) (ONCR) | payer OTHER, SELFPAY ==
[2023-06-22 09:22] VITALS: BP 168/66; PULSE 66; RESP 22; TEMP 36.3; O2SAT 92
[2023-06-22 09:35] LABS: Basophils % 0.6 %; Eosinophils # 0.2 10^3/uL (0.0-0.8); Eosinophils % 3.2 %; Hematocrit 34.6 % (37-53); Lymphocytes # 0.8 10^3/uL (0.8-4.8); Lymphocytes % 11.7 %; Mean Corpuscular HGB Conc 30.3 g/dL (30-55); Mean Corpuscular Hemoglobin 28.2 pg (27-33); Mean Corpuscular Volume 92.8 fl (82-101); Mean Platelet Volume 10.2 fL (7.4-10.4); Monocytes # 0.5 10^3/uL (0.2-0.9); Monocytes % 7.8 %; Neutrophils # 5.24 10^3/uL (1.8-7.7); Nucleated Red Blood Cells % 0 %; Platelet Count 311 10^3/cmm (157-399); Red Blood Count 3.73 10^6/uL (3.85-5.65); Red Cell Distribution Width 17.1 % (12.1-15.1)
[2023-06-22 10:11] LABS: Alanine Aminotransferase 14 U/L (0-41); Alkaline Phosphatase 69 U/L (40-130); Anion Gap 17.6 (5-19); Aspartate Amino Transferase 15 U/L (0-40); Blood Urea Nitrogen 17 mg/dL (8-23); Calcium 9.6 mg/dL (8.5-10.5); Carbon Dioxide 25 mmol/L (22-29); Chloride 105 mmol/L (98-107); Globulin 3.1 g/dL (1.3-4.6); Glucose 102 mg/dL (65-115); Osmolality Calculated 298 mOsm/kg (285-295); Potassium 4.6 mmol/L (3.5-5.1); Prostate Specific Antigen 0.164 ng/mL (0-4); Sodium 143 mmol/L (136-145); Total Bilirubin 0.4 mg/dL (0.15-1.2); Total Protein 7.1 g/dL (6.6-8.7)
[2023-06-22 10:12] LABS: Testosterone Total < 2.5 ng/dL (193-740)
[2023-06-22] MEDS: denosumab 60 mg SDV SUBCUT (11:18)
[2023-06-22] MEDS: leuprolide 45 mg Kit IM (11:19)
== END 2023-06-22 23:59 | disposition home or self-care (01) ==
PROVIDERS: PCP Emergency Medicine Emergency Medical Services; Visit Provider Internal Medicine Medical Oncology
DX: C61 Malignant neoplasm of prostate (principal); Z79.899 Other long term (current) drug therapy
CPT/HCPCS: 36415; 80053; 84153; 84403; 85025; 96372; 96401; 99214; J0897; J9217

== ENCOUNTER 2023-07-25 13:09 | Emergency (ER) | payer OTHER, SELFPAY ==
[2023-07-25] VITALS (21 sets, daily range): BP systolic 63–176; BP diastolic 41–143; PULSE 47–133; RESP 0–21; O2SAT 92
[2023-07-25] MEDS: etomidate 2 mg/mL INJ SDV 10 mL 20 MG IVP (13:11)
[2023-07-25] MEDS: vecuronium 10 mg SDV IVP (13:11)
--- NOTE | 2023-07-25 13:26 | ECG_ITS ---
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 Measurements Intervals [place] Rate: 132 P: -86 DE: 140 QRS: 16 QRSD: 132 T: 13 QT: 382 QTc: 566 Interpretive Statements Sinus tachycardia INDETERMINATE AXIS RIGHT BUNDLE BRANCH BLOCK [120+ ms QRS DURATION, UPRIGHT V1, 40+ ms S IN I/aVL/V4/V5/V6] ANTEROSEPTAL MYOCARDIAL INFARCTION , OF INDETERMINATE AGE [40+ ms Q WAVE IN V1-V4] ST DEVIATION AND MODERATE T-WAVE ABNORMALITY, CONSIDER INFERIOR ISCHEMIA [-0.1+ mV T-WAVE IN II/aVF] Compared to ECG 06/26/2020 09:47:46 Indeterminate axis now present Right bundle-branch block now present Myocardial infarct finding still present Electronically Signed On 07-27-2023 9:32:15 LEAFLET OR NEWSPAPER DELIVERER by Jony Fung M.D. [id number]
[2023-07-25] MEDS: midazolam hcl 100 MG/100 ML BAG IV (13:30)
[2023-07-25] MEDS: fentaNYL 1,000 MCG/100 ML BAG 2.5 MCG IV (13:30)
[2023-07-25 13:32] LABS: ABG PCO2 52.9 mmHg (35-45); Alveolar-Arterial Oxygen Gradi 40.9 mmHg (5-10); Arterial Blood Gas Hematocrit 35.7 % (42-52); Base Excess ABG -8.8 mmol/L (-2.0-2.0); Blood Gas Allen Test Pos; Blood Gas Operator Identificat WALCI; Blood Gas Sample Site Radial, right; Blood Gas Sample Type Arterial; Blood Gas Tidal Volume 0.45; Carboxyhemoglobin 0.1 %THgb (0.4-20.1); HCO3 ABG 19.7 mmol/L (22-26); Ionized Calcium Level - ABG 1.2 mmol/L (1.1-1.4); Methemoglobin 0.5 % (0.4-1.5); Oxygen Device VENT; Oxygen Saturation ABG 98.6; PO2 FiO2 Ratio Arterial Blood 0; Potassium Level - ABG 2.9 mmol/L (3.5-5.0); Total Hemoglobin 11.7 g/dL (14-18)
[2023-07-25 13:33] LABS: ABG PH Result 7.18 (7.35-7.45)
[2023-07-25] MEDS: dilTIAZem 100 MG in sodium chloride 0.9% (add-van) 100 ML IV (13:46)
[2023-07-25] MEDS: norepinephrine 4 MG/250 ML BAG 30 MG IV (14:22)
[2023-07-25 14:28] LABS: Basophils # 0.1 10^3/uL (0.0-0.1); Basophils % 0.7 %; Eosinophils # 0.2 10^3/uL (0.0-0.8); Lymphocytes # 0.6 10^3/uL (0.8-4.8); Lymphocytes % 7.7 %; Mean Corpuscular HGB Conc 31.1 g/dL (30-55); Mean Corpuscular Hemoglobin 28.1 pg (27-33); Mean Corpuscular Volume 90.2 fl (82-101); Mean Platelet Volume 10.9 fL (7.4-10.4); Monocytes # 0.7 10^3/uL (0.2-0.9); Monocytes % 9.4 %; Neutrophils # 5.86 10^3/uL (1.8-7.7); Neutrophils % 79.5 %; Nucleated Red Blood Cells % 0.3 %; Platelet Count 97 10^3/cmm (157-399); Red Blood Count 3.88 10^6/uL (3.85-5.65); Red Cell Distribution Width 16.2 % (12.1-15.1); White Blood Count 7.37 10^3/uL (3.29-11.43)
[2023-07-25] MEDS: amiodarone 50 mg/mL SDV 3 mL 150 MG IVP (14:32)
--- NOTE | 2023-07-25 14:35 | PC.PHAR ---
PT UNABLE TO VERIFY MEDICATIONS DUE TO BEING INTUBATED-PTS VERIFIED SOME OF PTS MEDICATIONS THE OTHER MEDICATIONS ENTERED ARE FROM WHAT EXT MED HISTORY SHOWS AND WHAT WAS ON THE HOSPICE LIST-[facility]ED [facility] BUT NOT OPEN ON WEEKENDS -
--- NOTE | 2023-07-25 14:38 | XRR_ITS ---
PROCEDURE INFORMATION: Exam: XR Chest Exam date and time: 07/25/2023 2:20 PM Age: 77 years old Clinical indication: Other vascular access device placement or adjustment; Central line, non-tunnelled; Patient HX: Central line confirmation; Additional info: Central line placement TECHNIQUE: Imaging protocol: Radiologic exam of the chest. Views: 1 view. COMPARISON: CT lung screening [id number] 03/03/2023 10:24 AM FINDINGS: Right central line tip projects over the distal SVC/cavoatrial junction. XR/XR chest 1V portable [id number] IMPRESSION: As above.
[2023-07-25 14:44] LABS: Lactic Sepsis W/Reflex 1.6 mmol/L (0.5-2.2)
[2023-07-25 14:47] LABS: Troponin(5th) Baseline 100 ng/L (0-15)
[2023-07-25 14:57] LABS: Ammonia 42 umol/L (16-60)
[2023-07-25 15:02] LABS: ABG PCO2 48.7 mmHg (35-45); Alveolar-Arterial Oxygen Gradi 29.4 mmHg (5-10); Arterial Blood Gas Hematocrit 36.3 % (42-52); Base Excess ABG -8.9 mmol/L (-2.0-2.0); Blood Gas Allen Test Pos; Blood Gas Operator Identificat WALCI; Blood Gas Sample Site Radial, left; Blood Gas Sample Type Arterial; Blood Gas Tidal Volume 0.45; Carboxyhemoglobin 0.3 %THgb (0.4-20.1); HCO3 ABG 19.1 mmol/L (22-26); HGB O2 Sat 90.7 % (95-100); Ionized Calcium Level - ABG 1.2 mmol/L (1.1-1.4); Methemoglobin 1.1 % (0.4-1.5); Oxygen Device VENT; PO2 ABG 69.8 mmHg (80.0-100.0); PO2 FiO2 Ratio Arterial Blood 0; Total Hemoglobin 11.8 g/dL (14-18)
[2023-07-25 15:03] LABS: Add Urine Microscopic? YES; Bacteria Urine 2+ /hpf; Bilirubin Urine 2+ (Negative); Blood Urine Neg (Negative); Glucose Urine UA Norm (Normal); Ketones Urine 2+ (Negative); Leukocyte Esterase Urine Trace (Negative); Nitrate Urine Negative (Negative); Protein Urine 1+ (Negative); Urine Appearance Cloudy (CLEAR); Urine Color Dark Yellow (Yellow); Urobilinogen Urine 8 mg/dL (Negative); WBC Urine 0-4 /hpf (0-5); pH Urine 5 (5-7)
[2023-07-25 15:04] LABS: Add Urine Culture? No; Amorphous Sediment Urine 1+ /hpf; Mucus Urine 2+ /hpf
[2023-07-25 15:08] LABS: Alanine Aminotransferase 25 U/L (0-41); Albumin Level 3.3 g/dL (3.5-5.2); Alkaline Phosphatase 68 U/L (40-130); Anion Gap 20.4 (5-19); Aspartate Amino Transferase 41 U/L (0-40); Blood Urea Nitrogen 11 mg/dL (8-23); Calcium 8.1 mg/dL (8.5-10.5); Carbon Dioxide 20 mmol/L (22-29); Chloride 103 mmol/L (98-107); Globulin 2.4 g/dL (1.3-4.6); Glucose 119 mg/dL (65-115); Lipase 6 U/L (13-60); Magnesium 1.7 mg/dL (1.7-2.3); NT Pro B Type Natriuretic Pept 1288 pg/mL (0-450); Osmolality Calculated 291 mOsm/kg (285-295); Potassium 3.4 mmol/L (3.5-5.1); Sodium 140 mmol/L (136-145); Total Bilirubin 1.1 mg/dL (0.15-1.2); Total Protein 5.7 g/dL (6.6-8.7)
[2023-07-25 15:11] LABS: Influenza A by IFA negative (Negative); Influenza B by IFA negative (Negative)
--- NOTE | 2023-07-25 15:20 | PC.NURSE ---
PER VERBAL ORDERS FROM DR. GUILLEN, SHANNEN BARR STOPPED.
[2023-07-25] MEDS: ipratropium-albuterol 3 mL Neb INHALATION (15:25)
[2023-07-25 15:26] LABS: Acetaminophen < 5.0 ug/mL (10-30); Salicylate < 0.3 mg/dL (3-10)
[2023-07-25 15:27] LABS: Creatine Phosphokinase 851 U/L (39-308)
--- NOTE | 2023-07-25 15:34 | ECG_ITS ---
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 Measurements Intervals [place] Rate: 100 P: 52 MT: 149 QRS: -38 QRSD: 105 T: 85 QT: 363 QTc: 469 Interpretive Statements SINUS TACHYCARDIA LEFT AXIS DEVIATION [QRS AXIS < -30] LOW QRS VOLTAGE IN PRECORDIAL LEADS [QRS DEFLECTION < 1.0 mV IN CHEST LEADS] INCOMPLETE RIGHT BUNDLE BRANCH BLOCK [90+ ms QRS DURATION, TERMINAL R IN V1/V2, 40+ ms S IN I/aVL/V4/V5/V6] POSSIBLE ANTERIOR MYOCARDIAL INFARCTION , PROBABLY OLD [30 ms Q WAVE IN V3/V4, OR R < 0.2 mV IN V4] Compared to ECG 07/25/2023 13:18:51 Left-axis deviation now present Low QRS voltage now present Right bundle-branch block no longer present T-wave abnormality no longer present Possible ischemia no longer present Myocardial infarct finding still present Electronically Signed On 07-27-2023 9:31:17 ENVIRONMENTAL EMERGENCIES PLANNER by Jony uFng M.D. [id number]
[2023-07-25] MEDS: vasopressin 40 UNIT/100 ML PREMIX IV (15:40)
--- NOTE | 2023-07-25 15:43 | PC.NURSE ---
PER VERBAL ORDERS FROM DR GUILLEN, ALL DRIPS AND MEDICATIONS STOPPED PER FAMILY WISHES.
[2023-07-25] MEDS: fentaNYL 50 mcg/mL INJ 2mL IVP (15:58)
--- NOTE | 2023-07-25 16:10 | P.HP_ITS ---
Providers/Chief Complaint 2 Primary Care Provider: Lukas Campbell DO Chief Complaint: RESP DISTRESS History of Present Illness Mulugeta Murillo is a 77 year old male with a past medical history of obesity, hypertension, hyperlipidemia, former smoker, history of vaping, history of severe COPD on chronic prednisone, CHF, history of pulmonary embolism, history of prostate cancer metastatic to bone, history of drug-eluting stent to left main, LAD, circumflex, triple-vessel disease, history of DVT, who was on hospice who presents to [facility] in acute hypoxic respiratory failure. According to patient's , patient was on hospice, but due to worsening respiratory failure and shortness of breath, she called EMS and revoked his hospice, patient arrived to [facility] was intubated to 2 acute hypoxic respiratory failure, intubated, placed on sedation, he is on multiple pressors due to septic shock, severe respiratory failure COPD, CHF, NSTEMI, multiorgan failure, severe acidemia, rhabdomyolysis. Despite being on multiple pressors and remains in septic shock, severe respiratory failure, on examination, patient's blood pressure 60s over 40s, on 16 of Levophed placed on vasopressin, is on 1 of fentanyl, 1 of Versed, he is mottled up to the level of the abdomen abdomen is distended, no guarding, no rebound, rigidity, diffuse wheezing and crackles in all lung avilez, he does not withdraw from pain, does have a minimal pupillary reflex, no corneal reflex, ER provider had a detailed discussion with patient's about goals of care initially patient's wanted everything to be done, however after further discussion, patient's changed her decision and wanted patient to be made comfortable to terminally extubated, DNR/DNI. When he came in also he had A-fib with RVR requiring Cardizem,. Patient has not received antibiotics but given septic shock, spoke to ER staff upon starting broad-spectrum antibiotic therapy however patient's has elected to proceed with comfort care and terminal extubation. I had a detailed discussion with patient's about this, given his severe end-stage COPD, his severe septic shock severe respiratory failure, multiorgan failure, we discussed the risks and benefits of continuing medical intervention, versus comfort care and easing his pain easing his suffering, as he was on hospice I think that comfort care has a lot of humanity in it, and it is in line with patient's wishes. She tells me that she just wants her to be comfortable for us to ease his pain and ease his suffering and not allow him to be comfortable, she wants us to stop all medical interventions currently extubate stop all pressors allow him to pass away comfortably with dignity. I also discussed continuing medical interventions, giving him time, continue pressors, intubation, medications to help with sedation, antibiotics. But given his end-stage COPD, his severe CAD, he has a significant risk of morbidity and mortality, but I presented all options. After extensive discussion, shared decision making, all questions answered, patient's wants to proceed with comfort care for us to terminally extubate him to ease his pain easing suffering allow her to pass away comfortably. Review of Systems 2 General: Reports: ROS unobtainable due to endotracheal tube and ROS unobtainable due to mental status Medications/Allergies Home Medications Medication Instructions Recorded Confirmed Last Taken Type montelukast 10 mg tablet 10 mg PO . DIRECTED 06/28/19 07/25/23 10/23/20 20:00 History abiraterone 250 mg tablet 1,000 mg PO DAILY 07/13/19 07/25/23 10/23/20 08:00 History calcium carbonate 600 mg calcium 600 mg PO DAILY 10/24/20 07/25/23 10/23/20 08:00 History (1,500 mg) tablet (Calcium) apixaban 5 mg tablet (Eliquis) 2.5 mg PO BID 02/11/21 07/25/23 Unknown History aspirin 81 mg tablet,delayed 81 mg PO DAILY #30 tabs 05/13/21 07/25/23 Unknown Rx release (Adult Aspirin Regimen) isosorbide mononitrate 60 mg 60 mg PO DAILY #90 tabs 05/13/21 07/25/23 Unknown Rx tablet,extended release 24 hr pantoprazole 40 mg tablet,delayed 40 mg PO QAM 11/27/21 07/25/23 Unknown History release leuprolide (3 month) 22.5 mg (3 See Rx Instructions SUBCUT .COMPLEX 02/24/22 07/25/23 Unknown History month) subcutaneous syringe ([facility] [place]) budesonide 0.5 mg/2 mL suspension 0.5 mg (2 mL) inhalation BID #60 mL 04/15/22 07/25/23 Unknown Rx for nebulization (Pulmicort) formoterol fumarate 20 mcg/2 mL 2 ml inhalation BID #120 mL 04/15/22 07/25/23 Unknown Rx solution for nebulization (Perforomist) revefenacin 175 mcg/3 mL solution 175 mcg (3 mL) inhalation DAILY 04/15/22 07/25/23 Unknown Rx for nebulization (Yupelri) #90 mL potassium chloride 20 mEq 20 meq PO DAILY #30 tabs 05/27/22 07/25/23 Unknown Rx tablet,extended release Custom [employer] shoes with 3 #1 ea 06/03/23 07/25/23 Unknown Rx inserts albuterol sulfate 0.63 mg/3 mL 0.63 mg inhalation BEDTIME 07/25/23 07/25/23 Unknown History solution for nebulization albuterol sulfate 90 mcg/actuation 2 puff inhalation QID 07/25/23 07/25/23 Unknown History aerosol inhaler atorvastatin 80 mg tablet (Lipitor) 80 mg PO DAILY 07/25/23 07/25/23 Unknown History atropine 1 % eye drops See Rx Instructions .Route .COMPLEX 07/25/23 07/25/23 Unknown History budesonide-formoterol HFA 160 1 puff inhalation BID 07/25/23 07/25/23 Unknown History mcg-4.5 mcg/actuation aerosol inhaler cholecalciferol (vitamin D3) 25 25 mcg PO DAILY 07/25/23 07/25/23 Unknown History mcg (1,000 unit) tablet (Vitamin D3) fentanyl 75 mcg/hr transdermal See Rx Instructions .Route .COMPLEX 07/25/23 07/25/23 07/24/23 History patch furosemide 40 mg tablet 40 mg PO DAILY PRN Edema 07/25/23 07/25/23 Unknown History lorazepam 2 mg/mL oral concentrate See Rx Instructions .Route .COMPLEX 07/25/23 07/25/23 Unknown History (Lorazepam Intensol) magnesium oxide 400 mg PO DAILY 07/25/23 07/25/23 Unknown History metoprolol tartrate 50 mg tablet 50 mg PO BID 07/25/23 07/25/23 Unknown History morphine concentrate 100 mg/5 mL See Rx Instructions .Route .COMPLEX 07/25/23 07/25/23 Unknown History (20 mg/mL) oral solution naproxen 500 mg tablet 500 mg PO BID PRN Pain 07/25/23 07/25/23 Unknown History prednisone 5 mg tablet 5 mg PO BID 07/25/23 07/25/23 Unknown History scopolamine base 1 mg over 3 days See Rx Instructions .Route .COMPLEX 07/25/23 07/25/23 Unknown History transdermal patch vitamin B complex-folic acid 0.4 1 tab PO DAILY 07/25/23 07/25/23 Unknown History mg tablet Allergies Allergy/AdvReac Type Severity Reaction Status Date / Time Pnbbtbi-BEB-OcG Reductase AdvReac Unknown back pain Verified 06/22/23 10:18 Inhibitor [Urmdnmw-Onx-Lxq Reductase Inhibitor] PFSH Acute 2 PFSH: Medical History (Updated 07/25/23 @ 16:24 by Conner Lowery MD) NSTEMI (non-ST elevated myocardial infarction) (05/2020) CHF (congestive heart failure), NYHA class III Vertebral compression fracture Prostate cancer metastatic to bone History of pulmonary embolism (05/2020) Left lower extremity deep vein thrombosis and pulmonary embolism Triple vessel coronary artery disease Hiatal hernia Anemia COPD (chronic obstructive pulmonary disease) Hypertension Hyperlipemia Surgical History S/P insertion of IVC (inferior vena caval) filter (06/28/20) Removed on 10/24/2020 History of coronary artery stent placement (06/29/20) H/O esophagogastroduodenoscopy 07/14/2019: Hiatal hernia and duodenal polyps History of colonoscopy (~2008) 07/14/2019: Normal Family History Father Congestive heart failure (CHF) Other No pertinent family history Denies family history of Diabetes Stroke Social History Smoking and tobacco/nicotine status: former use of tobacco/nicotine (smoked x 50 years) Quit status (tobacco/nicotine): has quit using Year quit tobacco: cig 2010, vaping 2020 Former quit date comment: [id number] Second hand smoke exposure: No Alcohol intake: never Substance/Drug Use: never Lives independently: Yes Household members: spouse Housing: House Marital status: service: Yes branch: [employer] Current occupational status: employed 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 Pets and animals: Yes Do you think of yourself as: Straight/Heterosexual Current gender identity: Male Kami/Protestant: Yazidism Vitals/I&O/Wt Last Vital Signs Pulse 102 H 07/25/23 15:25 Resp 16 07/25/23 15:21 BP 69/49 07/25/23 15:00 Pulse Ox 92 07/25/23 15:19 O2 Del Method Mechanical Ventilation 07/25/23 15:19 FiO2 50 07/25/23 15:21 07/25/23 07/25/23 07/25/23 06:59 14:59 22:59 Intake Total 25.766 / 25.766 92.344 / 118.110 Balance 25.766 / 25.766 92.344 / 118.110 Physical Exam 2 Const: COMMON NORMALS: no acute distress EXAM LIMITATIONS: altered mental status OTHER: Intubated, minimal sedation, minimal pupillary reflex, no corneal reflex, Neck/C-Spine: COMMON NORMALS: no lymphadenopathy Chest: COMMONS NORMALS: normal inspection of the chest Resp: EFFORT & INSPECTION: Yes tachypneic AUSCULTATION: rhonchi and wheezes Cardio: COMMON NORMALS: no JVD, regular rate, regular rhythm, S1 normal heart sound present and S2 normal heart sound present RATE: tachycardic RHYTHM: abnormal rhythm HEART SOUNDS: S1 normal heart sound present and S2 normal heart sound present GI: INSPECTION: Yes abdominal distension AUSCULTATION: Yes Hypoactive bowel sounds present PALPATION: Yes Soft to palpation, No Tenderness to palpation present (GI), No Guarding due to palpation present (GI) and No Rigid due to palpation Neuro: COMMON NORMALS: negative for patient oriented x3 and negative for CN's II-XII intact bilaterally Psych: COMMON NORMALS: mental status grossly normal Urinary Catheter Management: [place]: Cath Placed During This Visit: yes Urinary Catheter Date of Insertion: 07/25/23 Sepsis: Is patient septic: Yes Focused sepsis exam performed: Yes F ocused sepsis exam: DP PT pulses nonpalpable, has significant mottling bilateral extremity at the level of the abdomen, cap refill greater than 3 seconds Date exam was performed: 07/25/23 Time exam was performed: 16:21 Data 07/25/23 14:23 07/25/23 14:23 Micro: Microbiology 07/25/23 14:23 Blood Culture - Preliminary Blood SPECIMEN COLLECTED 07/25/23 14:23 Blood Culture - Preliminary Blood SPECIMEN COLLECTED A&P Assessment and plan (1) Septic shock: (2) CHF (congestive heart failure), NYHA class III: (3) Left main coronary artery disease: (4) Dvt femoral (deep venous thrombosis): Qualifiers: Chronicity: acute Laterality: left Qualified Code(s): I82.412 - Acute embolism and thrombosis of left femoral vein (5) Pulmonary emboli: Qualifiers: Pulmonary embolism type: multiple subsegmental (without acute cor pulmonale) Qualified Code(s): I26.94 - Multiple subsegmental pulmonary emboli without acute cor pulmonale (6) Prostate cancer: (7) Secondary malignant neoplasm of bone: (8) Acute hypoxic respiratory failure: (9) COPD (chronic obstructive pulmonary disease): Qualifiers: COPD type: emphysema Emphysema type: centrilobular Qualified Code(s): J43.2 - Centrilobular emphysema (10) NSTEMI (non-ST elevated myocardial infarction): (11) Pneumonia: (12) Fluid overload: (13) Pulmonary edema: (14) Goals of care, counseling/discussion: Plan 77-year-old male with a past medical history of severe COPD, CAD, CHF, hyperlipidemia hypertension obesity who presents [facility] for acute hypoxic respiratory failure secondary to COPD, CHF, possible pneumonia, with multiorgan failure, septic shock, on multiple pressors, intubated, sedated on mechanical ventilation Goals of care discussion, extensive with patients , ER provider ER nursing staff, patient's nurses, patient's wants to proceed with comfort care, DNR/DNI, patient will be terminally extubated in the emergency room, all interventions will be stopped, eases pain easing suffering, allow him to pass with comfortably, admitted for comfort care Attestations 2 Medical Necessity Statement*: Patient requires hospitalization for comfort care, for acute respiratory failure septic shock, pneumonia, fluid overload pulmonary edema, NSTEMI, respiratory failure Coding Level of Care Code Critical Care >/= 30 minutes Critical care time (in minutes): 35 The high probability of a clinically significant, sudden or life threatening deterioration, as referenced in this documentation, required my full and direct attention, intervention and personal management. The critical care time shown is in addition to time spent performing any reported separately billable procedures and includes the following: [x] Data and vital sign review and interpretation [x ] Patient assessment, examination and intervention [x] Medication orders and management [x] Patient/Family updates as able [x] Care Coordination and Documentation. Diagnoses Septic shock A41.9; R65.21 CHF (congestive heart failure), NYHA class III I50.9 Left main coronary artery disease I25.10 Acute deep vein thrombosis (DVT) of femoral vein of left lower extremity I82.412 Chronicity: acute Laterality: left Multiple subsegmental pulmonary emboli without acute cor pulmonale I26.94 Pulmonary embolism type: multiple subsegmental (without acute cor pulmonale) Prostate cancer C61 Secondary malignant neoplasm of bone C79.51 Acute hypoxic respiratory failure J96.01 Centrilobular emphysema J43.2 COPD type: emphysema Emphysema type: centrilobular NSTEMI (non-ST elevated myocardial infarction) I21.4 Pneumonia J18.9 Fluid overload E87.70 Pulmonary edema J81.1 Goals of care, counseling/discussion Z71.89
--- NOTE | 2023-07-25 16:13 | W.ED.SOB ---
HPI - SOB/Dyspnea General: Chief Complaint: Shortness of Breath/Dyspnea Stated Complaint: RESP DISTRESS Time Seen by Provider: 07/25/23 13:28 Source: EMS Mode of arrival: EMS History of Present Illness: HPI Narrative: 77-year-old male presents to the emergency room with acute respiratory distress he is being bagged at the time he arrives. He was on hospice for end-stage COPD has been sick for the last several days his was concerned that he was suffering and revoked the hospice called EMS and states now she wants everything done. Patient is completely nonresponsive was intubated immediately after arrival. EMS reported giving Narcan in the field with no response. MD elicited complaint: shortness of breath and cough Pertinent past history: COPD and congestive heart failure Known history of: COPD and congestive heart failure Review of Systems General: Reports: ROS unobtainable due to endotracheal tube [facility] PFSH: Medical History NSTEMI (non-ST elevated myocardial infarction) (05/2020) CHF (congestive heart failure), NYHA class III Vertebral compression fracture Prostate cancer metastatic to bone History of pulmonary embolism (05/2020) Left lower extremity deep vein thrombosis and pulmonary embolism Triple vessel coronary artery disease Hiatal hernia Anemia COPD (chronic obstructive pulmonary disease) Hypertension Hyperlipemia Surgical History S/P insertion of IVC (inferior vena caval) filter (06/28/20) Removed on 10/24/2020 History of coronary artery stent placement (06/29/20) H/O esophagogastroduodenoscopy 07/14/2019: Hiatal hernia and duodenal polyps History of colonoscopy (~2008) 07/14/2019: Normal Family History Father Congestive heart failure (CHF) Other No pertinent family history Denies family history of Diabetes Stroke Social History Smoking and tobacco/nicotine status: former use of tobacco/nicotine (smoked x 50 years) Quit status (tobacco/nicotine): has quit using Year quit tobacco: cig 2010, vaping 2020 Former quit date comment: [id number] Second hand smoke exposure: No Alcohol intake: never Substance/Drug Use: never Lives independently: Yes Household members: spouse Housing: House Marital status: service: Yes branch: [employer] Current occupational status: employed 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 Pets and animals: Yes Do you think of yourself as: Straight/Heterosexual Current gender identity: Male Kami/[employer]ist: [employer] Physical Exam HENMT: COMMON NORMALS: normocephalic, atraumatic and hearing grossly normal bilaterally HEAD & SCALP: normocephalic and atraumatic Resp: EFFORT & INSPECTION: Yes respiratory distress and Yes decreased respiratory effort Cardio: RATE: bradycardic HEART SOUNDS: Murmur heart sound present GI: COMMON NORMALS: Soft to palpation and No hepatosplenomegaly present AUSCULTATION: Yes normoactive bowel sounds PALPATION: Yes Soft to palpation, No Tenderness to palpation present (GI), No Guarding due to palpation present (GI) and Yes No hepatosplenomegaly present Extremity: COMMON NORMALS: normal to inspection, capillary refill normal, no clubbing, cyanosis or edema, no calf tenderness and no pedal edema Skin: COMMON NORMALS: no rashes or lesions noted GENERAL SKIN EXAM: no rashes or lesions noted Procedures Central Line Placement Right IJ: Time Out Performed: Yes Patient Placed on Monitor/Pulse Ox: Yes MD Prep: mask Central Line Prep: Chlorhexidine scrub Ultrasound Used for Placement: Yes Central Line Lumen Inserted: triple Post Procedure: sutured in place, good blood return and all ports aspirated, flushed, capped Post Procedure X-Ray: tip of catheter in good position and no pneumothorax seen Patient Tolerated Procedure: well Complications: none Intubation sedative: Etomidate paralytic: Succinylcholine Laryngoscope: fiber optic video scope ET Tube Size: 8 ET Tube Uncuffed: No Tube Secured Depth (cm): 22 Tube Secured Location: teeth Tube Placement Confirmation: visualized tube passing through cords, equal breath sounds bilaterally and confirmation by capnometry Patient Tolerated Procedure: well Intubation Complications: none Course Vital Signs: Vital signs: Vital Signs Pulse Rate 47 L 07/25/23 16:10 Respiratory Rate 0 L 07/25/23 16:10 Blood Pressure 176/143 07/25/23 16:00 Pulse Oximetry 92 07/25/23 15:19 Oxygen Delivery Me thod Mechanical Ventil ation 07/25/23 15:19 Fraction of Inspir ed Oxygen 50 07/25/23 15:21 MDM - SOB/Dyspnea Medical Decision Making Patient was given morphine just prior to her EMS call. EMS reportedly gave Narcan without response. On arrival here there by the patient he was immediately intubated. EMS reports that patient had been on hospice with family now wish to full resuscitative measures. Patient was intubated and a central line placed due to difficulty with IV access. CPK was 851 ammonia level was normal creatinine 1.1 INR normal. Patient had A-fib with RVR was initially given Cardizem which she did not respond to later changed to amiodarone pressures were low and he required Levophed for support. He was given IV fentanyl and Versed which was titrated up to maintain sedation. After intubation patient was exhibiting signs of irritation from the ET tube. Several hours were spent manage the patient evaluating him and resuscitating. He was cultured and started on IV antibiotics. Ultimately family decided to terminally extubate. Initially his medications Levophed and amiodarone were stopped. Subsequently we stopped the fentanyl drip. And then ultimately gave him a small dose of Versed for comfort and then terminally extubated. Within a few minutes patient . Family was present but elected not to be at the bedside at the time of extubation. There was notation of a morphine dose being given prior to the EMS being called. Report was that the given Narcan he had no response during time he was here adequate time had passed and he was actually showing signs of being irritated by the ET tube so no further Narcan was given and he was given fentanyl for sedation along with Versed. This was managing relatively well though at times he still showed signs of being irritated by the ET tube and it was titrated appropriately. Ultimately family decided to withdraw to comfort cares only. The time that decision was made we did advise them that it would likely he would pass away very quickly once life support was withdrawn they expressed understanding of this and asked for us to proceed. Chest x-ray read in the report comments on placement of the central line. No comment about lung avilez. Do feel based on his clinical exam the findings chest x-ray there is evidence of his fluid overload as well as pneumonia in the left lower lobe Differential Diagnosis Likely acute exacerbation of chronic obstructive airways disease and congestive heart failure Medical Records I reviewed the patient's medical records. Lab Data I reviewed the patient's lab results. 07/25/23 14:23 07/25/23 14:23 Labs/Radiology: Radiology Impressions Chest X-Ray 07/25/23 14:38 IMPRESSION: As above. Laboratory Results WBC 7.37 10^3/uL (3.29-11.43) 07/25/23 14:23 RBC 3.88 10^6/uL (3.85-5.65) 07/25/23 14:23 Hgb 10.90 g/dL (11.27-16.99) L 07/25/23 14:23 Hct 35.0 % (37-53) L 07/25/23 14:23 MCV 90.2 fl (82-101) 07/25/23 14:23 MCH 28.1 pg (27-33) 07/25/23 14:23 MCHC 31.1 g/dL (30-55) 07/25/23 14:23 RDW 16.2 % (12.1-15.1) H 07/25/23 14:23 Plt Count 97 10^3/cmm (157-399) L 07/25/23 14:23 MPV 10.9 fL (7.4-10.4) H 07/25/23 14:23 Neut % (Auto) 79.5 % 07/25/23 14:23 Lymph % (Auto) 7.7 % 07/25/23 14:23 [place] % (Auto) 9.4 % 07/25/23 14:23 Eos % (Auto) 2.0 % 07/25/23 14:23 Baso % (Auto) 0.7 % 07/25/23 14:23 Neut # (Auto) 5.86 10^3/uL (1.8-7.7) 07/25/23 14:23 Lymph # (Auto) 0.6 10^3/uL (0.8-4.8) L 07/25/23 14:23 [place] # (Auto) 0.7 10^3/uL (0.2-0.9) 07/25/23 14:23 Eos # (Auto) 0.2 10^3/uL (0.0-0.8) 07/25/23 14:23 Baso # (Auto) 0.1 10^3/uL (0.0-0.1) 07/25/23 14:23 Nucleated RBC % (auto) 0.3 % 07/25/23 14: Nucleated RBCs # 0.0 /100WBC 07/25/23 14:23 Specimen Type Arterial 07/25/23 14:50 Sample Site Radial, left 07/25/23 14:50 ABG pH 7.20 (7.35-7.45) L 07/25/23 14:50 ABG pCO2 48.7 mmHg (35-45) H 07/25/23 14:50 ABG pO2 69.8 mmHg (80.0-100.0) L 07/25/23 14:50 ABG PO2/FiO2 Ratio 0 07/25/23 14:50 ABG HCO3 19.1 mmol/L (22-26) L 07/25/23 14:50 ABG O2 Saturation 92.0 07/25/23 14:50 ABG Base Excess -8.9 mmol/L (-2.0-2.0) L 07/25/23 14:50 Cameron Test Pos 07/25/23 14:50 A-a O2 Gradient 29.4 mmHg (5-10) H 07/25/23 14:50 Hematocrit 36.3 % (42-52) L 07/25/23 14:50 Hgb O2 Saturation 90.7 % (95-100) L 07/25/23 14:50 Carboxyhemoglobin 0.3 %THgb (0.4-20.1) L 07/25/23 14:50 Methemoglobin 1.1 % (0.4-1.5) 07/25/23 14:50 Total Hemoglobin 11.8 g/dL (14-18) L 07/25/23 14:50 Sodium 139.0 mmol/L (131-143) 07/25/23 14:50 Potassium 3.0 mmol/L (3.5-5.0) L 07/25/23 14:50 Glucose 164.0 mg/dL (70-115) H 07/25/23 14:50 Ionized Calcium 1.2 mmol/L (1.1-1.4) 07/25/23 14:50 O2 Delivery Device Vent 07/25/23 14:50 FiO2 50.0 % 07/25/23 14:50 Tidal Volume 0.45 07/25/23 14:50 PEEP 6.0 cmH20 07/25/23 14:50 Food Safety Director ID [place] 07/25/23 14:50 Sodium 140 mmol/L (136-145) 07/25/23 14:23 Potassium 3.4 mmol/L (3.5-5.1) L 07/25/23 14:23 Chloride 103 mmol/L (98-107) 07/25/23 14:23 Carbon Dioxide 20 mmol/L (22-29) L 07/25/23 14:23 Anion Gap 20.4 (5-19) H 07/25/23 14:23 BUN 11 mg/dL (8-23) 07/25/23 14:23 Creatinine 1.9 mg/dL (0.7-1.2) H 07/25/23 14:23 GFR Calculation Not Reportable 07/25/23 14:23 Glucose 119 mg/dL (65-115) H 07/25/23 14:23 Calculated Osmolality 291 mOsm/kg (285-295) 07/25/23 14:23 Lactic Acid 1.6 mmol/L (0.5-2.2) 07/25/23 14:23 Calcium 8.1 mg/dL (8.5-10.5) L 07/25/23 14:23 Magnesium 1.7 mg/dL (1.7-2.3) 07/25/23 14:23 Total Bilirubin 1.1 mg/dL (0.15-1.2) 07/25/23 14:23 AST 41 U/L (0-40) H 07/25/23 14:23 ALT 25 U/L (0-41) 07/25/23 14:23 Alkaline Phosphatase 68 U/L (40-130) 07/25/23 14:23 Ammonia 42 umol/L (16-60) 07/25/23 14:55 Creatine Kinase 851 U/L (39-308) H* 07/25/23 14:23 Troponin T Baseline 100 ng/L (0-15) H 07/25/23 14:23 NT-Pro-B Natriuret Pep 1288 pg/mL (0-450) H 07/25/23 14:23 Total Protein 5.7 g/dL (6.6-8.7) L 07/25/23 14:23 Albumin 3.3 g/dL (3.5-5.2) L 07/25/23 14:23 Globulin 2.4 g/dL (1.3-4.6) 07/25/23 14:23 Lipase 6 U/L (13-60) L 07/25/23 14:23 Urine Color Dark yellow (Yellow) 07/25/23 14:41 Urine Appearance Cloudy (CLEAR) A 07/25/23 14:41 Urine pH 5 (5-7) 07/25/23 14:41 Ur Specific [employer] 1.020 (1.005-1.030) 07/25/23 14:41 Urine Protein 1+ (Negative) H 07/25/23 14:41 Urine Glucose (UA) Norm (Normal) 07/25/23 14:41 Urine Ketones 2+ (Negative) H 07/25/23 14:41 Urine Blood Neg (Negative) 07/25/23 14:41 Urine Nitrate Negative (Negative) 07/25/23 14:41 Urine Bilirubin 2+ (Negative) H 07/25/23 14:41 Urine Urobilinogen 8 mg/dL (Negative) H 07/25/23 14:41 Ur Leukocyte Esterase Trace (Negative) H 07/25/23 14:41 Urine RBC None /hpf (0-2) 07/25/23 14:41 Urine WBC 0-4 /hpf (0-5) H 07/25/23 14:41 Ur Squamous Epith Cells None /hpf (0-5) 07/25/23 14:41 Amorphous Sediment 1+ /hpf 07/25/23 14:41 Urine Bacteria 2+ /hpf (NONE) H 07/25/23 14:41 Urine Mucus 2+ /hpf 07/25/23 14:41 Salicylates < 0.3 mg/dL (3-10) L 07/25/23 14:23 Acetaminophen < 5.0 ug/mL (10-30) L 07/25/23 14:23 Coronavirus 229E (PCR) Not detected (NOT DETECT) 07/25/23 15:26 Influenza Type A Ag negative (Negative) 07/25/23 14:45 Influenza Type B Ag negative (Negative) 07/25/23 14:45 SARS-CoV-2 (PCR) Not detected (NOT DETECT) 07/25/23 15:26 All radiology interpretation(s) finalized by discharge Critical Care Time Critical Care Time: Critical Care Time: Yes Total Critical Care Time: 60 Attestation: The high probability of a clinically significant, sudden or life threatening deterioration of the patient's cardiovascular respiratory system(s) required my full and direct attention, intervention and personal management. The critical care time is as shown. This time is in addition to time spent performing any reported procedures but includes the following: [x] Data and vital sign review and interpretation [x] Patient assessment, examination and intervention [x] Documentation [x] Medication orders and management Discharge Plan Discharge Patient Disposition: Clinical Impression: CHF (congestive heart failure), NYHA class III, Prostate cancer, Anemia, Acute exacerbation of chronic obstructive airways disease, Left lower lobe pneumonia Condition: Stable Prescriptions: No Action Eliquis 5 mg tablet 2.5 mg PO BID Eligard (3 month) 22.5 mg syringe See Rx Instructions SUBCUT .COMPLEX Rx Instructions: subcutaneously every 6 months; pantoprazole 40 mg tablet,delayed release (DR/EC) 40 mg PO QAM montelukast 10 mg tablet 10 mg PO . DIRECTED isosorbide mononitrate 60 mg tablet extended release 24 hr 60 mg PO DAILY Qty: 90 1RF aspirin [Adult Aspirin Regimen] 81 mg tablet,delayed release (DR/EC) 81 mg PO DAILY Qty: 30 6RF potassium chloride 20 mEq tablet extended release 20 meq PO DAILY Qty: 30 6RF Hold Instructions: hyperkalemia (DME) Custom Orthotic shoes with 3 inserts See Rx Instructions .Route .MEDSUPPLY Qty: 1 0RF Rx Instructions: As directed to the shoe angelito Cedeño 175 mcg/3 mL solution for nebulization 175 mcg inhalation DAILY Qty: 90 11RF budesonide [Pulmicort] 0.5 mg/2 mL suspension for nebulization 0.5 mg inhalation BID Qty: 60 11RF formoterol fumarate [Perforomist] 20 mcg/2 mL solution for nebulization 2 ml inhalation BID Qty: 120 11RF abiraterone 250 mg Tablet 1,000 mg PO DAILY calcium carbonate [Calcium 600] 600 mg calcium (1,500 mg) Tablet 600 mg PO DAILY albuterol sulfate 0.63 mg/3 mL solution for nebulization 0.63 mg inhalation BEDTIME Lipitor 80 mg Tablet 80 mg PO DAILY morphine concentrate 100 mg/5 mL (20 mg/mL) solution See Rx Instructions .ROUTE .COMPLEX Rx Instructions: TAKE 0.5ML (10MG) BY MOUTH EVERY 2 HOURS NEEDED FOR PAIN NO MORE THAN 120MG DIRECTED BY DOCTOR metoprolol tartrate 50 mg tablet 50 mg PO BID scopolamine base 1 mg over 3 days patch 3 day See Rx Instructions .ROUTE .COMPLEX Rx Instructions: APPLY 1 PATCH TO SKIN DIRECTED EVERY THIRD DAY. fentanyl 75 mcg/hr patch 72 hour See Rx Instructions .ROUTE .COMPLEX Rx Instructions: APPLY 1 PATCH TO SKIN DIRECTED EVERY THIRD DAY atropine 1 % drops See Rx Instructions .ROUTE .COMPLEX Rx Instructions: 2-4 DROPS SUBLINGUAL EVERY 2 HOURS PRN INCREASED SECRETIONS Lorazepam Intensol 2 mg/mL concentrate See Rx Instructions .ROUTE .COMPLEX Rx Instructions: TAKE 0.5 ML (1 MG) BY MOUTH EVERY 2 HOURS NEEDED FOR ANXIETY OR DISCOMFORT. naproxen 500 mg Tablet 500 mg PO BID PRN (Reason: Pain) vitamin B complex-folic acid 0.4 mg Tablet 1 tab PO DAILY Vitamin D3 25 mcg (1,000 unit) Tablet 25 mcg PO DAILY budesonide-formoterol 160-4.5 mcg/actuation HFA aerosol inhaler 1 puff INHALATION BID magnesium oxide 400 mg magnesium Tablet 400 mg PO DAILY furosemide 40 mg tablet 40 mg PO DAILY PRN (Reason: Edema) albuterol sulfate 90 mcg/actuation HFA aerosol inhaler 2 puff inhalation QID prednisone 5 mg tablet 5 mg PO BID Referrals: Lukas Campbell DO [Primary Care Provider] - Coding Level of Care Code ED Forging Engineer for Talha Luz
--- NOTE | 2023-07-25 17:39 | PC.NURSE ---
POSTMORTEM CARE PERFORMED ON PATIENT. ALL LINES REMOVED. PT PLACED IN CLEAN GOWN WITH SHEET DRAPED OVER PT LEGS.
[2023-07-25 18:15] LABS: Adenovirus Not Detected (NOT DETECT); Chlamydia Pneumoniae Not Detected (NOT DETECT); Coronavirus 229E,HKU1,NL63,OC4 Not Detected (NOT DETECT); Human Metapneumovirus Not Detected (NOT DETECT); Human Rhinovirus/Enterovirus Not Detected (NOT DETECT); Influenza A Not Detected (NOT DETECT); Influenza A H1 Not Detected (NOT DETECT); Influenza A H1-2009 Not Detected (NOT DETECT); Influenza A H3 Not Detected (NOT DETECT); Influenza B Not Detected (NOT DETECT); Mycoplasma Pneumoniae Not Detected (NOT DETECT); Parainfluenza Virus Type 1 Not Detected (NOT DETECT); Parainfluenza Virus Type 2 Not Detected (NOT DETECT); Parainfluenza Virus Type 3 Not Detected (NOT DETECT); Parainfluenza Virus Type 4 Not Detected (NOT DETECT); Respiratory Syncytial Virus A Not Detected (NOT DETECT); Respiratory Syncytial Virus B Not Detected (NOT DETECT); SARS-COV-2 Not Detected (NOT DETECT)
== END 2023-07-25 16:12 | disposition expired ==
PROVIDERS: Emergency Provider Family Medicine; PCP Emergency Medicine Emergency Medical Services
DX: I11.0 Hypertensive heart disease with heart failure (principal); I50.9 Heart failure, unspecified; D64.9 Anemia, unspecified; J44.0 Chronic obstructive pulmonary disease with (acute) lower respiratory infection; J18.9 Pneumonia, unspecified organism; J44.1 Chronic obstructive pulmonary disease with (acute) exacerbation; C61 Malignant neoplasm of prostate; Z79.01 Long term (current) use of anticoagulants; Z79.82 Long term (current) use of aspirin; Z11.52 Encounter for screening for COVID-19; Z87.891 Personal history of nicotine dependence; I25.2 Old myocardial infarction; Z85.830 Personal history of malignant neoplasm of bone; I25.10 Atherosclerotic heart disease of native coronary artery without angina pectoris; E78.5 Hyperlipidemia, unspecified
CPT/HCPCS: 31500; 36600; 51702; 71045; 80051; 80053; 80307; 81001; 82140; 82330; 82550; 82805; 83605; 83690; 83735; 83880; 84484; 85025; 87040; 87077; 87186; 87205; 87635; 87804; 93005; 94002; 94640; 94799; 96365; 96366; 96367; 96375; 99291; 99292; A4222; J0282; J0283; J2250; J2598; J3010; J3490